=== PATIENT | male | born 1940 | race Caucasian/White ===

== ENCOUNTER → 2023-01-11 | Outpatient (REF) | payer MEDICARE, OTHER, SELFPAY ==
[2023-01-11 08:56] LABS: Hematocrit 38.8 % (40-54); Hemoglobin 12.6 g/dL (13.0-16.5); Mean Corp Hgb Conc 32.5 g/dL (32-36); Mean Corpuscular Hgb 32.4 pg (27.0-32.0); Mean Corpuscular Volume 99.7 fL (80-94); Mean Platelet Vol. 9.8 fl (6.2-12.0); Platelet Count 170 K/mm3 (150-450); RBC Distribution Width CV 12.5 % (11.6-14.6); RBC Distribution Width SD 45.7 fl (35.1-43.9); Red Blood Count 3.89 M/mm3 (4.6-6.2); White Blood Count 7.5 K/mm3 (4.4-11.0)
[2023-01-11 09:18] LABS: AST(SGOT) 26 U/L (15-37); Alanine Aminotransfer ALT/SGPT 25 U/L (16-61); Albumin, Serum 2.9 g/dL (3.2-5.0); Alkaline Phosphatase 94 U/L (45-117); Anion Gap 5 (5-15); BUN 18 mg/dL (7-18); BUN/Creat Ratio 17.6 RATIO (10-20); Calcium,Total 8.7 mg/dL (8.5-10.1); Chloride 108 mmol/L (98-107); Creatinine, Serum 1.02 mg/dL (0.70-1.30); EST Glomerular Filtration Rate 74 mL/min (>60); Est Glom Filt Rate - Afr Amer 90 mL/min (>60); Globulin 2.9 g/dL (2.2-4.2); Glucose 95 mg/dL (74-106); Potassium 3.8 mmol/L (3.5-5.1); Protein, Total 5.8 g/dL (6.4-8.2); Sodium Level 142 mmol/L (136-145)
== END ==
LOC: OLS.ACH 05:00
PROVIDERS: Visit Provider Internal Medicine
DX: N18.31 Chronic kidney disease, stage 3a (principal)
CPT/HCPCS: 36415; 80053; 85027

== ENCOUNTER → 2023-02-18 | Outpatient (REF) | payer MEDICARE, OTHER, SELFPAY ==
[2023-02-18 09:36] LABS: Hematocrit 42.3 % (40-54); Hemoglobin 13.5 g/dL (13.0-16.5); Mean Corp Hgb Conc 31.9 g/dL (32-36); Mean Corpuscular Hgb 32.1 pg (27.0-32.0); Mean Corpuscular Volume 100.5 fL (80-94); Platelet Count 203 K/mm3 (150-450); RBC Distribution Width CV 12.3 % (11.6-14.6); RBC Distribution Width SD 46.1 fl (35.1-43.9); Red Blood Count 4.21 M/mm3 (4.6-6.2); White Blood Count 8.1 K/mm3 (4.4-11.0)
[2023-02-18 09:41] LABS: Anion Gap 2 (5-15); BUN 25 mg/dL (7-18); BUN/Creat Ratio 22.5 RATIO (10-20); Calcium,Total 8.7 mg/dL (8.5-10.1); Chloride 111 mmol/L (98-107); Creatinine, Serum 1.11 mg/dL (0.70-1.30); EST Glomerular Filtration Rate 67 mL/min (>60); Est Glom Filt Rate - Afr Amer 81 mL/min (>60); Glucose 86 mg/dL (74-106); Potassium 4.5 mmol/L (3.5-5.1); Sodium Level 143 mmol/L (136-145)
== END ==
LOC: OLS.ACH 05:00
PROVIDERS: Visit Provider Internal Medicine
DX: N18.31 Chronic kidney disease, stage 3a (principal)
CPT/HCPCS: 36415; 80048; 85027

== ENCOUNTER → 2023-02-19 | Outpatient (REF) | payer MEDICARE, OTHER, SELFPAY ==
[2023-02-19 08:38] LABS: Mucous, Urine 0 SEEN /hpf (<or=2+); Red Blood Cells-Urine 0 SEEN /hpf (0-5)
[2023-02-19 08:49] LABS: Color, Urine Yellow (Yellow); Glucose, Dipstick Normal (Normal); Ketone-Dipstick 5 mg/dl (Negative); Leukocyte Esterase-Dipstick 500 /ul (Negative); Nitrite-Dipstick Negative (Negative); Occult Blood-Urine Negative /ul (Negative); Protein-Dipstick 15 mg/dl (Negative); Urine Bilirubin Dipstick Negative (Negative); Urine Clarity Sl. Cloudy (Clear); Urine Urobilinogen 1 mg/dl (Normal)
[2023-02-19 09:07] LABS: Bacteria 1+ /hpf (None Seen); Squamous Epithelial Cells - UA 0-5 SEEN /hpf (0-5); White Blood Cells 25-50 SEEN /hpf (0-5)
== END ==
LOC: OLS.ACH 01:00
PROVIDERS: Visit Provider Internal Medicine
DX: N18.31 Chronic kidney disease, stage 3a (principal); Z79.899 Other long term (current) drug therapy
CPT/HCPCS: 81001

== ENCOUNTER → 2023-02-24 | Outpatient (REF) | payer MEDICARE, SELFPAY ==
[2023-02-24 08:35] LABS: Bacteria 0 SEEN /hpf (None Seen); Mucous, Urine 0 SEEN /hpf (<or=2+); Red Blood Cells-Urine 0 SEEN /hpf (0-5); Squamous Epithelial Cells - UA 0 SEEN /hpf (0-5); White Blood Cells 0 SEEN /hpf (0-5)
[2023-02-24 09:06] LABS: Color, Urine Yellow (Yellow); Glucose, Dipstick Normal (Normal); Ketone-Dipstick Negative (Negative); Leukocyte Esterase-Dipstick Negative /ul (Negative); Nitrite-Dipstick Negative (Negative); Occult Blood-Urine Negative /ul (Negative); Protein-Dipstick Negative (Negative); Urine Bilirubin Dipstick Negative (Negative); Urine Clarity Sl. Cloudy (Clear); Urine Urobilinogen 1 mg/dl (Normal)
== END ==
LOC: OLS.ACH 05:00
PROVIDERS: Visit Provider Internal Medicine
DX: R41.82 Altered mental status, unspecified (principal)
CPT/HCPCS: 81001; 87086

== ENCOUNTER → 2023-06-16 | Outpatient (CLI) | payer MEDICARE, OTHER, SELFPAY ==
--- OUTSIDE RECORDS SUMMARY | 2023-06-16 12:53 | XMS RPT_ITS | CCD ---
Author Name Unknown Address [address] [place] [address] Organization [facility] Care Team Providers Care Spray Machine Loader Name Role Phone Blanco, Chenguttai Jayaram Unavailable Unav ailable Blanco, Chenguttai Jayaram Unavailable Unav ailable Blanco, Chenguttai Jayaram Unavailable Unav ailable Blanco, Chenguttai Jayaram Unavailable Unav ailable Blanco, Chenguttai Jayaram Unavailable Unav ailable Blanco, Chenguttai Jayaram Unavailable Unav ailable Blanco, Chenguttai Jayaram Unavailable Unav ailable Razmjouei, Karim Unavailable Unavailable KELTY, OTIS DORIAN Unavailable Unavailable Blanco, Chenguttai Jayaram Unavailable Unav ailable Anoop, Sajid Unavailable Unavailable Blanco, Chenguttai Jayaram Unavailable Unav ailable ANDRYC, SAMREEN A Unavailable Unavailable Blanco, Chenguttai Jayaram Unavailable Unav ailable Blanco, Chenguttai Jayaram Unavailable Unav ailable Blanco, Chenguttai Jayaram Unavailable Unav ailable Blanco, Chenguttai J Unavailable UnavailJose Galeana Unavailable Unavailable Cathy Cid Unavailable Unavailable Cathy Cid Unavailable UnavailZaynab Bergman Unavailable Unavailable Blanco, Chenguttai J Unavailable UnavailCathy Bains Unavailable Unavailable [id number], Chenguttai J Unavailable Unavailable Cathy Cid Unavailable [phone] Unavailable Unavailable Unavailable Primary Care Provider Unavailabl e PROVIDER, UNKNOWN Referring Unavailable No, PCP Primary Care Unavailable Adusumilli, Leo Attending Unavailable Mesko, Dr. Zaynab Campos Attending Unava ilable Mesko, Dr. Zaynab Campos Referring Unava ilable Van Nostran, Dr. Cathy Carter Primary Care U navailable Van Nostran, Dr. Cathy Carter Attending U navailable Van Nostran, Dr. Cathy Carter Referring U navailable Van Nostran, Dr. Cathy Carter Primary Care U navailable Mesko, Dr. Zaynab Campos Referring Unava ilable Van Nostran, Dr. Cathy Carter Primary Care U navailable Mesko, Dr. Zaynab Campos Attending Unava ilable Van Nostran, Dr. Cathy Carter Attending U navailable Van Nostran, Dr. Cathy Carter Primary Care U navailable Van Nostran, Dr. Cathy Carter Referring U navailable Mesko, Dr. Zaynab Campos Attending Unava ilable Mesko, Dr. Zaynab Campos Referring Unava ilable Van Nostran, Dr. Cathy Carter Primary Care U navailable Mesko, Dr. Zaynab Campos Referring Unava ilable Mesko, Dr. Zaynab Campos Attending Unava ilable Van Nostran, Dr. Cathy Carter Primary Care U navailable Mesko, Dr. Zaynab Campos Referring Unava ilable Mesko, Dr. Zaynab Campos Attending Unava ilable Van Nostran, Dr. Cathy Carter Primary Care U navailable Van Nostran, Dr. Cathy Carter Primary Care U navailable Van Nostran, Dr. Cathy Carter Referring U navailable Charlie Clancy Attending Unavailable Van Nostran, Dr. Cathy Carter Primary Care U navailable Van Nostran, Dr. Cathy Carter Referring U navailable Van Nostran, Dr. Cathy Carter Attending U navailable Van Nostran, Dr. Cathy Carter Primary Care U navailable Van Nostran, Dr. Cathy Carter Referring U navailable Van Nostran, Dr. Cathy Carter Attending U navailable Van Nostran, Dr. Cathy Carter Primary Care U navailable Hoynes, Dr. Dylan Cowan Referring Unavaila ble Hoynes, Dr. Dylan Cowan Attending Unavaila ble Van Nosanabella, Dr. Cathy Carter Primary Care [facility] Van Nostran, Dr. Cathy Carter Referring U [facility] JewelCharlie power Attending Unavailable Van Nostran, Dr. Cathy Carter Primary Care U [facility] Van Nostran, Dr. Cathy Carter Referring U [facility] JewelCharlie power Attending Unavailable Van Jaylen, Dr. Cathy Carter Referring [facility] hospital[facility] Attending Unavailable Van Jaylen, [facility]athy [facility], Dr. Cathy Carter Primary Care [facility] Charlie Clancy Attending Unavailable Van Jaylen, Dr. Cathy Carter [facility]erring [facility]ostran, Dr. Cathy Carter [facility], Dr. Dylan Cowan Referring Unavaila ble Dentonynes, Dr. Dylan Cowan Attending Unavaila ble Rei York, Dr. Cathy Carter Attending U [facility] Rei York, Dr. Cathy Carter Primary Care U [facility] Rei York, Dr. Cathy Carter Referring U [facility] Rei York, Dr. Cathy Carter Primary Care U [facility] Rei York, Dr. Cathy Carter Referring [facility] Van Jaylen, Dr. Cathy Carter Attending U [facility] Rei York, Dr. Cathy Carter Primary Care U [facility] Rei York, Dr. Cathy Carter Referring U [facility] Rei York, Dr. Cathy Carter Attending U [facility] Cathy Cid DO Primary Care Provider Cathy Cid DO Unavailable CATHY CID Primary Care CATHY Matthews Primary Care UnavailCATHY Bains Attending CATHY Matthews Primary Care Unavailrekha valencia Medications Current Medications Medication Drug Class(es) Dates Sig (Normalized) Sig (Original) allopurinol 100 mg oral tablet (20 sources) Xanthine Oxidase Inhibitor Start: 12-13-2014 allopurinol (Zyloprim) 100 mg tablet cholecalciferol 0.05 mg oral tablet (20 sources) Vitamin D cholecalciferol (Vitamin D-3) 50 MCG (1999) tablet Vitamin D3 50 MCG (1999) Oral Tablet Refills: 0 Active 0 Active Completed/Discontinued Medications Medication Drug Class(es) Dates Sig (Normalized) Sig (Original) [id number] 200 actuat albuterol 0.09 mg/actuat metered dose inhaler (20 sources) beta2-Adrenergic Agonist Start: 12-02-2020 take 1-2 puff(s) by mouth every four hours Albuterol Sulfate HFA 108 (90 Base) MCG/ACT Inhalation Aerosol Solution inhale 1-2 puffs by mouth every 4 hours if needed Quantity: 1 Refills: 3 Ordered: 15-Apr-2022 Cathy Cid DO Start : 02-Dec-2020 Active Problems Active Problems Problem Classification Problem Date Documented Date Episodic/Chronic Anxiety disorders (20 sources) Anxiety; Translations: [Mixed anxiety and depressive disorder] Onset: 10-13-2022 10-14-2022 Chronic Anxiety disorders (10 sources) Indifference; Translations: [Demoralization and apathy] Onset: 10-14-2022 10-14-2022 Episodic Chronic kidney disease (20 sources) Chronic kidney disease, unspecified; Translations: [Chronic kidney disease stage 3] Onset: 10-13-2022 10-14-2022 Chronic Chronic kidney disease (12 sources) Chronic kidney disease; Translations: [Chronic renal insufficiency] Onset: 11-27-2017 Chronic obstructive pulmonary disease and bronchiectasis (20 sources) Chronic obstructive pulmonary disease, unspecified; Translations: [Chronic obstructive lung disease] Onset: 01-02-2018 10-14-2022 Chronic Conduction disorders (20 sources) Right bundle branch block AND left anterior fascicular block; Translations: [Right bundle branch block and left anterior fascicular block] Onset: 10-13-2022 10-13-2022 Chronic Congestive heart failure; nonhypertensive (20 sources) Heart failure with normal ejection fraction; Translations: [Heart failure, unspecified] Onset: 10-13-2022 10-13-2022 Chronic Coronary atherosclerosis and other heart disease (20 sources) Coronary arteriosclerosis; Translations: [Coronary atherosclerosis of unspecified type of vessel, [place] or graft] Onset: 09-08-2022 10-14-2022 Chronic Past or Other Problems Problem Classification Problem Date Documented Date Episodic/Chronic External cause codes: Fall (17 sources) Fall; Translations: [Fall] Mood disorders (3 sources) Major depressive disorder, single episode, unspecified; Translations: [Mood disorders] Onset: 01-02-2018 10-14-2022 Osteoarthritis (16 sources) Osteoarthritis of right hip joint; Translations: [Osteoarthritis of right hip] Other aftercare (1 source) 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; Translations: [senior care (current) use of anticoagulants] Onset: 12-17-2017 Episodic Other connective tissue disease (5 sources) H/O: arthritis; Translations: [History of acute gouty arthritis] Episodic Other connective tissue disease (20 sources) H/O: gout; Translations: [Personal history of arthritis] Resolved: 05-26-2019 Episodic Other nervous system disorders (1 source) Other abnormalities of gait and mobility; Translations: [Other abnormalities of gait and mobility] Onset: 08-28-2021 Episodic Other nervous system disorders (1 source) Unsteadiness on feet; Translations: [Unsteadiness on feet] Onset: 08-28-2021 Episodic Other non-traumatic joint disorders (3 sources) Pain in right shoulder; Translations: [Pain in right shoulder] Onset: 10-14-2021 Episodic Other non-traumatic joint disorders (1 source) Pain in left shoulder; Translations: [Pain in left shoulder] Onset: 10-14-2021 Episodic Other nutritional; endocrine; and metabolic disorders (20 sources) History of nutritional deficiency; Translations: [Personal history of nutritional deficiency] Resolved: 12-02-2020 Episodic Results Test Name Value Interpretation Reference Range Facil ity Vital Signs Date Time Vital Sign Value Performing Clinician Facility 12-09-2022 13:00-0400 Body mass index (BMI) [Ratio] 20.94 kg/m2 Cathy Cid DO Work Phone: [facility] 12-09-2022 13:00-0400 Body temperature 97.5 [degF] Cathy Cid DO Work Phone: [facility] 12-09-2022 13:00-0400 Body weight 64.32 kg Cathy Cid DO Work Phone: [facility] 12-09-2022 13:00-0400 Diastolic blood pressure 76 mm[Hg] Cathy Vallestran DO Work Phone: [facility] 12-09-2022 13:00-0400 Heart rate 70 /min Cathy Vallestran DO Work Phone: [facility] 12-09-2022 13:00-0400 Respiratory rate 12 /min Cathy Vallestran DO Work Phone: [facility] 12-09-2022 13:00-0400 SaO2% (BldA) [Mass fraction] 95 % Cathy Vallestran DO Work Phone: [facility] 12-09-2022 13:00-0400 Systolic blood pressure 118 mm[Hg] Cathy Vallestran DO Work Phone: [facility] 10-14-2022 13:48-0400 Body mass index (BMI) [Ratio] 21.01 kg/m2 Cathy Cid DO Work Phone: [facility] 10-14-2022 13:48-0400 Body temperature 99 [degF] Cathy Cid DO Work Phone: [facility] 10-14-2022 13:48-0400 Body weight 64.55 kg Cathy Cid DO Work Phone: [facility] 10-14-2022 13:48-0400 Diastolic blood pressure 55 mm[Hg] Ctahy Cid DO Work Phone: [facility] 10-14-2022 13:48-0400 Heart rate 80 /min Cathy Vallesanabella DO Work Phone: [facility] 10-14-2022 13:48-0400 Respiratory rate 14 /min Cathyivan Vallestran DO Work Phone: [facility] 10-14-2022 13:48-0400 SaO2% (BldA) [Mass fraction] 92 % Cathy Van Nostran DO Work Phone: [facility] 10-14-2022 13:48-0400 Systolic blood pressure 93 mm[Hg] Cathy Van Nostran DO Work Phone: [facility] 04-15-2022 10:25-0500 Body mass index (BMI) [Ratio] 22.31 kg/m2 Cathy Valencia Van Nostran Work Phone: [facility] Work Phone: 04-15-2022 10:25-0500 Body surface area Derived from formula 1.83 m2 Cathy Valencia Van Nostran Work Phone: [facility] Work Phone: 04-15-2022 10:25-0500 Body temperature 97.2 [degF] Cathy Valencia Van Nostran Work Phone: [facility] Work Phone: 04-15-2022 10:25-0500 Body weight 68.52 kg Cathy Valencia Van Nostran Work Phone: [facility] Work Phone: 04-15-2022 10:25-0500 Diastolic blood pressure 67 mm[Hg] Cathy Valencia Van Nostran Work Phone: [facility] Work Phone: 04-15-2022 10:25-0500 Heart rate 80 /min Cathy Valencia Van Nostran Work Phone: [facility] Work Phone: 04-15-2022 10:25-0500 Respiratory rate 14 /min Cathy Valnecia Van Nostran Work Phone: [facility] Work Phone: 04-15-2022 10:25-0500 SaO2% (BldA) [Mass fraction] 93 % Cathy Valencia Van Nostran Work Phone: [facility] Work Phone: 04-15-2022 10:25-0500 Systolic blood pressure 106 mm[Hg] Cathy Vallesanabella Work Phone: [facility] Work Phone: 04-15-2022 10:25-0500 17 1 Cathy Minaya Nostran Work Phone: [facility] Work Phone: Encounters Encounter Date Encounter Type Care Provider Facility Start: 12-09-2022 End: 12-09-2022 Office outpatient visit 25 minutes Cathy Valencia Rei York DO Work Phone: [facility] Procedures Date Procedure Procedure Detail Performing Clinician Start: 10-15-2022 Basic metabolic 1999 panel - Serum or Plasma CATHY CID Start: 10-14-2022 CBC panel - Blood by Automated count CATHY CID Start: 10-14-2022 Comprehensive metabo lic 1999 panel - Serum or Plasma CATHY CID Start: 10-14-2022 TSH WITH REFLEX TO F REE T4 IF ABNORMAL CATHY CID Start: 02-02-2022 Radex humerus minimu m 2 views Leo Keyes MD Work Phone: Start: 02-02-2022 Ct cervical spine w/ o contrast material Leo Keyes MD Work Phone: Start: 02-02-2022 Ct head/brain w/o co ntrast material Leo Keyes MD Work Phone: Start: 02-02-2022 Ct pelvis w/o contra st material Leo Keyes MD Work Phone: Start: 01-12-2022 Medicare Annual Well ness Visit Start: 09-11-2021 Follow-up visit Start: 07-03-2021 Lipid 1996 panel - S rose or Plasma Cathy Rei York DO Work Phone: Start: 11-28-2019 Basic metabolic 1998 panel - Serum or Plasma Jonna Simeon Start: 11-28-2019 CBC W Auto Different ial panel - Blood [facility] Start: 11-28-2019 Lipid panel [facility] Start: 09-09-2018 Basic metabolic 1998 panel - Serum or Plasma [facility] Start: 09-09-2018 CBC W Auto Different ial panel - Blood [facility] Start: 09-09-2018 TSH WITH REFLEX TO F REE T4 IF ABNORMAL [facility] Start: 01-02-2018 Iv infusion hydratio n each additional hour [facility] Start: 01-02-2018 Iv infusion hydratio n initial 31 min[facility] Start: 11-28-2017 Iv infusion hydratio n initial 31 min-1 hour [facility] Hernia repair [facility] History of Back Surgery [facility] History of Total Gastrectomy [facility] History of Transuret hral Resection Of Prostate (TURP) [facility] Plan of Treatment Date Care Activity Detail Author Start: 07-03-2026 Lipid panel Lipid Panel [facility] Start: 10-03-2025 DTaP/Tdap/Td Vaccines (2 - Td or Tdap) DTaP/Tdap/Td Vaccines (2 - Td or Tdap) [facility] Start: 10-16-2023 Creatinine measurement Creatinine Level [facility] Start: 10-16-2023 Potassium measurement Potassium Level [facility] Start: 04-16-2023 Medicare Annual Wellness Visit Medicare Annual Wellness Visit (AWV) [facility] Start: 04-15-2023 End: 04-15-2023 Patient encounter procedure 04/15/2023 2:30 PM EST Office Visit [facility] [address] [place] [id number] Cathy Cid DO [address] [facility] [place] [address] [facility] Start: 01-01-2023 Influenza vaccination Influenza Vaccine (#1) [facility] Start: 12-09-2022 End: 12-09-2022 Patient encounter procedure 12/09/2022 1:00 PM EDT Office Visit [facility] [address] [place] [address] Cathy Cid DO [address] [facility] [place] [address] [facility] Start: 10-14-2022 FUV, Provider: Cathy Cid, Status: Pen, Time: 1:30 PM FUV, Provider: Cathy Cid, Status: Pen, Time: 1:30 PM [facility] Work Phone: Start: 10-14-2022 End: 10-15-2023 CBC panel - Blood by Automated count CBC Lab Routine Depression with anxiety Unexplained weight loss Fatigue, unspecified type Apathy Irritability Expected: 10/14/2022 (Approximate), Expires: 10/15/2023 [facility] Service Area Work Phone: Immunizations Immunization Date Immunization Notes Care Provider Fa cility 04-15-2022 Prevnar 20 0.5 ML Intramuscular Suspension Prefilled Syringe; Translations: [Prevnar 20 0.5 ML Intramuscular Suspension Prefilled Syringe] Cathy Cid Work Phone: [facility] Work Phone: Payers Date Payer Category Payer Unknown [id number] 2008 Unknown 2008 Unknown [id number] Medicare [id number] 2001 Medicare [id number] 2001 Medicare 1936 Unknown [id number] 2.16. 840.1.975335.3.579.2. 1936 Unknown [id number] 2.16. 840.1.190632.3.579.2.356 1936 Unknown [id number] 2.16. 840.1.751999.3.579.2.356 1936 Unknown [id number] 2. 840.1.151184.3.579.2.356 1936 Unknown [id number] 2. 840.1.281031.3.579.2. 1936 Unknown [id number] 2. 840.1.232173.3.579.2. 1936 Unknown [id number] 2. 840.1.873181.3.579.2. 1936 Unknown [id number] 2. 840.1.670173.3.579.2. 1936 Unknown [id number] 2.0.1.508412.3.579.2.668 1936 Unknown [id number] 2.0.1.020184.3.579.2. 1936 Unknown [id number] 2.0.1.944090.3.579.2. 1936 Unknown [id number] 2.0.1.165438.3.579.2. 1936 Unknown [id number] .0.1.620284.3.579.2. 1936 Unknown [id number] 2. 840.1.821263.3.579.2. 1936 Unknown [id number] . 840.1.746998.3.579.2. 1936 Unknown [id number] . 840.1.366639.3.579.2. 1936 Unknown [id number] 2. 840.1.990956.3.579.2. 1936 Unknown [id number] 2. 840.1.184255.3.579.2. 1936 Unknown [id number] 2. 840.1.344875.3.579.2.356 1936 Unknown [id number] 2.16. 840.1.388137.3.579.2.356 1936 Unknown [id number] 2.16. 840.1.971292.3.579.2.356 1936 Unknown [id number] 2.16. 840.1.116534.3.579.2.356 1936 Unknown [id number] 2.16. 840.1.631992.3.579.2.356 1936 Unknown [id number] 2.16. 840.1.549414.3.579.2.356 1936 Unknown [id number] 2.16. 840.1.446856.3.579.2.356 1936 Unknown [id number] 2.16. 840.1.538101.3.579.2.356 1936 Unknown [id number] 2.16. 840.1.303281.3.579.2.356 1936 Unknown [id number] 2.16. 840.1.158862.3.579.2.356 1936 Unknown [id number] 2.16.84 0.1.285325.3.579.2.1245 1936 Unknown [id number] 2.16.84 0.1.831730.3.579.2.1245 1936 Unknown [id number] 2.16.84 0.1.547044.3.579.2.1244 Social History Date Type Detail Facility Start: 10-14-2022 Never a smoker Never a smoker [facility] Work Phone: Start: 02-02-2022 End: 10-14-2022 Tobacco smoking status NHIS Never smoked tobacco [facility] Work Phone: Start: 02-02-2022 End: 10-14-2022 Tobacco use and exposure Smokeless tobacco non-user [facility] Work Phone: Start: 02-02-2022 Alcohol intake Lifetime non-d riky (finding) [facility] Work Phone: Start: 11-27-1938 Sex Assigned At Not on file [facility] Work Phone: Start: 01-23-2022 End: 12-09-2022 Exposure to SARS-CoV-2 (event) Not sure [facility] Work Phone: History of tobacco use Passive smoker [facility] Work Phone: Start: 10-14-2022 End: 12-09-2022 Alcohol intake Ex-drinker (finding) [facility] Work Phone: Start: 10-14-2022 [facility] Work Phone: NEGATED: Highlighted row - Never smoker [facility] Work Phone: NEGATED: Highlighted rowStart: NINF History of tobacco use Passive smoker [facility] Work Phone: Functional Status Date Assessment Result Facility 03-19-2021 PHQ-9 Adult Depressi on Score PHQ-9 Adult Depression Score 4 [facility] Work Phone: Mental Status Date Assessment Result Facility NEGATED: Highlighted row Cognitive function [Interpretation] Cognitive status health issues are not documented Disease [facility] Work Phone: Clinical Notes 12-02-2020 to 12-09-2022 Assessment & Plan Note - Chica Early - 12/09/2022 1:47 PM EDTAssessment & Plan Note - Chica Early - 12/09/2022 1:47 PM Hugo Cid DO - 12/09/2022 1:00 PM EDTAttachments Note Date & Type Note Facility 12-09-2022 Evaluation + Plan note Associated Problem(s): Depression with anxiety There is report of improvement in mood and engagement per since changing to the Zoloft. Continue Zoloft 50 mg daily. [facility] Work Phone: 12-09-2022 Miscellaneous Notes Associated Problem(s): Depression with anxiety There is report of improvement in mood and engagement per since changing to the Zoloft. Continue Zoloft 50 mg daily. Associated Problem(s): Carotid artery stenosis Continue Plavix Associated Problem(s): CAD (coronary artery disease) Stable, continue Rosuvastatin 10 mg & Plavix anticoagulation. Associated Problem(s): Hx of blood clots Currently on Plavix, has taken Eliquis in the past. Hx of DVT (x3) Hx of GI bleed/ulcer that required surgical intervention per over 40 years ago. R/B discussion held regarding Plavix vs Xarelto/Eliquis, elects to continue with Plavix given complicated history, fall risk. documented in this encounter [facility] Work Phone: 12-09-2022 Evaluation + Plan note Associated Problem(s): Carotid artery stenosis Continue Plavix [facility] Work Phone: 12-09-2022 Evaluation + Plan note Associated Problem(s): CAD (coronary artery disease) Stable, continue Rosuvastatin 10 mg & Plavix anticoagulation. [facility] Work Phone: 12-09-2022 Evaluation + Plan note Associated Problem(s): Hx of blood clots Currently on Plavix, has taken Eliquis in the past. Hx of DVT (x3) Hx of GI bleed/ulcer that required surgical intervention per over 40 years ago. R/B discussion held regarding Plavix vs Xarelto/Eliquis, elects to continue with Plavix given complicated history, fall risk. [facility] Work Phone: 12-09-2022 History of Present illness Narrative Subjective Patient ID: Javier Lanza is a 84 y.o. male who presents for Weight Check (Pt presents for follow up weight check). HPI Patient presents today for 6-8 week follow-up for recheck mood and weight + review labs. 10/14/2022 LABS: CBC normal CMP glucose 32, creatinine 1.39, GFR 49 TSH normal Repeat BMP done on 10/15/2022 showed glucose 113 Weight remains stable at visit today within 1 lb of last visit in October 2022. Appetite remains stable per patient. CHRONIC CONDITIONS: -DEMENTIA Taking Memantine 10 mg BID. -MOOD Patient has been on Celexa for over 4 years now, some concerns for irritability, apathy. does feel trial with alternative would be reasonable. Will taper the Celexa and once discontinue will do trial with Zoloft Patient decrease to 1/2 dose Celexa for 1 week (20 mg daily), then stop altogether. The day following the last dose of Celexa patient to start Zoloft 25 mg daily. After 1 week on the Zoloft 25 mg daily, if tolerating well to increase to 50 mg daily. Will reassess patient in 6-8 weeks. Today reports that his mood seems to be improved overall. He is not as irritable, more engaged. Read for about 1 hour everyday. -COPD Feels there is some excessive mucus production with out cough. Patient/ to do trial with split dosing PPI as 10 mg in AM and 10 mg in PM. -CKD Remains at baseline, monitoring routinely. -WEIGHT LOSS Down ~ 25 lbs in last 1.5 years. Basic blood work ordered today. Patient/ do not wish to have extensive work-up, felt to be due in part to aging/comorbidities/change in dietary habits. Advised can add on Ensure or something similar. Hx of carotid artery disease and clots x 3, requesting refill of Plavix. Reports DVT x 3 2014 RLE after surgery Reports 2 other episodes of clots. Hx of bleeding ulcer in remote past, at least 40 years ago. Reports he had gastric surgery at that time. Review of Systems All other systems reviewed and are negative. Objective BP 118/76 (BP Location: Right arm, Patient Position: Sitting, BP Cuff Size: Small adult) Pulse 70 Temp 36.4 C (97.5 F) (Temporal) Resp 12 Wt 64.3 kg (141 lb 12.8 oz) SpO2 95% BMI 20.94 kg/m Physical Exam Vitals and nursing note reviewed. Constitutional: General: He is not in acute distress. Appearance: Normal appearance. He is not toxic-appearing. Comments: Spontaneous conversation, though minimal, much improved from previous visits HENT: Head: Normocephalic and atraumatic. Neck: Thyroid: No thyromegaly. Cardiovascular: Rate and Rhythm: Normal rate and regular rhythm. Heart sounds: No murmur heard. No friction rub. No gallop. Pulmonary: Effort: Pulmonary effort is normal. Breath sounds: Normal breath sounds. No wheezing, rhonchi or rales. Lymphadenopathy: Cervical: No cervical adenopathy. Neurological: General: No focal deficit present. Mental Status: He is alert. Psychiatric: Mood and Affect: Mood normal. Behavior: Behavior normal. Assessment/Plan Problem List Items Addressed This Visit CAD (coronary artery disease) Stable, continue Rosuvastatin 10 mg & Plavix anticoagulation. Relevant Medications clopidogrel (Plavix) 75 mg tablet Carotid artery stenosis Continue Plavix Relevant Medications clopidogrel (Plavix) 75 mg tablet Depression with anxiety - Primary There is report of improvement in mood and engagement per since changing to the Zoloft. Continue Zoloft 50 mg daily. Relevant Medications sertraline (Zoloft) 50 mg tablet Hx of blood clots Currently on Plavix, has taken Eliquis in the past. Hx of DVT (x3) Hx of GI bleed/ulcer that required surgical intervention per over 40 years ago. R/B discussion held regarding Plavix vs Xarelto/Eliquis, elects to continue with Plavix given complicated history, fall risk. Relevant Medications clopidogrel (Plavix) 75 mg tablet Follow-up as previously scheduled for routine care. Call for sooner follow-up if needed. Scribe Attestation By signing my name below, I, Chica Early, Jhonny attest that this documentation has been prepared under the direction and in the presence of Cathy Cid DO. documented in this encounter [facility] Work Phone: 12-09-2022 Instructions Chica Early - 12/09/2022 1:00 PM EDT Continue Plavix Continue Sertraline 50 mg daily. Continue with Ensure Follow-up as scheduled for routine care. documented in this encounter [facility] Work Phone: 10-14-2022 Evaluation + Plan note Associated Problem(s): CKD (chronic kidney disease) stage 3, GFR 30-59 ml/min (CMS/HCC) Prior labs at baseline for patient. Will continue to monitor on regular basis. Revisited good BP control, avoiding NSAIDs, and adequate hydration as measures to further protect kidneys. [facility] Work Phone: 10-14-2022 Miscellaneous Notes Associated Problem(s): CKD (chronic kidney disease) stage 3, GFR 30-59 ml/min (CMS/HCC) Prior labs at baseline for patient. Will continue to monitor on regular basis. Revisited good BP control, avoiding NSAIDs, and adequate hydration as measures to further protect kidneys. Associated Problem(s): Dementia (CMS/HCC) Continue Memantine 10 mg BID. See mood recommesndationation Associated Problem(s): COPD (chronic obstructive pulmonary disease) (CMS/HCC) Feels there is some excessive mucus production with out cough. Patient/ to do trial with split dosing PPI as 10 mg in AM and 10 mg in PM. Associated Problem(s): Depression with anxiety Patient has been on Celexa for over 4 years now, some concerns for irritability, apathy. does feel trial with alternative would be reasonable. Will taper the Celexa and once discontinue will do trial with Zoloft Patient decrease to 1/2 dose Celexa for 1 week (20 mg daily), then stop altogether. The day following the last dose of Celexa patient to start Zoloft 25 mg daily. After 1 week on the Zoloft 25 mg daily, if tolerating well to increase to 50 mg daily. Will reassess patient in 6-8 weeks. Associated Problem(s): Body mass index (BMI) of 21.0 to 21.9 in adult Down ~ 25 lbs in last 1.5 years. Basic blood work ordered today. Patient/ do not wish to have extensive work-up, felt to be due in part to aging/comorbidities/change in dietary habits. Advised can add on Ensure or something similar. Associated Problem(s): Insomnia Taking Trazodone 50 mg (1/2 tablet) at bedtime. documented in this encounter [facility] Work Phone: 10-14-2022 Evaluation + Plan note Associated Problem(s): Dementia (CMS/HCC) Continue Memantine 10 mg BID. See mood recommesndationation [facility] Work Phone: 10-14-2022 Evaluation + Plan note Associated Problem(s): COPD (chronic obstructive pulmonary disease) ([facility]) Feels there is some excessive mucus production with out cough. Patient/ to do trial with split dosing PPI as 10 mg in AM and 10 mg in PM. [facility] Work Phone: 10-14-2022 Evaluation + Plan note Associated Problem(s): Depression with anxiety Patient has been on Celexa for over 4 years now, some concerns for irritability, apathy. does feel trial with alternative would be reasonable. Will taper the Celexa and once discontinue will do trial with Zoloft Patient decrease to 1/2 dose Celexa for 1 week (20 mg daily), then stop altogether. The day following the last dose of Celexa patient to start Zoloft 25 mg daily. After 1 week on the Zoloft 25 mg daily, if tolerating well to increase to 50 mg daily. Will reassess patient in 6-8 weeks. [facility] Work Phone: 10-14-2022 Evaluation + Plan note Associated Problem(s): Body mass index (BMI) of 21.0 to 21.9 in adult Down ~ 25 lbs in last 1.5 years. Basic blood work ordered today. Patient/ do not wish to have extensive work-up, felt to be due in part to aging/comorbidities/change in dietary habits. Advised can add on Ensure or something similar. [facility] Work Phone: 10-14-2022 Evaluation + Plan note Associated Problem(s): Insomnia Taking Trazodone 50 mg (1/2 tablet) at bedtime. [facility] Work Phone: 10-14-2022 History of Present illness Narrative Subjective Patient ID: Javier Lanza is a 83 y.o. male who presents for Follow-up, Hypertension, Hyperlipidemia, Coronary Artery Disease, Chronic Kidney Disease, Hyperglycemia, Gait Problem, and Excessive Mucus. HPI Reports excessive mucus production, feels to be worse in the AM Does not feel is coughing much. Started PPI, does not feel there is much change in this. states she can hear patient's stomach gurgling at table. Patient denies any dysphagia, abdominal pain, diarrhea, vomiting, or constipation. notes patient has lost weight, feels some what deliberate as he is snacking more than eating meals. Feels he has lost some muscle mass. He has had some falls. CHRONIC CONDITIONS: -Gait, patient referred to PT for balance in 07/2021, he completed 6 sessions and was then discharged. -Mood, taking Celexa 40 mg daily. Patient reports mood is not bad, notes he does get irritable at times and some apathy. Does not enjoy the things he usually does. Does not partake in conversations, cannot hear well but does not want to wear hearing aids. Sleep is good, no trouble falling asleep. Reports has been on the Celexa for more than 4 years, saw psych in past. -Insomnia, taking Trazodone 50 mg (1/2 tablet) at bedtime. -Dementia, on Memantine 10 mg BID. MOCA 2019 was stable. -COPD, never a smoker but did have industrial exposure. He was previously on Symbicort daily in distant past, declined this at 03/2021 Now using albuterol as needed. -HTN, taking Metoprolol 25 mg 1/2 tablet daily. -Hyperglycemia, barely in pre-diabetic range, lifestyle managed. 07/2021 glucose 117 12/2020 Hgb A1c 5.8; prior A1c was 5.6 in 01/2018 -CKD, baseline GFR 56-60 07/2021 GFR 49 + creatinine 1.40, down from prior and down from baseline. 12/2020 GFR 59 + creatinine 1.18, at baseline. -CAD/HLD currently on Rosuvastatin 10 mg & Plavix anticoagulation. Has seen cardiology (Dr. Obrien) in the past. 07/2021 lipid panel favorable with TC/HDL ratio 3.2, stable from prior ratio 3.2 in 12/2020 No CACS, however, there were coronary artery calcifications on 07/2007 CT chest. Review of Systems All other systems reviewed and are negative. Objective BP 93/55 (BP Location: Right arm, Patient Position: Sitting, BP Cuff Size: Adult) Pulse 80 Temp 37.2 C (99 F) Resp 14 Wt 64.5 kg (142 lb 4.8 oz) SpO2 92% BMI 21.01 kg/m Physical Exam Vitals and nursing note reviewed. Constitutional: General: He is not in acute distress. Appearance: Normal appearance. He is not toxic-appearing. HENT: Head: Normocephalic and atraumatic. Eyes: Extraocular Movements: Extraocular movements intact. Pupils: Pupils are equal, round, and reactive to light. Neck: Thyroid: No thyromegaly. Vascular: No hepatojugular reflux or JVD. Cardiovascular: Rate and Rhythm: Normal rate and regular rhythm. Heart sounds: No murmur heard. No friction rub. No gallop. Pulmonary: Effort: Pulmonary effort is normal. Breath sounds: Normal breath sounds. No wheezing, rhonchi or rales. Abdominal: General: Bowel sounds are normal. There is no distension. Palpations: Abdomen is soft. There is no mass. Tenderness: There is no abdominal tenderness. There is no guarding. Musculoskeletal: General: Normal range of motion. Right lower leg: No edema. Left lower leg: No edema. Lymphadenopathy: Cervical: No cervical adenopathy. Skin: General: Skin is warm and dry. Neurological: General: No focal deficit present. Mental Status: He is alert and oriented to person, place, and time. Gait: Gait normal. Psychiatric: Mood and Affect: Mood normal. Behavior: Behavior normal. Assessment/Plan Problem List Items Addressed This Visit Nervous Dementia (CMS/HCC) Continue Memantine 10 mg BID. See mood recommesndationation Respiratory COPD (chronic obstructive pulmonary disease) ([facility]) Feels there is some excessive mucus production with out cough. Patient/ to do trial with split dosing PPI as 10 mg in AM and 10 mg in PM. Genitourinary CKD (chronic kidney disease) stage 3, GFR 30-59 ml/min ([facility]) Prior labs at baseline for patient. Will continue to monitor on regular basis. Revisited good BP control, avoiding NSAIDs, and adequate hydration as measures to further protect kidneys. Other Depression with anxiety - Primary Patient has been on Celexa for over 4 years now, some concerns for irritability, apathy. does feel trial with alternative would be reasonable. Will taper the Celexa and once discontinue will do trial with Zoloft Patient decrease to 1/2 dose Celexa for 1 week (20 mg daily), then stop altogether. The day following the last dose of Celexa patient to start Zoloft 25 mg daily. After 1 week on the Zoloft 25 mg daily, if tolerating well to increase to 50 mg daily. Will reassess patient in 6-8 weeks. Relevant Medications sertraline (Zoloft) 50 mg tablet Other Relevant Orders CBC Comprehensive Metabolic Panel TSH with reflex to Free T4 if abnormal Body mass index (BMI) of 21.0 to 21.9 in adult Down ~ 25 lbs in last 1.5 years. Basic blood work ordered today. Patient/ do not wish to have extensive work-up, felt to be due in part to aging/comorbidities/change in dietary habits. Advised can add on Ensure or something similar. Other Visit Diagnoses Unexplained weight loss Relevant Orders CBC Comprehensive Metabolic Panel TSH with reflex to Free T4 if abnormal Fatigue, unspecified type Relevant Orders CBC Comprehensive Metabolic Panel TSH with reflex to Free T4 if abnormal Apathy Relevant Orders CBC Comprehensive Metabolic Panel TSH with reflex to Free T4 if abnormal Irritability Relevant Orders CBC Comprehensive Metabolic Panel TSH with reflex to Free T4 if abnormal Follow-up in 6-8 weeks for recheck mood and weight + review labs. Labs to be done prior. Call for sooner follow-up if needed. Scribe Attestation By signing my name below, IChica Scribe attest that this documentation has been prepared under the direction and in the presence of Cathy Cid DO. documented in this encounter [facility] Work Phone: 10-14-2022 Instructions Chica Early - 10/14/2022 1:30 PM EDT MOOD Will taper the Celexa and once discontinue will do trial with Zoloft Patient decrease to 1/2 dose Celexa for 1 week (20 mg daily), then stop altogether. The day following the last dose of Celexa patient to start Zoloft 25 mg daily. After 1 week on the Zoloft 25 mg daily, if tolerating well to increase to 50 mg daily. Will reassess patient in 6-8 weeks. documented in this encounter [facility] Work Phone: 02-02-2022 Hospital Discharge instructions Leo Keyes MD - 02/02/2022 9:07 PM EDT Rest and ice shoulder; may have some nausea and headache over next 3 days The following attachments cannot be sent through Care Everywhere.Head Injury: Closed: General Info (Bar[place])Shoulder Sprain (Barbadian)documented in this encounter [facility] Work Phone: 11-27-2021 Note Discharge Summary PHYSICAL THERAPY Referral/Discharge Information: Date of Discharge: 11/27/21 Date of Last Visit: 10/14/21 Date of Evaluation: 09/18/21 Number of Attended Visits: 6 Referred by: Dr. Cathy Cid Referred for: (B) shoulder pain Reason for Discharge: Failed to schedule and/or to keep follow-up appointment(s). Signatures Electronically signed by : Nisha Nunn PT; Nov 27 2021 4:00PM EST (Author) [employer] 08-28-2021 Note Therapy Diagnosis Assessed Balance problems (781.99) (R26.89) Generalized weakness (780.79) (R53.1) Unsteadiness on feet (781.2) (R26.81) Plan Goals: Goals set and discussed today. By discharge JAVIER LANZA will achieve the following goals: Activity Limitation: ABC 75% or greater, goal discontinued Balance: Patient will demo 60 seconds of tandem stance (B) on uneven surface for improved safety and stability with all functional mobility in home and in community., goal discontinued Gait/Locomotion: Pt will demo improved gait mechanics with even step length, stance time, proper heel strike and push off, and min-no evidence of instability or antalgic gait for return to PLOF., goal discontinued Participation Restrictions: Patient will be able to ambulate about grocery store in community confidently, safely, Renae, without fear of falling, and without need for greater than 15 min rest break post., goal discontinued Strength: Pt will demo improved MMT by >/= 1 point on 0-5 point scale in BLE for improved strength and stability, and improved ease with transfers, lifting/carrying, and proper mechanics with ADL?s AND IADL?s., goal discontinued Transfers: Patient will be able to complete sit <> stand transfer independently, safely, and without compensation to demo improved safety with functional mobility in home and community., goal discontinued Frequency and duration: No further visits planned. Potential to achieve rehab goals is fair: Discharge patient: Progress plateaued. Discharge Plan Related to Patient's Continuing Care: home program. Assessment Patient has not made any objective or subjective improvements in condition seeking care for this episode of care. He continues to demo strength, proprioception, and mobility deficits; however, demos a plateau in progress and has reached max benefit from skilled care at this time. Patient demos ability to complete HEP independently and safely. Encouraged patient to complete HEP as directed for overall health and wellness. Adult Risk Screening Initial Fall Risk Screening: JAVIER has not fallen in the last 6 months. His fall did not result in injury. JAVIER does not have a fear of falling. He does not need assistance with sitting, standing or walking. Does not need assistance walking in his home. He does not need assistance in an unfamiliar setting. The patient is not using an assistive device. Please identify location of pain: (L) shoulder. Domestic Violence Screen: Does not feel threatened or abused physically, emotionally or sexually. Do you feel UNSAFE? The patient feels safe in the home. Depression/Suicide Screening: During the past 2 weeks, the patient has not felt down, depressed or hopeless. During the past 2 weeks, the patient has not felt little interest or pleasure in doing things. Insurance Insurance reviewed Visit number: 8 Medicare Certification Period: Beginnin2021 Endin2021 Subjective Patient reports:. Patient reports pain is present in (L) shoulder this date but denies pain elsewhere. States he hasn't noticed a change in balance and strength since starting PT. States he does not feel limited from doing any activities at home or during daily life. Precautions: Fall Risk: moderate PMhx: failed back surgery 15 years ago, hx of blood clots, THR 20 years ago, HTN, and OA. Objective Ortho Strength Hip: (Luna: P! Denotes Pain with Movement) Extension: 3+/5 on right and 4-/5 on left. Flexion: 4/5 on right and 5/5 on left. Abduction: 3+/5 on right and 3+/5 on left. Adduction: 4/5 on right and 4+/5 on left. Knee: (Luna: P! Denotes Pain with Movement) Knee extension was 5/5 on right, 5/5 on left. Knee flexion was 4-/5 on right, 5/5 on left. Balance and Coordination Static Standing Balance: normal stance: 6* seconds with eyes closed, narrow base of support: 15* seconds with eyes open, right modified tandem stance: 30* seconds with eyes open, left modified tandem stance: 30* seconds with eyes open, foam normal stance: 30* seconds with eyes open and foam NBOS: 20* seconds with eyes open . Mod Tandem = step forward and hold, wide stance * signifies increased sway, hip and ankle strategies noted. Outcome Measures 5 Times Sit to Stand score: u.a to complete [place] Balance Scale score: 32/56 medium Treatment Time in clinic started at 1251 pm Time in clinic ended at 0132 pm Total time in clinic is 41 minutes. Total timed code time is 41 minutes. Therapeutic exercise (19702): timed minutes 41, units 3 . Reassessment of OBJ measures. [facility] completed, provided, and reviewed Patient Education. Provided today: a personalized home program (Scanned), education Education Provided: plan of care, anatomy, fall risk, posture, physiology, home exercise program, body mechanics, home safety and DC plan, assessment of progress. Information communicated to patient. Response to education: verbalized understandi (more content not included)... [employer] 05-24-2021 History of Present illness Narrative 82-year-old male presents to the urgent care with chief complaint of left shoulder pain. Patient is accompanied by his . Endorses a history significant for dementia, high blood pressure, chronic kidney disease, COPD and coronary artery disease. He states that when he was getting out of bed this morning he felt and heard a snapping sensation of his left shoulder and has since been having a lot of pain when he tries to move his arm. He also endorses significant decrease in range of motion of the left shoulder and needed his 's assistance getting dressed this morning. He took Tylenol this morning for the discomfort. He denies falling or direct trauma to the shoulder. Denies fever, chills, swelling, bruising, erythema, warmth, open wounds, numbness, tingling, chest pain, trouble breathing, headache or dizziness. Injury or surgeries to the left shoulder. He denies having any pain in his elbow, forearm, wrist or hand. [facility] Work Phone: 12-02-2020 History of Present illness Narrative MWV LAST COMPLETED 12/02/2020Health maintenance:TDAP-- 10/2015COVID-- completed 07/2020 + booster 03/2021Influenza-- Due Fall hingrix-- completedPneumonia series-- PPSV 2004; no record of PCVCscope(45-75)-- N/A - graduatedLast DEXA-- 04/2016 normalPSA-- N/A - graduatedAAA Screen(65-79)-- 03/2017 normalAnxiety/Depression-- HQ-2: 0GAD-7: 2Hepatitis C Screen-- none foundLast HbA1c-- 5.8 in ipid Panel-- ratio: 3.2 in cardiac score-- none found (coronary artery calcifications on 07/2007 CT chest)Patient presents today for recheck SOB, gait, hyperglycemia, HTN, HLD/CAD, CKD + lab review. Pat ient states they have no issues or complaints today.Received flu shot todayPatient answered all questions prior to immunization1: Have you ever had Guillain-Greenway syndrome? (a viral illness resulting in neurological symptoms, including paralysis) (Yes/No): NO2: Have you received a shingles(Zoster), MMR, chickenpox (varicella), or any other live vaccines in the past 4 weeks? (Yes/No): NO3. Have you ever had an anaphylactic reaction to prior flu vaccines? (Yes/No): NOPatient was provided a copy of the current Influenza Vaccine Information Sheet Seen 12/2020, endorsed some SOB on exertion but no associated chest pain; resolves with short rest (5 minutes).12/2020 stress test normal.01/2021 CARDIO EVAL: CAD, continue statins continue low-dose beta-blockers. I have encouraged him to either take the Plavix or the aspirin but not both. He has been on Plavix for a long time. Is not clear to me why. We will continue that. Given the normal dobutamine stress echo I do not believe the cardiac catheterization is indicated. SOB, there is multiple potential etiologies. He does have a low-grade dementia. Clearly cardiac issues must be excluded and have been. This may be related to COPD. I encouraged him to use the inhalers that were given to them. Hypertension well-controlled. Hyperlipidemia followed by his PCP. Mild bilateral carotid artery stenosis. Continue statins continue blood pressure control and antiplatelet therapy. At this point from a cardiac standpoint I do not suggest changing any of his medications other than eliminating the baby aspirin.History of COPD, refilled rescue inhaler at 12/2020 OVPatient does report cough with some frequency, reports that it happens at times at night, and sometimes during the day. Patient denies wheezing or tightness in chest, but reports when patient exerts himself strenuously outdoors, particularly in the cold, he does come in wheezing and coughing.Patient does have a diagnosis of COPD. Upon reviewing old charts, it was determined he was previously on Symbicort daily with albuterol as needed.This was again offered to patient, and patient declined a daily inhaler. We will start with a chest x-ray in light of patient's recent cough. No medications were found to be a potential culprit patient is not on an LISSET inhibitor, for example.Hx of HFpEF, CAD/HLD currently on Rosuvastatin 10 mg & Plavix anticoagulation.12/2020 lipid panel favorable with TC/HDL ratio 3.2 (on statin)05/2020 lipid panel elevated with ratio 6.2 (not on statin at time of this labs, previously well-controlled on statin)NO CACS, however, there were coronary artery calcifications on 07/2007 CT chest.on statins.History of HFpEF (01/2017 ECHO) with Estimated LVEF 65 %. Mild LVH. Mild tricuspid regurgitation. Abnormal LV relaxation.Gait/imbalance issues with fall risk, on anticoagulation. Referral to physical therapy placed 12/2020; to start this after cardiology evaluation (Ruth)He is presently taking Celexa 40 mg daily for moodPresently taking Trazodone 50 mg (1/2 tablet) at bedtime for insomnia.Dementia on Memantine 10 mg BID. MOCA 2018 was stable.Hyperglycemia, barely in pre-diabetic range, lifestyle managed.12/2020 Hgb A1c 5.8; prior A1c was 5.6 in 01/2018CKD 12/2020 GFR 59 & creatinine 1.18, at baseline and up from prior.05/2020 GFR 51 & creatinine 1.33.Hypertension, taking Metoprolol 25 mg 1/2 tablet daily. [facility] Work Phone: documented in this encounter [facility] Work Phone: Evaluation note* Diagnosis Depression with anxiety- Primary Dysthymic disorder Body mass index (BMI) of 21.0 to 21.9 in adult Unexplained weight loss Loss of weight Fatigue, unspecified type Apathy Demoralization and apathy Irritability Chronic obstructive pulmonary disease, unspecified COPD type (CMS/HCC) Dementia, unspecified dementia severity, unspecified dementia type, unspecified whether behavioral, psychotic, or mood disturbance or anxiety (CMS/[facility]) Stage 3a chronic kidney disease documented in this encounter [facility] Work Phone: Evaluation note* Diagnosis Depression with anxiety- Primary Dysthymic disorder Coronary artery disease due to lipid rich plaque Stenosis of carotid artery, unspecified laterality Hx of blood clots documented in this encounter [facility] Work Phone: History of Present illness Narrative* The patient is being seen for the subsequent annual wellness visit. * Past Medical, Surgical and Family History: reviewed and updated in chart. * Medications and Supplements: Medications and supplements, including calcium and vitamins reviewed and updated in chart. * No, the patient is not using opioids. * Patient Self Assessment of Health Status: good. * Tobacco use: Non-User * Alcohol use: Non-User * Illicit drug use: Non-User * Current diet: well balanced diet, does consume adequate fluids and does consume caffeine. * Exercise Frequency: regularly. * Depression/Suicide Screening: . * During the past 2 weeks, the patient has not felt down, depressed or hopeless. * During the past 2 weeks, the patient has not felt little interest or pleasure in doing things. * Hearing Impairment: Patient has significant hearing impairment. * Cognitive Impairment: No cognitive impairment observed. * Bathing: performs independently. * Dressing: performs independently. * Walking: needs assistance. * Managing Finances: performs independently. * Shopping: performs independently. * Managing Medications: performs independently. * Housework / Basic Home Maintenance: needs assistance. * Falls Risk Screening:. JAVIER has not fallen in the last 6 months. * Home safety risk factors: none. * Health maintenance: * TDAP-- 10/2015 * Influenza-- Due Fall 2020 * Shingrix-- completed per patient (Zoster in the past) * Pneumonia series-- PPSV 2004; no record of PCV * Cscope(45-75)-- N/A - graduated * Last DEXA-- 04/2016 normal * AAA Screen(65-79)-- 03/2017 normal * PSA-- N/A - graduated * Anxiety/Depression-- 11/2019 * PHQ-9: 3 * JULIET-7: 0 * Hepatitis C Screen-- none found * Last HbA1c-- 5.6 on 01/2018 * Lipid Panel-- ratio: 6.2 in 05/2020 * CT cardiac Score-- none found (coronary artery calcifications on 07/2007 CT chest) * *Due for: HEP C SCREEN, A1c, lipid panel * Patient presents today for health management of mood, insomnia, memory, hyperglycemia, HTN, HLD/CAD, CKD, COPD + MWV. * Patient presents with no additional complaints today. * Sees podiatry for foot care, last saw about 2-3 weeks ago and goes every 9 weeks. * Patient on Memantine 10 mg BID for dementia. MOCA 2018 was stable. 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 Still driving, however, is always with him when he does for directions. No tickets, accidents, or traffic violations. * Takes Celexa 40 mg daily for mood. Also takes Trazodone 50 mg (1/2 tablet) at bedtime for insomnia. * PHQ-9 is 2 today, this was 3 at last visit 11/2019 * JULIET-7 is 0 today, this was 0 at last visit 11/2019 * Hx of COPD, last PFTs in system from 01/2018. * States he does have some SOB with exertion, causes him to sit down to catch his breath. Denies any chest pain or pressure. notes he has inhaler but does not use it. * History of hyperglycemia, fasting glucose 118 on BMP. A1c was 5.6 in 01/2018. Eats multiple buckeyes daily per . * History of CKD, GFR 51 and creatinine 1.33 in 05/2020 which is patient's baseline. * Presently taking Metoprolol 25 mg 1/2 tablet daily for blood pressure. Patient denies chest pain, palpitations, lower extremity edema, headache, or dizziness. Medications are being taken and tolerated well. No side effects are reported. Patient is taking blood pressure outside of office and reportsgood control. * HLD + CAD, presently back on Rosuvastatin 10 mg daily. Off statin at time of last lipid panel as this was not refilled in 2019. Medications are being taken as directed and tolerated well. Patient denies any facial droop, sudden vision loss, weakness or numbness on one side of body. Patient denies chest pain, palpitations, or symptoms of claudication. * IO lipid panel today shows * 05/2020 lipid panel elevated with ratio 6.2 * NO CT cardiac score, however, there were coronary artery calcifications on 07/2007 CT chest. * Additionally, patient with history of HFpEF * 01/2017 ECHO: Estimated LVEF 65 %. Mild LVH. Mild tricuspid regurgitation. Abnormal LV relaxation. * Also on On Plavix anticoagulation for CAD. 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 Last saw cardiology, Dr. Mitchell, 03/22/2019. He had Carotid US done 04/17/2019 which showed findings consistent with less than 50% stenosis of the right + left proximal ICA. Right + left external carotid artery appears patent with no evidence of stenosis. The right + left vertebral artery is patent with antegrade flow. No evidence of hemodynamically significant stenosis in the right or left subclavian. Was due to follow-up in 1year, but Dr. Mitchell no longer works there. * No falls in the last 6 months. Does have loose knee cap, ambulates with cane. * Patient is 82 years old and has graduated from all routine cancer and prostate cancer screenings. [facility] Work Phone: History of Present illness Narrative* The patient is being seen for the subsequent annual wellness visit. * Past Medical, Surgical and Family History: reviewed and updated in chart. * Medications and Supplements: Medications and supplements, including calcium and vitamins reviewed and updated in chart. * No, the patient is not using opioids. * Patient Self Assessment of Health Status: good. * Tobacco use: Non-User * Alcohol use: Non-User * Illicit drug use: Non-User * Current diet: well balanced diet, does consume adequate fluids and does consume caffeine. * Exercise Frequency: regularly. * Depression/Suicide Screening: . * During the past 2 weeks, the patient has not felt down, depressed or hopeless. * During the past 2 weeks, the patient has not felt little interest or pleasure in doing things. * Hearing Impairment: Patient has significant hearing impairment. * Cognitive Impairment: No cognitive impairment observed. * Bathing: performs independently. * Dressing: performs independently. * Walking: needs assistance. * Managing Finances: performs independently. * Shopping: performs independently. * Managing Medications: performs independently. * Housework / Basic Home Maintenance: needs assistance. * Falls Risk Screening:. JAVIER has not fallen in the last 6 months. * Home safety risk factors: none. * Health maintenance: * TDAP-- 10/2015 * Influenza-- Due Fall 2020 * Shingrix-- completed per patient (Zoster in the past) * Pneumonia series-- PPSV 2004; no record of PCV * Cscope(45-75)-- N/A - graduated * Last DEXA-- 04/2016 normal * AAA Screen(65-79)-- 03/2017 normal * PSA-- N/A - graduated * Anxiety/Depression-- 11/2019 * PHQ-9: 3 * JULIET-7: 0 * Hepatitis C Screen-- none found * Last HbA1c-- 5.6 on 01/2018 * Lipid Panel-- ratio: 6.2 in 05/2020 * CT cardiac Score-- none found (coronary artery calcifications on 07/2007 CT chest) * *Due for: HEP C SCREEN, A1c, lipid panel * Patient presents today for health management of mood, insomnia, memory, hyperglycemia, HTN, HLD/CAD, CKD, COPD + MWV. * Patient presents with no additional complaints today. * Sees podiatry for foot care, last saw about 2-3 weeks ago and goes every 9 weeks. * Patient on Memantine 10 mg BID for dementia. MOCA 2019 was stable. 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 Still driving, however, is always with him when he does for directions. No tickets, accidents, or traffic violations. * Takes Celexa 40 mg daily for mood. Also takes Trazodone 50 mg (1/2 tablet) at bedtime for insomnia. * PHQ-9 is 2 today, this was 3 at last visit 11/2019 * JULIET-7 is 0 today, this was 0 at last visit 11/2019 * Hx of COPD, last PFTs in system from 01/2018. * States he does have some SOB with exertion, causes him to sit down to catch his breath. Denies any chest pain or pressure. notes he has inhaler but does not use it. * History of hyperglycemia, fasting glucose 118 on BMP. A1c was 5.6 in 01/2018. Eats multiple buckeyes daily per . * History of CKD, GFR 51 and creatinine 1.33 in 05/2020 which is patient's baseline. * Presently taking Metoprolol 25 mg 1/2 tablet daily for blood pressure. Patient denies chest pain, palpitations, lower extremity edema, headache, or dizziness. Medications are being taken and tolerated well. No side effects are reported. Patient is taking blood pressure outside of office and reportsgood control. * HLD + CAD, presently back on Rosuvastatin 10 mg daily. Off statin at time of last lipid panel as this was not refilled in 2019. Medications are being taken as directed and tolerated well. Patient denies any facial droop, sudden vision loss, weakness or numbness on one side of body. Patient denies chest pain, palpitations, or symptoms of claudication. * IO lipid panel today shows * 05/2020 lipid panel elevated with ratio 6.2 * NO CT cardiac score, however, there were coronary artery calcifications on 07/2007 CT chest. * Additionally, patient with history of HFpEF * 01/2017 ECHO: Estimated LVEF 65 %. Mild LVH. Mild tricuspid regurgitation. Abnormal LV relaxation. * Also on On Plavix anticoagulation for CAD. 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 Last saw cardiology, Dr. Mitchell, 03/22/2019. He had Carotid US done 04/17/2019 which showed findings consistent with less than 50% stenosis of the right + left proximal ICA. Right + left external carotid artery appears patent with no evidence of stenosis. The right + left vertebral artery is patent with antegrade flow. No evidence of hemodynamically significant stenosis in the right or left subclavian. Was due to follow-up in 1year, but Dr. Mitchell no longer works there. * No falls in the last 6 months. Does have loose knee cap, ambulates with cane. * Patient is 82 years old and has graduated from all routine cancer and prostate cancer screenings. [facility] Work Phone: History of Present illness Narrative* The patient is being seen for the subsequent annual wellness visit. * Past Medical, Surgical and Family History: reviewed and updated in chart. * Medications and Supplements: Medications and supplements, including calcium and vitamins reviewed and updated in chart. * No, the patient is not using opioids. * Patient Self Assessment of Health Status: good. * Tobacco use: Non-User * Alcohol use: Non-User * Illicit drug use: Non-User * Current diet: well balanced diet, does consume adequate fluids and does consume caffeine. * Exercise Frequency: regularly. * Depression/Suicide Screening: . * During the past 2 weeks, the patient has not felt down, depressed or hopeless. * During the past 2 weeks, the patient has not felt little interest or pleasure in doing things. * Hearing Impairment: Patient has significant hearing impairment. * Cognitive Impairment: No cognitive impairment observed. * Bathing: performs independently. * Dressing: performs independently. * Walking: needs assistance. * Managing Finances: performs independently. * Shopping: performs independently. * Managing Medications: performs independently. * Housework / Basic Home Maintenance: needs assistance. * Falls Risk Screening:. JAVIER has not fallen in the last 6 months. * Home safety risk factors: none. * Health maintenance: * TDAP-- 10/2015 * Influenza-- Due Fall 2020 * Shingrix-- completed per patient (Zoster in the past) * Pneumonia series-- PPSV 2004; no record of PCV * Cscope(45-75)-- N/A - graduated * Last DEXA-- 04/2016 normal * AAA Screen(65-79)-- 03/2017 normal * PSA-- N/A - graduated * Anxiety/Depression-- 11/2019 * PHQ-9: 3 * JULIET-7: 0 * Hepatitis C Screen-- none found * Last HbA1c-- 5.6 on 01/2018 * Lipid Panel-- ratio: 6.2 in 05/2020 * CT cardiac Score-- none found (coronary artery calcifications on 07/2007 CT chest) * *Due for: HEP C SCREEN, A1c, lipid panel * Patient presents today for health management of mood, insomnia, memory, hyperglycemia, HTN, HLD/CAD, CKD, COPD + MWV. * Patient presents with no additional complaints today. * Sees podiatry for foot care, last saw about 2-3 weeks ago and goes every 9 weeks. * Patient on Memantine 10 mg BID for dementia. MOCA 2019 was stable. 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 Still driving, however, is always with him when he does for directions. No tickets, accidents, or traffic violations. * Takes Celexa 40 mg daily for mood. Also takes Trazodone 50 mg (1/2 tablet) at bedtime for insomnia. * PHQ-9 is 2 today, this was 3 at last visit 11/2019 * JULIET-7 is 0 today, this was 0 at last visit 11/2019 * Hx of COPD, last PFTs in system from 01/2018. * States he does have some SOB with exertion, causes him to sit down to catch his breath. Denies any chest pain or pressure. notes he has inhaler but does not use it. * History of hyperglycemia, fasting glucose 118 on BMP. A1c was 5.6 in 01/2018. Eats multiple buckeyes daily per . * History of CKD, GFR 51 and creatinine 1.33 in 05/2020 which is patient's baseline. * Presently taking Metoprolol 25 mg 1/2 tablet daily for blood pressure. Patient denies chest pain, palpitations, lower extremity edema, headache, or dizziness. Medications are being taken and tolerated well. No side effects are reported. Patient is taking blood pressure outside of office and reportsgood control. * HLD + CAD, presently back on Rosuvastatin 10 mg daily. Off statin at time of last lipid panel as this was not refilled in 2019. Medications are being taken as directed and tolerated well. Patient denies any facial droop, sudden vision loss, weakness or numbness on one side of body. Patient denies chest pain, palpitations, or symptoms of claudication. * IO lipid panel today shows * 05/2020 lipid panel elevated with ratio 6.2 * NO CT cardiac score, however, there were coronary artery calcifications on 07/2007 CT chest. * Additionally, patient with history of HFpEF * 01/2017 ECHO: Estimated LVEF 65 %. Mild LVH. Mild tricuspid regurgitation. Abnormal LV relaxation. * Also on On Plavix anticoagulation for CAD. 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 Last saw cardiology, Dr. Mitchell, 03/22/2019. He had Carotid US done 04/17/2019 which showed findings consistent with less than 50% stenosis of the right + left proximal ICA. Right + left external carotid artery appears patent with no evidence of stenosis. The right + left vertebral artery is patent with antegrade flow. No evidence of hemodynamically significant stenosis in the right or left subclavian. Was due to follow-up in 1year, but Dr. Mitchell no longer works there. * No falls in the last 6 months. Does have loose knee cap, ambulates with cane. * Patient is 82 years old and has graduated from all routine cancer and prostate cancer screenings. [facility] Work Phone: History of Present illness NarrativeI am seeing Javier in follow-up. He has been followed in the past with Dr. Silveira. Javier's 82. He has a history of mild nonobstructive coronary disease based upon a cardiac catheterization in 2010. He has had a history of HFrEF. He also has COPD. Evidently he has been coming more short of breath. He was sent for a dobutamine stress echo at [facility]. This was normal. He has no symptoms of chest pain or pressure no lower extremity edema no orthopnea no palpitations. Because of the shortness of breath he was sent for further evaluation. He has had PFTs indicating he does have COPD. He was given inhalers but he has not used them at this point.[id number] [place] Work Phone: History of Present illness Narrative* The patient is being seen for the subsequent annual wellness visit. * Past Medical, Surgical and Family History: reviewed and updated in chart. * Medications and Supplements: Medications and supplements, including calcium and vitamins reviewed and updated in chart. * No, the patient is not using opioids. * Patient Self Assessment of Health Status: good. * Tobacco use: Non-User * Alcohol use: Non-User * Illicit drug use: Non-User * Current diet: well balanced diet, does consume adequate fluids and does consume caffeine. * Exercise Frequency: regularly. * Depression/Suicide Screening: . * During the past 2 weeks, the patient has not felt down, depressed or hopeless. * During the past 2 weeks, the patient has not felt little interest or pleasure in doing things. * Hearing Impairment: Patient has significant hearing impairment. * Cognitive Impairment: No cognitive impairment observed. * Bathing: performs independently. * Dressing: performs independently. * Walking: needs assistance. * Managing Finances: performs independently. * Shopping: performs independently. * Managing Medications: performs independently. * Housework / Basic Home Maintenance: needs assistance. * Falls Risk Screening:. JAVIER has not fallen in the last 6 months. * Home safety risk factors: none. * Health maintenance: * TDAP-- 10/2015 * Influenza-- Due Fall 2020 * Shingrix-- completed per patient (Zoster in the past) * Pneumonia series-- PPSV 2004; no record of PCV * Cscope(45-75)-- N/A - graduated * Last DEXA-- 04/2016 normal * AAA Screen(65-79)-- 03/2017 normal * PSA-- N/A - graduated * Anxiety/Depression-- 11/2019 * PHQ-9: 3 * JULIET-7: 0 * Hepatitis C Screen-- none found * Last HbA1c-- 5.6 on 01/2018 * Lipid Panel-- ratio: 6.2 in 05/2020 * CT cardiac Score-- none found (coronary artery calcifications on 07/2007 CT chest) * *Due for: HEP C SCREEN, A1c, lipid panel * Patient presents today for health management of mood, insomnia, memory, hyperglycemia, HTN, HLD/CAD, CKD, COPD + MWV. * Patient presents with no additional complaints today. * Sees podiatry for foot care, last saw about 2-3 weeks ago and goes every 9 weeks. * Patient on Memantine 10 mg BID for dementia. MOCA 2018 was stable. 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 Still driving, however, is always with him when he does for directions. No tickets, accidents, or traffic violations. * Takes Celexa 40 mg daily for mood. Also takes Trazodone 50 mg (1/2 tablet) at bedtime for insomnia. * PHQ-9 is 2 today, this was 3 at last visit 11/2019 * JULIET-7 is 0 today, this was 0 at last visit 11/2019 * Hx of COPD, last PFTs in system from 01/2018. * States he does have some SOB with exertion, causes him to sit down to catch his breath. Denies any chest pain or pressure. notes he has inhaler but does not use it. * History of hyperglycemia, fasting glucose 118 on . A1c was 5.6 in 01/2018. Eats multiple buckeyes daily per . * History of CKD, GFR 51 and creatinine 1.33 in 05/2020 which is patient's baseline. * Presently taking Metoprolol 25 mg 1/2 tablet daily for blood pressure. Patient denies chest pain, palpitations, lower extremity edema, headache, or dizziness. Medications are being taken and tolerated well. No side effects are reported. Patient is taking blood pressure outside of office and reportsgood control. * HLD + CAD, presently back on Rosuvastatin 10 mg daily. Off statin at time of last lipid panel as this was not refilled in 2019. Medications are being taken as directed and tolerated well. Patient denies any facial droop, sudden vision loss, weakness or numbness on one side of body. Patient denies chest pain, palpitations, or symptoms of claudication. * IO lipid panel today shows * 05/2020 lipid panel elevated with ratio 6.2 * NO CT cardiac score, however, there were coronary artery calcifications on 07/2007 CT chest. * Additionally, patient with history of HFpEF * 01/2017 ECHO: Estimated LVEF 65 %. Mild LVH. Mild tricuspid regurgitation. Abnormal LV relaxation. * Also on On Plavix anticoagulation for CAD. 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 Last saw cardiology, Dr. Mitchell, 03/22/2019. He had Carotid US done 04/17/2019 which showed findings consistent with less than 50% stenosis of the right + left proximal ICA. Right + left external carotid artery appears patent with no evidence of stenosis. The right + left vertebral artery is patent with antegrade flow. No evidence of hemodynamically significant stenosis in the right or left subclavian. Was due to follow-up in 1year, but Dr. Mitchell no longer works there. * No falls in the last 6 months. Does have loose knee cap, ambulates with cane. * Patient is 82 years old and has graduated from all routine cancer and prostate cancer screenings. [facility] Work Phone: History of Present illness Narrative* 1. HTN * The patient presents for follow up of hypertension. * Patient denies symptoms including headaches, dizziness, vision changes, syncope, chest pain, palpitations, dyspnea, and edema. * Medications are being taken as directed and tolerated well without side effects: Metoprolol * Blood pressure is monitored outside the office and is at goal. BP at home runs 118/70s * The patient reports adherence to a low salt diet but not exercising * Last labs were 12/2020 * He is not followed by Cardiology at this time (used to follow with vascular for carotids), still takes Plavix (+h/o DVT) * He reports he hydrates well with water, but states he needs to drink more (2-3 cups per day) * +h/o GIB * 2. 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 CAD/HLD * Taking Rosuvastatin, Clopidogrel * 4. Dementia * Taking Memantine, takes Trazodone at night time for insomnia (takes this every night, 1/2 tablet) * *Depression-> taking Citalopram * Answers questions appropriately * Still driving * Reports he is stable, denies SI * Son Thanh lives nearby, sees patient 1-2x/week [facility] Work Phone: History of Present illness Narrative* 1. HTN * The patient presents for follow up of hypertension. * Patient denies symptoms including headaches, dizziness, vision changes, syncope, chest pain, palpitations, dyspnea, and edema. * Medications are being taken as directed and tolerated well without side effects: Metoprolol * Blood pressure is monitored outside the office and is at goal. BP at home runs 118/70s * The patient reports adherence to a low salt diet but not exercising * Last labs were 12/2020 * He is not followed by Cardiology at this time (used to follow with vascular for carotids), still takes Plavix (+h/o DVT) * He reports he hydrates well with water, but states he needs to drink more (2-3 cups per day) * +h/o GIB * 2. 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 CAD/HLD * Taking Rosuvastatin, Clopidogrel * 4. Dementia * Taking Memantine, takes Trazodone at night time for insomnia (takes this every night, 1/2 tablet) * *Depression-> taking Citalopram * Answers questions appropriately * Still driving * Reports he is stable, denies SI * Son Thanh lives nearby, sees patient 1-2x/week [facility] Work Phone: History of Present illness Narrative* The patient is being seen for the subsequent annual wellness visit. * Past Medical, Surgical and Family History: reviewed and updated in chart. * Medications and Supplements: Medications and supplements, including calcium and vitamins reviewed and updated in chart. * No, the patient is not using opioids. * Patient Self Assessment of Health Status: good. * Tobacco use: Non-User * Alcohol use: Non-User * Illicit drug use: Non-User * Current diet: well balanced diet, does consume adequate fluids and does consume caffeine. * Exercise Frequency: regularly. * Depression/Suicide Screening: . * During the past 2 weeks, the patient has not felt down, depressed or hopeless. * During the past 2 weeks, the patient has not felt little interest or pleasure in doing things. * Hearing Impairment: Patient has significant hearing impairment. * Cognitive Impairment: No cognitive impairment observed. * Bathing: performs independently. * Dressing: performs independently. * Walking: needs assistance. * Managing Finances: performs independently. * Shopping: performs independently. * Managing Medications: performs independently. * Housework / Basic Home Maintenance: needs assistance. * Falls Risk Screening:. JAVIER has not fallen in the last 6 months. * Home safety risk factors: none. * Health maintenance: * TDAP-- 10/2015 * Influenza-- Due Fall 2020 * Shingrix-- completed per patient (Zoster in the past) * Pneumonia series-- PPSV 2004; no record of PCV * Cscope(45-75)-- N/A - graduated * Last DEXA-- 04/2016 normal * AAA Screen(65-79)-- 03/2017 normal * PSA-- N/A - graduated * Anxiety/Depression-- 11/2019 * PHQ-9: 3 * JULIET-7: 0 * Hepatitis C Screen-- none found * Last HbA1c-- 5.6 on 01/2018 * Lipid Panel-- ratio: 6.2 in 05/2020 * CT cardiac Score-- none found (coronary artery calcifications on 07/2007 CT chest) * *Due for: HEP C SCREEN, A1c, lipid panel * Patient presents today for health management of mood, insomnia, memory, hyperglycemia, HTN, HLD/CAD, CKD, COPD + MWV. * Patient presents with no additional complaints today. * Sees podiatry for foot care, last saw about 2-3 weeks ago and goes every 9 weeks. * Patient on Memantine 10 mg BID for dementia. MOCA 2019 was stable. 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 Still driving, however, is always with him when he does for directions. No tickets, accidents, or traffic violations. * Takes Celexa 40 mg daily for mood. Also takes Trazodone 50 mg (1/2 tablet) at bedtime for insomnia. * PHQ-9 is 2 today, this was 3 at last visit 11/2019 * JULIET-7 is 0 today, this was 0 at last visit 11/2019 * Hx of COPD, last PFTs in system from 01/2018. * States he does have some SOB with exertion, causes him to sit down to catch his breath. Denies any chest pain or pressure. notes he has inhaler but does not use it. * History of hyperglycemia, fasting glucose 118 on . A1c was 5.6 in 01/2018. Eats multiple buckeyes daily per . * History of CKD, GFR 51 and creatinine 1.33 in 05/2020 which is patient's baseline. * Presently taking Metoprolol 25 mg 1/2 tablet daily for blood pressure. Patient denies chest pain, palpitations, lower extremity edema, headache, or dizziness. Medications are being taken and tolerated well. No side effects are reported. Patient is taking blood pressure outside of office and reportsgood control. * HLD + CAD, presently back on Rosuvastatin 10 mg daily. Off statin at time of last lipid panel as this was not refilled in 2019. Medications are being taken as directed and tolerated well. Patient denies any facial droop, sudden vision loss, weakness or numbness on one side of body. Patient denies chest pain, palpitations, or symptoms of claudication. * IO lipid panel today shows * 05/2020 lipid panel elevated with ratio 6.2 * NO CT cardiac score, however, there were coronary artery calcifications on 07/2007 CT chest. * Additionally, patient with history of HFpEF * 01/2017 ECHO: Estimated LVEF 65 %. Mild LVH. Mild tricuspid regurgitation. Abnormal LV relaxation. * Also on On Plavix anticoagulation for CAD. 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 Last saw cardiology, Dr. Mitchell, 03/22/2019. He had Carotid US done 04/17/2019 which showed findings consistent with less than 50% stenosis of the right + left proximal ICA. Right + left external carotid artery appears patent with no evidence of stenosis. The right + left vertebral artery is patent with antegrade flow. No evidence of hemodynamically significant stenosis in the right or left subclavian. Was due to follow-up in 1year, but Dr. Mitchell no longer works there. * No falls in the last 6 months. Does have loose knee cap, ambulates with cane. * Patient is 82 years old and has graduated from all routine cancer and prostate cancer screenings. [facility] Work Phone: History of Present illness Narrative* Patient presents to PT this date with S&S consistent with unsteadiness on feet and balance deficits. He demos loss of ROM, strength, flexibility, jt mobility, impaired body mechanics, and postural control contributing to ongoing pain and difficulty with sitting, standing, walking, curb and stair negotiation, and transfers from chair, bed, and car. He will benefit from skilled PT intervention to address deficits and limitations listed above in order to return patient to [facility] without restriction. * Clinical Presentation: Stable and/or uncomplicated characteristics. * Level of Complexity: low * Problem List: activity limitations, ADLs/IADLs/self care skills, aerobic capacity/endurance, balance, decreased functional level, decreased knowledge of HEP, fall risk, gait/locomotion, motor function/control/tone, participation restrictions, sensory and strength. [facility] [place] Work Phone: History of Present illness NarrativePatient tolerates today session without pain but with mild fatigue. Patient challenged with interventions but demos ability to complete with no more than SBA needed with intermittent CGA for safety. Patient with ongoing strength and proprioceptive deficits. [facility] [place] Work Phone: History of Present illness NarrativePatient tolerates session well. Requires CGA to Gadiel this date for safety. Lacks safety with functional mobility d/t balance and strength deficits which place him at increased risk for falls. Requires mod verbal cueing throughout for proper form and execution. Educated patient again on controlled decent and ensuring seat is behind him before sitting. [facility] [address] [place] Work Phone: History of Present illness NarrativePatient requires frequent verbal and tactile cueing throughout session for form, execution, and safety. Patient challenged with interventions d/t mobility, strength, and proprioception deficits contributing to ongoing safety concerns with functional mobility. [facility] [address] [place] Work Phone: History of Present illness Narrative* Patient identified by name and * Patient demo's unsteadiness on feet when challenged with change of proprioception this date. Patient requiring max verbal cues for straight posture during standing strengthening exercises with min carry over. Patient quick to fatigue during session. [facility] [address] [place] Work Phone: History of Present illness NarrativePatient has not made any objective or subjective improvements in condition seeking care for this episode of care. He continues to demo strength, proprioception, and mobility deficits; however, demos a plateau in progress and has reached max benefit from skilled care at this time. Patient demos ability to complete HEP independently and safely. Encouraged patient to complete HEP as directed for overall health and wellness. [facility] Work Phone: History of Present illness Narrative* Patient presents to PT this date with S&S consistent with mechanical (L) shoulder pain and stiffness. He demos loss of ROM, strength, flexibility, jt mobility, impaired body mechanics, and postural control contributing to ongoing pain and difficulty with lifting, carrying, pushing, pulling, reaching, driving, dressing, and sleeping impacting their ability to complete ADLs, HHCs, and self-caretasks at prior level. Skilled PT intervention required to address deficits and limitations listed above to return patient to [facility] without restriction. * Clinical Presentation: Stable and/or uncomplicated characteristics. * Level of Complexity: low * Problem List: activity limitations, ADLs/IADLs/self care skills, decreased functional level, decreased knowledge of HEP, fall risk, pain, participation restrictions, posture, range of motion/joint mobility and strength. [facility] Work Phone: History of Present illness Narrative* Patient identified by name and * Patient demo's weakness in L shoulder demo'g difficulty with AAROM and PROM. Patient demo's difficulty with standing AAROM exercises with increased symptoms being unable to complete reps. Patient demo's weakness in L GH ER with resisted exercises. [facility] Work Phone: History of Present illness NarrativePatient demos severe weakness throughout (B) shoulders; as well as, limited jt and soft tissue mobility effecting his mobility. Patient tolerates session well but is challenged d/t weakness and stiffness. Appropriately challenged this date to address deficits. [facility] Work Phone: History of Present illness Narrative* Patient presents this date with a ecchymosis extending throughout (L) upper arm anterior, lateral, and posteriorly from lateral aspect of (L) shoulder down to (L) elbow. Patient denies fall, hitting arm on something, pain with palpation, or change in (L) shoulder pain but cannot recall when bruising began. Patient reports that he is on blood thinning medication. * Progressed interventions this date to address significant strength deficits throughout (L) shouldergirdle > (R). Demos improving ROM with AAROM but severe strength deficits significantly limitingAROM. Additionally, patient demos safety concerns with sit <> stand transfers d/t uncontrolled and premature descent from standing position despite verbal cueing, assistance, and close/direct supervision provided. [facility] [place] Work Phone: History of Present illness NarrativePatient with no c/o increased pain throughout progressions this session. Continues to demo more active assisted motion than solely active d/t significant weakness of (L) shoulder. Patient lacks the strength to be able to lift (L) arm independently continuing to impact his day to day activity. [facility] [place] Work Phone: History of Present illness Narrative* Patient identified by name and * Patient tolerates treatment with moderate difficulty. Patient demo's increased weakness in L shoulder this date with ER and AAROM flexion. Verbal cues needed for proper form with seated AAROM and to not compensate with trunk with min carryover. Patient demo's restriction in L GH capsule this date with flexion and ER. Patient with increased fatigue at end of session. [facility] [place] Work Phone: History of Present illness Narrative* JAVIER is here with his for Hospital FUV-Posterior head injury and right shoulder injury from fall on concrete (garage floor). Pt reports that pt has fallen multiple time recently; once approx 1.5 weeks prior to fall hospitalization, and once the day after fall hospitalization. * [email or web address], Medicare Advanced Planning [facility] Work Phone: History of Present illness Narrative* JAVIER is here with his for Hospital FUV-Posterior head injury and right shoulder injury from fall on concrete (garage floor). Pt reports that pt has fallen multiple time recently; once approx 1.5 weeks prior to fall hospitalization, and once the day after fall hospitalization. * Gaps- Flu, Medicare Advanced Planning * The patient was at his home when he fell in his garage. He was taken to the emergency department. At that time a CT scan was completed and it showed a small aneurysm. The patient and are worriedthat this aneurysm could be something to be further evaluated * Otherwise he has a slight soreness to the shoulder and hip. * I reviewed all results from the emergency room visit -[facility] Work Phone: History of Present illness Narrative* The patient is being seen for the subsequent annual wellness visit. * Past Medical, Surgical and Family History: reviewed and updated in chart. * Medications and Supplements: Review of all medications by a prescribing practitioner or clinical pharmacist (such as prescriptions, OTCs, herbal therapies and supplements) documented in the medical record. * No, the patient is not using opioids. * Patient Self Assessment of Health Status: good. * Tobacco use: Non-User * Alcohol use: Non-User * Illicit drug use: Non-User * Current diet: well balanced diet, does consume adequate fluids and does consume caffeine. * Exercise Frequency: the patient does not exercise. * Depression/Suicide Screening: . * During the past 2 weeks, the patient has not felt down, depressed or hopeless. * During the past 2 weeks, the patient has not felt little interest or pleasure in doing things. * Hearing Impairment: Patient has significant hearing impairment, bilaterally. * Cognitive Impairment: Cognitive impairment was observed. * known demenia, on namenda. * Bathing: performs independently. * Dressing: performs independently. * Walking: performs independently. * Managing Finances: performs independently. * Shopping: performs independently. * Managing Medications: performs independently. * Housework / Basic Home Maintenance: performs independently. * Falls Risk Screening:. JAVIER has fallen in the last 6 months. His fall resulted in the followinginjury: hit head. * Home safety risk factors: none. * Advance directives:. Advanced Care Planning discussed and documented advance care plan or surrogatedecision maker documented in the medical record. Patient has living will. Patient has healthcare POA. * Patient's End of Life Decisions: End of life decisions were reviewed with the patient. I agree to follow the patient's decisions. * Additional Information: full code, has in writing. * Health maintenance: * TDAP-- 10/2015 * COVID-- 08/2021 * Influenza-- due fall 2021 * Shingrix-- completed * Pneumonia series-- PPSV 2004; no record of PCV * Last DEXA-- 04/2016 normal * Cscope(45-75)-- N/A - graduated * PSA-- N/A - graduated * AAA Screen(65-79)-- 03/2017 normal * Anxiety/Depression-- 03/2021 * PHQ-2: 4 * JULIET-7: N/A * Hepatitis C Screen-- none found * Last HbA1c-- 5.8 in 12/2020 * Lipid Panel-- ratio: 3.2 in 07/2021 (TRIG 243) * CT cardiac score-- none found (coronary artery calcifications on 07/2007 CT chest) * ECHO-- 01/2017 (LVEF 65 %. Mild LVH. Mild TR. Abnormal LV relaxation.) * *Due for: FLU, PREVNAR-20?, LABS, A1c (only prediabetic, can do with labs, IO not necessary) * Patient presents today for recheck gait, hyperglycemia, HTN, HLD/CAD, CKD + MWV * Patient would like to receive their wellness visit today. Patient was made aware of and signed acknowledging that if they and the provider decide to discuss medical problems today, instead of returning for a separate visit, that is not part of the wellness visit. Also made aware that in the event that discussion beyond the wellness visit components does occur, an office visit charge will be billed and they will be responsible for any copays and deductibles that apply under their insurance plan. * Refills sent * SCALES given * concerns:fell in Oct had CAT scan showed aneurysm but MRI showed none * * CHRONIC CONDITIONS: * -Gait, patient referred to PT for balance in 07/2021, he completed 6 sessions and was then discharge. * Per 10/2021 PT EVAL: * Patient tolerates treatment with moderate difficulty. Patient demo's increased weakness in L shoulder this date with ER and AAROM flexion. Verbal cues needed for proper form with seated AAROM and to not compensate with trunk with min carryover. Patient demo's restriction in L GH capsule this date with flexion and ER. Patient with increased fatigue at end of session. * -Mood, taking Celexa 40 mg daily. * -Insomnia, taking Trazodone 50 mg (1/2 tablet) at bedtime. * -Dementia, on Memantine 10 mg BID. * MOCA 2019 was stable. * -COPD, never a smoker but did have industrial exposure. * He was previously on Symbicort daily in distant past, declined this at 03/2021 * Now using albuterol as needed. * -HTN, taking Metoprolol 25 mg 1/2 tablet daily. * -Hyperglycemia, barely in pre-diabetic range, lifestyle managed. * 12/2020 Hgb A1c 5.8; prior A1c was 5.6 in 01/2018 * -CKD, baseline GFR 56-60 * 07/2021 GFR 49 + creatinine 1.40, down from prior and down from baseline. * 12/2020 GFR 59 + creatinine 1.18, at baseline. * -CAD/HLD currently on Rosuvastatin 10 mg & Plavix anticoagulation. * Has seen cardiology (Dr. Obrien) in the past. * 07/2021 lipid panel favorable with TC/HDL ratio 3.2, stable from prior ratio 3.2 in 12/2020 * No CACS, however, there were coronary artery calcifications on 07/2007 CT chest. [facility] Work Phone: History of Present illness Narrative* The patient is being seen for the subsequent annual wellness visit. * Past Medical, Surgical and Family History: reviewed and updated in chart. * Medications and Supplements: Review of all medications by a prescribing practitioner or clinical pharmacist (such as prescriptions, OTCs, herbal therapies and supplements) documented in the medical record. * No, the patient is not using opioids. * Patient Self Assessment of Health Status: good. * Tobacco use: Non-User * Alcohol use: Non-User * Illicit drug use: Non-User * Current diet: well balanced diet, does consume adequate fluids and does consume caffeine. * Exercise Frequency: the patient does not exercise. * Depression/Suicide Screening: . * During the past 2 weeks, the patient has not felt down, depressed or hopeless. * During the past 2 weeks, the patient has not felt little interest or pleasure in doing things. * Hearing Impairment: Patient has significant hearing impairment, bilaterally. * Cognitive Impairment: Cognitive impairment was observed. * known demenia, on namenda. * Bathing: performs independently. * Dressing: performs independently. * Walking: performs independently. * Managing Finances: performs independently. * Shopping: performs independently. * Managing Medications: performs independently. * Housework / Basic Home Maintenance: performs independently. * Falls Risk Screening:. JAVIER has fallen in the last 6 months. His fall resulted in the followinginjury: hit head. * Home safety risk factors: none. * Advance directives:. Advanced Care Planning discussed and documented advance care plan or surrogatedecision maker documented in the medical record. Patient has living will. Patient has healthcare POA. * Patient's End of Life Decisions: End of life decisions were reviewed with the patient. I agree to follow the patient's decisions. * Additional Information: full code, has in writing. * Health maintenance: * TDAP-- 10/2015 * COVID-- 08/2021 * Influenza-- due fall 2021 * Shingrix-- completed * Pneumonia series-- PPSV 2004; no record of PCV * Last DEXA-- 04/2016 normal * Cscope(45-75)-- N/A - graduated * PSA-- N/A - graduated * AAA Screen(65-79)-- 03/2017 normal * Anxiety/Depression-- 03/2021 * PHQ-2: 4 * JULIET-7: N/A * Hepatitis C Screen-- none found * Last HbA1c-- 5.8 in 12/2020 * Lipid Panel-- ratio: 3.2 in 07/2021 (TRIG 243) * CT cardiac score-- none found (coronary artery calcifications on 07/2007 CT chest) * ECHO-- 01/2017 (LVEF 65 %. Mild LVH. Mild TR. Abnormal LV relaxation.) * *Due for: FLU, PREVNAR-20?, LABS, A1c (only prediabetic, can do with labs, IO not necessary) * Patient presents today for recheck gait, hyperglycemia, HTN, HLD/CAD, CKD + MWV * Patient would like to receive their wellness visit today. Patient was made aware of and signed acknowledging that if they and the provider decide to discuss medical problems today, instead of returning for a separate visit, that is not part of the wellness visit. Also made aware that in the event that discussion beyond the wellness visit components does occur, an office visit charge will be billed and they will be responsible for any copays and deductibles that apply under their insurance plan. * Refills sent * SCALES given * concerns:fell in Jan had CAT scan showed aneurysm but MRI showed none * * CHRONIC CONDITIONS: * -Gait, patient referred to PT for balance in 07/2021, he completed 6 sessions and was then discharge. * Per 10/2021 PT EVAL: * Patient tolerates treatment with moderate difficulty. Patient demo's increased weakness in L shoulder this date with ER and AAROM flexion. Verbal cues needed for proper form with seated AAROM and to not compensate with trunk with min carryover. Patient demo's restriction in L GH capsule this date with flexion and ER. Patient with increased fatigue at end of session. * -Mood, taking Celexa 40 mg daily. * -Insomnia, taking Trazodone 50 mg (1/2 tablet) at bedtime. * -Dementia, on Memantine 10 mg BID. * MOCA 2018 was stable. * -COPD, never a smoker but did have industrial exposure. * He was previously on Symbicort daily in distant past, declined this at 03/2021 * Now using albuterol as needed. * -HTN, taking Metoprolol 25 mg 1/2 tablet daily. * -Hyperglycemia, barely in pre-diabetic range, lifestyle managed. * 12/2020 Hgb A1c 5.8; prior A1c was 5.6 in 01/2018 * -CKD, baseline GFR 56-60 * 07/2021 GFR 49 + creatinine 1.40, down from prior and down from baseline. * 12/2020 GFR 59 + creatinine 1.18, at baseline. * -CAD/HLD currently on Rosuvastatin 10 mg & Plavix anticoagulation. * Has seen cardiology (Dr. Obrien) in the past. * 07/2021 lipid panel favorable with TC/HDL ratio 3.2, stable from prior ratio 3.2 in 12/2020 * No CACS, however, there were coronary artery calcifications on 07/2007 CT chest. [facility] Work Phone: Reason for visit NarrativeInitial Evaluation . Balance problems. [facility] Work Phone: Reason for visit Narrative* Initial Evaluation . (L) shoulder pain. * Referred by: Dr. Cathy Cid [facility] Work Phone: Summary Purpose Family History natural son Name Dates Details Family history of cardiac di sorder(V17.49, Z82.49) Status:Active Mother Name Dates Details Family history of obesity(V1 8.19, Z83.49) Status:Active Family history of coronary a rtery disease(V17.3, Z82.49) Status:Active Family history of diabetes m ellitus(V18.0, Z83.3) Status:Active Father Name Dates Details Family history of coronary a rtery disease(V17.3, Z82.49) Status:Active Sister Name Dates Details Family history of cardiac di sorder(V17.49, Z82.49) Status:Active Family history of hypertensi on(V17.49, Z82.49) Status:Active Family history of hyperchole sterolemia(V18.19, Z83.42) Status:Active Family history of arthritis( V17.7, Z82.61) Status:Active Family history of stroke(V17 .1, Z82.3) Status:Active Brother Name Dates Details Family history of cardiac di sorder(V17.49, Z82.49) Status:Active natural son Name Dates Details Family history of cardiac di sorder(V17.49, Z82.49) Status:Active Mother Name Dates Details Family history of obesity(V1 8.19, Z83.49) Status:Active Family history of coronary a rtery disease(V17.3, Z82.49) Status:Active Family history of diabetes m ellitus(V18.0, Z83.3) Status:Active Father Name Dates Details Family history of coronary a rtery disease(V17.3, Z82.49) Status:Active Sister Name Dates Details Family history of cardiac di sorder(V17.49, Z82.49) Status:Active Family history of hypertensi on(V17.49, Z82.49) Status:Active Family history of hyperchole sterolemia(V18.19, Z83.42) Status:Active Family history of arthritis( V17.7, Z82.61) Status:Active Family history of stroke(V17 .1, Z82.3) Status:Active Brother Name Dates Details Family history of cardiac di sorder(V17.49, Z82.49) Status:Active natural son Name Dates Details Family history of cardiac di sorder(V17.49, Z82.49) Status:Active Mother Name Dates Details Family history of obesity(V1 8.19, Z83.49) Status:Active Family history of coronary a rtery disease(V17.3, Z82.49) Status:Active Family history of diabetes m ellitus(V18.0, Z83.3) Status:Active Father Name Dates Details Family history of coronary a rtery disease(V17.3, Z82.49) Status:Active Sister Name Dates Details Family history of cardiac di sorder(V17.49, Z82.49) Status:Active Family history of hypertensi on(V17.49, Z82.49) Status:Active Family history of hyperchole sterolemia(V18.19, Z83.42) Status:Active Family history of arthritis( V17.7, Z82.61) Status:Active Family history of stroke(V17 .1, Z82.3) Status:Active Brother Name Dates Details Family history of cardiac di sorder(V17.49, Z82.49) Status:Active natural son Name Dates Details Family history of cardiac di sorder(V17.49, Z82.49) Status:Active Mother Name Dates Details Family history of coronary a rtery disease(V17.3, Z82.49) Status:Active Family history of obesity(V1 8.19, Z83.49) Status:Active Family history of diabetes m ellitus(V18.0, Z83.3) Status:Active Father Name Dates Details Family history of coronary a rtery disease(V17.3, Z82.49) Status:Active Sister Name Dates Details Family history of cardiac di sorder(V17.49, Z82.49) Status:Active Family history of hypertensi on(V17.49, Z82.49) Status:Active Family history of hyperchole sterolemia(V18.19, Z83.42) Status:Active Family history of arthritis( V17.7, Z82.61) Status:Active Family history of stroke(V17 .1, Z82.3) Status:Active Brother Name Dates Details Family history of cardiac di sorder(V17.49, Z82.49) Status:Active natural son Name Dates Details Family history of cardiac di sorder(V17.49, Z82.49) Status:Active Mother Name Dates Details Family history of obesity(V1 8.19, Z83.49) Status:Active Family history of coronary a rtery disease(V17.3, Z82.49) Status:Active Family history of diabetes m ellitus(V18.0, Z83.3) Status:Active Father Name Dates Details Family history of coronary a rtery disease(V17.3, Z82.49) Status:Active Sister Name Dates Details Family history of cardiac di sorder(V17.49, Z82.49) Status:Active Family history of hypertensi on(V17.49, Z82.49) Status:Active Family history of hyperchole sterolemia(V18.19, Z83.42) Status:Active Family history of arthritis( V17.7, Z82.61) Status:Active Family history of stroke(V17 .1, Z82.3) Status:Active Brother Name Dates Details Family history of cardiac di sorder(V17.49, Z82.49) Status:Active natural son Name Dates Details Family history of cardiac di sorder(V17.49, Z82.49) Status:Active Mother Name Dates Details Family history of obesity(V1 8.19, Z83.49) Status:Active Family history of coronary a rtery disease(V17.3, Z82.49) Status:Active Family history of diabetes m ellitus(V18.0, Z83.3) Status:Active Father Name Dates Details Family history of coronary a rtery disease(V17.3, Z82.49) Status:Active Sister Name Dates Details Family history of cardiac di sorder(V17.49, Z82.49) Status:Active Family history of hypertensi on(V17.49, Z82.49) Status:Active Family history of hyperchole sterolemia(V18.19, Z83.42) Status:Active Family history of arthritis( V17.7, Z82.61) Status:Active Family history of stroke(V17 .1, Z82.3) Status:Active Brother Name Dates Details Family history of cardiac di sorder(V17.49, Z82.49) Status:Active natural son Name Dates Details Family history of cardiac di sorder(V17.49, Z82.49) Status:Active Mother Name Dates Details Family history of obesity(V1 8.19, Z83.49) Status:Active Family history of coronary a rtery disease(V17.3, Z82.49) Status:Active Family history of diabetes m ellitus(V18.0, Z83.3) Status:Active Father Name Dates Details Family history of coronary a rtery disease(V17.3, Z82.49) Status:Active Sister Name Dates Details Family history of cardiac di sorder(V17.49, Z82.49) Status:Active Family history of hypertensi on(V17.49, Z82.49) Status:Active Family history of hyperchole sterolemia(V18.19, Z83.42) Status:Active Family history of arthritis( V17.7, Z82.61) Status:Active Family history of stroke(V17 .1, Z82.3) Status:Active Brother Name Dates Details Family history of cardiac di sorder(V17.49, Z82.49) Status:Active natural son Name Dates Details Family history of cardiac di sorder(V17.49, Z82.49) Status:Active Mother Name Dates Details Family history of obesity(V1 8.19, Z83.49) Status:Active Family history of coronary a rtery disease(V17.3, Z82.49) Status:Active Family history of diabetes m ellitus(V18.0, Z83.3) Status:Active Father Name Dates Details Family history of coronary a rtery disease(V17.3, Z82.49) Status:Active Sister Name Dates Details Family history of cardiac di sorder(V17.49, Z82.49) Status:Active Family history of hypertensi on(V17.49, Z82.49) Status:Active Family history of hyperchole sterolemia(V18.19, Z83.42) Status:Active Family history of arthritis( V17.7, Z82.61) Status:Active Family history of stroke(V17 .1, Z82.3) Status:Active Brother Name Dates Details Family history of cardiac di sorder(V17.49, Z82.49) Status:Active natural son Name Dates Details Family history of cardiac di sorder(V17.49, Z82.49) Status:Active Mother Name Dates Details Family history of obesity(V1 8.19, Z83.49) Status:Active Family history of coronary a rtery disease(V17.3, Z82.49) Status:Active Family history of diabetes m ellitus(V18.0, Z83.3) Status:Active Father Name Dates Details Family history of coronary a rtery disease(V17.3, Z82.49) Status:Active Sister Name Dates Details Family history of cardiac di sorder(V17.49, Z82.49) Status:Active Family history of hypertensi on(V17.49, Z82.49) Status:Active Family history of hyperchole sterolemia(V18.19, Z83.42) Status:Active Family history of arthritis( V17.7, Z82.61) Status:Active Family history of stroke(V17 .1, Z82.3) Status:Active Brother Name Dates Details Family history of cardiac di sorder(V17.49, Z82.49) Status:Active natural son Name Dates Details Family history of cardiac di sorder(V17.49, Z82.49) Status:Active Mother Name Dates Details Family history of obesity(V1 8.19, Z83.49) Status:Active Family history of coronary a rtery disease(V17.3, Z82.49) Status:Active Family history of diabetes m ellitus(V18.0, Z83.3) Status:Active Father Name Dates Details Family history of coronary a rtery disease(V17.3, Z82.49) Status:Active Sister Name Dates Details Family history of cardiac di sorder(V17.49, Z82.49) Status:Active Family history of hypertensi on(V17.49, Z82.49) Status:Active Family history of hyperchole sterolemia(V18.19, Z83.42) Status:Active Family history of arthritis( V17.7, Z82.61) Status:Active Family history of stroke(V17 .1, Z82.3) Status:Active Brother Name Dates Details Family history of cardiac di sorder(V17.49, Z82.49) Status:Active natural son Name Dates Details Family history of cardiac di sorder(V17.49, Z82.49) Status:Active Mother Name Dates Details Family history of obesity(V1 8.19, Z83.49) Status:Active Family history of coronary a rtery disease(V17.3, Z82.49) Status:Active Family history of diabetes m ellitus(V18.0, Z83.3) Status:Active Father Name Dates Details Family history of coronary a rtery disease(V17.3, Z82.49) Status:Active Sister Name Dates Details Family history of cardiac di sorder(V17.49, Z82.49) Status:Active Family history of hypertensi on(V17.49, Z82.49) Status:Active Family history of hyperchole sterolemia(V18.19, Z83.42) Status:Active Family history of arthritis( V17.7, Z82.61) Status:Active Family history of stroke(V17 .1, Z82.3) Status:Active Brother Name Dates Details Family history of cardiac di sorder(V17.49, Z82.49) Status:Active natural son Name Dates Details Family history of cardiac di sorder(V17.49, Z82.49) Status:Active Mother Name Dates Details Family history of coronary a rtery disease(V17.3, Z82.49) Status:Active Family history of obesity(V1 8.19, Z83.49) Status:Active Family history of diabetes m ellitus(V18.0, Z83.3) Status:Active Father Name Dates Details Family history of coronary a rtery disease(V17.3, Z82.49) Status:Active Sister Name Dates Details Family history of cardiac di sorder(V17.49, Z82.49) Status:Active Family history of hypertensi on(V17.49, Z82.49) Status:Active Family history of hyperchole sterolemia(V18.19, Z83.42) Status:Active Family history of arthritis( V17.7, Z82.61) Status:Active Family history of stroke(V17 .1, Z82.3) Status:Active Brother Name Dates Details Family history of cardiac di sorder(V17.49, Z82.49) Status:Active natural son Name Dates Details Family history of cardiac di sorder(V17.49, Z82.49) Status:Active Mother Name Dates Details Family history of obesity(V1 8.19, Z83.49) Status:Active Family history of coronary a rtery disease(V17.3, Z82.49) Status:Active Family history of diabetes m ellitus(V18.0, Z83.3) Status:Active Father Name Dates Details Family history of coronary a rtery disease(V17.3, Z82.49) Status:Active Sister Name Dates Details Family history of cardiac di sorder(V17.49, Z82.49) Status:Active Family history of hypertensi on(V17.49, Z82.49) Status:Active Family history of hyperchole sterolemia(V18.19, Z83.42) Status:Active Family history of arthritis( V17.7, Z82.61) Status:Active Family history of stroke(V17 .1, Z82.3) Status:Active Brother Name Dates Details Family history of cardiac di sorder(V17.49, Z82.49) Status:Active natural son Name Dates Details Family history of cardiac di sorder(V17.49, Z82.49) Status:Active Mother Name Dates Details Family history of coronary a rtery disease(V17.3, Z82.49) Status:Active Family history of obesity(V1 8.19, Z83.49) Status:Active Family history of diabetes m ellitus(V18.0, Z83.3) Status:Active Father Name Dates Details Family history of coronary a rtery disease(V17.3, Z82.49) Status:Active Sister Name Dates Details Family history of cardiac di sorder(V17.49, Z82.49) Status:Active Family history of hypertensi on(V17.49, Z82.49) Status:Active Family history of hyperchole sterolemia(V18.19, Z83.42) Status:Active Family history of arthritis( V17.7, Z82.61) Status:Active Family history of stroke(V17 .1, Z82.3) Status:Active Brother Name Dates Details Family history of cardiac di sorder(V17.49, Z82.49) Status:Active natural son Name Dates Details Family history of cardiac di sorder(V17.49, Z82.49) Status:Active Mother Name Dates Details Family history of obesity(V1 8.19, Z83.49) Status:Active Family history of coronary a rtery disease(V17.3, Z82.49) Status:Active Family history of diabetes m ellitus(V18.0, Z83.3) Status:Active Father Name Dates Details Family history of coronary a rtery disease(V17.3, Z82.49) Status:Active Sister Name Dates Details Family history of cardiac di sorder(V17.49, Z82.49) Status:Active Family history of hypertensi on(V17.49, Z82.49) Status:Active Family history of hyperchole sterolemia(V18.19, Z83.42) Status:Active Family history of arthritis( V17.7, Z82.61) Status:Active Family history of stroke(V17 .1, Z82.3) Status:Active Brother Name Dates Details Family history of cardiac di sorder(V17.49, Z82.49) Status:Active natural son Name Dates Details Family history of cardiac di sorder(V17.49, Z82.49) Status:Active Mother Name Dates Details Family history of obesity(V1 8.19, Z83.49) Status:Active Family history of coronary a rtery disease(V17.3, Z82.49) Status:Active Family history of diabetes m ellitus(V18.0, Z83.3) Status:Active Father Name Dates Details Family history of coronary a rtery disease(V17.3, Z82.49) Status:Active Sister Name Dates Details Family history of cardiac di sorder(V17.49, Z82.49) Status:Active Family history of hypertensi on(V17.49, Z82.49) Status:Active Family history of hyperchole sterolemia(V18.19, Z83.42) Status:Active Family history of arthritis( V17.7, Z82.61) Status:Active Family history of stroke(V17 .1, Z82.3) Status:Active Brother Name Dates Details Family history of cardiac di sorder(V17.49, Z82.49) Status:Active natural son Name Dates Details Family history of cardiac di sorder(V17.49, Z82.49) Status:Active Mother Name Dates Details Family history of obesity(V1 8.19, Z83.49) Status:Active Family history of coronary a rtery disease(V17.3, Z82.49) Status:Active Family history of diabetes m ellitus(V18.0, Z83.3) Status:Active Father Name Dates Details Family history of coronary a rtery disease(V17.3, Z82.49) Status:Active Sister Name Dates Details Family history of cardiac di sorder(V17.49, Z82.49) Status:Active Family history of hypertensi on(V17.49, Z82.49) Status:Active Family history of hyperchole sterolemia(V18.19, Z83.42) Status:Active Family history of arthritis( V17.7, Z82.61) Status:Active Family history of stroke(V17 .1, Z82.3) Status:Active Brother Name Dates Details Family history of cardiac di sorder(V17.49, Z82.49) Status:Active Unknown Family Member Name Dates Details Family history of obesity: M other(V18.19, Z83.49) Status:Active Family history of coronary a rtery disease: Mother, Father(V17.3, Z82.49) Status:Active Family history of diabetes m ellitus: Mother(V18.0, Z83.3) Status:Active Family history of cardiac di sorder: Son, Brother, Sister(V17.49, Z82.49) Status:Active Family history of hypertensi on: Sister(V17.49, Z82.49) Status:Active Family history of hyperchole sterolemia: Sister(V18.19, Z83.42) Status:Active Family history of arthritis: Sister(V17.7, Z82.61) Status:Active Family history of stroke: Si ster(V17.1, Z82.3) Status:Active Unknown Family Member Name Dates Details Family history of obesity: M other(V18.19, Z83.49) Status:Active Family history of coronary a rtery disease: Mother, Father(V17.3, Z82.49) Status:Active Family history of diabetes m ellitus: Mother(V18.0, Z83.3) Status:Active Family history of cardiac di sorder: Son, Brother, Sister(V17.49, Z82.49) Status:Active Family history of hypertensi on: Sister(V17.49, Z82.49) Status:Active Family history of hyperchole sterolemia: Sister(V18.19, Z83.42) Status:Active Family history of arthritis: Sister(V17.7, Z82.61) Status:Active Family history of stroke: Si ster(V17.1, Z82.3) Status:Active Unknown Family Member Name Dates Details Family history of obesity: M other(V18.19, Z83.49) Status:Active Family history of coronary a rtery disease: Mother, Father(V17.3, Z82.49) Status:Active Family history of diabetes m ellitus: Mother(V18.0, Z83.3) Status:Active Family history of cardiac di sorder: Son, Brother, Sister(V17.49, Z82.49) Status:Active Family history of hypertensi on: Sister(V17.49, Z82.49) Status:Active Family history of hyperchole sterolemia: Sister(V18.19, Z83.42) Status:Active Family history of arthritis: Sister(V17.7, Z82.61) Status:Active Family history of stroke: Si ster(V17.1, Z82.3) Status:Active Unknown Family Member Name Dates Details Family history of obesity: M other(V18.19, Z83.49) Status:Active Family history of coronary a rtery disease: Mother, Father(V17.3, Z82.49) Status:Active Family history of diabetes m ellitus: Mother(V18.0, Z83.3) Status:Active Family history of cardiac di sorder: Son, Brother, Sister(V17.49, Z82.49) Status:Active Family history of hypertensi on: Sister(V17.49, Z82.49) Status:Active Family history of hyperchole sterolemia: Sister(V18.19, Z83.42) Status:Active Family history of arthritis: Sister(V17.7, Z82.61) Status:Active Family history of stroke: Si ster(V17.1, Z82.3) Status:Active Unknown Family Member Name Dates Details Family history of obesity: M other(V18.19, Z83.49) Status:Active Family history of coronary a rtery disease: Mother, Father(V17.3, Z82.49) Status:Active Family history of diabetes m ellitus: Mother(V18.0, Z83.3) Status:Active Family history of cardiac di sorder: Son, Brother, Sister(V17.49, Z82.49) Status:Active Family history of hypertensi on: Sister(V17.49, Z82.49) Status:Active Family history of hyperchole sterolemia: Sister(V18.19, Z83.42) Status:Active Family history of arthritis: Sister(V17.7, Z82.61) Status:Active Family history of stroke: Si ster(V17.1, Z82.3) Status:Active Unknown Family Member Name Dates Details Family history of obesity: M other(V18.19, Z83.49) Status:Active Family history of coronary a rtery disease: Mother, Father(V17.3, Z82.49) Status:Active Family history of diabetes m ellitus: Mother(V18.0, Z83.3) Status:Active Family history of cardiac di sorder: Son, Brother, Sister(V17.49, Z82.49) Status:Active Family history of hypertensi on: Sister(V17.49, Z82.49) Status:Active Family history of hyperchole sterolemia: Sister(V18.19, Z83.42) Status:Active Family history of arthritis: Sister(V17.7, Z82.61) Status:Active Family history of stroke: Si ster(V17.1, Z82.3) Status:Active Unknown Family Member Name Dates Details Family history of stroke: Si ster(V17.1, Z82.3) Status:Active Family history of arthritis: Sister(V17.7, Z82.61) Status:Active Family history of hyperchole sterolemia: Sister(V18.19, Z83.42) Status:Active Family history of hypertensi on: Sister(V17.49, Z82.49) Status:Active Family history of cardiac di sorder: Son, Brother, Sister(V17.49, Z82.49) Status:Active Family history of diabetes m ellitus: Mother(V18.0, Z83.3) Status:Active Family history of coronary a rtery disease: Mother, Father(V17.3, Z82.49) Status:Active Family history of obesity: M other(V18.19, Z83.49) Status:Active Unknown Family Member Name Dates Details Family history of obesity: M other(V18.19, Z83.49) Status:Active Family history of coronary a rtery disease: Mother, Father(V17.3, Z82.49) Status:Active Family history of diabetes m ellitus: Mother(V18.0, Z83.3) Status:Active Family history of cardiac di sorder: Son, Brother, Sister(V17.49, Z82.49) Status:Active Family history of hypertensi on: Sister(V17.49, Z82.49) Status:Active Family history of hyperchole sterolemia: Sister(V18.19, Z83.42) Status:Active Family history of arthritis: Sister(V17.7, Z82.61) Status:Active Family history of stroke: Si ster(V17.1, Z82.3) Status:Active Unknown Family Member Name Dates Details Family history of obesity: M other(V18.19, Z83.49) Status:Active Family history of coronary a rtery disease: Mother, Father(V17.3, Z82.49) Status:Active Family history of diabetes m ellitus: Mother(V18.0, Z83.3) Status:Active Family history of cardiac di sorder: Son, Brother, Sister(V17.49, Z82.49) Status:Active Family history of hypertensi on: Sister(V17.49, Z82.49) Status:Active Family history of hyperchole sterolemia: Sister(V18.19, Z83.42) Status:Active Family history of arthritis: Sister(V17.7, Z82.61) Status:Active Family history of stroke: Si ster(V17.1, Z82.3) Status:Active Unknown Family Member Name Dates Details Family history of obesity: M other(V18.19, Z83.49) Status:Active Family history of coronary a rtery disease: Mother, Father(V17.3, Z82.49) Status:Active Family history of diabetes m ellitus: Mother(V18.0, Z83.3) Status:Active Family history of cardiac di sorder: Son, Brother, Sister(V17.49, Z82.49) Status:Active Family history of hypertensi on: Sister(V17.49, Z82.49) Status:Active Family history of hyperchole sterolemia: Sister(V18.19, Z83.42) Status:Active Family history of arthritis: Sister(V17.7, Z82.61) Status:Active Family history of stroke: Si ster(V17.1, Z82.3) Status:Active Unknown Family Member Name Dates Details Family history of obesity: M other(V18.19, Z83.49) Status:Active Family history of coronary a rtery disease: Mother, Father(V17.3, Z82.49) Status:Active Family history of diabetes m ellitus: Mother(V18.0, Z83.3) Status:Active Family history of cardiac di sorder: Son, Brother, Sister(V17.49, Z82.49) Status:Active Family history of hypertensi on: Sister(V17.49, Z82.49) Status:Active Family history of hyperchole sterolemia: Sister(V18.19, Z83.42) Status:Active Family history of arthritis: Sister(V17.7, Z82.61) Status:Active Family history of stroke: Si ster(V17.1, Z82.3) Status:Active Unknown Family Member Name Dates Details Family history of obesity: M other(V18.19, Z83.49) Status:Active Family history of coronary a rtery disease: Mother, Father(V17.3, Z82.49) Status:Active Family history of diabetes m ellitus: Mother(V18.0, Z83.3) Status:Active Family history of cardiac di sorder: Son, Brother, Sister(V17.49, Z82.49) Status:Active Family history of hypertensi on: Sister(V17.49, Z82.49) Status:Active Family history of hyperchole sterolemia: Sister(V18.19, Z83.42) Status:Active Family history of arthritis: Sister(V17.7, Z82.61) Status:Active Family history of stroke: Si ster(V17.1, Z82.3) Status:Active Unknown Family Member Name Dates Details Family history of obesity: M other(V18.19, Z83.49) Status:Active Family history of coronary a rtery disease: Mother, Father(V17.3, Z82.49) Status:Active Family history of diabetes m ellitus: Mother(V18.0, Z83.3) Status:Active Family history of cardiac di sorder: Son, Brother, Sister(V17.49, Z82.49) Status:Active Family history of hypertensi on: Sister(V17.49, Z82.49) Status:Active Family history of hyperchole sterolemia: Sister(V18.19, Z83.42) Status:Active Family history of arthritis: Sister(V17.7, Z82.61) Status:Active Family history of stroke: Si ster(V17.1, Z82.3) Status:Active Unknown Family Member Name Dates Details Family history of obesity: M other(V18.19, Z83.49) Status:Active Family history of coronary a rtery disease: Mother, Father(V17.3, Z82.49) Status:Active Family history of diabetes m ellitus: Mother(V18.0, Z83.3) Status:Active Family history of cardiac di sorder: Son, Brother, Sister(V17.49, Z82.49) Status:Active Family history of hypertensi on: Sister(V17.49, Z82.49) Status:Active Family history of hyperchole sterolemia: Sister(V18.19, Z83.42) Status:Active Family history of arthritis: Sister(V17.7, Z82.61) Status:Active Family history of stroke: Si ster(V17.1, Z82.3) Status:Active Unknown Family Member Name Dates Details Family history of obesity: M other(V18.19, Z83.49) Status:Active Family history of coronary a rtery disease: Mother, Father(V17.3, Z82.49) Status:Active Family history of diabetes m ellitus: Mother(V18.0, Z83.3) Status:Active Family history of cardiac di sorder: Son, Brother, Sister(V17.49, Z82.49) Status:Active Family history of hypertensi on: Sister(V17.49, Z82.49) Status:Active Family history of hyperchole sterolemia: Sister(V18.19, Z83.42) Status:Active Family history of arthritis: Sister(V17.7, Z82.61) Status:Active Family history of stroke: Si ster(V17.1, Z82.3) Status:Active Unknown Family Member Name Dates Details Family history of obesity: M other(V18.19, Z83.49) Status:Active Family history of coronary a rtery disease: Mother, Father(V17.3, Z82.49) Status:Active Family history of diabetes m ellitus: Mother(V18.0, Z83.3) Status:Active Family history of cardiac di sorder: Son, Brother, Sister(V17.49, Z82.49) Status:Active Family history of hypertensi on: Sister(V17.49, Z82.49) Status:Active Family history of hyperchole sterolemia: Sister(V18.19, Z83.42) Status:Active Family history of arthritis: Sister(V17.7, Z82.61) Status:Active Family history of stroke: Si ster(V17.1, Z82.3) Status:Active Unknown Family Member Name Dates Details Family history of obesity: M other(V18.19, Z83.49) Status:Active Family history of coronary a rtery disease: Mother, Father(V17.3, Z82.49) Status:Active Family history of diabetes m ellitus: Mother(V18.0, Z83.3) Status:Active Family history of cardiac di sorder: Son, Brother, Sister(V17.49, Z82.49) Status:Active Family history of hypertensi on: Sister(V17.49, Z82.49) Status:Active Family history of hyperchole sterolemia: Sister(V18.19, Z83.42) Status:Active Family history of arthritis: Sister(V17.7, Z82.61) Status:Active Family history of stroke: Si ster(V17.1, Z82.3) Status:Active Unknown Family Member Name Dates Details Family history of obesity: M other(V18.19, Z83.49) Status:Active Family history of coronary a rtery disease: Mother, Father(V17.3, Z82.49) Status:Active Family history of diabetes m ellitus: Mother(V18.0, Z83.3) Status:Active Family history of cardiac di sorder: Son, Brother, Sister(V17.49, Z82.49) Status:Active Family history of hypertensi on: Sister(V17.49, Z82.49) Status:Active Family history of hyperchole sterolemia: Sister(V18.19, Z83.42) Status:Active Family history of arthritis: Sister(V17.7, Z82.61) Status:Active Family history of stroke: Si ster(V17.1, Z82.3) Status:Active Unknown Family Member Name Dates Details Family history of obesity: M other(V18.19, Z83.49) Status:Active Family history of coronary a rtery disease: Mother, Father(V17.3, Z82.49) Status:Active Family history of diabetes m ellitus: Mother(V18.0, Z83.3) Status:Active Family history of cardiac di sorder: Son, Brother, Sister(V17.49, Z82.49) Status:Active Family history of hypertensi on: Sister(V17.49, Z82.49) Status:Active Family history of hyperchole sterolemia: Sister(V18.19, Z83.42) Status:Active Family history of arthritis: Sister(V17.7, Z82.61) Status:Active Family history of stroke: Si ster(V17.1, Z82.3) Status:Active Unknown Family Member Name Dates Details Family history of obesity: M other(V18.19, Z83.49) Status:Active Family history of coronary a rtery disease: Mother, Father(V17.3, Z82.49) Status:Active Family history of diabetes m ellitus: Mother(V18.0, Z83.3) Status:Active Family history of cardiac di sorder: Son, Brother, Sister(V17.49, Z82.49) Status:Active Family history of hypertensi on: Sister(V17.49, Z82.49) Status:Active Family history of hyperchole sterolemia: Sister(V18.19, Z83.42) Status:Active Family history of arthritis: Sister(V17.7, Z82.61) Status:Active Family history of stroke: Si ster(V17.1, Z82.3) Status:Active Unknown Family Member Name Dates Details Family history of obesity: M other(V18.19, Z83.49) Status:Active Family history of coronary a rtery disease: Mother, Father(V17.3, Z82.49) Status:Active Family history of diabetes m ellitus: Mother(V18.0, Z83.3) Status:Active Family history of cardiac di sorder: Son, Brother, Sister(V17.49, Z82.49) Status:Active Family history of hypertensi on: Sister(V17.49, Z82.49) Status:Active Family history of hyperchole sterolemia: Sister(V18.19, Z83.42) Status:Active Family history of arthritis: Sister(V17.7, Z82.61) Status:Active Family history of stroke: Si ster(V17.1, Z82.3) Status:Active Unknown Family Member Name Dates Details Family history of stroke: Si ster(V17.1, Z82.3) Status:Active Family history of arthritis: Sister(V17.7, Z82.61) Status:Active Family history of hyperchole sterolemia: Sister(V18.19, Z83.42) Status:Active Family history of hypertensi on: Sister(V17.49, Z82.49) Status:Active Family history of cardiac di sorder: Son, Brother, Sister(V17.49, Z82.49) Status:Active Family history of diabetes m ellitus: Mother(V18.0, Z83.3) Status:Active Family history of coronary a rtery disease: Mother, Father(V17.3, Z82.49) Status:Active Family history of obesity: M other(V18.19, Z83.49) Status:Active Unknown Family Member Name Dates Details Family history of obesity: M other(V18.19, Z83.49) Status:Active Family history of coronary a rtery disease: Mother, Father(V17.3, Z82.49) Status:Active Family history of diabetes m ellitus: Mother(V18.0, Z83.3) Status:Active Family history of cardiac di sorder: Son, Brother, Sister(V17.49, Z82.49) Status:Active Family history of hypertensi on: Sister(V17.49, Z82.49) Status:Active Family history of hyperchole sterolemia: Sister(V18.19, Z83.42) Status:Active Family history of arthritis: Sister(V17.7, Z82.61) Status:Active Family history of stroke: Si ster(V17.1, Z82.3) Status:Active Unknown Family Member Name Dates Details Family history of obesity: M other(V18.19, Z83.49) Status:Active Family history of coronary a rtery disease: Mother, Father(V17.3, Z82.49) Status:Active Family history of diabetes m ellitus: Mother(V18.0, Z83.3) Status:Active Family history of cardiac di sorder: Son, Brother, Sister(V17.49, Z82.49) Status:Active Family history of hypertensi on: Sister(V17.49, Z82.49) Status:Active Family history of hyperchole sterolemia: Sister(V18.19, Z83.42) Status:Active Family history of arthritis: Sister(V17.7, Z82.61) Status:Active Family history of stroke: Si ster(V17.1, Z82.3) Status:Active Unknown Family Member Name Dates Details Family history of obesity: M other(V18.19, Z83.49) Status:Active Family history of coronary a rtery disease: Mother, Father(V17.3, Z82.49) Status:Active Family history of diabetes m ellitus: Mother(V18.0, Z83.3) Status:Active Family history of cardiac di sorder: Son, Brother, Sister(V17.49, Z82.49) Status:Active Family history of hypertensi on: Sister(V17.49, Z82.49) Status:Active Family history of hyperchole sterolemia: Sister(V18.19, Z83.42) Status:Active Family history of arthritis: Sister(V17.7, Z82.61) Status:Active Family history of stroke: Si ster(V17.1, Z82.3) Status:Active Unknown Family Member Name Dates Details Family history of obesity: M other(V18.19, Z83.49) Status:Active Family history of coronary a rtery disease: Mother, Father(V17.3, Z82.49) Status:Active Family history of diabetes m ellitus: Mother(V18.0, Z83.3) Status:Active Family history of cardiac di sorder: Son, Brother, Sister(V17.49, Z82.49) Status:Active Family history of hypertensi on: Sister(V17.49, Z82.49) Status:Active Family history of hyperchole sterolemia: Sister(V18.19, Z83.42) Status:Active Family history of arthritis: Sister(V17.7, Z82.61) Status:Active Family history of stroke: Si ster(V17.1, Z82.3) Status:Active Unknown Family Member Name Dates Details Family history of obesity: M other(V18.19, Z83.49) Status:Active Family history of coronary a rtery disease: Mother, Father(V17.3, Z82.49) Status:Active Family history of diabetes m ellitus: Mother(V18.0, Z83.3) Status:Active Family history of cardiac di sorder: Son, Brother, Sister(V17.49, Z82.49) Status:Active Family history of hypertensi on: Sister(V17.49, Z82.49) Status:Active Family history of hyperchole sterolemia: Sister(V18.19, Z83.42) Status:Active Family history of arthritis: Sister(V17.7, Z82.61) Status:Active Family history of stroke: Si ster(V17.1, Z82.3) Status:Active Unknown Family Member Name Dates Details Family history of coronary a rtery disease: Mother, Father(V17.3, Z82.49) Status:Active Family history of cardiac di sorder: Son, Brother, Sister(V17.49, Z82.49) Status:Active Family history of obesity: M other(V18.19, Z83.49) Status:Active Family history of diabetes m ellitus: Mother(V18.0, Z83.3) Status:Active Family history of hypertensi on: Sister(V17.49, Z82.49) Status:Active Family history of hyperchole sterolemia: Sister(V18.19, Z83.42) Status:Active Family history of arthritis: Sister(V17.7, Z82.61) Status:Active Family history of stroke: Si ster(V17.1, Z82.3) Status:Active Unknown Family Member Name Dates Details Family history of coronary a rtery disease: Mother, Father(V17.3, Z82.49) Status:Active Family history of cardiac di sorder: Son, Brother, Sister(V17.49, Z82.49) Status:Active Family history of obesity: M other(V18.19, Z83.49) Status:Active Family history of diabetes m ellitus: Mother(V18.0, Z83.3) Status:Active Family history of hypertensi on: Sister(V17.49, Z82.49) Status:Active Family history of hyperchole sterolemia: Sister(V18.19, Z83.42) Status:Active Family history of arthritis: Sister(V17.7, Z82.61) Status:Active Family history of stroke: Si ster(V17.1, Z82.3) Status:Active Unknown Family Member Name Dates Details Family history of obesity: M other(V18.19, Z83.49) Status:Active Family history of coronary a rtery disease: Mother, Father(V17.3, Z82.49) Status:Active Family history of diabetes m ellitus: Mother(V18.0, Z83.3) Status:Active Family history of cardiac di sorder: Son, Brother, Sister(V17.49, Z82.49) Status:Active Family history of hypertensi on: Sister(V17.49, Z82.49) Status:Active Family history of hyperchole sterolemia: Sister(V18.19, Z83.42) Status:Active Family history of arthritis: Sister(V17.7, Z82.61) Status:Active Family history of stroke: Si ster(V17.1, Z82.3) Status:Active Unknown Family Member Name Dates Details Family history of obesity: M other(V18.19, Z83.49) Status:Active Family history of coronary a rtery disease: Mother, Father(V17.3, Z82.49) Status:Active Family history of diabetes m ellitus: Mother(V18.0, Z83.3) Status:Active Family history of cardiac di sorder: Son, Brother, Sister(V17.49, Z82.49) Status:Active Family history of hypertensi on: Sister(V17.49, Z82.49) Status:Active Family history of hyperchole sterolemia: Sister(V18.19, Z83.42) Status:Active Family history of arthritis: Sister(V17.7, Z82.61) Status:Active Family history of stroke: Si ster(V17.1, Z82.3) Status:Active Unknown Family Member Name Dates Details Family history of obesity: M other(V18.19, Z83.49) Status:Active Family history of coronary a rtery disease: Mother, Father(V17.3, Z82.49) Status:Active Family history of diabetes m ellitus: Mother(V18.0, Z83.3) Status:Active Family history of cardiac di sorder: Son, Brother, Sister(V17.49, Z82.49) Status:Active Family history of hypertensi on: Sister(V17.49, Z82.49) Status:Active Family history of hyperchole sterolemia: Sister(V18.19, Z83.42) Status:Active Family history of arthritis: Sister(V17.7, Z82.61) Status:Active Family history of stroke: Si ster(V17.1, Z82.3) Status:Active Unknown Family Member Name Dates Details Family history of obesity: M other(V18.19, Z83.49) Status:Active Family history of coronary a rtery disease: Mother, Father(V17.3, Z82.49) Status:Active Family history of diabetes m ellitus: Mother(V18.0, Z83.3) Status:Active Family history of cardiac di sorder: Son, Brother, Sister(V17.49, Z82.49) Status:Active Family history of hypertensi on: Sister(V17.49, Z82.49) Status:Active Family history of hyperchole sterolemia: Sister(V18.19, Z83.42) Status:Active Family history of arthritis: Sister(V17.7, Z82.61) Status:Active Family history of stroke: Si ster(V17.1, Z82.3) Status:Active Unknown Family Member Name Dates Details Family history of obesity: M other(V18.19, Z83.49) Status:Active Family history of coronary a rtery disease: Mother, Father(V17.3, Z82.49) Status:Active Family history of diabetes m ellitus: Mother(V18.0, Z83.3) Status:Active Family history of cardiac di sorder: Son, Brother, Sister(V17.49, Z82.49) Status:Active Family history of hypertensi on: Sister(V17.49, Z82.49) Status:Active Family history of hyperchole sterolemia: Sister(V18.19, Z83.42) Status:Active Family history of arthritis: Sister(V17.7, Z82.61) Status:Active Family history of stroke: Si ster(V17.1, Z82.3) Status:Active Unknown Family Member Name Dates Details Family history of obesity: M other(V18.19, Z83.49) Status:Active Family history of coronary a rtery disease: Mother, Father(V17.3, Z82.49) Status:Active Family history of diabetes m ellitus: Mother(V18.0, Z83.3) Status:Active Family history of cardiac di sorder: Son, Brother, Sister(V17.49, Z82.49) Status:Active Family history of hypertensi on: Sister(V17.49, Z82.49) Status:Active Family history of hyperchole sterolemia: Sister(V18.19, Z83.42) Status:Active Family history of arthritis: Sister(V17.7, Z82.61) Status:Active Family history of stroke: Si ster(V17.1, Z82.3) Status:Active Unknown Family Member Name Dates Details Family history of obesity: M other(V18.19, Z83.49) Status:Active Family history of coronary a rtery disease: Mother, Father(V17.3, Z82.49) Status:Active Family history of diabetes m ellitus: Mother(V18.0, Z83.3) Status:Active Family history of cardiac di sorder: Son, Brother, Sister(V17.49, Z82.49) Status:Active Family history of hypertensi on: Sister(V17.49, Z82.49) Status:Active Family history of hyperchole sterolemia: Sister(V18.19, Z83.42) Status:Active Family history of arthritis: Sister(V17.7, Z82.61) Status:Active Family history of stroke: Si ster(V17.1, Z82.3) Status:Active Unknown Family Member Name Dates Details Family history of obesity: M other(V18.19, Z83.49) Status:Active Family history of coronary a rtery disease: Mother, Father(V17.3, Z82.49) Status:Active Family history of diabetes m ellitus: Mother(V18.0, Z83.3) Status:Active Family history of cardiac di sorder: Son, Brother, Sister(V17.49, Z82.49) Status:Active Family history of hypertensi on: Sister(V17.49, Z82.49) Status:Active Family history of hyperchole sterolemia: Sister(V18.19, Z83.42) Status:Active Family history of arthritis: Sister(V17.7, Z82.61) Status:Active Family history of stroke: Si ster(V17.1, Z82.3) Status:Active Unknown Family Member Name Dates Details Family history of obesity: M other(V18.19, Z83.49) Status:Active Family history of coronary a rtery disease: Mother, Father(V17.3, Z82.49) Status:Active Family history of diabetes m ellitus: Mother(V18.0, Z83.3) Status:Active Family history of cardiac di sorder: Son, Brother, Sister(V17.49, Z82.49) Status:Active Family history of hypertensi on: Sister(V17.49, Z82.49) Status:Active Family history of hyperchole sterolemia: Sister(V18.19, Z83.42) Status:Active Family history of arthritis: Sister(V17.7, Z82.61) Status:Active Family history of stroke: Si ster(V17.1, Z82.3) Status:Active Unknown Family Member Name Dates Details Family history of coronary a rtery disease: Mother, Father(V17.3, Z82.49) Status:Active Family history of cardiac di sorder: Son, Brother, Sister(V17.49, Z82.49) Status:Active Family history of obesity: M other(V18.19, Z83.49) Status:Active Family history of diabetes m ellitus: Mother(V18.0, Z83.3) Status:Active Family history of hypertensi on: Sister(V17.49, Z82.49) Status:Active Family history of hyperchole sterolemia: Sister(V18.19, Z83.42) Status:Active Family history of arthritis: Sister(V17.7, Z82.61) Status:Active Family history of stroke: Si ster(V17.1, Z82.3) Status:Active Unknown Family Member Name Dates Details Family history of obesity: M other(V18.19, Z83.49) Status:Active Family history of coronary a rtery disease: Mother, Father(V17.3, Z82.49) Status:Active Family history of diabetes m ellitus: Mother(V18.0, Z83.3) Status:Active Family history of cardiac di sorder: Son, Brother, Sister(V17.49, Z82.49) Status:Active Family history of hypertensi on: Sister(V17.49, Z82.49) Status:Active Family history of hyperchole sterolemia: Sister(V18.19, Z83.42) Status:Active Family history of arthritis: Sister(V17.7, Z82.61) Status:Active Family history of stroke: Si ster(V17.1, Z82.3) Status:Active Unknown Family Member Name Dates Details Family history of obesity: M other(V18.19, Z83.49) Status:Active Family history of coronary a rtery disease: Mother, Father(V17.3, Z82.49) Status:Active Family history of diabetes m ellitus: Mother(V18.0, Z83.3) Status:Active Family history of cardiac di sorder: Son, Brother, Sister(V17.49, Z82.49) Status:Active Family history of hypertensi on: Sister(V17.49, Z82.49) Status:Active Family history of hyperchole sterolemia: Sister(V18.19, Z83.42) Status:Active Family history of arthritis: Sister(V17.7, Z82.61) Status:Active Family history of stroke: Si ster(V17.1, Z82.3) Status:Active Unknown Family Member Name Dates Details Family history of obesity: M other(V18.19, Z83.49) Status:Active Family history of coronary a rtery disease: Mother, Father(V17.3, Z82.49) Status:Active Family history of diabetes m ellitus: Mother(V18.0, Z83.3) Status:Active Family history of cardiac di sorder: Son, Brother, Sister(V17.49, Z82.49) Status:Active Family history of hypertensi on: Sister(V17.49, Z82.49) Status:Active Family history of hyperchole sterolemia: Sister(V18.19, Z83.42) Status:Active Family history of arthritis: Sister(V17.7, Z82.61) Status:Active Family history of stroke: Si ster(V17.1, Z82.3) Status:Active Unknown Family Member Name Dates Details Family history of obesity: M other(V18.19, Z83.49) Status:Active Family history of coronary a rtery disease: Mother, Father(V17.3, Z82.49) Status:Active Family history of diabetes m ellitus: Mother(V18.0, Z83.3) Status:Active Family history of cardiac di sorder: Son, Brother, Sister(V17.49, Z82.49) Status:Active Family history of hypertensi on: Sister(V17.49, Z82.49) Status:Active Family history of hyperchole sterolemia: Sister(V18.19, Z83.42) Status:Active Family history of arthritis: Sister(V17.7, Z82.61) Status:Active Family history of stroke: Si ster(V17.1, Z82.3) Status:Active Unknown Family Member Name Dates Details Family history of obesity: M other(V18.19, Z83.49) Status:Active Family history of coronary a rtery disease: Mother, Father(V17.3, Z82.49) Status:Active Family history of diabetes m ellitus: Mother(V18.0, Z83.3) Status:Active Family history of cardiac di sorder: Son, Brother, Sister(V17.49, Z82.49) Status:Active Family history of hypertensi on: Sister(V17.49, Z82.49) Status:Active Family history of hyperchole sterolemia: Sister(V18.19, Z83.42) Status:Active Family history of arthritis: Sister(V17.7, Z82.61) Status:Active Family history of stroke: Si ster(V17.1, Z82.3) Status:Active Advance Directives Documents on File Type Date Recorded 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 Bobo Luis? PrimaryJonna Simeon Note Recipients: Jonna Simeon MD - [id number] [Preferred]Bobo Childers MD Discharge: Summary:Admission Date: .26-Nov-2017 12:26:00Discharge Date: [id number] Physician at Discharge: Nay Childersdmission Reason: Confusion/Disorientation(1)Final Discharge Diagnoses: Confusion/DisorientationProcedures: .Condition at Discharge: SatisfactoryDisposition at Discharge: .HomeVital Signs: T [id number]%Date/Time11/27 15: 15: 15: 16: 15:53Range(37C - 37C ) (78 - 78 ) (17 - 17 ) (91 - 98 )/ (54 - 55 ) (96% - 96%)Highest temp of 37 C was recorded at 11/27 15:53Physical Exam:Constitutional: Well developed, awake/alert/oriented x3, no distress, alert andcooperativeEyes: PERRL, EOMI, clear scleraENMT: mucous membranes moist, no apparent injury, no lesions seenHead/Neck: Neck supple, no apparent injury, (more content not included)... Chief Complaint f/u mood, memory, hyperglycemia, HTN, HLD/CAD, CKD, COPD + MWV.f/u mood, memory, hyperglycemia, HTN, HLD/CAD, CKD, COPD + MWV.f/u mood, memory, hyperglycemia, HTN, HLD/CAD, CKD, COPD + MWV.f/u mood, memory, hyperglycemia, HTN, HLD/CAD, CKD, COPD + MWV.f/u mood, memory, hyperglycemia, HTN, HLD/CAD, CKD, COPD + MWV. JAVIER LANZA is here for a follow-up for SOB, gait, hyperglycemia, HTN, HLD/CAD, CKD + lab review.6 mo6 mof/u mood, memory, hyperglycemia, HTN, HLD/CAD, CKD, COPD + [facility], hyperglycemia, HTN, HLD/CAD, CKD + MWVf/u gait, hyperglycemia, HTN, HLD/CAD, CKD + MWV Additional Source Comments (unrecognized sect ion and content) No Status Records FoundNo Status Records FoundNo Status Records FoundNo Status Records FoundNo Status Records FoundNo Status Records Found INFORMATION SOURCE (unrecogn ized section and content) DATE CREATED AUTHOR AUTHOR'S ORGANIZ ATION 02/09/2022 [employer] DATE CREATED AUTHOR AUTHOR'S ORGANIZ ATION 04/22/2022 [employer] DATE CREATED AUTHOR AUTHOR'S ORGANIZ ATION 08/05/2022 [facility] DATE CREATED AUTHOR AUTHOR'S ORGANIZ ATION 10/19/2022 [facility] DATE CREATED AUTHOR AUTHOR'S ORGANIZ ATION 11/06/2022 [facility] Reason for Visit (unrecogniz ed section and content) Reason Comments Follow-up Hypertension Hyperlipidemia Coronary Artery Disease Chronic Kidney Disease Hyperglycemia Gait Problem Excessive Mucus Reason Comments Weight Check Pt presents for foll ow up weight check Care Teams (unrecognized sec tion and content) 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 This clinical summary was aggregated from multiple sources. Caution should be exercised in using it in the provision of clinical care. This summary normalizes information from multiple sources, and as a consequence, information in this document may materially change the coding, format and clinical context of patient data. In addition, data may be omitted in some cases. CLINICAL DECISIONS SHOULD BE BASED ON THE PRIMARY CLINICAL RECORDS. [facility]. provides no warranty or guarantee of the accuracy or completeness of information in this document.
--- NOTE | 2023-06-16 14:48 | ST.MBS ---
Modified Barium Swallow Patient Information Study Date: 06/16/23 Study Time: 13:00 Direct Billable Minutes: 120 Total Minutes procedure & reportin Diagnosis: Oropharyngeal dysphagia R13.12, Unspecified dementia F09.93 Referring Physician: Rudy Lewis Sr. Reason for Referral: Objectively assess swallow function, assess risk for aspiration, and determine recommendations for least restrictive diet textures and compensatory strategies to improve safety of swallow. Medical History: PMH: Dementia, Debility, Oropharyngeal Dysphagia, Depression, Atherosclerotic Heart Disease, COPD, CKD (SEE hard chart for full PMH). Per treating HOSPITALITY RECRUITER at the patient?s SN[facility], he has coughing spells when consuming foods and drinks. He is on a modified diet (mechanical soft diet textures / thin liquids) and he does follow through with strategies well; however, he continues to have these coughing episodes at random. The patient appeared to be a poor historian and did not provide much information regarding his swallowing difficulty. Current Diet Ordered: Mechanical soft textures / Thin liquids Mental Status: Impaired (hx of dementia; however, able to follow commands to complete the assessment) Respiratory Status: Oxygenating on Room Air Penetration-Aspiration Scale Penetration-Aspiration Scale: OBJECTIVE ASSESSMENT OF SWALLOW FUNCTION (QUANTITATIVE ? PER TRIAL): PENETRATION / ASPIRATION SCALE (TUCKER): 1 = does not enter airway 2 = enters airway/above vocal folds/ejected 3 = enters airway/above vocal folds/not ejected 4 = enters airway/contacts vocal folds/ejected 5 = enters airway/contacts vocal folds/not ejected 6 = enters airway/below vocal folds/ejected 7 = enters airway/below vocal folds/not ejected despite effort 8 = enters airway/below vocal folds/no effort VIDEOFLOROSCOPIC SCALE SCORE (TUCKER): Grade I = aspiration of material that has penetrated into the laryngeal vestibule, intact cough reflex Grade II = aspiration < 10 % of the bolus, intact cough reflex Grade III = aspiration of < 10 % of the bolus, reduced cough reflex or aspiration of > 10 % of the bolus, intact cough reflex Grade IV = aspiration of > 10 % of the bolus, reduced cough reflex Penetration-Aspiration Scale Score Thin Liquid via teaspoon: Result: 1= does not enter airway Thin Liquid via teaspoon Trial 2: Result: 1= does not enter airway Thin Liquid via small single sip: cup: Result: 1= does not enter airway Thin Liquid via small single sip: cup Trial 2: Result: 2= enter airway/above vocal folds/ejected Thin Liquid via sequential sips: cup: Result: 2= enter airway/above vocal folds/ejected Comment: Esophageal screen - Small, pouch-like collection of barium below CP bar at the level of C-6 suspicious of Zenker?s diverticulum (SEE Impressions for further information); otherwise, no additional esophageal retention observed during the screen. [place] Thick Liquid via large single sip: cup: Result: 1= does not enter airway Pudding via teaspoon: Result: 1= does not enter airway Comment: Esophageal screen - Small, pouch-like collection of barium below CP bar at the level of C-6 suspicious of Zenker?s diverticulum (SEE Impressions for further information); otherwise, no additional esophageal retention observed during the screen. 1/2 Cookie: Result: 1= does not enter airway Comment: Esophageal screen - Small, pouch-like collection of barium below CP bar at the level of C-6 suspicious of Zenker?s diverticulum (SEE Impressions for further information); otherwise, no additional esophageal retention observed during the screen. Thin Liquid via sequential sips:straw: Result: 2= enter airway/above vocal folds/ejected Oral Phase Labial Seal: No Labial Escape Tongue Control During Bolus Hold: Posterior escape of greater than half of bolus Bolus Preparation/Mastication: Slow prolonged chewing/mashing with complete recollection Bolus Transport/Lingual Motion: Delayed initiation of tongue motion Oral Residue: Residue collection on oral structures Pharyngeal Phase Initiation of Pharyngeal Swallow: Bolus head in pyriforms Soft Palate Elevation: No bolus between soft palate and pharyngeal wall Laryngeal Elevation: Partial superior movement thyroid cart/partial apprx aryt-epig petiole Anterior Hyoid Excursion: Partial anterior movement Epiglottic Movement: Complete inversion Laryngeal Vestibule Closure at Height of Swallow: Incomplete; narrow column of air/contrast in laryngeal vestibule (trace laryngeal penetration with full ejection during the swallow) Pharyngeal Stripping Wave: Present - diminished Pharyngoesophageal Segment Opening: Parital distension and partial duration; parital obstruction of flow Tongue Base Retraction: Narrow column of contrast between tongue base & post. pharyngeal wall Pharyngeal Residue: Collection of residue within or on pharyngeal structures Esophageal Phase Esophageal Clearance: Esophageal retention Diagnosis/Impression Diagnosis: Mild oropharyngeal phase dysphagia R13.12 Impression: The oral phase is primarily marked by... -Decreased bolus control with <1/2 of the bolus spilling posteriorly to the pyriforms prior to swallow onset observed with some thin liquid trials. -Delayed tongue motion for A-P transport. -Prolonged, but adequate mastication of cookie trial. The pharyngeal phase is primarily marked by... -Decreased anterior hyoid excursion; however, complete laryngeal elevation. Trace laryngeal penetration of thin liquids with full ejection during the swallow. No aspiration observed. -Mildly decreased tongue base retraction, mildly decreased UES opening/duration, and mildly decreased pharyngeal stripping wave with resulting mild pharyngeal residues after the swallow. He would often complete a double swallow independently to clear mild residues to trace. Liquid wash was most effective in clearing cookie residues. The esophageal phase is primarily marked by... -Small, pouch-like collection of barium below CP bar at the level of C-6 suspicious of Zenker?s diverticulum. The collection of barium in the upper esophagus appeared to be small and resulted in no retrograde flow through the UES to the pharynx; however, if concern for continued difficulty with swallowing despite good follow through of recommended strategies, please consider work-up with ENT. Image of collection of barium in the upper esophagus attached below. Recommendations Diet: Mechanical Soft Textures and Thin Liquids Compensatory Strategies: Small Bites, Small Sips, Slow Rate, Multiple Swallows, Alternate bites/solids and sips/liquids, Sitting upright and Remain sitting upright for 30 minutes after PO intake Supervision: 1:1 Close Supervision Recommend Repeat Modified Barium Swallow: TBD Need for Skilled Speech Therapy Services: Yes Comment: -Train the patient in use of strategies to decrease risk for aspiration. -Ongoing assessment of diet tolerance of recommended textures. Consider trials of regular textures with HOSPITALITY RECRUITER to consider diet advancement. -Train the patient in oropharyngeal exercise program (lingual resistance, Mick, CTAR, Naomy). Education Completed: 1. Described result of evaluation. and 7. Pt requires further education on strategies & risks. Status Active ST Patient: Active Contact Information [facility] Speech Therapy:: Gracie Fragoso M.A. [facility]-HOSPITAL[facility] RECRUITER? Speech-Language Pathologist?? [facility] [address]?? [place] [address]?? [email or web address]?? [phone]??
== END | disposition home or self-care (01) ==
PROVIDERS: PCP Internal Medicine; Referring Provider Internal Medicine; Visit Provider Internal Medicine
DX: R13.10 Dysphagia, unspecified (principal)
CPT/HCPCS: 74230; 92611

== ENCOUNTER → 2023-07-27 | Outpatient (REF) | payer MEDICARE, OTHER, MEDICAID, SELFPAY ==
[2023-07-27 09:32] LABS: Absolute Lymphocyte Count 1.43 X10^3/uL (0.83-4.51); Absolute Neutrophil Count 6.1 X10^3/uL (2.0-7.7); Basophil# 0.05 X10^3/uL; Basophil% 0.6 % (0-1); Eosinophil# 0.23 X10^3/uL; Eosinophils% 2.6 % (0-5); Hematocrit 43.6 % (40-54); Hemoglobin 13.7 g/dL (13.0-16.5); Lymphocyte # 1.43 X10^3/ul (0.83-4.51); Lymphocyte % 16.3 % (19-41); Mean Corp Hgb Conc 31.4 g/dL (32-36); Mean Corpuscular Hgb 29.5 pg (27.0-32.0); Mean Corpuscular Volume 93.8 fL (80-94); Mean Platelet Vol. 10.3 fl (6.2-12.0); Monocyte# 0.92 X10^3/uL; Monocyte% 10.5 % (0-10); NRBC Flagged by Analyzer 0 % (0-5); Neutrophil # 6.07 X10^3/uL (2.7-7.7); Neutrophil % 69.4 % (47-70); Platelet Count 193 K/mm3 (150-450); RBC Distribution Width CV 14.5 % (11.6-14.6); RBC Distribution Width SD 50.3 fl (35.1-43.9); Red Blood Count 4.65 M/mm3 (4.6-6.2); White Blood Count 8.8 K/mm3 (4.4-11.0)
[2023-07-27 09:52] LABS: ALB/GLOB Ratio 1.1 RATIO (0.9-2.4); AST(SGOT) 25 U/L (15-37); Alanine Aminotransfer ALT/SGPT 20 U/L (16-61); Alkaline Phosphatase 144 U/L (45-117); Anion Gap 5 (5-15); BUN 23 mg/dL (7-18); BUN/Creat Ratio 19.2 RATIO (10-20); Calcium,Total 9.2 mg/dL (8.5-10.1); Chloride 108 mmol/L (98-107); EST Glomerular Filtration Rate 61 mL/min (>60); Est Glom Filt Rate - Afr Amer 74 mL/min (>60); Globulin 2.8 g/dL (2.2-4.2); Glucose 89 mg/dL (74-106); Potassium 4.7 mmol/L (3.5-5.1); Protein, Total 5.8 g/dL (6.4-8.2); Sodium Level 141 mmol/L (136-145)
== END ==
LOC: OLS.ACH 05:00
PROVIDERS: PCP Internal Medicine; Visit Provider Internal Medicine
DX: N18.31 Chronic kidney disease, stage 3a (principal)
CPT/HCPCS: 36415; 80053; 85025

== ENCOUNTER → 2024-09-12 | Outpatient (REF) | payer MEDICARE, OTHER, SELFPAY ==
[2024-09-12 10:02] LABS: Absolute Lymphocyte Count 1.71 X10^3/uL (0.83-4.51); Absolute Neutrophil Count 3.7 X10^3/uL (2.0-7.7); Basophil# 0.06 X10^3/uL; Basophil% 0.9 % (0-1); Eosinophil# 0.26 X10^3/uL; Hematocrit 41.3 % (40-54); Hemoglobin 13.4 g/dL (13.0-16.5); Lymphocyte # 1.71 X10^3/ul (0.83-4.51); Lymphocyte % 26.3 % (19-41); Mean Corp Hgb Conc 32.4 g/dL (32-36); Mean Corpuscular Volume 95.6 fL (80-94); Mean Platelet Vol. 10.1 fl (6.2-12.0); Monocyte# 0.73 X10^3/uL; Monocyte% 11.2 % (0-10); NRBC Flagged by Analyzer 0 % (0-5); Neutrophil # 3.72 X10^3/uL (2.7-7.7); Neutrophil % 57.1 % (47-70); Platelet Count 163 K/mm3 (150-450); RBC Distribution Width CV 13.1 % (11.6-14.6); RBC Distribution Width SD 46.9 fl (35.1-43.9); Red Blood Count 4.32 M/mm3 (4.6-6.2); White Blood Count 6.5 K/mm3 (4.4-11.0)
[2024-09-12 10:38] LABS: ALB/GLOB Ratio 1.8 RATIO (0.9-2.4); AST(SGOT) 30 U/L (<=37); Alanine Aminotransfer ALT/SGPT 11 U/L (<=46); Albumin, Serum 3.5 g/dL (3.4-4.8); Alkaline Phosphatase 117 U/L (40-129); Anion Gap 8 (5-15); BUN 17 mg/dL (4-19); BUN/Creat Ratio 16.2 RATIO (10-20); Calcium,Total 8.9 mg/dL (7.6-11.0); Carbon Dioxide 25.5 mmol/L (21.0-32.0); Chloride 107 mmol/L (98-108); Creatinine, Serum 1.06 mg/dL (0.70-1.20); EST Glomerular Filtration Rate 68 (>60); Globulin 1.9 g/dL (2.2-4.2); Glucose 79 mg/dL (70-99); Potassium 4.4 mmol/L (3.3-5.1); Protein, Total 5.4 g/dL (5.9-8.4); Sodium Level 141 mmol/L (133-145); Total Bilirubin 0.57 mg/dL (0.00-1.30)
== END ==
LOC: OLS.ACH 05:00
PROVIDERS: PCP Internal Medicine; Visit Provider Internal Medicine
DX: Z00.00 Encounter for general adult medical examination without abnormal findings (principal); Z79.899 Other long term (current) drug therapy
CPT/HCPCS: 36415; 80053; 85025

== ENCOUNTER → 2024-12-26 05:00 | Outpatient (REF) | payer MEDICARE, OTHER, SELFPAY ==
[2024-12-26 08:31] LABS: Cholesterol 135 mg/dL (<=200); Low Density Lipoprotein Calc. 59 mg/dL; Triglycerides 73 mg/dL; Very Low Density Lipoprotein 15 mg/dL (5-40); cholesterol:hdl ratio screen 2.21
== END ==
LOC: OLS.ACH 05:00
PROVIDERS: PCP Internal Medicine; Visit Provider Internal Medicine
DX: I25.83 Coronary atherosclerosis due to lipid rich plaque (principal); E78.5 Hyperlipidemia, unspecified
CPT/HCPCS: 36415; 80061

== ENCOUNTER → 2025-03-23 | Outpatient (REF) | payer MEDICARE, OTHER, SELFPAY ==
--- OUTSIDE RECORDS SUMMARY | 2025-03-23 04:34 | XMS RPT_ITS | CCD ---
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 (20 sources) Abnormal results of kidney function studies; Translations: [Abnormal finding of blood chemistry, unspecified] Episodic Other skin disorders (18 sources) Eruption; Translations: [Rash and other nonspecific skin eruption] Episodic Other upper respiratory disease (16 sources) Allergic rhinitis; Translations: [Allergic rhinitis] Chronic Other upper respiratory disease (9 sources) Bleeding from nose; Translations: [Epistaxis] Episodic Phlebitis; thrombophlebitis and thromboembolism (20 sources) Acute embolism and thrombosis of unspecified deep veins of right lower extremity; Translations: [Personal history of other venous thrombosis and embolism] Onset: 8 Resolved: 0 10-13-2022 Episodic Comment on above: 2015 R LE; Residual codes; unclassified (18 sources) Altered mental status; Translations: [Altered mental status] Episodic Residual codes; unclassified (18 sources) Memory impairment; Translations: [Memory loss] Episodic Residual codes; unclassified (16 sources) Chronic back pain ; Translations: [Chronic back pain] Episodic Residual codes; unclassified (20 sources) Insomnia; Translations: [Insomnia, unspecified] Onset: 3 09-14-2022 Episodic Residual codes; unclassified (1 source) Confusional state; Translations: [Unspecified psychosis] Episodic Residual codes; unclassified (20 sources) Body mass index 20-24 - normal; Translations: [Body Mass Index between 19-24, adult] Onset: 3 10-14-2022 Episodic Residual codes; unclassified (3 sources) For resuscitation; Translations: [Other specified conditions influencing health status] Episodic Residual codes; unclassified (2 sources) Body mass index (BMI) 21.0-21.9, adult; Translations: [Body mass index (BMI) 21.0-21.9, adult] Onset: 3 Episodic Spondylosis; intervertebral disc disorders; other back problems (20 sources) Sciatica; Translations: [Chronic low back pain] Onset: 3 10-13-2022 Episodic Superficial injury; contusion (3 sources) Contusion of right elbow, initial encounter; Translations: [Ecchymosis] Onset: 8 Episodic Transient cerebral ischemia (9 sources) Transient cerebral ischemia; Translations: [Mini stroke] Chronic Unclassified (2 sources) Disorientation, unspecified; Translations: [Disorientation, unspecified] Onset: 8 Episodic Unclassified (1 source) Unilateral primary osteoarthritis, right hip / M16.11(ICD-10) Onset: 8 Unclassified (1 source) Athscl heart disease of [place] coronary artery w/o ang pctrs / I25.10(ICD-10) Onset: 8 Unclassified (1 source) Benign prostatic hyperplasia without lower urinry tract symp / N40.0(ICD-10) Onset: 8 Unclassified (1 source) Gout, unspecified / M10.9(ICD-10) Onset: 8 Unclassified (1 source) Benign prostatic hyperplasia with lower urinary tract symp / N40.1(ICD-10) Onset: 8 Unclassified (1 source) Prsnl hx of TIA (TIA), and cereb infrc w/o resid deficits / Z86.73(ICD-10) Onset: 8 Unclassified (1 source) Bilateral primary osteoarthritis of hip / M16.0(ICD-10) Onset: 8 Unclassified (1 source) Polyneuropathy, unspecified / G62.9(ICD-10) Onset: 8 Unclassified (1 source) Hematuria, unspecified / R31.9(ICD-10) Onset: 8 Unclassified (1 source) Vitamin D deficiency, unspecified / E55.9(ICD-10) Onset: 8 Unclassified (1 source) Anxiety disorder, unspecified / F41.9(ICD-10) Onset: 8 Unclassified (1 source) Adverse effect of antiepileptic and sed-hypntc drugs, init / T42.6X5A(ICD-10) Onset: 8 Unclassified (1 source) Aphasia / R47.01(ICD-10) Onset: 8 Unclassified (1 source) Adverse effect of other opioids, initial encounter / T40.2X5A(ICD-10) Onset: 8 Unclassified (1 source) Adverse effect of benzodiazepines, initial encounter / T42.4X5A(ICD-10) Onset: 8 Unclassified (1 source) Other chronic pain / G89.29(ICD-10) Onset: 8 Unclassified (1 source) Abnormal weight loss / R63.4(ICD-10) Onset: 8 Unclassified (1 source) Encntr for general adult medical exam w/o abnormal findings / Z00.00(ICD-10) Onset: 8 Unclassified (2 sources) Diarrhea, unspecified / R19.7(ICD-10) Onset: 8 Unclassified (1 source) Insomnia, unspecified / G47.00(ICD-10) Onset: 8 Urinary tract infections (18 sources) Urinary tract infectious disease; Translations: [Urinary tract infection, site not specified] Episodic Urinary tract infections (1 source) Urinary tract infections Onset: 8 Past or Other Problems Problem Classification Problem Date Documented Date Episodic/Chronic External cause codes: Fall (17 sources) Fall; Translations: [Fall] Mood disorders (3 sources) Major depressive disorder, single episode, unspecified; Translations: [Mood disorders] Onset: 01-02-2018 10-14-2022 Osteoarthritis (16 sources) Osteoarthritis of right hip joint; Translations: [Osteoarthritis of right hip] Other aftercare (1 source) snf (current) use of anticoagulants; Translations: [doctor of medicine (current) use of anticoagulants] Onset: 12-17-2017 Episodic [...] history of nutritional deficiency] Resolved: 12-02-2020 Episodic Comment on above: Added by Problem Maren No; 2013-03-26; Residual codes; unclassified (16 sources) Immunization due; Translations: [Immunization due] Sprains and strains (20 sources) Strain of muscle, fascia and tendon of unspecified hip, initial encounter; Translations: [Strain of muscle of hip] Onset: 02-02-2022 Resolved: 07-09-2014 Episodic Unclassified (17 sources) Influenza vaccination given; Translations: [Influenza vaccination administered at current visit] Unclassified (20 sources) Patient encounter status; Translations: [Encounter for Medicare annual wellness exam] Unclassified (5 sources) Screening status; Translations: [Depression screening] Unclassified (20 sources) Strain of muscle of hip; Translations: [History of Hip strain] Unclassified (1 source) Body mass index 20-24 - normal; Translations: [Body mass index (BMI) of 22.0 to 22.9 in adult] Unclassified (2 sources) Onset: 10-14-2022 10-14-2022 NEGATED: Highlighted row has not occurred!Residual codes; unclassified (20 sources) Disease Episodic Results Test Name Value Interpretation Reference Range Facility Lipid Profileon 12-26-2024 CHOL:HDL 2.21 Normal [facility] Comment on above: Order Comment: 116.1 Performed By: #### L 500.4100 #### [facility] [address] [place], [address] (374) Cholesterol [Mass/Vol] 135 mg/dL Normal <=200 [facility] Comment on above: Order Comment: 116.1 Result Comment: Chol esterol level, Desirable <200 mg/dL Borderline high cholesterol 200-239 mg/dL High cholesterol >=240 mg/dL Recommendations of the NCEP Adult Treatment Panel for the following risk-cutoff thresholds for the [place] population. Performed By: #### L 500.7220 #### [facility] [address] [place], [place], [id number] (315) Cholesterol in HDL [Mass/Vol] 61 mg/dL Normal [facility] Comment on above: Order Comment: 116.1 Result Comment: Berta onal Cholesterol Education Program (NCEP) guidelines: <40 mg/dL: Low HDL-cholesterol (major risk factor for CHD) >= 60 mg/dL: High HDL-cholesterol (negative risk factor for CHD) HDL-cholesterol is affected by a number of factors, e.g. smoking, exercise, hormones, sex and age. Performed By: #### L 500.4100 #### [facility] [address] [place], [address] Cholesterol in LDL [Mass/Vol] 59 mg/dL Normal [facility] Comment on above: Order Comment: 116.1 Result Comment: Bord shxcin=241-139 mg/dL Higher Onjo=003 mg/dL or greater Friedwald Equation for LDL-C Performed By: #### L 500.4100 #### [facility] [address] [place], [address] Cholesterol in VLDL [Mass/Vol] 15 mg/dL Normal 5-40 [facility] Comment on above: Order Comment: 116.1 Performed By: #### L 500.4100 #### [facility] [address] [place], [address] Triglyceride [Mass/Vol] 73 mg/dL Normal [facility] Comment on above: Order Comment: 116.1 Result Comment: The drugs N-Acetylcysteine and Metamizole may falsely depress this assay. Normal range: <150 mg/dL Borderline High: 150-199 mg/dL High: 200-499 mg/dL Very High: >500 mg/dL Performed By: #### L 500.4100 #### [facility] [address] [place], [address] Absolute lymphocyte countOrd ered By: Rudy Lewis on 09-12-2024 Lymphocytes Auto (Unsp spec) [#/Vol] 1.71 10*3/uL 0.83-4.51 [facility] Absolute neutrophil countOrd ered By: Rudy Lewis on 09-12-2024 Neutrophils (Bld) [#/Vol] 3.7 10*3/uL 2.0-7.7 [facility] Anion gap in Serum or Plasma Ordered By: Rudy Lewis on 09-12-2024 Anion gap [Moles/Vol] 8 mmol/L 5-15 [facility] Automated lymphocyte count a s percentage of total leukocytesOrdered By: Rudy Lewis on 09-12-2024 Lymphocytes/100 WBC Auto (Unsp spec) 26.3 % 19-41 [facility] BUN/creatinine ratioOrdered By: Rudy Lewis on 09-12-2024 Urea nitrogen/Creatinine [Mass ratio] 16.2 mg/mg 10-20 [facility] Basophil percentageOrdered B y: Rudy Lewis on 09-12-2024 Basophils/100 WBC (Bld) 0.9 % 0-1 [facility] Bilirubin, totalOrdered By: Rudy Lewis on 09-12-2024 Bilirubin [Mass/Vol] 0.57 mg/dL 0.00-1.30 [facility] CBC W/Diff, Automatedon 08-31 Absolute Lymph 1.71 X10 3/uL Normal 0.83-4.51 [facility] Comment on above: Order Comment: 116.1 Performed By: #### L 100.0100, L500.4050 #### [facility] [address] [place], [address] Absolute Neut 3.7 X10 3/uL Normal 2.0-7.7 [facility] Comment on above: Order Comment: 116.1 Performed By: #### L 100.0100, L500.4050 #### [facility] [address] [place], [address] Basophils/100 WBC (Bld) 0.9 % Normal 0-1 [facility] Comment on above: Order Comment: 116.1 Performed By: #### L 100.0100, L500.4050 #### [facility] [address] [place], [address] Eosinophils/100 WBC (Bld) 4.0 % Normal 0-5 [facility] Comment on above: Order Comment: 116.1 Performed By: #### L 100.0100, L500.4050 #### [facility] [address] [place], [address] Erythrocyte distribution width (RBC) [Ratio] 13.1 % Normal 11.6-14.6 [facility] Comment on above: Order Comment: 116.1 Performed By: #### L 100.0100, L500.4050 #### [facility] [address] [place], [address] Hematocrit (Bld) [Volume fraction] 41.3 % Normal 40-54 [facility] Comment on above: Order Comment: 116.1 Performed By: #### L 100.0100, L500.4050 #### [facility] [address] [place], [address] Hemoglobin (Bld) [Mass/Vol] 13.4 g/dL Normal 13.0-16.5 [facility] Comment on above: Order Comment: 116.1 Performed By: #### L 100.0100, L500.4050 #### [facility] [address] [place], [address] IG% 0.500 Normal 0.0-0.9 [facility] Comment on above: Order Comment: 116.1 Result Comment: IG% - Immature Granulocytes (promyelocytes, myelocytes and metamyelocytes) > 1% indicates that a LEFT SHIFT is Present. Performed By: #### L 100.0100, L500.4050 #### [facility] [address] [place], [address] Lymphocytes/100 WBC (Bld) 26.3 % Normal 19-41 [facility] Comment on above: Order Comment: 116.1 Performed By: #### L 100.0100, L500.4050 #### [facility] [address] [place], [address] MCH (RBC) [Entitic mass] 31.0 pg Normal 27.0-32.0 [facility] Comment on above: Order Comment: 116.1 Performed By: #### L 100.0100, L500.4050 #### [facility] [address] [place], [address] MCHC (RBC) [Mass/Vol] 32.4 g/dL Normal 32-36 [facility] Comment on above: Order Comment: 116.1 Performed By: #### L 100.0100, L500.4050 #### [facility] [address] [place], [address] MCV (RBC) [Entitic vol] 95.6 fL High 80-94 [facility] Comment on above: Order Comment: 116.1 Performed By: #### L 100.0100, L500.4050 #### [facility] [address] [place], [address] Monocytes/100 WBC (Bld) 11.2 % High 0-10 [facility] Comment on above: Order Comment: 116.1 Performed By: #### L 100.0100, L500.4050 #### [facility] [address] [place], [address] Neutrophils/100 WBC (Bld) 57.1 % Normal 47-70 [facility] Comment on above: Order Comment: 116.1 Performed By: #### L 100.0100, L500.4050 #### [facility] [address] [place], [address] Nucleated RBC (Bld) [#/Vol] 0 10*3/uL Normal 0-5 [facility] Comment on above: Order Comment: 116.1 Performed By: #### L 100.0100, L500.4050 #### [facility] [address] [place], [address] Platelet mean volume (Bld) [Entitic vol] 10.1 fL Normal 6.2-12.0 [facility] Comment on above: Order Comment: 116.1 Performed By: #### L 100.0100, L500.4050 #### [facility] [address] [place], [address] Platelets (Bld) [#/Vol] 163 10*3/uL Normal 150-450 [facility] Comment on above: Order Comment: 116.1 Performed By: #### L 100.0100, L500.4050 #### [facility] [address] [place], [address] RBC (Bld) [#/Vol] 4.32 10*6/uL Low 4.6-6.2 [facility] Comment on above: Order Comment: 116.1 Performed By: #### L 100.0100, L500.4050 #### [facility] [address] [place], [address] RDW SD 46.9 fl High 35.1-43.9 [facility] Comment on above: Order Comment: 116.1 Performed By: #### L 100.0100, L500.4050 #### [facility] [address] [place], [address] WBC (Bld) [#/Vol] 6.5 10*3/uL Normal 4.4-11.0 [facility] Comment on above: Order Comment: 116.1 Performed By: #### L 100.0100, L500.4050 #### [facility] [address] [place], [address] Carbon dioxide, total [Moles /volume] in Central venous bloodOrdered By: Rudy Lewis on 09-12-2024 CO2 [Moles/Vol] 25.5 mmol/L 21.0-32.0 [facility] Chloride assayOrdered By: Selby on 09-12-2024 Chloride [Moles/Vol] 107 mmol/L 98-108 [facility] Comprehensive Metabolic Prof ilon 09-12-2024 Albumin [Mass/Vol] 3.5 g/dL Normal 3.4-4.8 [facility] Comment on above: Order Comment: 116.1 Performed By: #### L 100.0100, L500.4050 #### [facility] [address] [place], [address] Albumin/Globulin [Mass ratio] 1.8 {ratio} Normal 0.9-2.4 [facility] Comment on above: Order Comment: 116.1 Performed By: #### L 100.0100, L500.4050 #### [facility] [address] [place], [address] ALK PHOS 117 U/L Normal 40-129 [facility] Comment on above: Order Comment: 116.1 Performed By: #### L 100.0100, L500.4050 #### [facility] [address] [place], [address] ALT [Catalytic activity/Vol] 11 U/L Normal <=46 [facility] Comment on above: Order Comment: 116.1 Performed By: #### L 100.0100, L500.4050 #### [facility] [address] [place], [address] AST [Catalytic activity/Vol] 30 U/L Normal <=37 [facility] Comment on above: Order Comment: 116.1 Performed By: #### L 100.0100, L500.4050 #### [facility] [address] [place], [address] Bilirubin [Mass/Vol] 0.57 mg/dL Normal 0.00-1.30 [facility] Comment on above: Order Comment: 116.1 Performed By: #### L 100.0100, L500.4050 #### [facility] [address] [place], [address] BUN/CRE 16.2 RATIO Normal 10-20 [facility] Comment on above: Order Comment: 116.1 Performed By: #### L 100.0100, L500.4050 #### [facility] [address] [place], [address] Calcium [Mass/Vol] 8.9 mg/dL Normal 7.6-11.0 [facility] Comment on above: Order Comment: 116.1 Performed By: #### L 100.0100, L500.4050 #### [facility] [address] [place], [address] Chloride [Moles/Vol] 107 mmol/L Normal 98-108 [facility] Comment on above: Order Comment: 116.1 Performed By: #### L 100.0100, L500.4050 #### [facility] [address] [place], [address] CO2 [Moles/Vol] 25.5 mmol/L Normal 21.0-32.0 [facility] Comment on above: Order Comment: 116.1 Performed By: #### L 100.0100, L500.4050 #### [facility] [address] [place], [address] Creatinine [Mass/Vol] 1.06 mg/dL Normal 0.70-1.20 [facility] Comment on above: Order Comment: 116.1 Performed By: #### L 100.0100, L500.4050 #### [facility] [address] [place], [address] GAP 8 Normal 5-15 [facility] Comment on above: Order Comment: 116.1 Performed By: #### L 100.0100, L500.4050 #### [facility] [address] [place], [address] GFR/1.73 sq M.predicted among non-blacks MDRD (S/P/Bld) [Vol rate/Area] 68 mL/min/{1.73_m2} Normal >60 [facility] Comment on above: Order Comment: 116.1 Result Comment: mL/m in/1.73m2 CKD-EPI Creatinine Equation (2020) Performed By: #### L 100.0100, L500.4050 #### [facility] [address] [place], [address] Globulin (S) [Mass/Vol] 1.9 g/dL Low 2.2-4.2 [facility] Comment on above: Order Comment: 116.1 Performed By: #### L 100.0100, L500.4050 #### [facility] [address] [place], [address] Glucose [Mass/Vol] 79 mg/dL Normal 70-99 [facility] Comment on above: Order Comment: 116.1 Performed By: #### L 100.0100, L500.4050 #### [facility] [address] [place], [address] Potassium [Moles/Vol] 4.4 mmol/L Normal 3.3-5.1 [facility] Comment on above: Order Comment: 116.1 Performed By: #### L 100.0100, L500.4050 #### [facility] [address] [place], [address] Sodium [Moles/Vol] 141 mmol/L Normal 133-145 [facility] Comment on above: Order Comment: 116.1 Performed By: #### L 100.0100, L500.4050 #### [facility] [address] [place], [address] T PROT 5.4 g/dL Low 5.9-8.4 [facility] Comment on above: Order Comment: 116.1 Performed By: #### L 100.0100, L500.4050 #### [facility] [address] [place], [address] Urea nitrogen [Mass/Vol] 17 mg/dL Normal 4-19 [facility] Comment on above: Order Comment: 116.1 Performed By: #### L 100.0100, L500.4050 #### [facility] [address] [place], [address] Eosinophil percentageOrdered By: Rudy Lewis on 09-12-2024 Eosinophils/100 WBC (Bld) 4.0 % 0-5 [facility] Erythrocyte distribution wid th ratioOrdered By: Rudy Lewis on 09-12-2024 Erythrocyte distribution width (RBC) [Ratio] 13.1 % 11.6-14.6 [facility] Erythrocyte distribution wid th standard deviationOrdered By: Rudy Lewis on 09-12-2024 Erythrocyte distribution width (RBC) [Ratio] 46.9 fl High 35.1-43.9 [facility] Glomerular filtration rate ( GFR) estimation/1.73 sq m using serum, plasma, or whole bOrdered By: Rudy Lewis on 09-12-2024 GFR/1.73 sq M.predicted among non-blacks MDRD (S/P/Bld) [Vol rate/Area] 68 mL/min/{1.73_m2} >60 [facility] Comment on above: mL/min/1.73m2 CKD-EP I Creatinine Equation (2020) Hematocrit Auto (Bld) [Volum e fraction]Ordered By: Rudy Lewis on 09-12-2024 Hematocrit (Bld) [Volume fraction] 41.3 % 40-54 [facility] Hemoglobin measurementOrdere d By: Rudy Lewis on 09-12-2024 Hemoglobin (Bld) [Mass/Vol] 13.4 g/dL 13.0-16.5 [facility] Immature granulocytes/100 WB C Auto (Bld)Ordered By: Rudy Lewis on 09-12-2024 Immature granulocytes/100 WBC (Bld) 0.500 % 0.0-0.9 [facility] Comment on above: IG% - Immature Granu locytes (promyelocytes, myelocytes and metamyelocytes) > 1% indicates that a LEFT SHIFT is Present. Laboratory - Chemistry and C hemistry - challengeOrdered By: Rudy Lewis on 09-12-2024 AST [Catalytic activity/Vol] 30 U/L <38 [facility] MCV (mean corpuscular volume ) determinationOrdered By: Rudy Lewis on 09-12-2024 MCV (RBC) [Entitic vol] 95.6 fL High 80-94 [facility] Mean corpuscular hemoglobin (MCH) determinationOrdered By: Ruyd Lewis on 09-12-2024 MCH (RBC) [Entitic mass] 31.0 pg 27.0-32.0 [facility] Mean corpuscular hemoglobin concentration (MCHC) determinationOrdered By: Rudy Lewis on 09-12-2024 MCHC (RBC) [Mass/Vol] 32.4 g/dL 32-36 [facility] Mean platelet volume determi nationOrdered By: Rudy Lewis on 09-12-2024 Platelet mean volume (Bld) [Entitic vol] 10.1 fL 6.2-12.0 [facility] Monocyte percentageOrdered B y: Rudy Lewis on 09-12-2024 Monocytes/100 WBC (Bld) 11.2 % High 0-10 [facility] Neutrophil percentageOrdered By: Rudy Lewis on 09-12-2024 Neutrophils/100 WBC (Bld) 57.1 % 47-70 [facility] Nucleated red blood cell per centageOrdered By: Rudy Lewis on 09-12-2024 Nucleated RBC/100 WBC (Bld) [Ratio] 0 % 0-5 [facility] Platelet countOrdered By: Selby on 09-12-2024 Platelets (Bld) [#/Vol] 163 10*3/uL 150-450 [facility] Potassium measurement (mass/ volume)Ordered By: Rudy Lewis on 09-12-2024 Potassium (Unsp spec) [Mass/Vol] 4.4 mmol/L 3.3-5.1 [facility] RBC Auto (Bld) [#/Vol]Ordere d By: Rudy Lewis on 09-12-2024 RBC (Bld) [#/Vol] 4.32 10*6/uL Low 4.6-6.2 [facility] Serum creatinine measurement (mass/volume)Ordered By: Rudy Lewis on 09-12-2024 Creatinine [Mass/Vol] 1.06 mg/dL 0.70-1.20 [facility] Serum globulin measurementOr dered By: Rudy Lewis on 09-12-2024 Globulin (S) [Mass/Vol] 1.9 g/dL Low 2.2-4.2 [facility] Serum glucose measurement (m ass/volume)Ordered By: Rudy Lewis on 09-12-2024 Glucose [Mass/Vol] 79 mg/dL 70-99 [facility] Serum or plasma alanine patiño otransferase (ALT) measurementOrdered By: Rudy Lewis on 09-12-2024 ALT [Catalytic activity/Vol] 11 U/L <47 [facility] Serum or plasma albumin raul urement (mass/volume)Ordered By: Rudy Lewis on 09-12-2024 Albumin [Mass/Vol] 3.5 g/dL 3.4-4.8 [facility] Serum or plasma albumin/glob ulin mass ratioOrdered By: Rudy Lewis on 09-12-2024 Albumin/Globulin [Mass ratio] 1.8 {ratio} 0.9-2.4 [facility] Serum or plasma alkaline mary sphatase measurementOrdered By: Rudy Lewis on 09-12-2024 ALP [Catalytic activity/Vol] 117 U/L 40-129 [facility] Serum or plasma calcium raul urement (mass/volume)Ordered By: Rudy Lewis on 09-12-2024 Calcium [Mass/Vol] 8.9 mg/dL 7.6-11.0 [facility] Serum or plasma urea nitroge n measurement (mass/volume)Ordered By: Rudy Lewis on 09-12-2024 Urea nitrogen [Mass/Vol] 17 mg/dL 4-19 [facility] Sodium levelOrdered By: Rudy Lewis on 09-12-2024 Sodium [Moles/Vol] 141 mmol/L 133-145 [facility] Total proteinOrdered By: Cori Lewis on 09-12-2024 Protein [Mass/Vol] 5.4 g/dL Low 5.9-8.4 [facility] White blood cell (WBC) count Ordered By: Rudy Lewis on 09-12-2024 WBC (Bld) [#/Vol] 6.5 10*3/uL 4.4-11.0 [facility] Absolute lymphocyte countOrd ered By: Rudy Lewis on 07-27-2023 Lymphocytes Auto (Unsp spec) [#/Vol] 1.43 10*3/uL 0.83-4.51 [facility] Automated lymphocyte count a s percentage of total leukocytesOrdered By: Rudy Lewis on 07-27-2023 Lymphocytes/100 WBC Auto (Unsp spec) 16.3 % 19-41 [facility] Basophil percentageOrdered B y: Rudy Lewis on 07-27-2023 Basophils/100 WBC (Bld) 0.6 % 0-1 [facility] Bilirubin [Mass/Vol] 0.60 mg/dL 0.20-1.00 [facility] Comment on above: For patients on eltr ombopag therapy, use of [place] TBIL is not recommended. Chloride [Moles/Vol] 108 mmol/L 98-107 [facility] Eosinophils/100 WBC (Bld) 2.6 % 0-5 [facility] Glucose [Mass/Vol] 89 mg/dL 74-106 [facility] Hemoglobin (Bld) [Mass/Vol] 13.7 g/dL 13.0-16.5 [facility] Monocytes/100 WBC (Bld) 10.5 % 0-10 [facility] Neutrophils (Bld) [#/Vol] 6.1 10*3/uL 2.0-7.7 [facility] Neutrophils/100 WBC (Bld) 69.4 % 47-70 [facility] Potassium [Moles/Vol] 4.7 mmol/L 3.5-5.1 [facility] Protein [Mass/Vol] 5.8 g/dL 6.4-8.2 [facility] Sodium [Moles/Vol] 141 mmol/L 136-145 [facility] WBC (Bld) [#/Vol] 8.8 10*3/uL 4.4-11.0 [facility] Determination of erythrocyte mean corpuscular volume (MCV)Ordered By: Rudy Lewis on 07-27-2023 MCV (RBC) [Entitic vol] 93.8 fL 80-94 [facility] Erythrocyte distribution wid th ratioOrdered By: Rudy Lewis on 07-27-2023 Erythrocyte distribution width (RBC) [Ratio] 14.5 % 11.6-14.6 [facility] Erythrocyte distribution wid th standard deviationOrdered By: Rudy Lewis on 07-27-2023 Erythrocyte distribution width (RBC) [Entitic vol] 50.3 fL 35.1-43.9 [facility] Hematocrit Auto (Bld) [Volum e fraction]Ordered By: Rudy Lewis on 07-27-2023 Hematocrit (Bld) [Volume fraction] 43.6 % 40-54 [facility] Immature granulocytes/100 WB C Auto (Bld)Ordered By: Rudy Lewis on 07-27-2023 Immature granulocytes/100 WBC (Bld) 0.600 % 0.0-0.9 [facility] Comment on above: IG% - Immature Granu locytes (promyelocytes, myelocytes and metamyelocytes) > 1% indicates that a LEFT SHIFT is Present. Laboratory - Chemistry and C hemistry - challengeOrdered By: Rudy Lewis on 07-27-2023 Albumin/Globulin [Mass ratio] 1.1 {ratio} 0.9-2.4 [facility] ALP [Catalytic activity/Vol] 144 U/L 45-117 [facility] ALT [Catalytic activity/Vol] 20 U/L 16-61 [facility] CO2 [Moles/Vol] 28.0 mmol/L 21.0-32.0 [facility] Globulin (S) [Mass/Vol] 2.8 g/dL 2.2-4.2 [facility] Urea nitrogen/Creatinine [Mass ratio] 19.2 mg/mg 10-20 [facility] Laboratory - Hematology and Cell countsOrdered By: Rudy Lewis on 07-27-2023 MCH (RBC) [Entitic mass] 29.5 pg 27.0-32.0 [facility] MCHC (RBC) [Mass/Vol] 31.4 g/dL 32-36 [facility] Nucleated RBC/100 WBC (Bld) [Ratio] 0 % 0-5 [facility] Platelet mean volume (Bld) [Entitic vol] 10.3 fL 6.2-12.0 [facility] Platelets (Bld) [#/Vol] 193 10*3/uL 150-450 [facility] No Panel InformationOrdered By: Rudy Lewis on 07-27-2023 Estimated GFR (MDRD) Amer 74 mL/min >60 [facility] Comment on above: GFR Calc Estimated GFR (MDRD) Non-Af Amer 61 mL/min >60 [facility] Comment on above: Non- GFR Calc RBC Auto (Bld) [#/Vol]Ordere d By: Rudy Lewis on 07-27-2023 RBC (Bld) [#/Vol] 4.65 10*6/uL 4.6-6.2 [facility] Serum or plasma calcium raul urement (mass/volume)Ordered By: Rudy Lewis on 07-27-2023 Calcium [Mass/Vol] 9.2 mg/dL 8.5-10.1 [facility] Serum or plasma creatinine m easurement (mass/volume)Ordered By: Rudy Lewis on 07-27-2023 Creatinine [Mass/Vol] 1.20 mg/dL 0.70-1.30 [facility] Comment on above: The validity of the calculated GFR & GFRAA in patients over 70 years has not been determined. Clinical correlation is essential. Serum or plasma urea nitroge n measurement (mass/volume)Ordered By: Rudy Lewis on 07-27-2023 Urea nitrogen [Mass/Vol] 23 mg/dL 7-18 [facility] Thin prep Papanicolaou smear with manual screeningOrdered By: Rudy Lewis on 07-27-2023 Thin prep Papanicolaou smear with manual screening 3.0 g/dL 3.2-5.0 [facility] Thin prep Papanicolaou smear with manual screening 25 U/L 15-37 [facility] Thin prep Papanicolaou smear with manual screening 5 5-15 [facility] Basophil percentageOrdered B y: Rudy Lewis on 02-24-2023 Basophil percentage 0 SEEN /hpf 0-5 [facility] Bilirubin Test strip Ql (U)O rdered By: Rudy Lewis on 02-24-2023 Bilirubin Ql (U) Negative Negative [facility] Culture, urineOrdered By: Selby on 02-24-2023 Bacteria identified Cx Nom (U) Culture exhibits no growth. [facility] Ketones Test strip Ql (U)Ord ered By: Rudy Lewis on 02-24-2023 Ketones Ql (U) Negative Negative [facility] Mucus LM Ql (Urine sed)Order ed By: Rudy Lewis on 02-24-2023 Mucus Ql (Urine sed) 0 SEEN /hpf [facility] Nitrite Test strip Ql (U)Ord ered By: Rudy Lewis on 02-24-2023 Nitrite Ql (U) Negative Negative [facility] Protein Test strip Ql (U)Ord ered By: Rudy Lewis on 02-24-2023 Protein Ql (U) Negative Negative [facility] Squamous epithelial cells de tection in urine sediment by light microscopyOrdered By: Rudy Lewis on 02-24-2023 Epithelial cells.squamous LM Ql (Urine sed) 0 SEEN /hpf 0-5 [facility] Urine blood detectionOrdered By: Rudy Lewis on 02-24-2023 RBC Ql (U) Negative Negative [facility] RBC Ql (U) 0 SEEN /hpf 0-5 [facility] Urine clarityOrdered By: Cori Lewis on 02-24-2023 Clarity (U) Sl. Cloudy Clear [facility] Urine color determinationOrd ered By: Rudy Lewis on 02-24-2023 Color (U) Yellow Yellow [facility] Urine glucose detectionOrder ed By: Rudy Lewis on 02-24-2023 Glucose Ql (U) Normal mg/dl Normal [facility] Urine leukocyte esterase det ection by dipstickOrdered By: Rudy Lewis on 02-24-2023 Leukocyte esterase Test strip Ql (U) Negative Negative [facility] Urine pHOrdered By: Rudy faria on 02-24-2023 pH (U) 5.0 [pH] 5.0 - 8.0 [facility] Urine sediment bacteria coun t by microscopy (number/high power field)Ordered By: Rudy Lewis on 02-24-2023 Bacteria LM.HPF (Urine sed) [#/Area] 0 /[HPF] None Seen [facility] Urine specific gravity measu rementOrdered By: Rudy Lewis on 02-24-2023 Specific gravity (U) [Rel density] 1.020 1.002-1.03 0 [facility] Urobilinogen Auto test strip Ql (U)Ordered By: Rudy Lewis on 02-24-2023 Urobilinogen Ql (U) 1 mg/dl Normal [facility] Basophil percentageOrdered B y: Rudy Lewis on 02-19-2023 Basophil percentage 25-50 SEEN /hpf 0-5 [facility] Bilirubin Test strip Ql (U)O rdered By: Rudy Lewis on 02-19-2023 Bilirubin Ql (U) Negative Negative [facility] Ketones Test strip Ql (U)Ord ered By: Rudy Lewis on 02-19-2023 Ketones Ql (U) 5 mg/dl Negative [facility] Mucus LM Ql (Urine sed)Order ed By: Rudy Lewis on 02-19-2023 Mucus Ql (Urine sed) 0 SEEN /hpf [facility] Nitrite Test strip Ql (U)Ord ered By: Rudy Lewis on 02-19-2023 Nitrite Ql (U) Negative Negative [facility] Protein Test strip Ql (U)Ord ered By: Rudy Lewis on 02-19-2023 Protein Ql (U) 15 mg/dl Negative [facility] Squamous epithelial cells de tection in urine sediment by light microscopyOrdered By: Rudy Lewis on 02-19-2023 Epithelial cells.squamous LM Ql (Urine sed) 0-5 SEEN /hpf 0-5 [facility] Urine blood detectionOrdered By: Rudy Lewis on 02-19-2023 RBC Ql (U) Negative Negative [facility] RBC Ql (U) 0 SEEN /hpf 0-5 [facility] Urine clarityOrdered By: Cori Lewis on 02-19-2023 Clarity (U) Sl. Cloudy Clear [facility] Urine color determinationOrd ered By: Rudy Lewis on 02-19-2023 Color (U) Yellow Yellow [facility] Urine glucose detectionOrder ed By: Rudy Lewis on 02-19-2023 Glucose Ql (U) Normal mg/dl Normal [facility] Urine leukocyte esterase det ection by dipstickOrdered By: Rudy Lewis on 02-19-2023 Leukocyte esterase Test strip Ql (U) 500 /ul Negative [facility] Urine pHOrdered By: Rudy faria on 02-19-2023 pH (U) 6.0 [pH] 5.0 - 8.0 [facility] Urine sediment bacteria coun t by microscopy (number/high power field)Ordered By: Rudy Lewis on 02-19-2023 Bacteria LM.HPF (Urine sed) [#/Area] 1 /[HPF] None Seen [facility] Urine specific gravity measu rementOrdered By: Rduy Lewis on 02-19-2023 Specific gravity (U) [Rel density] 1.020 1.002-1.03 0 [facility] Urobilinogen Auto test strip Ql (U)Ordered By: Rudy Lewis on 02-19-2023 Urobilinogen Ql (U) 1 mg/dl Normal [facility] Basophil percentageOrdered B y: Rudy Lewis on 02-18-2023 Chloride [Moles/Vol] 111 mmol/L 98-107 [facility] Glucose [Mass/Vol] 86 mg/dL 74-106 [facility] Potassium [Moles/Vol] 4.5 mmol/L 3.5-5.1 [facility] Sodium [Moles/Vol] 143 mmol/L 136-145 [facility] WBC (Bld) [#/Vol] 8.1 10*3/uL 4.4-11.0 [facility] Blood erythrocytes count (nu mber/volume)Ordered By: Rudy Lewis on 02-18-2023 RBC (Bld) [#/Vol] 4.21 10*6/uL 4.6-6.2 [facility] Blood hemoglobin measurement (mass/volume)Ordered By: Rudy Lewis on 02-18-2023 Hemoglobin (Bld) [Mass/Vol] 13.5 g/dL 13.0-16.5 [facility] Blood platelet mean volumeOr dered By: Rudy Lewis on 02-18-2023 Platelet mean volume (Bld) [Entitic vol] 10.0 fL 6.2-12.0 [facility] Determination of erythrocyte mean corpuscular volume (MCV)Ordered By: Rudy Lewis on 02-18-2023 MCV (RBC) [Entitic vol] 100.5 fL 80-94 [facility] Hematocrit Auto (Bld) [Volum e fraction]Ordered By: Rudy Lewis on 02-18-2023 Hematocrit (Bld) [Volume fraction] 42.3 % 40-54 [facility] Laboratory - Chemistry and C hemistry - challengeOrdered By: Rudy Lewis on 02-18-2023 CO2 [Moles/Vol] 30.0 mmol/L 21.0-32.0 [facility] Urea nitrogen/Creatinine [Mass ratio] 22.5 mg/mg 10-20 [facility] Laboratory - Hematology and Cell countsOrdered By: Rudy Lewis on 02-18-2023 Erythrocyte distribution width (RBC) [Entitic vol] 46.1 fL 35.1-43.9 [facility] Erythrocyte distribution width (RBC) [Ratio] 12.3 % 11.6-14.6 [facility] MCH (RBC) [Entitic mass] 32.1 pg 27.0-32.0 [facility] MCHC Auto (RBC) [Mass/Vol]Or dered By: Rudy Lewis on 02-18-2023 MCHC (RBC) [Mass/Vol] 31.9 g/dL 32-36 [facility] No Panel InformationOrdered By: Rudy Lewis on 02-18-2023 Estimated GFR (MDRD) Amer 81 mL/min >60 [facility] Comment on above: GFR Calc Estimated GFR (MDRD) Non-Af Amer 67 mL/min >60 [facility] Comment on above: Non- GFR Calc Platelets bldOrdered By: Cori Lewis on 02-18-2023 Platelets (Bld) [#/Vol] 203 10*3/uL 150-450 [facility] Serum or plasma calcium raul urement (mass/volume)Ordered By: Rudy Lewis on 02-18-2023 Calcium [Mass/Vol] 8.7 mg/dL 8.5-10.1 [facility] Serum or plasma creatinine m easurement (mass/volume)Ordered By: Rudy Lewis on 02-18-2023 Creatinine [Mass/Vol] 1.11 mg/dL 0.70-1.30 [facility] Comment on above: The validity of the calculated GFR & GFRAA in patients over 70 years has not been determined. Clinical correlation is essential. Serum or plasma urea nitroge n measurement (mass/volume)Ordered By: Rudy Lewis on 02-18-2023 Urea nitrogen [Mass/Vol] 25 mg/dL 7-18 [facility] Thin prep Papanicolaou smear with manual screeningOrdered By: Rudy Lewis on 02-18-2023 Thin prep Papanicolaou smear with manual screening 2 5-15 [facility] Basophil percentageOrdered B y: Rudy Lewis on 01-11-2023 Bilirubin [Mass/Vol] 0.60 mg/dL 0.20-1.00 [facility] Comment on above: For patients on eltr ombopag therapy, use of [place] TBIL is not recommended. Chloride [Moles/Vol] 108 mmol/L 98-107 [facility] Glucose [Mass/Vol] 95 mg/dL 74-106 [facility] Potassium [Moles/Vol] 3.8 mmol/L 3.5-5.1 [facility] Protein [Mass/Vol] 5.8 g/dL 6.4-8.2 [facility] Sodium [Moles/Vol] 142 mmol/L 136-145 [facility] WBC (Bld) [#/Vol] 7.5 10*3/uL 4.4-11.0 [facility] Blood erythrocytes count (nu mber/volume)Ordered By: Rudy Lewis on 01-11-2023 RBC (Bld) [#/Vol] 3.89 10*6/uL 4.6-6.2 [facility] Blood hemoglobin measurement (mass/volume)Ordered By: Rudy eLwis on 01-11-2023 Hemoglobin (Bld) [Mass/Vol] 12.6 g/dL 13.0-16.5 [facility] Blood platelet mean volumeOr dered By: Rudy Lewis on 01-11-2023 Platelet mean volume (Bld) [Entitic vol] 9.8 fL 6.2-12.0 [facility] Determination of erythrocyte mean corpuscular volume (MCV)Ordered By: Rudy Lewis on 01-11-2023 MCV (RBC) [Entitic vol] 99.7 fL 80-94 [facility] Hematocrit Auto (Bld) [Volum e fraction]Ordered By: Rudy Lewis on 01-11-2023 Hematocrit (Bld) [Volume fraction] 38.8 % 40-54 [facility] Laboratory - Chemistry and C hemistry - challengeOrdered By: Rudy Lewis on 01-11-2023 ALP [Catalytic activity/Vol] 94 U/L 45-117 [facility] ALT [Catalytic activity/Vol] 25 U/L 16-61 [facility] CO2 [Moles/Vol] 29.0 mmol/L 21.0-32.0 [facility] Globulin (S) [Mass/Vol] 2.9 g/dL 2.2-4.2 [facility] Urea nitrogen/Creatinine [Mass ratio] 17.6 mg/mg 10-20 [facility] Laboratory - Hematology and Cell countsOrdered By: Rudy Lewis on 01-11-2023 Erythrocyte distribution width (RBC) [Entitic vol] 45.7 fL 35.1-43.9 [facility] Erythrocyte distribution width (RBC) [Ratio] 12.5 % 11.6-14.6 [facility] MCH (RBC) [Entitic mass] 32.4 pg 27.0-32.0 [facility] MCHC Auto (RBC) [Mass/Vol]Or dered By: Rudy Lewis on 01-11-2023 MCHC (RBC) [Mass/Vol] 32.5 g/dL 32-36 [facility] No Panel InformationOrdered By: Rudy Lewis on 01-11-2023 Estimated GFR (MDRD) Amer 90 mL/min >60 [facility] Comment on above: GFR Calc Estimated GFR (MDRD) Non-Af Amer 74 mL/min >60 [facility] Comment on above: Non- GFR Calc Platelets bldOrdered By: Cori Lewis on 01-11-2023 Platelets (Bld) [#/Vol] 170 10*3/uL 150-450 [facility] Serum or plasma albumin raul urement (mass/volume)Ordered By: Rudy Lewis on 01-11-2023 Albumin [Mass/Vol] 2.9 g/dL 3.2-5.0 [facility] Serum or plasma albumin/glob ulin mass ratioOrdered By: Rudy Lewis on 01-11-2023 Albumin/Globulin [Mass ratio] 1.0 {ratio} 0.9-2.4 [facility] Serum or plasma calcium raul urement (mass/volume)Ordered By: Rudy Lewis on 01-11-2023 Calcium [Mass/Vol] 8.7 mg/dL 8.5-10.1 [facility] Serum or plasma creatinine m easurement (mass/volume)Ordered By: Rudy Lewis on 01-11-2023 Creatinine [Mass/Vol] 1.02 mg/dL 0.70-1.30 [facility] Comment on above: The validity of the calculated GFR & GFRAA in patients over 70 years has not been determined. Clinical correlation is essential. Serum or plasma urea nitroge n measurement (mass/volume)Ordered By: Rudy Lewis on 01-11-2023 Urea nitrogen [Mass/Vol] 18 mg/dL 7-18 [facility] Thin prep Papanicolaou smear with manual screeningOrdered By: Rudy Lewis on 01-11-2023 Thin prep Papanicolaou smear with manual screening 26 U/L 15-37 [facility] Thin prep Papanicolaou smear with manual screening 5 5-15 [facility] Medicare Annual Wellness Vis iton 04-15-2022 Medicare Annual Wellness Visit *Chief Complaint f/u gait, hyperglycemia, HTN, HLD/CAD, CKD + MWV History of Present Illness The patient is being seen for the subsequent annual wellness visit. Past Medical, Surgical and Family History: reviewed and updated in chart. Medications and Supplements: Review of all medications by a prescribing practitioner or clinical pharmacist (such as prescriptions, OTCs, herbal therapies and supplements) documented in the medical record. No, the patient is not using opioids. Patient Self Assessment of Health Status: good. Tobacco use: Non-User Alcohol use: Non-User Illicit drug use: Non-User Current diet: well balanced diet, does consume adequate fluids and does consume caffeine. Exercise Frequency: the patient does not exercise. Depression/Suicide Screening: . During the past 2 weeks, the patient has not felt down, depressed or hopeless. During the past 2 weeks, the patient has not felt little interest or pleasure in doing things. Hearing Impairment: Patient has significant hearing impairment, bilaterally. Cognitive Impairment: Cognitive impairment was observed. known demenia, on namenda. Bathing: performs independently. Dressing: performs independently. Walking: performs independently. Managing Finances: performs independently. Shopping: performs independently. Managing Medications: performs independently. Housework / Basic Home Maintenance: performs independently. Falls Risk Screening:. ELIDA has fallen in the last 6 months. His fall resulted in the following injury: hit head. Home safety risk factors: none. Advance directives:. Advanced Care Planning discussed and documented advance care plan or surrogate decision maker documented in the medical record. Patient has living will. Patient has healthcare POA. Patient's End of Life Decisions: End of life decisions were reviewed with the patient. I agree to follow the patient's decisions. Additional Information: full code, has in writing. Health maintenance: TDAP-- 10/2015 COVID-- 08/2021 Influenza-- due fall 2021 Shingrix-- completed Pneumonia series-- PPSV 2004; no record of PCV Last DEXA-- 04/2016 normal Cscope(45-75)-- N/A - graduated PSA-- N/A - graduated AAA Screen(65-79)-- 03/2017 normal Anxiety/Depression-- 03/2021 PHQ-2: 4 JULIET-7: N/A Hepatitis C Screen-- none found Last HbA1c-- 5.8 in 12/2020 Lipid Panel-- ratio: 3.2 in 07/2021 (TRIG 243) CT cardiac score-- none found (coronary artery calcifications on 07/2007 CT chest) ECHO-- 01/2017 (LVEF 65 %. Mild LVH. Mild TR. Abnormal LV relaxation.) *Due for: FLU, PREVNAR-20?, LABS, A1c (only prediabetic, can do with labs, IO not necessary) Patient presents today for recheck gait, hyperglycemia, HTN, HLD/CAD, CKD + MWV Patient would like to receive their wellness [...] deductibles that apply under their insurance plan. Refills sent SCALES given concerns:fell in Oct had CAT scan showed aneurysm but MRI showed none _ CHRONIC CONDITIONS: -Gait, patient referred to PT for balance in 07/2021, he completed 6 sessions and was then discharge. Per 10/2021 PT EVAL: Patient tolerates treatment with moderate difficulty. Patient demo's increased weakness in L shoulder this date with ER and AAROM flexion. Verbal cues needed for proper form with seated AAROM and to not compensate with trunk with min carryover. Patient demo's restriction in L GH capsule this date with flexion and ER. Patient with increased fatigue at end of session. -Mood, taking Celexa 40 mg daily. -Insomnia, taking Trazodone 50 mg (1/2 tablet) at bedtime. -Dementia, on Memantine 10 mg BID. MOCA 2019 was stable. -COPD, never a smoker but did have industrial exposure. He was previously on Symbicort daily in distant past, declined this at 03/2021 Now using albuterol as needed. -HTN, taking Metoprolol 25 mg 1/2 tablet daily. -Hyperglycemia, barely in pre-diabetic range, lifestyle managed. 12/2020 Hgb A1c 5.8; prior A1c was 5.6 in 01/2018 -CKD, baseline GFR 56-60 07/2021 GFR 49 + creatinine 1.40, down from prior and down from baseline. 12/2020 GFR 59 + creatinine 1.18, at baseline. -CAD/HLD currently on Rosuvastatin 10 mg AND Plavix anticoagulation. Has seen cardiology (Dr. Obrien) in the past. 07/2021 lipid panel favorable with TC/HDL ratio 3.2, stable from prior ratio 3.2 in 12/2020 No CACS, however, there were coronary artery calcifications on 07/2007 CT chest. Review of Systems The full, multi-organ review of systems, is within normal limits with the exception of what (more content not included)... Normal [facility] No Panel Informationon 04-15 Not at all - 0 [facility] Work Phone: Over half the days - 2 [facility] Work Phone: Minimal Anxiety [facility] Work Phone: Not difficult at all [facility] Work Phone: Comment on above: How difficult have t hose problems made it for you to do your work, take care of things at home, or get along with other people? 2 1 [facility] Work Phone: Comment on above: Over the last two we eks, how often have you been bothered by the following problems? Feeling nervous, anxious, or on edge: Not at all - 0Not being able to stop or control worrying: Not at all - 0Worrying too much about different things: Not at all - 0Trouble relaxing: Not at all - 0Being so restless that it's hard to sit still: Not at all - 0Becoming easily annoyed or irritable: Over half the days - 2Feeling afraid as if something awful might happen: Not at all - 0 PHQ-2 VITALSon 04-15-2022 Adult depression screening assessment Yes [facility] Work Phone: PHQ-2 VITALS 3-Nearly every day [facility] Work Phone: PHQ-2 VITALS 2-More than half the days [facility] Work Phone: PHQ-2 VITALS 1-Several days [facility] Work Phone: PHQ-2 VITALS 0-Not at all [facility] Work Phone: PHQ-2 VITALS Not difficult at all [facility] Work Phone: PHQ-2 VITALS Adult [facility] Work Phone: MRA Head without Contraston 03-03-2022 MRA Head vessels WO contrast FINAL REPORT Interpreted by: JENNIFER ULLOA ELAINE, DO 03/03/22 17:25 Patient Name: ELIDA LANZA STUDY: MRA HEAD W/O C; 03/03/2022 12:53 pm INDICATION: aneursym seen on CT I67.1: Aneurysm, cerebral. COMPARISON: None. 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 : No What are the patient's signs and symptoms? : aneursym seen on CT Fall, Gait abnormality Physical Therapy - General Referral Evaluation and Treatment Evaluate AND Treat Status: Hold For - Scheduling Requested for: 11Feb2022 Patient Discussion/Summary 1. Recent fall You are walking and you grind your cane slipped out from you and you fell onto your shoulder and head. You appropriately went to the emergency department on February 02. They did multiple x-rays and CAT scans. 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 This aneurysm probably has been there for a while. I do not think the aneurysm caused you to fall nor do I think the fall because the aneurysm. I am recommending an MRA which will look specifically at the arteries in the brain to determine if this aneurysm is of any concern or if we need to have you see a specialist to talk about possible treatment. I would like you to continue to walk with your cane I am going to encourage you to go back to physical therapy because I am worried you could fall again. We will call you with the results of the MRA of the brain you will call us if anything changes please stay on all other current medications please keep all future appointments Chief Complaint Hospital FUV-Fall History of Present Illness ELIDA is here with his for Hospital FUV-Posterior head injury and right shoulder injury from fall on concrete (garage floor). Pt reports that pt has fallen multiple time recently; once approx 1.5 weeks prior to fall hospitalization, and once the day after fall hospitalization. Gaps- Flu, Medicare Advanced Planning The patient was at his home when he fell in his garage. He was taken to the emergency department. At that time a CT scan was completed and it showed a small aneurysm. The patient and are worried that this aneurysm could be something to be further evaluated Otherwise he has a slight soreness to the shoulder and hip. I reviewed all results from the emergency room visit 'Scores and Scales' PHQ-9 Printed in Appendix #1 below. JULIET-7 [id number] JULIET-7 Total Score2 Feeling nervous, anxious or on edgeSeveral days - 1 Not being able to stop or control worryingNot at all - 0 Worrying too much about different thingsNot at all - 0 Trouble relaxingNot at all - 0 Being so restless that it's hard to sit stillNot at all - 0 Becoming easily annoyed or irritableNot at all - 0 Feeling afraid as if something awful might happenSeveral days - 1 Review of Systems Constitutional: no chills, no fever and no night sweats. Eyes: no blurred vision and no eyesight problems. ENT: no hearing loss, no nasal congestion, no nasal discharge, no hoarseness and no sore throat. Neck: no mass(es) and no swelling. Cardiovascular: no chest pain, no intermittent leg claudication, no lower extremity edema, no palpitations and no syncope. Respiratory: no cough, no shortness of breath during exertion, no shortness of breath at rest and no wheezing. Gastrointestinal: no abdominal pain, no blood in stools, no constipation, no diarrhea, no melena, no nausea, no rectal pain and no vomiting. Genitourinary: no dysuria, no change in urinary frequency, no urinary hesitancy and no feelings of urinary urgency. Musculoskeletal: no arthralgias, no back pain and no myalgias. Integumentary: no new skin lesions and no rashes. Neurological: no difficulty walking, no headache, no limb weakness, no numbness and no tingling. Psychiatric: no anxiety, no depression, no anhedonia and no substance use disorders. Endocrine: no recent weight gain and no recent weight loss. Hematologic/Lymphatic: no tendency for easy bruising and no swollen glands. Active Problems (HFpEF) heart failure with preserved ejection fraction (428.9) (I50.30) Acute pain of left shoulder (719.41) (M25.512) Balance problems (781.99) (R26.89) Benign enlargement of prostate (600.00) (N40.0) Benign essential hypertension (401.1) (I10) Bilateral impacted cerumen (380.4) (H61.23) Body mass index (BMI) of 22.0 to 22.9 in adult (V85.1) (Z68.22) CAD (coronary artery disease) (414.00) (I25.10) Mild on a cath 2010 Carotid artery stenosis (433.10) (I65.29) Mild Chronic low back pain (724.2,338.29) (M54.50,G89.29) CKD (chronic kidney disease) stage 3, GFR 30-59 ml/min (585.3) (N18.30) COPD (chronic obstructive pulmonary disease) (496) (J44.9) Dementia (294.20) (F03.90) Depression with anxiety (300.4) (F41.8) DVT (deep ve (more content not included)... Normal Notice [employer] CR Humerus 2+ Views Righton 02-02-2022 CR Humerus 2+ Views Right Patient Name: ELIDA LANZA Diagnostic Radiology ACCESSION EXAM DATE/TIME PROCEDURE ORDERING PROVIDER [id number] 02/02/2022 20:05 EDT CR Humerus 2+ Views MD PROSPER, CRUZITO Right CPT code 36884 Reason For Exam (CR Humerus 2+ Views Right) fall Report RIGHT SHOULDER 3 VIEWS CLINICAL INDICATION: fall, pain TECHNIQUE: 3 views of the right shoulder. COMPARISON: None. FINDINGS: Diffuse osteopenia. No acute fracture or dislocation. Degenerative change in the glenohumeral joint, including some superior migration of the humeral head suggesting rotator cuff insufficiency. More pronounced degenerative change in the AC joint. Soft tissues grossly unremarkable. IMPRESSION: 1. No acute osseous abnormality. 2. Degenerative change. RIGHT HUMERUS 2 VIEWS CLINICAL INDICATION: fall, pain TECHNIQUE: 2 views of the right humerus. COMPARISON: None. FINDINGS: Diffuse osteopenia. No acute fracture or dislocation. Soft tissues grossly unremarkable. IMPRESSION: 1. No acute osseous abnormality. Diagnostic Radiology Report Report Dictated on Workstation: [email or web address] Final Dictating Physician: MD MCKEON WENDELL Signed Date and Time: 02/02/2022 9:04 pm Signed by: MD MCKEON WENDELL Transcribed Date and Time: 02/02/2022 9:05 [facility] CR Shoulder 2+ Views Righton 02-02-2022 CR Shoulder 2+ Views Right [id number] ACCESSION EXAM DATE/TIME PROCEDURE ORDERING PROVIDER [id number] 02/02/2022 20:05 EDT CR Shoulder 2+ Views MD PROSPER, [facility] Right CPT code 51658 Reason For Exam (CR Shoulder 2+ Views Right) fall Report RIGHT SHOULDER 3 VIEWS CLINICAL INDICATION: fall, pain TECHNIQUE: 3 views of the right shoulder. COMPARISON: None. FINDINGS: Diffuse osteopenia. No acute fracture or dislocation. Degenerative change in the glenohumeral joint, including some superior migration of the humeral head suggesting rotator cuff insufficiency. More pronounced degenerative change in the AC joint. Soft tissues grossly unremarkable. IMPRESSION: 1. No acute osseous abnormality. 2. Degenerative change. RIGHT HUMERUS 2 VIEWS CLINICAL INDICATION: fall, pain TECHNIQUE: 2 views of the right humerus. COMPARISON: None. FINDINGS: Diffuse osteopenia. No acute fracture or dislocation. Soft tissues grossly unremarkable. IMPRESSION: 1. No acute osseous abnormality. Diagnostic Radiology Report Report Dictated on Workstation: [email or web address] Final Dictating Physician: MD MCKEON WENDELL Signed Date and Time: 02/02/2022 9:04 pm Signed by: MD MCKEON WENDELL Transcribed Date and Time: 02/02/2022 9:05 Normal [facility] CT Cervical Spine WO Khadra ton 02-02-2022 Patient Name: ELIDA DENTON Computed Tomography ACCESSION EXAM DATE/TIME PROCEDURE ORDERING PROVIDER [id number] 02/02/2022 20:[address] Spine Cervical w/o MD PROSPER, CRUZITO Contrast CPT code 95412 Reason For Exam (CT Spine Cervical w/o Contrast) fall Report CT BRAIN WITHOUT CONTRAST CLINICAL INDICATION: fall, pain TECHNIQUE: CT scan of the brain without IV contrast. Multiplanar reformations. COMPARISON: None. FINDINGS: No apparent mass or mass effect, hemorrhage, midline shift or hydrocephalus. No evidence of acute cortical infarct. No abnormal, extra-axial fluid or air collection. 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 Patchy low density in the periventricular and subcortical white matter is nonspecific, but may relate to chronic small vessel ischemic change. Mild-moderate, diffuse volume loss. Osseous calvarium grossly intact. Mucosal thickening partially visualized in the left posterior ethmoid sinus. IMPRESSION: 1. No acute intracranial findings. 2. 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 3. Probable chronic ischemic and atrophic changes. CT CERVICAL SPINE WITHOUT CONTRAST CLINICAL INDICATION: fall, pain TECHNIQUE: CT scan of the cervical spine without IV contrast. Multiplanar reformations. COMPARISON: None. FINDINGS: Diffuse osteopenia. Mild dextroconvex curvature may be positional versus soft tissue spasm. Extensive, multilevel degenerative disc disease and spondylosis. Possible partial bony ankylosis in the C3-4 level. Very mild anterolisthesis in the C4-5 and C7-T1 levels probably on degenerative basis. Computed Tomography Report No acute compression deformity or gross malalignment of cervical vertebral bodies. No acute fracture. No acute, osseous central spinal canal encroachment. Paraspinal soft tissues grossly unremarkable. IMPRESSION: 1. No acute compression deformity or apparent fracture in the cervical spine. 2. Degenerative spondylosis. CT PELVIS WITHOUT CONTRAST CLINICAL INDICATION: fall TECHNIQUE: CT scan of the pelvis without IV contrast. Multiplanar reformations. COMPARISON: None. FINDINGS: Diffuse osteopenia. No acute fracture or dislocation. Status post right total hip arthroplasty grossly intact. Degenerative and postsurgical change partially visualized in the lower lumbar spine. Degenerative change also in left hip and bilateral SI joints, right greater than left. Soft tissues grossly unremarkable. IMPRESSION: 1. No acute osseous abnormality. 2. Postsurgical and degenerative change. Report Dictated on Workstation: [email or web address] --- Final --- Dictating Physician: MD MCKEON WENDELL Signed Date and Time: 02/02/2022 9:01 pm Signed by: MD MCKEON WENDELL Transcribed Date and Time: 02/02/2022 9:02 [facility] Jimbo Mckeon MD - 02/02/2022 Patient Name: ELIDA LANZA Computed Tomography ACCESSION EXAM DATE/TIME PROCEDURE ORDERING PROVIDER [id number] 02/02/2022 20:[address] Spine Cervical w/o MD PROSPER, CRUZITO Contrast CPT code 03923 Reason For Exam (CT Spine Cervical w/o Contrast) fall Report CT BRAIN WITHOUT CONTRAST CLINICAL INDICATION: fall, pain TECHNIQUE: CT scan of the brain without IV contrast. Multiplanar reformations. COMPARISON: None. FINDINGS: No apparent mass or mass effect, hemorrhage, midline shift or hydrocephalus. No evidence of acute cortical infarct. No abnormal, extra-axial fluid or air collection. 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 Patchy low density in the periventricular and subcortical white matter is nonspecific, but may relate to chronic small vessel ischemic change. Mild-moderate, diffuse volume loss. Osseous calvarium grossly intact. Mucosal thickening partially visualized in the left posterior ethmoid sinus. IMPRESSION: 1. No acute intracranial findings. 2. 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 3. Probable chronic ischemic and atrophic changes. CT CERVICAL SPINE WITHOUT CONTRAST CLINICAL INDICATION: fall, pain TECHNIQUE: CT scan of the cervical spine without IV contrast. Multiplanar reformations. COMPARISON: None. FINDINGS: Diffuse osteopenia. Mild dextroconvex curvature may be positional versus soft tissue spasm. Extensive, multilevel degenerative disc disease and spondylosis. Possible partial bony ankylosis in the C3-4 level. Very mild anterolisthesis in the C4-5 and C7-T1 levels probably on degenerative basis. Computed Tomography Report No acute compression deformity or gross malalignment of cervical vertebral bodies. No acute fracture. No acute, osseous central spinal canal encroachment. Paraspinal soft tissues grossly unremarkable. IMPRESSION: 1. No acute compression deformity or apparent fracture in the cervical spine. 2. Degenerative spondylosis. CT PELVIS WITHOUT CONTRAST CLINICAL INDICATION: fall TECHNIQUE: CT scan of the pelvis without IV contrast. Multiplanar reformations. COMPARISON: None. FINDINGS: Diffuse osteopenia. No acute fracture or dislocation. Status post right total hip arthroplasty grossly intact. Degenerative and postsurgical change partially visualized in the lower lumbar spine. Degenerative change also in left hip and bilateral SI joints, right greater than left. Soft tissues grossly unremarkable. IMPRESSION: 1. No acute osseous abnormality. 2. Postsurgical and degenerative change. Report Dictated on Workstation: [email or web address] --- Final --- Dictating Physician: MD MCKEON WENDELL Signed Date and Time: 02/02/2022 9:01 pm Signed by: MD MCKEON WENDELL Transcribed Date and Time: 02/02/2022 9:02 [facility] Work Phone: [facility] Work Phone: CT Head WO Contraston 2021 Patient Name: ELIDA DENTON Computed Tomography ACCESSION EXAM DATE/TIME PROCEDURE ORDERING PROVIDER [id number] 02/02/2022 20:[address] Head or Brain w/o MD PROSPER, CRUZITO Contrast CPT code 70646 Reason For Exam (CT Head or Brain w/o Contrast) fall Report CT BRAIN WITHOUT CONTRAST CLINICAL INDICATION: fall, pain TECHNIQUE: CT scan of the brain without IV contrast. Multiplanar reformations. COMPARISON: None. FINDINGS: No apparent mass or mass effect, hemorrhage, midline shift or hydrocephalus. No evidence of acute cortical infarct. No abnormal, extra-axial fluid or air collection. 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 Patchy low density in the periventricular and subcortical white matter is nonspecific, but may relate to chronic small vessel ischemic change. Mild-moderate, diffuse volume loss. Osseous calvarium grossly intact. Mucosal thickening partially visualized in the left posterior ethmoid sinus. IMPRESSION: 1. No acute intracranial findings. 2. 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 3. Probable chronic ischemic and atrophic changes. CT CERVICAL SPINE WITHOUT CONTRAST CLINICAL INDICATION: fall, pain TECHNIQUE: CT scan of the cervical spine without IV contrast. Multiplanar reformations. COMPARISON: None. FINDINGS: Diffuse osteopenia. Mild dextroconvex curvature may be positional versus soft tissue spasm. Extensive, multilevel degenerative disc disease and spondylosis. Possible partial bony ankylosis in the C3-4 level. Very mild anterolisthesis in the C4-5 and C7-T1 levels probably on degenerative basis. Computed Tomography Report No acute compression deformity or gross malalignment of cervical vertebral bodies. No acute fracture. No acute, osseous central spinal canal encroachment. Paraspinal soft tissues grossly unremarkable. IMPRESSION: 1. No acute compression deformity or apparent fracture in the cervical spine. 2. Degenerative spondylosis. CT PELVIS WITHOUT CONTRAST CLINICAL INDICATION: fall TECHNIQUE: CT scan of the pelvis without IV contrast. Multiplanar reformations. COMPARISON: None. FINDINGS: Diffuse osteopenia. No acute fracture or dislocation. Status post right total hip arthroplasty grossly intact. Degenerative and postsurgical change partially visualized in the lower lumbar spine. Degenerative change also in left hip and bilateral SI joints, right greater than left. Soft tissues grossly unremarkable. IMPRESSION: 1. No acute osseous abnormality. 2. Postsurgical and degenerative change. Report Dictated on Workstation: [id number] --- Final --- Dictating Physician: MD MCKEON WENDELL Signed Date and Time: 02/02/2022 9:01 pm Signed by: MD MCKEON WENDELL Transcribed Date and Time: 02/02/2022 9:02 [facility] Jimbo Mckeon MD - 02/02/2022 [id number] Comput[facility] Tomography ACCESSION EXAM DATE/TIME PROCEDURE ORDERING PROVIDER [id number] 02/02/2022 20:[address] Head or Brain w/o MD PROSPER, CRUZITO Contrast CPT code 67906 Reason For Exam (CT Head or Brain w/o Contrast) fall Report CT BRAIN WITHOUT CONTRAST CLINICAL INDICATION: fall, pain TECHNIQUE: CT scan of the brain without IV contrast. Multiplanar reformations. COMPARISON: None. FINDINGS: No apparent mass or mass effect, hemorrhage, midline shift or hydrocephalus. No evidence of acute cortical infarct. No abnormal, extra-axial fluid or air collection. 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 Patchy low density in the periventricular and subcortical white matter is nonspecific, but may relate to chronic small vessel ischemic change. Mild-moderate, diffuse volume loss. Osseous calvarium grossly intact. Mucosal thickening partially visualized in the left posterior ethmoid sinus. IMPRESSION: 1. No acute intracranial findings. 2. 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 3. Probable chronic ischemic and atrophic changes. CT CERVICAL SPINE WITHOUT CONTRAST CLINICAL INDICATION: fall, pain TECHNIQUE: CT scan of the cervical spine without IV contrast. Multiplanar reformations. COMPARISON: None. FINDINGS: Diffuse osteopenia. Mild dextroconvex curvature may be positional versus soft tissue spasm. Extensive, multilevel degenerative disc disease and spondylosis. Possible partial bony ankylosis in the C3-4 level. Very mild anterolisthesis in the C4-5 and C7-T1 levels probably on degenerative basis. Computed Tomography Report No acute compression deformity or gross malalignment of cervical vertebral bodies. No acute fracture. No acute, osseous central spinal canal encroachment. Paraspinal soft tissues grossly unremarkable. IMPRESSION: 1. No acute compression deformity or apparent fracture in the cervical spine. 2. Degenerative spondylosis. CT PELVIS WITHOUT CONTRAST CLINICAL INDICATION: fall TECHNIQUE: CT scan of the pelvis without IV contrast. Multiplanar reformations. COMPARISON: None. FINDINGS: Diffuse osteopenia. No acute fracture or dislocation. Status post right total hip arthroplasty grossly intact. Degenerative and postsurgical change partially visualized in the lower lumbar spine. Degenerative change also in left hip and bilateral SI joints, right greater than left. Soft tissues grossly unremarkable. IMPRESSION: 1. No acute osseous abnormality. 2. Postsurgical and degenerative change. Report Dictated on Workstation: [email or web address] --- Final --- Dictating Physician: MD MCKEON WENDELL Signed Date and Time: 02/02/2022 9:01 pm Signed by: MD MCKEON WENDELL Transcribed Date and Time: 02/02/2022 9:02 [facility] Work Phone: CT Head WO ContrastOrdered B y: Jimbo Mckeon on 02-02-2022 [facility] Work Phone: CT Head or Brain w/o Contras ton 02-02-2022 CT Head or Brain w/o Contrast [facility]: [id number] Computed Tomography ACCESSION EXAM DATE/TIME PROCEDURE ORDERING PROVIDER [id number] 02/02/2022 20:[address] Head or Brain w/o MD PROSPER, CRUZITO Contrast CPT code 83125 Reason For Exam (CT Head or Brain w/o Contrast) fall Report CT BRAIN WITHOUT CONTRAST CLINICAL INDICATION: fall, pain TECHNIQUE: CT scan of the brain without IV contrast. Multiplanar reformations. COMPARISON: None. FINDINGS: No apparent mass or mass effect, hemorrhage, midline shift or hydrocephalus. No evidence of acute cortical infarct. No abnormal, extra-axial fluid or air collection. 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 Patchy low density in the periventricular and subcortical white matter is nonspecific, but may relate to chronic small vessel ischemic change. Mild-moderate, diffuse volume loss. Osseous calvarium grossly intact. Mucosal thickening partially visualized in the left posterior ethmoid sinus. IMPRESSION: 1. No acute intracranial findings. 2. 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 3. Probable chronic ischemic and atrophic changes. CT CERVICAL SPINE WITHOUT CONTRAST CLINICAL INDICATION: fall, pain TECHNIQUE: CT scan of the cervical spine without IV contrast. Multiplanar reformations. COMPARISON: None. FINDINGS: Diffuse osteopenia. Mild dextroconvex curvature may be positional versus soft tissue spasm. Extensive, multilevel degenerative disc disease and spondylosis. Possible partial bony ankylosis in the C3-4 level. Very mild anterolisthesis in the C4-5 and C7-T1 levels probably on degenerative basis. Computed Tomography Report No acute compression deformity or gross malalignment of cervical vertebral bodies. No acute fracture. No acute, osseous central spinal canal encroachment. Paraspinal soft tissues grossly unremarkable. IMPRESSION: 1. No acute compression deformity or apparent fracture in the cervical spine. 2. Degenerative spondylosis. CT PELVIS WITHOUT CONTRAST CLINICAL INDICATION: fall TECHNIQUE: CT scan of the pelvis without IV contrast. Multiplanar reformations. COMPARISON: None. FINDINGS: Diffuse osteopenia. No acute fracture or dislocation. Status post right total hip arthroplasty grossly intact. Degenerative and postsurgical change partially visualized in the lower lumbar spine. Degenerative change also in left hip and bilateral SI joints, right greater than left. Soft tissues grossly unremarkable. IMPRESSION: 1. No acute osseous abnormality. 2. Postsurgical and degenerative change. Report Dictated on Workstation: [email or web address] Final Dictating Physician: MD MCKEON WENDELL Signed Date and Time: 02/02/2022 9:01 pm Signed by: MD MCKEON WENDELL Transcribed Date and Time: 02/02/2022 9:02 Normal [facility] CT PELVIS WO CONTRAST Additi onal Contrast? Noneon 02-02-2022 [facility]: [id number] Computed Tomography ACCESSION EXAM DATE/TIME PROCEDURE ORDERING PROVIDER [id number] 02/02/2022 20:[address] Pelvis w/o Contrast MD CHENG VIJAY (PO Only) CPT code 16069 Reason For Exam (CT Pelvis w/o Contrast (PO Only)) fall Report CT BRAIN WITHOUT CONTRAST CLINICAL INDICATION: fall, pain TECHNIQUE: CT scan of the brain without IV contrast. Multiplanar reformations. COMPARISON: None. FINDINGS: No apparent mass or mass effect, hemorrhage, midline shift or hydrocephalus. No evidence of acute cortical infarct. No abnormal, extra-axial fluid or air collection. 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 Patchy low density in the periventricular and subcortical white matter is nonspecific, but may relate to chronic small vessel ischemic change. Mild-moderate, diffuse volume loss. Osseous calvarium grossly intact. Mucosal thickening partially visualized in the left posterior ethmoid sinus. IMPRESSION: 1. No acute intracranial findings. 2. 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 3. Probable chronic ischemic and atrophic changes. CT CERVICAL SPINE WITHOUT CONTRAST CLINICAL INDICATION: fall, pain TECHNIQUE: CT scan of the cervical spine without IV contrast. Multiplanar reformations. COMPARISON: None. FINDINGS: Diffuse osteopenia. Mild dextroconvex curvature may be positional versus soft tissue spasm. Extensive, multilevel degenerative disc disease and spondylosis. Possible partial bony ankylosis in the C3-4 level. Very mild anterolisthesis in the C4-5 and C7-T1 levels probably on degenerative basis. Computed Tomography Report No acute compression deformity or gross malalignment of cervical vertebral bodies. No acute fracture. No acute, osseous central spinal canal encroachment. Paraspinal soft tissues grossly unremarkable. IMPRESSION: 1. No acute compression deformity or apparent fracture in the cervical spine. 2. Degenerative spondylosis. CT PELVIS WITHOUT CONTRAST CLINICAL INDICATION: fall TECHNIQUE: CT scan of the pelvis without IV contrast. Multiplanar reformations. COMPARISON: None. FINDINGS: Diffuse osteopenia. No acute fracture or dislocation. Status post right total hip arthroplasty grossly intact. Degenerative and postsurgical change partially visualized in the lower lumbar spine. Degenerative change also in left hip and bilateral SI joints, right greater than left. Soft tissues grossly unremarkable. IMPRESSION: 1. No acute osseous abnormality. 2. Postsurgical and degenerative change. Report Dictated on Workstation: [email or web address] --- Final --- Dictating Physician: MD MCKEON WENDELL Signed Date and Time: 02/02/2022 9:01 pm Signed by: MD MCKEON WENDELL Transcribed Date and Time: 02/02/2022 9:02 [facility] Jimbo Mckeon MD - 02/02/2022 [facility] [id number] Computed Tomography ACCESSION EXAM DATE/TIME PROCEDURE ORDERING PROVIDER [id number] 02/02/2022 20:[address] Pelvis w/o Contrast MD CHENG VIJAY (PO Only) CPT code 72901 Reason For Exam (CT Pelvis w/o Contrast (PO Only)) fall Report CT BRAIN WITHOUT CONTRAST CLINICAL INDICATION: fall, pain TECHNIQUE: CT scan of the brain without IV contrast. Multiplanar reformations. COMPARISON: None. FINDINGS: No apparent mass or mass effect, hemorrhage, midline shift or hydrocephalus. No evidence of acute cortical infarct. No abnormal, extra-axial fluid or air collection. 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 Patchy low density in the periventricular and subcortical white matter is nonspecific, but may relate to chronic small vessel ischemic change. Mild-moderate, diffuse volume loss. Osseous calvarium grossly intact. Mucosal thickening partially visualized in the left posterior ethmoid sinus. IMPRESSION: 1. No acute intracranial findings. 2. 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 3. Probable chronic ischemic and atrophic changes. CT CERVICAL SPINE WITHOUT CONTRAST CLINICAL INDICATION: fall, pain TECHNIQUE: CT scan of the cervical spine without IV contrast. Multiplanar reformations. COMPARISON: None. FINDINGS: Diffuse osteopenia. Mild dextroconvex curvature may be positional versus soft tissue spasm. Extensive, multilevel degenerative disc disease and spondylosis. Possible partial bony ankylosis in the C3-4 level. Very mild anterolisthesis in the C4-5 and C7-T1 levels probably on degenerative basis. Computed Tomography Report No acute compression deformity or gross malalignment of cervical vertebral bodies. No acute fracture. No acute, osseous central spinal canal encroachment. Paraspinal soft tissues grossly unremarkable. IMPRESSION: 1. No acute compression deformity or apparent fracture in the cervical spine. 2. Degenerative spondylosis. CT PELVIS WITHOUT CONTRAST CLINICAL INDICATION: fall TECHNIQUE: CT scan of the pelvis without IV contrast. Multiplanar reformations. COMPARISON: None. FINDINGS: Diffuse osteopenia. No acute fracture or dislocation. Status post right total hip arthroplasty grossly intact. Degenerative and postsurgical change partially visualized in the lower lumbar spine. Degenerative change also in left hip and bilateral SI joints, right greater than left. Soft tissues grossly unremarkable. IMPRESSION: 1. No acute osseous abnormality. 2. Postsurgical and degenerative change. Report Dictated on Workstation: [email or web address] --- Final --- Dictating Physician: MD MCKEON WENDELL Signed Date and Time: 02/02/2022 9:01 pm Signed by: MD MCKEON WENDELL Transcribed Date and Time: 02/02/2022 9:02 [facility] Work Phone: [facility] Work Phone: CT Pelvis w/o Contrast (PO O nly)on 02-02-2022 CT Pelvis w/o Contrast (PO Only) Patient Name: ELIDA LANZA [facility]#: [id number] Computed Tomography ACCESSION EXAM DATE/TIME PROCEDURE ORDERING PROVIDER [id number] 02/02/2022 20:[address] Pelvis w/o Contrast MD PROSPER, CRUZITO (PO Only) CPT code 39342 Reason For Exam (CT Pelvis w/o Contrast (PO Only)) fall Report CT BRAIN WITHOUT CONTRAST CLINICAL INDICATION: fall, pain TECHNIQUE: CT scan of the brain without IV contrast. Multiplanar reformations. COMPARISON: None. FINDINGS: No apparent mass or mass effect, hemorrhage, midline shift or hydrocephalus. No evidence of acute cortical infarct. No abnormal, extra-axial fluid or air collection. 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 Patchy low density in the periventricular and subcortical white matter is nonspecific, but may relate to chronic small vessel ischemic change. Mild-moderate, diffuse volume loss. Osseous calvarium grossly intact. Mucosal thickening partially visualized in the left posterior ethmoid sinus. IMPRESSION: 1. No acute intracranial findings. 2. 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 3. Probable chronic ischemic and atrophic changes. CT CERVICAL SPINE WITHOUT CONTRAST CLINICAL INDICATION: fall, pain TECHNIQUE: CT scan of the cervical spine without IV contrast. Multiplanar reformations. COMPARISON: None. FINDINGS: Diffuse osteopenia. Mild dextroconvex curvature may be positional versus soft tissue spasm. Extensive, multilevel degenerative disc disease and spondylosis. Possible partial bony ankylosis in the C3-4 level. Very mild anterolisthesis in the C4-5 and C7-T1 levels probably on degenerative basis. Computed Tomography Report No acute compression deformity or gross malalignment of cervical vertebral bodies. No acute fracture. No acute, osseous central spinal canal encroachment. Paraspinal soft tissues grossly unremarkable. IMPRESSION: 1. No acute compression deformity or apparent fracture in the cervical spine. 2. Degenerative spondylosis. CT PELVIS WITHOUT CONTRAST CLINICAL INDICATION: fall TECHNIQUE: CT scan of the pelvis without IV contrast. Multiplanar reformations. COMPARISON: None. FINDINGS: Diffuse osteopenia. No acute fracture or dislocation. Status post right total hip arthroplasty grossly intact. Degenerative and postsurgical change partially visualized in the lower lumbar spine. Degenerative change also in left hip and bilateral SI joints, right greater than left. Soft tissues grossly unremarkable. IMPRESSION: 1. No acute osseous abnormality. 2. Postsurgical and degenerative change. Report Dictated on Workstation: [email or web address] Final Dictating Physician: MD MCKEON WENDELL Signed Date and Time: 02/02/2022 9:01 pm Signed by: MD MCKEON WENDELL Transcribed Date and Time: 02/02/2022 9:02 Normal [facility] CT Spine Cervical w/o Contra nestor 02-02-2022 CT Spine Cervical w/o Contrast Patient Name: ELIDA LANZA Computed Tomography ACCESSION EXAM DATE/TIME PROCEDURE ORDERING PROVIDER [id number] 02/02/2022 20:[address] Spine Cervical w/o MD PROSPER, CRUZITO Contrast CPT code 38959 Reason For Exam (CT Spine Cervical w/o Contrast) fall Report CT BRAIN WITHOUT CONTRAST CLINICAL INDICATION: fall, pain TECHNIQUE: CT scan of the brain without IV contrast. Multiplanar reformations. COMPARISON: None. FINDINGS: No apparent mass or mass effect, hemorrhage, midline shift or hydrocephalus. No evidence of acute cortical infarct. No abnormal, extra-axial fluid or air collection. 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 Patchy low density in the periventricular and subcortical white matter is nonspecific, but may relate to chronic small vessel ischemic change. Mild-moderate, diffuse volume loss. Osseous calvarium grossly intact. Mucosal thickening partially visualized in the left posterior ethmoid sinus. IMPRESSION: 1. No acute intracranial findings. 2. 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 3. Probable chronic ischemic and atrophic changes. CT CERVICAL SPINE WITHOUT CONTRAST CLINICAL INDICATION: fall, pain TECHNIQUE: CT scan of the cervical spine without IV contrast. Multiplanar reformations. COMPARISON: None. FINDINGS: Diffuse osteopenia. Mild dextroconvex curvature may be positional versus soft tissue spasm. Extensive, multilevel degenerative disc disease and spondylosis. Possible partial bony ankylosis in the C3-4 level. Very mild anterolisthesis in the C4-5 and C7-T1 levels probably on degenerative basis. Computed Tomography Report No acute compression deformity or gross malalignment of cervical vertebral bodies. No acute fracture. No acute, osseous central spinal canal encroachment. Paraspinal soft tissues grossly unremarkable. IMPRESSION: 1. No acute compression deformity or apparent fracture in the cervical spine. 2. Degenerative spondylosis. CT PELVIS WITHOUT CONTRAST CLINICAL INDICATION: fall TECHNIQUE: CT scan of the pelvis without IV contrast. Multiplanar reformations. COMPARISON: None. FINDINGS: Diffuse osteopenia. No acute fracture or dislocation. Status post right total hip arthroplasty grossly intact. Degenerative and postsurgical change partially visualized in the lower lumbar spine. Degenerative change also in left hip and bilateral SI joints, right greater than left. Soft tissues grossly unremarkable. IMPRESSION: 1. No acute osseous abnormality. 2. Postsurgical and degenerative change. Report Dictated on Workstation: [email or web address] Final Dictating Physician: MD MCKEON WENDELL Signed Date and Time: 02/02/2022 9:01 pm Signed by: MD MCKEON WENDELL Transcribed Date and Time: 02/02/2022 9:02 Normal [facility] No Panel Informationon 02-02 Radiology Study observation (narrative) [facility] Work Phone: XR HUMERUS RIGHT (MIN 2 VIEW S)on 02-02-2022 Patient Name: ELIDA DENTON Diagnostic Radiology ACCESSION EXAM DATE/TIME PROCEDURE ORDERING PROVIDER [id number] 02/02/2022 20:05 EDT CR Humerus 2+ Views MD CHENG VIJAY Right CPT code 72637 Reason For Exam (CR Humerus 2+ Views Right) fall Report RIGHT SHOULDER 3 VIEWS CLINICAL INDICATION: fall, pain TECHNIQUE: 3 views of the right shoulder. COMPARISON: None. FINDINGS: Diffuse osteopenia. No acute fracture or dislocation. Degenerative change in the glenohumeral joint, including some superior migration of the humeral head suggesting rotator cuff insufficiency. More pronounced degenerative change in the AC joint. Soft tissues grossly unremarkable. IMPRESSION: 1. No acute osseous abnormality. 2. Degenerative change. RIGHT HUMERUS 2 VIEWS CLINICAL INDICATION: fall, pain TECHNIQUE: 2 views of the right humerus. COMPARISON: None. FINDINGS: Diffuse osteopenia. No acute fracture or dislocation. Soft tissues grossly unremarkable. IMPRESSION: 1. No acute osseous abnormality. Diagnostic Radiology Report Report Dictated on Workstation: [email or web address] --- Final --- Dictating Physician: MD MCKEON WENDELL Signed Date and Time: 02/02/2022 9:04 pm Signed by: MD MCKEON WENDELL Transcribed Date and Time: 02/02/2022 9:05 [facility] Jimbo Mckeon MD - 02/02/2022 Patient Name: ELIDA LANZA Diagnostic Radiology ACCESSION EXAM DATE/TIME PROCEDURE ORDERING PROVIDER [id number] 02/02/2022 20:05 EDT CR Humerus 2+ Views MD CHENG VIJAY Right CPT code 12300 Reason For Exam (CR Humerus 2+ Views Right) fall Report RIGHT SHOULDER 3 VIEWS CLINICAL INDICATION: fall, pain TECHNIQUE: 3 views of the right shoulder. COMPARISON: None. FINDINGS: Diffuse osteopenia. No acute fracture or dislocation. Degenerative change in the glenohumeral joint, including some superior migration of the humeral head suggesting rotator cuff insufficiency. More pronounced degenerative change in the AC joint. Soft tissues grossly unremarkable. IMPRESSION: 1. No acute osseous abnormality. 2. Degenerative change. RIGHT HUMERUS 2 VIEWS CLINICAL INDICATION: fall, pain TECHNIQUE: 2 views of the right humerus. COMPARISON: None. FINDINGS: Diffuse osteopenia. No acute fracture or dislocation. Soft tissues grossly unremarkable. IMPRESSION: 1. No acute osseous abnormality. Diagnostic Radiology Report Report Dictated on Workstation: [email or web address] --- Final --- Dictating Physician: MD MCKEON WENDELL Signed Date and Time: 02/02/2022 9:04 pm Signed by: MD MCKEON WENDELL Transcribed Date and Time: 02/02/2022 9:05 [facility] Work Phone: [facility] Work Phone: XR Shoulder Right 2 VWon Patient Name: ELIDA DENTON Diagnostic Radiology ACCESSION EXAM DATE/TIME PROCEDURE ORDERING PROVIDER [id number] 02/02/2022 20:05 EDT CR Shoulder 2+ Views MD PROSPER, [facility] Right CPT code 72387 Reason For Exam (CR Shoulder 2+ Views Right) fall Report RIGHT SHOULDER 3 VIEWS CLINICAL INDICATION: fall, pain TECHNIQUE: 3 views of the right shoulder. COMPARISON: None. FINDINGS: Diffuse osteopenia. No acute fracture or dislocation. Degenerative change in the glenohumeral joint, including some superior migration of the humeral head suggesting rotator cuff insufficiency. More pronounced degenerative change in the AC joint. Soft tissues grossly unremarkable. IMPRESSION: 1. No acute osseous abnormality. 2. Degenerative change. RIGHT HUMERUS 2 VIEWS CLINICAL INDICATION: fall, pain TECHNIQUE: 2 views of the right humerus. COMPARISON: None. FINDINGS: Diffuse osteopenia. No acute fracture or dislocation. Soft tissues grossly unremarkable. IMPRESSION: 1. No acute osseous abnormality. Diagnostic Radiology Report Report Dictated on Workstation: [email or web address] --- Final --- Dictating Physician: MD MCKEON WENDELL Signed Date and Time: 02/02/2022 9:04 pm Signed by: MD MCKEON WENDELL Transcribed Date and Time: 02/02/2022 9:05 Jimbo Mahmood MD - 02/02/2022 Patient Name: ELIDA LANZA Diagnostic Radiology ACCESSION EXAM DATE/TIME PROCEDURE ORDERING PROVIDER [id number] 02/02/2022 20:05 EDT CR Shoulder 2+ Views MD PROSPER, CRUZITO Right CPT code 53200 Reason For Exam (CR Shoulder 2+ Views Right) fall Report RIGHT SHOULDER 3 VIEWS CLINICAL INDICATION: fall, pain TECHNIQUE: 3 views of the right shoulder. COMPARISON: None. FINDINGS: Diffuse osteopenia. No acute fracture or dislocation. Degenerative change in the glenohumeral joint, including some superior migration of the humeral head suggesting rotator cuff insufficiency. More pronounced degenerative change in the AC joint. Soft tissues grossly unremarkable. IMPRESSION: 1. No acute osseous abnormality. 2. Degenerative change. RIGHT HUMERUS 2 VIEWS CLINICAL INDICATION: fall, pain TECHNIQUE: 2 views of the right humerus. COMPARISON: None. FINDINGS: Diffuse osteopenia. No acute fracture or dislocation. Soft tissues grossly unremarkable. IMPRESSION: 1. No acute osseous abnormality. Diagnostic Radiology Report Report Dictated on Workstation: [email or web address] --- Final --- Dictating Physician: MD MCKEON WENDELL Signed Date and Time: 02/02/2022 9:04 pm Signed by: MD MCKEON WENDELL Transcribed Date and Time: 02/02/2022 9:05 [facility] Work Phone: [facility] Work Phone: PT Progress Noteon 2 PT Progress Note Therapy Diagnosis Assessed Shoulder pain, bilateral (719.41) (P65.511,M21.512) Plan Goals: Goals set and discussed today. By discharge ELIDA LANZA will achieve the following goals: Activity Limitation: QuickDash 25 or less Pain: Patient will reports no more than 1/10 pain in VAS scale with all ADLS, HHCs, and Self Care tasks. Range Of Motion/Joint Mobility: Pt will demo improved AROM of (L) shoulder to >/= 165 FLEX and 165 ABD for improved ease with functional activities with reaching, lifting, carrying for progression toward independence with ADL?s AND IADL?s. Strength: Pt will demo improved MMT by >/= 1 point on 0-5 point scale in BUE for improved strength and stability, and improved ease with lifting, carrying, and proper mechanics with ADL?s AND IADL?s. Reach, Patient will be able to reach to [place] shelf to retrieve objects 10 lbs without pain or difficulty to allow for return to PLOF and ability to complete ADLs and HHCs without pain and difficulty. Planned interventions include: cryotherapy, education/instruction, electrical stimulation, home program, hot pack, manual therapy, neuromuscular re-education, therapeutic activities and therapeutic exercises. Frequency and duration: 1-2 time(s) a week, for 4 weeks . 09/18/21 to 10/19/21. Potential to achieve rehab goals is good will continue to work on progressing toward plan of care as tolerated to be able to reach overhead to put dishes away in the cupboard with little to no difficulty. Assessment Patient identified by name and Patient tolerates treatment with moderate difficulty. Patient demo's increased weakness in L shoulder this date with ER and AAROM flexion. Verbal cues needed for proper form with seated AAROM and to not compensate with trunk with min carryover. Patient demo's restriction in L GH capsule this date with flexion and ER. Patient with increased fatigue at end of session. Adult Risk Screening Initial Fall Risk Screening: ELIDA has not fallen in the last 6 months. Please identify location of pain: (. Pain Quality: aching. Domestic Violence Screen: Does not feel threatened or abused physically, emotionally or sexually. Do you feel UNSAFE? The patient feels safe in the home. Depression/Suicide Screening: During the past 2 weeks, the patient has not felt down, depressed or hopeless. During the past 2 weeks, the patient has not felt little interest or pleasure in doing things. Insurance Insurance reviewed Visit number: 6 Medicare Certification Period: Beginnin2021 Endin2021 Subjective Patient reports:. Patient states pain being "all right" this date. Home program performing as directed: No. Precautions: Fall Risk: moderate PMHx on blood thinners. Treatment Time in clinic started at 1155 am Time in clinic ended at 1240 pm Total time in clinic is 45 minutes. Total timed code time is 43 minutes. Therapeutic exercise (00105): timed minutes 43, units 3 . Nustep x6 min Pulleys x3' Flexion/ x3' abduction Seated Seated Ball Roll Out 3 min Seated SAPD OTB, 2 min Seated Rows OTB, 2 min Seated Tricep Ext OTB, 2 min Seated Bicep Curl 2#, 2 min Seated Cane Flex 2 min Seated BA YTB 2 min (X, not today) Seated scapular retractions x2' 5" hold Seated Ball Circles GPB 30x cw and ccw Held this date: Supine AAROM flexion x2' Supine AAROM bench press x2' Supine AAROM ER x3' L Supine AROM Abduction x2' L . Manual Therapy (74190):. Held this date: PROM FE, ABD, ER (L) shoulder Gr. I-II AP Oscillations (L) GH jt Gr. III-IV AP and INF glides (L) GH jt. 'Scores and Scales' Signatures Electronically signed by : Kerry Ayala, MANAGED CARE DIRECTOR; Oct 14 2021 12:45PM EST (Author) Electronically signed by : Nisha Nunn, PT; Oct 16 2021 3:20PM EST Normal [email or web address] PT Progress Noteon PT Progress Note Therapy Diagnosis Assessed Shoulder pain, bilateral (719.41) (M25.511,M25.512) Plan Goals: Goals set and discussed today. By discharge ELIDA LANZA will achieve the following goals: Activity Limitation: QuickDash 25 or less Pain: Patient will reports no more than 1/10 pain in VAS scale with all ADLS, HHCs, and Self Care tasks. Range Of Motion/Joint Mobility: Pt will demo improved AROM of (L) shoulder to >/= 165 FLEX and 165 ABD for improved ease with functional activities with reaching, lifting, carrying for progression toward independence with ADL?s AND IADL?s. Strength: Pt will demo improved MMT by >/= 1 point on 0-5 point scale in BUE for improved strength and stability, and improved ease with lifting, carrying, and proper mechanics with ADL?s AND IADL?s. Reach, Patient will be able to reach to [place] shelf to retrieve objects 10 lbs without pain or difficulty to allow for return to PLOF and ability to complete ADLs and HHCs without pain and difficulty. Planned interventions include: cryotherapy, education/instruction, electrical stimulation, home program, hot pack, manual therapy, neuromuscular re-education, therapeutic activities and therapeutic exercises. Frequency and duration: 1-2 time(s) a week, for 4 weeks . 09/18/21 to 10/19/21. Potential to achieve rehab goals is good will continue to work on progressing toward plan of care as tolerated to be able to reach overhead with little to no increased symptoms. Assessment Patient with no c/o increased pain throughout progressions this session. Continues to demo more active assisted motion than solely active d/t significant weakness of (L) shoulder. Patient lacks the strength to be able to lift (L) arm independently continuing to impact his day to day activity. Adult Risk Screening Initial Fall Risk Screening: ELIDA has not fallen in the last 6 months. Please identify location of pain: (. Pain Quality: aching. Domestic Violence Screen: Does not feel threatened or abused physically, emotionally or sexually. Do you feel UNSAFE? The patient feels safe in the home. Depression/Suicide Screening: During the past 2 weeks, the patient has not felt down, depressed or hopeless. During the past 2 weeks, the patient has not felt little interest or pleasure in doing things. Insurance Insurance reviewed Visit number: 5 Medicare Certification Period: Beginnin2021 Endin2021 Subjective Patient reports:. Patient states his shoulder is sore today. States intensity is "about the same". Home program performing as directed: Yes. Precautions: Fall Risk: moderate PMHx on blood thinners. Treatment Time in clinic started at 0933 am Time in clinic ended at 1016 am Total time in clinic is 43 minutes. Total timed code time is 43 minutes. Therapeutic exercise (48545): timed minutes 43, units 3 . Nustep x6 min Pulleys x3' Flexion/ x3' abduction Seated Seated Ball Roll Out 3 min (N) Seated SAPD OTB, 2 min (p, resistance) Seated Rows OTB, 2 min (P, resistance) Seated Tricep Ext OTB, 2 min (N) Seated Bicep Curl 2#, 2 min (N) Seated Cane Flex 2 min (N) Seated BA YTB 2 min Seated scapular retractions x2' 5" hold Seated Ball Circles GPB 30x cw and ccw Held this date: Supine AAROM flexion x2' Supine AAROM bench press x2' Supine AAROM ER x3' L Supine AROM Abduction x2' L . Manual Therapy (96202):. Held this date: PROM FE, ABD, ER (L) shoulder Gr. I-II AP Oscillations (L) GH jt Gr. III-IV AP and INF glides (L) GH jt. 'Scores and Scales' Signatures Electronically signed by : Nisha Nunn, PT; Oct 10 2021 10:19AM EST (Author) Normal [employer] PT Progress Noteon 2 PT Progress Note Therapy Diagnosis Assessed Shoulder pain, bilateral (719.41) (M25.511,M25.512) Plan Goals: Goals set and discussed today. By discharge ELIDA LANZA will achieve the following goals: Activity Limitation: QuickDash 25 or less Pain: Patient will reports no more than 1/10 pain in VAS scale with all ADLS, HHCs, and Self Care tasks. Range Of Motion/Joint Mobility: Pt will demo improved AROM of (L) shoulder to >/= 165 FLEX and 165 ABD for improved ease with functional activities with reaching, lifting, carrying for progression toward independence with ADL?s AND IADL?s. Strength: Pt will demo improved MMT by >/= 1 point on 0-5 point scale in BUE for improved strength and stability, and improved ease with lifting, carrying, and proper mechanics with ADL?s AND IADL?s. Reach, Patient will be able to reach to [place] shelf to retrieve objects 10 lbs without pain or difficulty to allow for return to PLOF and ability to complete ADLs and HHCs without pain and difficulty. Planned interventions include: cryotherapy, education/instruction, electrical stimulation, home program, hot pack, manual therapy, neuromuscular re-education, therapeutic activities and therapeutic exercises. Frequency and duration: 1-2 time(s) a week, for 4 weeks . 09/18/21 to 10/19/21. Potential to achieve rehab goals is good will continue to work on progressing toward plan of care as tolerated to be able to reach overhead with little to no increased symptoms. Assessment Patient presents this date with a ecchymosis extending throughout (L) upper arm anterior, lateral, and posteriorly from lateral aspect of (L) shoulder down to (L) elbow. Patient denies fall, hitting arm on something, pain with palpation, or change in (L) shoulder pain but cannot recall when bruising began. Patient reports that he is on blood thinning medication. Progressed interventions this date to address significant strength deficits throughout (L) shoulder girdle > (R). Demos improving ROM with AAROM but severe strength deficits significantly limiting AROM. Additionally, patient demos safety concerns with sit <> stand transfers d/t uncontrolled and premature descent from standing position despite verbal cueing, assistance, and close/direct supervision provided. Adult Risk Screening Initial Fall Risk Screening: ELIDA has not fallen in the last 6 months. Please identify location of pain: (. Pain Quality: aching. Domestic Violence Screen: Does not feel threatened or abused physically, emotionally or sexually. Do you feel UNSAFE? The patient feels safe in the home. Depression/Suicide Screening: During the past 2 weeks, the patient has not felt down, depressed or hopeless. During the past 2 weeks, the patient has not felt little interest or pleasure in doing things. Insurance Insurance reviewed Visit number: 4 Medicare Certification Period: Beginnin2021 Endin2021 Subjective Patient reports:. Patient states shoulder pain is "about the same" and rates intensity at 3/10 on VAS. Reports no change in ability to reach and lift (L) arm. States (R) shoulder is feeling ok but (L) remains the same. Precautions: Fall Risk: moderate PMHx on blood thinners. Treatment Time in clinic started at 1048 am Time in clinic ended at 1132 am Total time in clinic is 44 minutes. Total timed code time is 44 minutes. Therapeutic exercise (57943): timed minutes 44, units 3 . Nustep x6 min (P, time) Pulleys x3' Flexion/ x3' abduction Seated Seated SAPD YTB, 2x10 (N) Seated Rows GTB, 2x10 (N) Supine AAROM flexion x2' Supine AAROM bench press x2' Supine AAROM ER x3' L (P, time) Supine AROM Abduction x2' L Supine BA YTB 2 min Supine HABD YTB, 2 min (1 min today d/t fatigue) Seated scapular retractions x2' 5" hold Seated Gear Shifts (L) 2 min (N) Seated Ball on Table Circles 20x CW and CCW (N) . Manual Therapy (98004):. Held this date: PROM FE, ABD, ER (L) shoulder Gr. I-II AP Oscillations (L) GH jt Gr. III-IV AP and INF glides (L) GH jt. 'Scores and Scales' Signatures Electronically signed by : Nisha Nunn, PT; Oct 08 2021 11:36AM EST (Author) [facility] PT Progress Noteon PT Progress Note Therapy Diagnosis Assessed Shoulder pain, bilateral (719.41) (M25.511,M25.512) Plan Goals: Goals set and discussed today. By discharge ELIDA LANZA will achieve the following goals: Activity Limitation: QuickDash 25 or less Pain: Patient will reports no more than 1/10 pain in VAS scale with all ADLS, HHCs, and Self Care tasks. Range Of Motion/Joint Mobility: Pt will demo improved AROM of (L) shoulder to >/= 165 FLEX and 165 ABD for improved ease with functional activities with reaching, lifting, carrying for progression toward independence with ADL?s AND IADL?s. Strength: Pt will demo improved MMT by >/= 1 point on 0-5 point scale in BUE for improved strength and stability, and improved ease with lifting, carrying, and proper mechanics with ADL?s AND IADL?s. Reach, Patient will be able to reach to OH shelf to retrieve objects 10 lbs without pain or difficulty to allow for return to PLOF and ability to complete ADLs and HHCs without pain and difficulty. Planned interventions include: cryotherapy, education/instruction, electrical stimulation, home program, hot pack, manual therapy, neuromuscular re-education, therapeutic activities and therapeutic exercises. Frequency and duration: 1-2 time(s) a week, for 4 weeks . 09/18/21 to 10/19/21. Potential to achieve rehab goals is good will continue to work on progressing toward plan of care as tolerated to be able to reach overhead with little to no increased symptoms. Assessment Patient demos severe weakness throughout (B) shoulders; as well as, limited jt and soft tissue mobility effecting his mobility. Patient tolerates session well but is challenged d/t weakness and stiffness. Appropriately challenged this date to address deficits. Adult Risk Screening Initial Fall Risk Screening: ELIDA has not fallen in the last 6 months. Pain Scale: On a scale of 0 to 10, the patient rates the pain at 3. Please identify location of pain: (L) shoulder. Pain Quality: aching. Domestic Violence Screen: Does not feel threatened or abused physically, emotionally or sexually. Do you feel UNSAFE? The patient feels safe in the home. Depression/Suicide Screening: During the past 2 weeks, the patient has not felt down, depressed or hopeless. During the past 2 weeks, the patient has not felt little interest or pleasure in doing things. Insurance Insurance reviewed Visit number: 3 Medicare Certification Period: Beginnin2021 Endin2021 Subjective Patient reports:. Patient states his has some mild pain in (L) shoulder but it's "not too much". Precautions: Fall Risk: moderate Treatment Time in clinic started at 1028 am Time in clinic ended at 1114 am Total time in clinic is 46 minutes. Total timed code time is 46 minutes. Therapeutic exercise (71420): timed minutes 36, units 2 . Nustep x5' Pulleys x3' Flexion/ x3' abduction Supine AAROM flexion x2' Supine AAROM bench press x2' Supine AAROM ER x2' L Supine AAROM Abduction x2' L Supine BA YTB 2 min Supine HABD x2' YTB Seated scapular retractions x2' 5" hold Seated shoulder rolls fwd/bkwd 2 min each . Manual Therapy (94153): timed minutes 10, units 1 . PROM FE, ABD, ER (L) shoulder Gr. I-II AP Oscillations (L) GH jt Gr. III-IV AP and INF glides (L) GH jt. 'Scores and Scales' Signatures Electronically signed by : Nisha Nunn, PT; Oct 03 2021 12:40PM EST (Author) Normal [facility] PT Progress Noteon 2 PT Progress Note Therapy Diagnosis Assessed Shoulder pain, bilateral (719.41) (M25.511,M25.512) Plan Goals: Goals set and discussed today. By discharge ELIDA LANZA will achieve the following goals: Activity Limitation: QuickDash 25 or less Pain: Patient will reports no more than 1/10 pain in VAS scale with all ADLS, HHCs, and Self Care tasks. Range Of Motion/Joint Mobility: Pt will demo improved AROM of (L) shoulder to >/= 165 FLEX and 165 ABD for improved ease with functional activities with reaching, lifting, carrying for progression toward independence with ADL?s AND IADL?s. Strength: Pt will demo improved MMT by >/= 1 point on 0-5 point scale in BUE for improved strength and stability, and improved ease with lifting, carrying, and proper mechanics with ADL?s AND IADL?s. Reach, Patient will be able to reach to OH shelf to retrieve objects 10 lbs without pain or difficulty to allow for return to PLOF and ability to complete ADLs and HHCs without pain and difficulty. Planned interventions include: cryotherapy, education/instruction, electrical stimulation, home program, hot pack, manual therapy, neuromuscular re-education, therapeutic activities and therapeutic exercises. Frequency and duration: 1-2 time(s) a week, for 4 weeks . 09/18/21 to 10/19/21. Potential to achieve rehab goals is good will continue to work on progressing toward plan of care as tolerated to be able to reach overhead with little to no increased symptoms. Assessment Patient identified by name and Patient demo's weakness in L shoulder demo'g difficulty with AAROM and PROM. Patient demo's difficulty with standing AAROM exercises with increased symptoms being unable to complete reps. Patient demo's weakness in L GH ER with resisted exercises. Adult Risk Screening Initial Fall Risk Screening: ELIDA has not fallen in the last 6 months. Please identify location of pain: (L) shoulder. Pain Quality: aching. Domestic Violence Screen: Does not feel threatened or abused physically, emotionally or sexually. Do you feel UNSAFE? The patient feels safe in the home. Depression/Suicide Screening: During the past 2 weeks, the patient has not felt down, depressed or hopeless. During the past 2 weeks, the patient has not felt little interest or pleasure in doing things. Insurance Insurance reviewed Visit number: 2 Medicare Certification Period: Beginnin2021 Endin2021 Subjective Patient reports:. Patient states that is his having pain in his L shoulder this date. Patient states that there isn't really anything difficult to do stating that he has been managing. Precautions: Fall Risk: moderate Treatment Time in clinic started at 130 pm Time in clinic ended at 215 pm Total time in clinic is 45 minutes. Total timed code time is 43 minutes. Therapeutic exercise (91235): timed minutes 40, units 3 . Nustep x5' (N) Pulleys x3' Flexion/ x3' abduction (N) Supine AAROM flexion x2' L (N) Supine AAROM bench press x2' L (N) Supine AAROM ER x2' L (N) Supine AAROM Abduction x2' L (N) Supine HABD x2' YTB (N) Supine Bilat ER x2' YTB (X, demo's weakness) Seated scapular retractions x2' 5" hold (N) Seated shoulder rolls fwd/bkwd 2x10 each (N) Standing wall slides 2x10 Flexion/Abduction L (X, increased pain). Manual Therapy (10842): timed minutes 3 . PROM L shoulder flexion (N). 'Scores and Scales' Signatures Electronically signed by : Kerry Ayala MANAGED CARE DIRECTOR; Sep 23 2021 3:06PM EST (Author) Electronically signed by : Nisha Nunn PT; Sep 24 2021 3:36PM EST Normal [email or web address] PT Ortho Evaluation (PT Orth o Evaluation)on 09-18-2021 PT Ortho Evaluation (PT Ortho Evaluation) Therapy Diagnosis Shoulder pain, bilateral (719.41) (M25.511,M25.512) Plan of Care Goals: Goals set and discussed today. By discharge ELIDA LANZA will achieve the following goals: Activity Limitation: QuickDash 25 or less Pain: Patient will reports no more than 1/10 pain in VAS scale with all ADLS, HHCs, and Self Care tasks. Range Of Motion/Joint Mobility: Pt will demo improved AROM of (L) shoulder to >/= 165 FLEX and 165 ABD for improved ease with functional activities with reaching, lifting, carrying for progression toward independence with ADL?s AND IADL?s. Strength: Pt will demo improved MMT by >/= 1 point on 0-5 point scale in BUE for improved strength and stability, and improved ease with lifting, carrying, and proper mechanics with ADL?s AND IADL?s. Reach, Patient will be able to reach to OH shelf to retrieve objects 10 lbs without pain or difficulty to allow for return to PLOF and ability to complete ADLs and HHCs without pain and difficulty. Planned interventions include: cryotherapy, education/instruction, electrical stimulation, home program, hot pack, manual therapy, neuromuscular re-education, therapeutic activities and therapeutic exercises. Frequency and duration: 1-2 time(s) a week, for 4 weeks . 09/18/21 to 10/19/21. Potential to achieve rehab goals is good Plan of care was developed with input and agreement by the patient. Assessment Patient presents to PT this date with SANDS consistent with mechanical (L) shoulder pain and stiffness. He demos loss of ROM, strength, flexibility, jt mobility, impaired body mechanics, and postural control contributing to ongoing pain and difficulty with lifting, carrying, pushing, pulling, reaching, driving, dressing, and sleeping impacting their ability to complete ADLs, HHCs, and self-care tasks at prior level. Skilled PT intervention required to address deficits and limitations listed above to return patient to PLOF without restriction. Clinical Presentation: Stable and/or uncomplicated characteristics. Level of Complexity: low Problem List: activity limitations, ADLs/IADLs/self care skills, decreased functional level, decreased knowledge of HEP, fall risk, pain, participation restrictions, posture, range of motion/joint mobility and strength. Reason For Visit Initial Evaluation . (L) shoulder pain. Referred by: Dr. Cathy Cid Adult Risk Screening Initial Fall Risk Screening: ELIDA has not fallen in the last 6 months. Pain Scale: On a scale of 0 to 10, the patient rates the pain at 3. Please identify location of pain: (L) shoulder. Pain Quality: aching. Domestic Violence Screen: Does not feel threatened or abused physically, emotionally or sexually. Do you feel UNSAFE? The patient feels safe in the home. Depression/Suicide Screening: During the past 2 weeks, the patient has not felt down, depressed or hopeless. During the past 2 weeks, the patient has not felt little interest or pleasure in doing things. Insurance Insurance reviewed Visit number: 1 Medicare Certification Period: Beginnin2021 Endin2021 Subjective Current Episode of Functional Impairment and/or Pain Date of onset: 07/25/21 Mechanism of Injury: insidious onset . Patient reports insidious onset of (L) shoulder pain 3 weeks ago. Pain is located lateral aspect of (L) shoulder. Patient states pain is constant at 3/10 on VAS. Describes as "dull". Denies imaging, numbness, tingling, and radic. States he takes Tylenol which "makes the pain tolerable". Patient states pain is the same always denies presence of aggravating and alleviating factors. Precautions: Fall Risk: moderate Functional Assessment Prior level of function: Pain free with all ADLs, HHCs, and self care tasks. Functional limitations:. Patient states that shoulder pain in (L) shoulder is constant with all ADLs, HHCs, and self care tasks. Patient stated goal(s) for treatment include: relieving pain . Current Status: unchanged. Living Environment: reviewed and no concern. Social Support: lives with spouse. Personal Factors That May Impact Care: language gabonese . No barriers to learning or treatment reported or noted this date. Objective Ortho Observation Observed Posture Impairment: rounded shoulders ROM / Joint Mobility (Range of Motion in degrees) Shoulder: (Luna: " P! " Denotes Pain with Movement, " * " Indicates [place] Resistant Otherwise Measurements are in Supine) Extension: L Active 160. Flexion: R Active 88, R Passive 85, ERP, FIrm , L Active 145. ABDuction: R Active 74, R Passive 75, ERP, Firm. External Rotation (ER) ABDuction: R Active 0 deg. ER, in 0 deg.ABD, R Passive 10, ERP, Firm deg. ER, in 45 deg. ABD, L Active 55 deg. ER, in 0 deg. ABD Internal Rotation (IR) ABDuction: R Active NL deg. IR, in 0 deg. ABD, R Passive 65, firm, no pain deg. IR, in 45 deg. ABD. Hand up back: (L) L2, (R) L2. All planes limited by pain and stiffness. Patient s (more content not included)... Normal [facility] PT Progress Noteon 2 PT Progress Note Therapy Diagnosis Assessed Balance problems (781.99) (R26.89) Generalized weakness (780.79) (R53.1) Unsteadiness on feet (781.2) (R26.81) Plan Goals: Goals set and discussed today. By discharge ELIDA LANZA will achieve the following goals: Activity [...] Adult Risk Screening Initial Fall Risk Screening: ELIDA has not fallen in the last 6 months. His fall did not result in injury. ELIDA does not have a fear of falling. [...] daily life. 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 Objective Ortho Strength Hip: (Luna: "P!" Denotes Pain with Movement) Extension: 3+/5 on right and 4-/5 on left. Flexion: 4/5 on right and 5/5 on left. Abduction: 3+/5 on right and 3+/5 on left. Adduction: 4/5 on right and 4+/5 on left. Knee: (Luna: " P! " Denotes Pain with Movement) Knee extension was [...] code time is 41 minutes. Therapeutic exercise (69459): timed minutes 41, units 3 . Reassessment of OBJ measures. [facility] completed, provided, and reviewed Patient Education. Provided today: a personalized home program (Scanned), education Education Provided: plan of care, anatomy, fall risk, posture, physiology, home exercise program, body mechanics, home safety and DC plan, assessment of progress. Information communicated to patient. Response to education: verbalized understandi (more content not included)... [facility] Therapy Re-eval Noteon 08-28 Therapy Re-eval Note Therapy Diagnosis Assessed 1. Balance problems (781.99) (R26.89) 2. Generalized weakness (780.79) (R53.1) 3. Unsteadiness on feet (781.2) (R26.81) Plan Goals: Goals set and discussed today. By discharge ELIDA LANZA will achieve the following goals: Activity [...] Adult Risk Screening Initial Fall Risk Screening: ELIDA has not fallen in the last 6 months. His fall did not result in injury. ELIDA does not have a fear of falling. [...] daily life. 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 Objective Ortho Strength Hip: (Luna: "P!" Denotes Pain with Movement) Extension: 3+/5 on right and 4-/5 on left. Flexion: 4/5 on right and 5/5 on left. Abduction: 3+/5 on right and 3+/5 on left. Adduction: 4/5 on right and 4+/5 on left. Knee: (Luna: " P! " Denotes Pain with Movement) Knee extension was [...] code time is 41 minutes. Therapeutic exercise (93888): timed minutes 41, units 3 . Reassessment of OBJ measures. [facility] completed, provided, and reviewed Patient Education. Provided today: a personalized home program (Scanned), education Education Provided: plan of care, anatomy, fall risk, posture, physiology, home exercise program, body mechanics, home safety and DC plan, assessment of progress. Information communicated to patient. Response to education: verbalized un (more content not included)... Normal [facility] PT Progress Noteon 2 PT Progress Note Therapy Diagnosis Assessed Balance problems (781.99) (R26.89) Generalized weakness (780.79) (R53.1) Unsteadiness on feet (781.2) (R26.81) Plan Goals: Goals set and discussed today. By discharge ELIDA LANZA will achieve the following goals: Activity Limitation: ABC 75% or greater Balance: Patient will demo 60 seconds of tandem stance (B) on uneven surface for improved safety and stability with all functional mobility in home and in community. Gait/Locomotion: Pt will demo improved gait mechanics with even step length, stance time, proper heel strike and push off, and min-no evidence of instability or antalgic gait for return to PLOF. Participation Restrictions: Patient will be able to ambulate about grocery store in community confidently, safely, Renae, without fear of falling, and without need for greater than 15 min rest break post. Strength: Pt will demo improved MMT by >/= 1 point on 0-5 point scale in BLE for improved strength and stability, and improved ease with transfers, lifting/carrying, and proper mechanics with ADL?s AND IADL?s. Transfers: Patient will be able to complete sit <> stand transfer independently, safely, and without compensation to demo improved safety with functional mobility in home and community. Planned interventions include: education/instruction, gait training, home program, neuromuscular re-education, therapeutic activities and therapeutic exercises. Frequency and duration: 2 time(s) a week, for 6 weeks. Potential to achieve rehab goals is good will continue to work on progressing toward plan of care as tolerated to tolerate prolonged ambulation with decreased fatigue. Assessment Patient identified by name and Patient haim's difficulty with static standing balance exercises. Patient haim's weakness in LLE with standing strengthening exercises with contralateral hip drop noted. Verbal cues noted for proper form with mod carryover. Patient haim's increased fatigue with progression of session. Adult Risk Screening Initial Fall Risk Screening: ELIDA has not fallen in the last 6 months. His fall did not result in injury. ELIDA does not have a fear of falling. [...] doing things. Insurance Insurance reviewed Visit number: 7 Medicare Certification Period: Beginnin2021 Endin2021 Subjective Patient reports:. Patient reports not having pain and no new changes. States that he is not doing his HEP d/t being tired. Home program performing as directed: No. 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 Treatment Time in clinic started at 1200 pm Time in clinic ended at 1244 pm Total time in clinic is 44 minutes. Total timed code time is 41 minutes. Therapeutic exercise (71138): timed minutes 41, units 3 . NuStep 5 min, Lvl 3 SBA: IB 2x1 min Standing HIp ABD 2#, 2x10 (B) (P, weight, reps) Standing HIp EXT 2#, 2x10 (B) (P, weight, reps) Standing Hip Flex 2#, 2x10 (B) Standing HR 2#, 2x10 on airex (P, surface) Standing TR 2#, 2x10 on airex (P, surface) CGA: Narrow Stance EC 2 min Tandem 1 min on airex (P, stance) Normal Stance on AE no hands 2x1 min STS 2 AE, with SPC, 1x10 SUP: LTR 3 min Hip ADD 5/5, 3 min Hip ABD BTB, 5/5, 3 min (X, time) Bridge 5/5, 3 min (X, time) SLR 2x10 (B) . 'Scores and Scales' Signatures Electronically signed by : Kerry Ayala PTA; Aug 26 2021 1:02PM EST (Author) Electronically signed by : Nisha Nunn, PT; Aug 28 2021 10:26AM EST [facility] PT Progress Noteon 2 PT Progress Note No report was sent Normal [employer] Therapy Communicationon 08-02 Therapy Communication Message ELIDA LANZA canceled today . Patient canceled today d/t ill spouse. Signatures Electronically signed by : Kerry Ayala, MANAGED CARE DIRECTOR; Aug 21 2021 11:44AM EST (Author) [facility] PT Progress Noteon 2 PT Progress Note Therapy Diagnosis Assessed Balance problems (781.99) (R26.89) Generalized weakness (780.79) (R53.1) Unsteadiness on feet (781.2) (R26.81) Plan Goals: Goals set and discussed today. By discharge ELIDA LANZA will achieve the following goals: Activity Limitation: ABC 75% or greater Balance: Patient will demo 60 seconds of tandem stance (B) on uneven surface for improved safety and stability with all functional mobility in home and in community. Gait/Locomotion: Pt will demo improved gait mechanics with even step length, stance time, proper heel strike and push off, and min-no evidence of instability or antalgic gait for return to PLOF. Participation Restrictions: Patient will be able to ambulate about grocery store in community confidently, safely, Renae, without fear of falling, and without need for greater than 15 min rest break post. Strength: Pt will demo improved MMT by >/= 1 point on 0-5 point scale in BLE for improved strength and stability, and improved ease with transfers, lifting/carrying, and proper mechanics with ADL?s AND IADL?s. Transfers: Patient will be able to complete sit <> stand transfer independently, safely, and without compensation to demo improved safety with functional mobility in home and community. Planned interventions include: education/instruction, gait training, home program, neuromuscular re-education, therapeutic activities and therapeutic exercises. Frequency and duration: 2 time(s) a week, for 6 weeks. Potential to achieve rehab goals is good will continue to work on progressing toward plan of care as tolerated to ambulate grocery store with little to no difficulty. Assessment Patient identified by name and Patient demo's unsteadiness on feet when challenged with change of proprioception this date. Patient requiring max verbal cues for straight posture during standing strengthening exercises with min carry over. Patient quick to fatigue during session. Adult Risk Screening Initial Fall Risk Screening: ELIDA has not fallen in the last 6 months. His fall did not result in injury. ELIDA does not have a fear of falling. [...] doing things. Insurance Insurance reviewed Visit number: 6 Medicare Certification Period: Beginnin2021 Endin2021 Subjective Patient reports:. Patient reports not doing his HEP much at home. When asked why he states because he is too tired. 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 Treatment Time in clinic started at 1202 pm Time in clinic ended at 1245 pm Total time in clinic is 43 minutes. Total timed code time is 41 minutes. Therapeutic exercise (80712): timed minutes 41, units 3 . NuStep 5 min, Lvl 3 SBA: IB 2x1 min Standing HIp ABD 2#, 2x10 (B) (P, weight, reps) Standing HIp EXT 2#, 2x10 (B) (P, weight, reps) Standing Hip Flex 2#, 2x10 (B) Standing HR 2#, 2x10 Standing TR 2#, 2x10 (N) CGA: Narrow Stance EC 2 min (P, stance) Mod Tandem 1 min on airex (P, surface) Normal Stance on AE no hands 2x1 min STS 2 AE, with SPC, 1x10 SUP: LTR 3 min Hip ADD 5/5, 3 min Hip ABD BTB, 5/5, 3 min (X, time) Bridge 5/5, 3 min (X, time) SLR 2x10 (B) (X, time) . 'Scores and Scales' Signatures Electronically signed by : Kerry Ayala, MANAGED CARE DIRECTOR; Aug 19 2021 2:34PM EST (Author) Electronically signed by : Nisha Nunn, PT; Aug 21 2021 10:28AM EST [facility] PT Progress Noteon 2 PT Progress Note Therapy Diagnosis Assessed Balance problems (781.99) (R26.89) Unsteadiness on feet (781.2) (R26.81) Generalized weakness (780.79) (R53.1) Plan Goals: Goals set and discussed today. By discharge ELIDA LANZA will achieve the following goals: Activity Limitation: ABC 75% or greater Balance: Patient will demo 60 seconds of tandem stance (B) on uneven surface for improved safety and stability with all functional mobility in home and in community. Gait/Locomotion: Pt will demo improved gait mechanics with even step length, stance time, proper heel strike and push off, and min-no evidence of instability or antalgic gait for return to PLOF. Participation Restrictions: Patient will be able to ambulate about grocery store in community confidently, safely, Renae, without fear of falling, and without need for greater than 15 min rest break post. Strength: Pt will demo improved MMT by >/= 1 point on 0-5 point scale in BLE for improved strength and stability, and improved ease with transfers, lifting/carrying, and proper mechanics with ADL?s AND IADL?s. Transfers: Patient will be able to complete sit <> stand transfer independently, safely, and without compensation to demo improved safety with functional mobility in home and community. Planned interventions include: education/instruction, gait training, home program, neuromuscular re-education, therapeutic activities and therapeutic exercises. Frequency and duration: 2 time(s) a week, for 6 weeks. Potential to achieve rehab goals is good will continue to progress POC to address strength and proprioceptive deficits impacting balance and safety with functional mobility in home and community. Plan of care was developed with input and agreement by the patient. Assessment Patient requires frequent verbal and tactile cueing throughout session for form, execution, and safety. Patient challenged with interventions d/t mobility, strength, and proprioception deficits contributing to ongoing safety concerns with functional mobility. Adult Risk Screening Initial Fall Risk Screening: ELIDA has not fallen in the last 6 months. His fall did not result in injury. ELIDA does not have a fear of falling. [...] doing things. Insurance Insurance reviewed Visit number: 5 Medicare Certification Period: Beginnin2021 Endin2021 Subjective Patient reports:. Patient states he is doing well today. Reports no change in condition since last visit. No falls since last visit. Patient's name and verified at the start of today's session. 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 Treatment Time in clinic started at 1058 am Time in clinic ended at 1142 am Total time in clinic is 44 minutes. Total timed code time is 44 minutes. Therapeutic exercise (24925): timed minutes 44, units 3 . NuStep 5 min, Lvl 3 SBA: IB 2x1 min Standing HIp ABD 2#, 2x10 (B) (P, weight, reps) Standing HIp EXT 2#, 2x10 (B) (P, weight, reps) Standing Hip Flex 2#, 2x10 (B) (N) Standing HR 2#, 2x10 (N) CGA: Normal Stance EC 2 min Mod Tandem 1 min (B) Normal Stance on AE no hands 1 min STS 2 AE, with SPC, 1x10 SUP: LTR 3 min Hip ADD 5/5, 3 min Hip ABD BTB, 5/5, 3 min Bridge 5/5, 3 min SLR 2x10 (B) . 'Scores and Scales' Signatures Electronically signed by : Nisha Nunn, PT; Aug 13 2021 11:44AM EST (Author) Normal [employer] PT Progress Noteon 2 PT Progress Note Therapy Diagnosis Assessed Balance problems (781.99) (R26.89) Unsteadiness on feet (781.2) (R26.81) Generalized weakness (780.79) (R53.1) Plan Goals: Goals set and discussed today. By discharge ELIDA LANZA will achieve the following goals: Activity Limitation: ABC 75% or greater Balance: Patient will demo 60 seconds of tandem stance (B) on uneven surface for improved safety and stability with all functional mobility in home and in community. Gait/Locomotion: Pt will demo improved gait mechanics with even step length, stance time, proper heel strike and push off, and min-no evidence of instability or antalgic gait for return to PLOF. Participation Restrictions: Patient will be able to ambulate about grocery store in community confidently, safely, Renae, without fear of falling, and without need for greater than 15 min rest break post. Strength: Pt will demo improved MMT by >/= 1 point on 0-5 point scale in BLE for improved strength and stability, and improved ease with transfers, lifting/carrying, and proper mechanics with ADL?s AND IADL?s. Transfers: Patient will be able to complete sit <> stand transfer independently, safely, and without compensation to demo improved safety with functional mobility in home and community. Planned interventions include: education/instruction, gait training, home program, neuromuscular re-education, therapeutic activities and therapeutic exercises. Frequency and duration: 2 time(s) a week, for 6 weeks. Potential to achieve rehab goals is good will continue to progress POC to address strength and proprioceptive deficits impacting balance and safety with functional mobility in home and community. Plan of care was developed with input and agreement by the patient. Assessment Patient tolerates session well. Requires CGA to Gadiel this date for safety. Lacks safety with functional mobility d/t balance and strength deficits which place him at increased risk for falls. Requires mod verbal cueing throughout for proper form and execution. Educated patient again on controlled decent and ensuring seat is behind him before sitting. Adult Risk Screening Initial Fall Risk Screening: ELIDA has not fallen in the last 6 months. His fall did not result in injury. ELIDA does not have a fear of falling. [...] doing things. Insurance Insurance reviewed Visit number: 4 Medicare Certification Period: Beginnin2021 Endin2021 Subjective Precautions: Fall Risk: moderate PMhx: "failed back surgery" 15 years ago, hx of blood clots, THR 20 years ago, HTN, and OA. Treatment Time in clinic started at 1245 pm Time in clinic ended at 0131 pm Total time in clinic is 46 minutes. Total timed code time is 46 minutes. Therapeutic exercise (38093): timed minutes 46, units 3 . NuStep 6 min, Lvl 2 IB 2x1 min LTR 3 min Hip ADD 5/5, 3 min Hip ABD BTB, 5/5, 3 min Bridge 5/5, 3 min SLR 2x10 (B) Standing HIp ABD 1#, 1x10 (B) Standing HIp EXT 1#, 1x10 (B) Standing March 1#, 2 min Standing Normal Stance EC 2x30 seconds (P, no hands) Mod Tandem 1 min (B) Normal Stance on AE no hands 1 min STS 2 AE, with SPC, 1x10 . 'Scores and Scales' Signatures Electronically signed by : Nisha Nunn, PT; Aug 07 2021 1:32PM EST (Author) Normal [employer] PT Progress Noteon 2 PT Progress Note Therapy Diagnosis Assessed Balance problems (781.99) (R26.89) Unsteadiness on feet (781.2) (R26.81) Generalized weakness (780.79) (R53.1) Plan Goals: Goals set and discussed today. By discharge ELIDA LANZA will achieve the following goals: Activity Limitation: ABC 75% or greater Balance: Patient will demo 60 seconds of tandem stance (B) on uneven surface for improved safety and stability with all functional mobility in home and in community. Gait/Locomotion: Pt will demo improved gait mechanics with even step length, stance time, proper heel strike and push off, and min-no evidence of instability or antalgic gait for return to PLOF. Participation Restrictions: Patient will be able to ambulate about grocery store in community confidently, safely, Renae, without fear of falling, and without need for greater than 15 min rest break post. Strength: Pt will demo improved MMT by >/= 1 point on 0-5 point scale in BLE for improved strength and stability, and improved ease with transfers, lifting/carrying, and proper mechanics with ADL?s AND IADL?s. Transfers: Patient will be able to complete sit <> stand transfer independently, safely, and without compensation to demo improved safety with functional mobility in home and community. Planned interventions include: education/instruction, gait training, home program, neuromuscular re-education, therapeutic activities and therapeutic exercises. Frequency and duration: 2 time(s) a week, for 6 weeks. Potential to achieve rehab goals is good will continue to progress POC to address strength and proprioceptive deficits impacting balance and safety with functional mobility in home and community. Plan of care was developed with input and agreement by the patient. Assessment Patient tolerates session well. Requires mod cueing throughout for form and execution. x1 LOB requiring Gadiel PT assist to remain upright and maintain balance. Patient able to complete interventions with only minimal fatigue reported. Continue to progress as tolerated, Appropriately challenged. Adult Risk Screening Initial Fall Risk Screening: ELIDA has not fallen in the last 6 months. His fall did not result in injury. ELIDA does not have a fear of falling. [...] doing things. Insurance Insurance reviewed Visit number: 3 Medicare Certification Period: Beginnin2021 Endin2021 Subjective Patient reports:. No changes in condition to report since last visit. Patient denies falls since last visit. Denies pain at start of session. Home program performing as directed: No . Patient states he has not completed HEP at home as directed. Patient does not provide reason as to reason for noncompliance. 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 Treatment Time in clinic started at 1259 pm Time in clinic ended at 0137 pm Total time in clinic is 38 minutes. Total timed code time is 38 minutes. Therapeutic exercise (27003): timed minutes 38, units 3 . NuStep 5 min, Lvl 2 IB 2x1 min LTR 3 min Hip ADD 5/5, 3 min Hip ABD BTB, 55, 3 min Bridge 5/5, 3 min SLR 2x10 (B) Standing HIp ABD 1#, 1x10 (B) (P, weight) Standing HIp EXT 1#, 1x10 (B) (P, weight) Standing March 1#, 2 min (P, weight) Standing Normal Stance EC with finger touch 1 min Mod Tandem 1 min (B) Normal Stance on AE no hands 1 min STS 2 AE, with SPC, 1x10 . 'Scores and Scales' Signatures Electronically signed by : Nisha Nunn, PT; Aug 05 2021 1:39PM EST (Author) Normal [facility] PT Progress Noteon 2 PT Progress Note Therapy Diagnosis Assessed Balance problems (781.99) (R26.89) Unsteadiness on feet (781.2) (R26.81) Generalized weakness (780.79) (R53.1) Plan Goals: Goals set and discussed today. By discharge ELIDA LANZA will achieve the following goals: Activity Limitation: ABC 75% or greater Balance: Patient will demo 60 seconds of tandem stance (B) on uneven surface for improved safety and stability with all functional mobility in home and in community. Gait/Locomotion: Pt will demo improved gait mechanics with even step length, stance time, proper heel strike and push off, and min-no evidence of instability or antalgic gait for return to PLOF. Participation Restrictions: Patient will be able to ambulate about grocery store in community confidently, safely, Renae, without fear of falling, and without need for greater than 15 min rest break post. Strength: Pt will demo improved MMT by >/= 1 point on 0-5 point scale in BLE for improved strength and stability, and improved ease with transfers, lifting/carrying, and proper mechanics with ADL?s AND IADL?s. Transfers: Patient will be able to complete sit <> stand transfer independently, safely, and without compensation to demo improved safety with functional mobility in home and community. Planned interventions include: education/instruction, gait training, home program, neuromuscular re-education, therapeutic activities and therapeutic exercises. Frequency and duration: 2 time(s) a week, for 6 weeks. Potential to achieve rehab goals is good will continue to progress POC to address strength and proprioceptive deficits impacting balance and safety with functional mobility in home and community. Plan of care was developed with input and agreement by the patient. Assessment Patient tolerates today session without pain but with mild fatigue. Patient challenged with interventions but demos ability to complete with no more than SBA needed with intermittent CGA for safety. Patient with ongoing strength and proprioceptive deficits. Adult Risk Screening Initial Fall Risk Screening: ELIDA has not fallen in the last 6 months. His fall did not result in injury. ELIDA does not have a fear of falling. [...] doing things. Insurance Insurance reviewed Visit number: 2 Medicare Certification Period: Beginnin2021 Endin2021 Subjective Patient reports:. Patient denies pain since last visit. Denies falls since last visit. States he is doing well today. Home program performing as directed: No . No chance since iE was yesterday. 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 Treatment Time in clinic started at 0229 pm Time in clinic ended at 0313 pm Total time in clinic is 44 minutes. Total timed code time is 38 minutes. Therapeutic exercise (92288): timed minutes 38, units 3 . NuStep 8 min (nb 6 min) IB 2x1 min Hip ADD 5/5, 3 min LTR 3 min Hip ABD BTB, 55, 3 min Bridge 5/5, 3 min SLR 2x10 (B) Standing HIp ABD 1x10 (B) Standing HIp EXT 1x10 (B) Standing Normal Stance EC with finger touch 1 min Mod Tandem 1 min (B) Normal Stance on AE no hands 1 min Standing March 2 min. 'Scores and Scales' Signatures Electronically signed by : Nisha Nunn, PT; Aug 01 2021 3:16PM EST (Author) Normal [facility] PT Ortho Evaluation (PT Orth o Evaluation)on 07-30-2021 PT Ortho Evaluation (PT Ortho Evaluation) Therapy Diagnosis Balance problems (781.99) (R26.89) Unsteadiness on feet (781.2) (R26.81) Generalized weakness (780.79) (R53.1) Plan of Care Goals: Goals set and discussed today. By discharge ELIDA LANZA will achieve the following goals: Activity Limitation: ABC 75% or greater Balance: Patient will demo 60 seconds of tandem stance (B) on uneven surface for improved safety and stability with all functional mobility in home and in community. Gait/Locomotion: Pt will demo improved gait mechanics with even step length, stance time, proper heel strike and push off, and min-no evidence of instability or antalgic gait for return to PLOF. Participation Restrictions: Patient will be able to ambulate about grocery store in community confidently, safely, Renae, without fear of falling, and without need for greater than 15 min rest break post. Strength: Pt will demo improved MMT by >/= 1 point on 0-5 point scale in BLE for improved strength and stability, and improved ease with transfers, lifting/carrying, and proper mechanics with ADL?s AND IADL?s. Transfers: Patient will be able to complete sit <> stand transfer independently, safely, and without compensation to demo improved safety with functional mobility in home and community. Planned interventions include: education/instruction, gait training, home program, neuromuscular re-education, therapeutic activities and therapeutic exercises. Frequency and duration: 2 time(s) a week, for 6 weeks. Potential to achieve rehab goals is good Plan of care was developed with input and agreement by the patient. Assessment Patient presents to PT this date with SANDS consistent with unsteadiness on feet and balance [...] above in order to return patient to OF without restriction. Clinical Presentation: Stable and/or uncomplicated characteristics. Level of Complexity: low Problem List: activity limitations, ADLs/IADLs/self care skills, aerobic capacity/endurance, balance, decreased functional level, decreased knowledge of HEP, fall risk, gait/locomotion, motor function/control/tone, participation restrictions, sensory and strength. Reason For Visit Initial Evaluation . Balance problems. Adult Risk Screening Initial Fall Risk Screening: ELIDA has not fallen in the last 6 months. His fall did not result in injury. ELIDA does not have a fear of falling. He needs assistance with Assitive device - cane . Needs assistance walking in his home. He needs assistance in an unfamiliar setting. The patient is using an assistive device. Pain Scale: On a scale of 0 to 10, the patient rates the pain at 3. Please identify location of pain: (L) shoulder. [...] doing things. Insurance Insurance reviewed Visit number: 1 Medicare Certification Period: Beginnin2021 Endin2021 Subjective Mechanism of Injury:. Patient reports use of cane for last 2-3 years. States that he "gets around alright" with use of the cane but is unsure if he would be able to walk independently. Patient reports mild fatigue after grocery shopping needing 45 min to rest post. Reports presence of low back pain occasionally 2x/week. Medical Screening: Reviewed medical history form with patient and medical screening assessed. 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 Functional Assessment Prior level of function: no AD prior to 2 years ago. Functional limitations: standing , walking and lifting . Patient stated goal(s) for treatment include: increasing strength , increasing mobility and returning to regular activity levels . Current Status: unchanged. Living Environment: 1 curb step steps into the house . Patient reports living on first floor of an apartment building where there is 1 curb step without railing to enter. Reports home is all one level thereafter. Social Support: lives with spouse. Personal Factors That May Impact Care: hearing [place], language [place] . No barriers to learning or treatment reported or noted this date. Objective Ortho Observation Observed Posture Impairment: forward head, rounded shoulders, thoracic kyphosis, decreased lumbar lordosis Transitions and Transfers Functional Mobility Assessment: sit to (more content not included)... Normal [employer] Blood Pressure Cuff Sizeon 0 07-03-2021 Blood Pressure Cuff Size Adult [facility] Work Phone: Laboratory - Chemistry and C hemistry - challengeon 07-03-2021 Albumin BCP dye [Mass/Vol] 4.8 g/dL 3.4 - 5.0 [facility] Work Phone: ALP [Catalytic activity/Vol] 110 U/L 33 - 136 [facility] Work Phone: ALT With P-5'-P [Catalytic activity/Vol] 19 U/L 10 - 52 [facility] Work Phone: Comment on above: Patients treated wit h Sulfasalazine may generate falsely decreased results for ALT. Anion gap [Moles/Vol] 19 mmol/L 10 - 20 [facility] Work Phone: AST With P-5'-P [Catalytic activity/Vol] 28 U/L 9 - 39 [facility] Work Phone: Comment on above: MILD HEMOLYSIS DETEC CASSIE. The result may be falsely elevated due tohemolysis or other interferents. Clinical correlation is recommended.Repeat testing may be considered. Bilirubin [Mass/Vol] 0.6 mg/dL 0.0 - 1.2 [facility] Work Phone: Calcium [Mass/Vol] 9.6 mg/dL 8.6 - 10.6 [facility] Work Phone: Chloride [Moles/Vol] 103 mmol/L 98 - 107 [facility] Work Phone: CO2 [Moles/Vol] 23 mmol/L 21 - 32 [facility] Work Phone: Creatinine [Mass/Vol] 1.40 mg/dL above high threshold See Below [facility] Work Phone: Comment on above: Reference Range: 0.5 0 - 1.30 Glucose [Mass/Vol] 117 mg/dL above high threshold 74 - 99 [facility] Work Phone: Potassium [Moles/Vol] 4.8 mmol/L 3.5 - 5.3 [facility] Work Phone: Comment on above: MILD HEMOLYSIS DETEC CASSIE. The result may be falsely elevated due tohemolysis or other interferents. Clinical correlation is recommended.Repeat testing may be considered. Protein [Mass/Vol] 6.9 g/dL 6.4 - 8.2 [facility] Work Phone: Sodium [Moles/Vol] 140 mmol/L 136 - 145 [facility] Work Phone: Urea nitrogen [Mass/Vol] 26 mg/dL above high threshold 6 - 23 [facility] Work Phone: Laboratory - Hematology and Cell countson 07-03-2021 Erythrocyte distribution width (RBC) [Ratio] 12.8 % See Below [facility] Work Phone: Comment on above: Reference Range: 11. 5 - 14.5 Hematocrit (Bld) [Volume fraction] 50.9 % See Below [facility] Work Phone: Comment on above: Reference Range: 41. 0 - 52.0 Hemoglobin (Bld) [Mass/Vol] 16.3 g/dL See Below [facility] Work Phone: Comment on above: Reference Range: 13. 5 - 17.5 MCHC (RBC) [Mass/Vol] 32.0 g/dL See Below [facility] Work Phone: Comment on above: Reference Range: 32. 0 - 36.0 MCV (RBC) [Entitic vol] 103 fL above high threshold 80 - 100 [facility] Work Phone: Platelets (Bld) [#/Vol] 213 10*3/uL 150 - 450 [facility] Work Phone: RBC (Bld) [#/Vol] 4.93 {x10E12/L} See Below [facility] Work Phone: Comment on above: Reference Range: 4.5 0 - 5.90 WBC (Bld) [#/Vol] 9.4 10*3/uL 4.4 - 11.3 [facility] Work Phone: Lipid Panelon 07-03-2021 Cholesterol [Mass/Vol] 165 mg/dL 0 - 199 [facility] Work Phone: Comment on above: . AGE DESIRABLE BORD DANNY HIGH HIGH 0-19 Y 0 - 169 170 - 199 >/= 200 20-24 Y 0 - 189 190 - 224 >/= 225 >24 Y 0 - 199 200 - 239 >/= 240 All ranges are based on fasting samples. Specific therapeutic targets will vary based on patient-specific cardiac risk.. Pediatric guidelines reference:Pediatrics 2011, 128(S5). Adult guidelines reference: NCEP ATPIII Guidelines, MELVIN 2001, 258:2486-97. Venipuncture immediately after or during the administration of Metamizole may lead to falsely low results. Testing should be performed immediately prior to Metamizole dosing. Cholesterol in HDL [Mass/Vol] 52.3 mg/dL [facility] Work Phone: Comment on above: . AGE VERY LOW LOW N ORMAL HIGH 0-19 Y < 35 < 40 40-45 ---- 20- 24 Y ---- < 40 >45 ---- >24 Y ---- < 40 40-60 >60. Cholesterol in LDL [Mass/Vol] 64 mg/dL 0 - 99 [facility] Work Phone: Comment on above: . NEAR BORD AGE GUI RABLE OPTIMAL HIGH HIGH VERY HIGH 0-19 Y 0 - 109 --- 110-129 >/= 130 ---- 20-24 Y 0 - 119 --- 120-159 >/= 160 ---- >24 Y 0 - 99 100-129 130-159 160-189 >/=190. Cholesterol non HDL [Mass/Vol] 113 mg/dL [facility] Work Phone: Comment on above: AGE DESIRABLE BORDER LINE HIGH HIGH VERY HIGH 0-19 Y 0 - 119 120 - 144 >/= 145 >/= 160 20-24 Y 0 - 149 150 - 189 >/= 190 ---- >24 Y 30 MG/DL ABOVE LDL CHOLESTEROL GOAL. Cholesterol.total/Cho lesterol in HDL [Mass ratio] 3.2 {ratio} [facility] Work Phone: Comment on above: REF VALUESDESIRABLE < 3.4HIGH RISK > 5.0 Triglyceride [Mass/Vol] 243 mg/dL above high threshold 0 - 149 [facility] Work Phone: Comment on above: . AGE DESIRABLE BORD DANNY HIGH HIGH VERY HIGH 0 D-90 D 19 - 174 ---- ---- ----91 D- 9 Y 0 - 74 75 - 99 >/= 100 ---- 10-19 Y 0 - 89 90 - 129 >/= 130 ---- 20-24 Y 0 - 114 115 - 149 >/= 150 ---- >24 Y 0 - 149 150 - 199 200- 499 >/= 500. Venipuncture immediately after or during the administration of Metamizole may lead to falsely low results. Testing should be performed immediately prior to Metamizole dosing. Lipid Panel 49 mg/dL above high threshold 0 - 40 [facility] Work Phone: No Panel Informationon 07-03 0.0 {/100_WBC} 0.0-0.0 [facility] Work Phone: 49 {mL/min/1.73m2} Abnormal >90 [facility] Work Phone: Comment on above: CALCULATIONS OF RHEA MATED GFR ARE PERFORMED USING THE 2020 CKD-EPI STUDY REFIT EQUATION WITHOUT THE RACE VARIABLE FOR THE IDMS-TRACEABLE CREATININE METHODS.https://jasn.asnjournals.org/content/early// N.2422495523 Office Visit (Primary Care T xt/Forms)on 07-03-2021 Follow-up visit Diagnoses/Problems Assessed Benign essential hypertension (401.1) (I10) CKD (chronic kidney disease) stage 3, GFR 30-59 ml/min (585.3) (N18.30) COPD (chronic obstructive pulmonary disease) (496) (J44.9) Hyperlipidemia (272.4) (E78.5) Dr. Cid Dementia (294.20) (F03.90) Depression with anxiety (300.4) (F41.8) Non-smoker (V49.89) (Z78.9) Balance problems (781.99) (R26.89) Orders Balance problems Physical Therapy - General Referral Evaluation and Treatment Evaluate AND Treat Status: Hold For - Scheduling Requested for: 03Jul2021 Benign essential hypertension Comprehensive Metabolic Panel; Status:Active; Requested for:02Jul2021; CKD (chronic kidney disease) stage 3, GFR 30-59 ml/min Complete Blood Count; Status:Active; Requested for:02Jul2021; Vitamin D 25-Hydroxy; Status:Active; Requested for:02Jul2021; Hyperlipidemia Lipid Panel; Status:Active; Requested for:02Jul2021; Patient Discussion/Summary High Blood Pressure/CKD3 -stable -hydrate with water, 6-8 glasses per day -continue current medications -exercise as tolerated -monitor bp routinely at home -follow a low sodium diet Followed by Cardiology () -due for labs Dementia/Depression -check vitamin D level -continue current medications High Cholesterol -follow a low fat diet -due for lipid panel -continue current medications COPD -stable Ordered Physical therapy for balance Follow up with [facility] in 6mo for MCW Chief Complaint 6 mo History of Present Illness 1. HTN The patient presents for follow up of hypertension. Patient denies symptoms including headaches, dizziness, vision changes, syncope, chest pain, palpitations, dyspnea, and edema. Medications are being taken as directed and tolerated well without side effects: Metoprolol Blood pressure is monitored outside the office and is at goal. BP at home runs 118/70s The patient reports adherence to a low salt diet but not exercising Last labs were 12/2020 He is not followed by Cardiology at this time (used to follow with vascular for carotids), still takes Plavix (+h/o DVT) He reports he hydrates well with water, but states he needs to drink more (2-3 cups per day) +h/o GIB 2. 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 CAD/HLD Taking Rosuvastatin, Clopidogrel 4. Dementia Taking Memantine, takes Trazodone at night time for insomnia (takes this every night, 1/2 tablet) *Depression-> taking Citalopram Answers questions appropriately Still driving Reports he is stable, denies SI Son Thanh lives nearby, sees patient 1-2x/week Scores and Scales PHQ-9 Printed in Appendix #1 below. JULIET-7 [id number] JULIET-7 Total Score2 Feeling nervous, anxious or on edgeSeveral days - 1 Not being able to stop or control worryingNot at all - 0 Worrying too much about different thingsNot at all - 0 Trouble relaxingNot at all - 0 Being so restless that it's hard to sit stillNot at all - 0 Becoming easily annoyed or irritableNot at all - 0 Feeling afraid as if something awful might happenSeveral days - 1 Review of Systems see HPI Active Problems Problems (HFpEF) heart failure with preserved ejection fraction (428.9) (I50.30) Acute pain of left shoulder (719.41) (M25.512) Balance problems (781.99) (R26.89) Benign enlargement of prostate (600.00) (N40.0) Benign essential hypertension (401.1) (I10) Bilateral impacted cerumen (380.4) (H61.23) Body mass index (BMI) of 22.0 to 22.9 in adult (V85.1) (Z68.22) CAD (coronary artery disease) (414.00) (I25.10) Carotid artery stenosis (433.10) (I65.29) Chronic low back pain (724.2,338.29) (M54.50,G89.29) CKD (chronic kidney disease) stage 3, GFR 30-59 ml/min (585.3) (N18.30) COPD (chronic obstructive pulmonary disease) (496) (J44.9) Dementia (294.20) (F03.90) Depression with anxiety (300.4) (F41.8) DVT (deep venous thrombosis) (453.40) (I82.409) Elevated glucose (790.29) (R73.09) Encounter for Medicare annual wellness exam (V70.0) (Z00.00) Gait abnormality (781.2) (R26.9) GERD (gastroesophageal reflux disease) (530.81) (K21.9) History of vitamin D deficiency (V12.1) (Z86.39) Hyperlipidemia (272.4) (E78.5) Immunization due (V05.9) (Z23) Insomnia (780.52) (G47.00) Neoplasm of uncertain behavior of skin (238.2) (D48.5) Onychomycosis (110.1) (B35.1) Osteoarthritis of hip (715.95) (M16.9) Osteoarthritis of right hip (715.95) (M16.11) Peripheral neuropathy (356.9) (G62.9) 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 Normal Touchworks Vitamin D 25-Hydroxyon 07-03 25-hydroxyvitamin D3 [Mass/Vol] 50 ng/mL [facility] Work Phone: Comment on above: .DEFICIENCY: < 20 NG /MLINSUFFICIENCY: 20-29 NG/MLSUFFICIENCY: 30-100 NG/MLTHIS ASSAY ACCURATELY QUANTIFIES THE SUM OFVITAMIN D3, 25-HYDROXY AND VIT D2,25-HYDROXY. Office Visit (Urgent Care)on 05-24-2021 Follow-up visit Diagnoses/Problems Assessed Acute pain of left shoulder (719.41) (M25.512) Orders Acute pain of left shoulder Sling; Status:Active - Perform Order; Requested for:24May2021; Perform:In Office; Due:03Jun2021;Ordered; For:Acute pain of left shoulder; Ordered By:Zaynab Cosby; Xray Shoulder Complete Min 2 Views; Status:Complete; Done: 24May2021 01:00PM Performed:[facility]; Due:22Aug2021;Ordered; Stat; For:Acute pain of left shoulder; Ordered By:Zaynab Cosby; Laterality : Left Radiologist to Determine Optimal Study : Y What are the patient's signs and symptoms? : Shoulder pain and decreased ROM after feeling a "snapping" sensation per pt. Patient Discussion/Summary You were evaluated in the urgent care today for the left shoulder pain. X-ray of the left shoulder was performed. The radiologist does not see any fractures or dislocations. Degenerative changes are noted. You were placed in a sling while in the urgent care. Wear this for additional support. Remove 3-4 times per day and perform gentle range of motion exercises. You may take Tylenol as needed for the discomfort For additional relief, apply ice to the area of discomfort 2-3 times per day, in 20-minute increments, careful to protect the skin Follow-up with your primary care doctor if symptoms fail to improve over the next 5 days. Chief Complaint Chief Complaints Shoulder Pain Shoulder Problem History of Present Illness 82-year-old male presents to the urgent care [...] in his elbow, forearm, wrist or hand. Review of Systems All other systems have been reviewed and are negative for complaint. Active Problems Problems (HFpEF) heart failure with preserved ejection fraction (428.9) (I50.30) Balance problems (781.99) (R26.89) Benign enlargement of prostate (600.00) (N40.0) Benign essential hypertension (401.1) (I10) Bilateral impacted cerumen (380.4) (H61.23) Body mass index (BMI) of 22.0 to 22.9 in adult (V85.1) (Z68.22) CAD (coronary artery disease) (414.00) (I25.10) Mild on a cath 2010 Carotid artery stenosis (433.10) (I65.29) Mild Chronic low back pain (724.2,338.29) (M54.50,G89.29) CKD (chronic kidney disease) stage 3, GFR 30-59 ml/min (585.3) (N18.30) COPD (chronic obstructive pulmonary disease) (496) (J44.9) Dementia (294.20) (F03.90) Depression with anxiety (300.4) (F41.8) DVT (deep venous thrombosis) (453.40) (I82.409) 2015 R LE Elevated glucose (790.29) (R73.09) Encounter for Medicare annual wellness exam (V70.0) (Z00.00) Gait abnormality (781.2) (R26.9) GERD (gastroesophageal reflux disease) (530.81) (K21.9) History of vitamin D deficiency (V12.1) (Z86.39) Added by Problem List Migration; 2013-03-26 Hyperlipidemia (272.4) (E78.5) Dr. 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) Shortness of breath on exertion (786.05) (R06.02) Special screening for other conditions (V82.89) (Z13.89) Wheezing (786.07) (R06.2) Past Medical History Problems History of Anemia (285.9) (D64.9) Added by Problem List Migration; 2013-03-26 History of Deep vein thrombosis (DVT) of femoral vein of right lower extremity, unspecified chronicity (453.41) (I82.411) Resolved Date: 14 Mar 2019 History of Depression (311) (F32.A) Added by Problem List Migration; 2013-03-26 History of Hip strain (843.9) (S76.019A) Resolved Date: 09 Jul 2014 History of acute gouty arthritis (V13.4) (Z87.39) Resolved Date: 26 May 2019 History of constipation (V12.79) (Z87.19) History of deep venous thrombosis (V12.51) (Z86.718) History of gastroesophageal reflux (GERD) (V12.79) (Z87.19) History of osteoarthritis (V13.4) (Z87.39) History of vitamin D deficiency (V12.1) (Z86.39) Resolved Date: 02 Dec 2020 Added by Problem List Migration; 2013-03-26 Personal h (more content not included)... Normal [facility] Radiologyon 05-24-2021 XR Shoulder 2 Views Normal [facility] Work Phone: Tobacco Screening.on 022 Tobacco use status CPHS b) No [facility] Work Phone: No Panel Informationon 03-19 Adult depression screening assessment Minimal Depression [facility] Work Phone: Not at all - 0 [facility] Work Phone: More than half the days - 2 [facility] Work Phone: Not difficult at all [facility] Work Phone: Negative [facility] Work Phone: Blood Pressure Cuff Sizeon 1 05-18-2020 Blood Pressure Cuff Size Adult [facility] Work Phone: Radiologyon 03-18-2021 XR Chest 2 Views Normal [facility] Work Phone: XR Chest 2 Views Please click on the link to view the study images Normal [facility] Work Phone: No Panel Informationon 02-05 [facility] Work Phone: Tobacco Screening.on 021 Fall risk assessment a) No falls within the last year [facility] [place] Work Phone: Tobacco use status CPHS b) No [facility] [place] Work Phone: Cardiac Stress Teston 2020 Cardiac Stress Test [id number] [facility], [address], [place] [address] and Dobutamine Stress Echo Patient Name: ELIDA SALEH [facility] Work Phone: No Panel Informationon 12-04 Several days - 1 [facility] Work Phone: Not at all - 0 [facility] Work Phone: Minimal Anxiety [facility] Work Phone: Not difficult at all [facility] Work Phone: Comment on above: How difficult have t hose problems made it for you to do your work, take care of things at home, or get along with other people? 2 1 [facility] Work Phone: Comment on above: Over the last two we eks, how often have you been bothered by the following problems? Feeling nervous, anxious, or on edge: Several days - 1Not being able to stop or control worrying: Not at all - 0Worrying too much about different things: Not at all - 0Trouble relaxing: Not at all - 0Being so restless that it's hard to sit still: Not at all - 0Becoming easily annoyed or irritable: Not at all - 0Feeling afraid as if something awful might happen: Several days - 1 Negative [facility] Work Phone: 0 1 [facility] Work Phone: Comment on above: Q1: 0, Q2: 0, Hemoglobin A1Con 12-02-2020 Glucose [Mass/Vol] 120 mg/dL [facility] Work Phone: HbA1c (Bld) [Mass fraction] 5.8 % [facility] Work Phone: Comment on above: Diagnosis of Diabete s-Adults Non-Diabetic: < or = 5.6% Increased risk for developing diabetes: 5.7-6.4% Diagnostic of diabetes: > or = 6.5%. Monitoring of Diabetes Age (y) Therapeutic Goal (%) Adults: >18 <7.0 Pediatrics: 13-18 <7.5 7-12 <8.0 0- 6 7.5-8.5 [place] [employer]. Diabetes Care 33(S1), May 2009. Laboratory - Chemistry and C hemistry - challengeon 12-02-2020 Anion gap [Moles/Vol] 15 mmol/L 10 - 20 [facility] Cathy [facility] Work Phone: Calcium [Mass/Vol] 10.1 mg/dL 8.6 - 10.6 [facility] Work Phone: Chloride [Moles/Vol] 105 mmol/L 98 - 107 [facility] Work Phone: CO2 [Moles/Vol] 28 mmol/L 21 - 32 [facility] Work Phone: Creatinine [Mass/Vol] 1.18 mg/dL See Below [facility] Work Phone: Comment on above: Reference Range: 0.5 0 - 1.30 Glucose [Mass/Vol] 104 mg/dL above high threshold 74 - 99 [facility] Work Phone: Potassium [Moles/Vol] 4.6 mmol/L 3.5 - 5.3 [facility] Work Phone: Sodium [Moles/Vol] 143 mmol/L 136 - 145 [facility] Work Phone: Urea nitrogen [Mass/Vol] 22 mg/dL 6 - 23 [facility] Work Phone: Laboratory - Hematology and Cell countson 12-02-2020 Erythrocyte distribution width (RBC) [Ratio] 12.7 % See Below [facility] Work Phone: Comment on above: Reference Range: 11. 5 - 14.5 Hematocrit (Bld) [Volume fraction] 51.8 % See Below [facility] Work Phone: Comment on above: Reference Range: 41. 0 - 52.0 Hemoglobin (Bld) [Mass/Vol] 16.5 g/dL See Below [facility] Work Phone: Comment on above: Reference Range: 13. 5 - 17.5 MCHC (RBC) [Mass/Vol] 31.9 g/dL below low threshold See Below [facility] Work Phone: Comment on above: Reference Range: 32. 0 - 36.0 MCV (RBC) [Entitic vol] 103 fL above high threshold 80 - 100 [facility] Work Phone: Platelets (Bld) [#/Vol] 207 10*3/uL 150 - 450 [facility] Work Phone: RBC (Bld) [#/Vol] 5.02 {x10E12/L} See Below [facility] Work Phone: Comment on above: Reference Range: 4.5 0 - 5.90 WBC (Bld) [#/Vol] 8.3 10*3/uL 4.4 - 11.3 [facility] Work Phone: Lipid Panelon 12-02-2020 Cholesterol [Mass/Vol] 147 mg/dL 0 - 199 [facility] Work Phone: Comment on above: . AGE DESIRABLE BORD DANNY HIGH HIGH 0-19 Y 0 - 169 170 - 199 >/= 200 20-24 Y 0 - 189 190 - 224 >/= 225 >24 Y 0 - 199 200 - 239 >/= 240 All ranges are based on fasting samples. Specific therapeutic targets will vary based on patient-specific cardiac risk.. Pediatric guidelines reference:Pediatrics 2011, 128(S5). Adult guidelines reference: NCEP ATPIII Guidelines, MELVIN 2001, 258:2486-97. Venipuncture immediately after or during the administration of Metamizole may lead to falsely low results. Testing should be performed immediately prior to Metamizole dosing. Cholesterol in HDL [Mass/Vol] 46.6 mg/dL [facility] Work Phone: Comment on above: . AGE VERY LOW LOW N ORMAL HIGH 0-19 Y < 35 < 40 40-45 ---- 20- 24 Y ---- < 40 >45 ---- >24 Y ---- < 40 40-60 >60. Cholesterol in LDL [Mass/Vol] 59 mg/dL 0 - 99 [facility] Work Phone: Comment on above: . NEAR BORD AGE GUI RABLE OPTIMAL HIGH HIGH VERY HIGH 0-19 Y 0 - 109 --- 110-129 >/= 130 ---- 20-24 Y 0 - 119 --- 120-159 >/= 160 ---- >24 Y 0 - 99 100-129 130-159 160-189 >/=190. Cholesterol non HDL [Mass/Vol] 100 mg/dL [facility] Work Phone: Comment on above: AGE DESIRABLE BORDER LINE HIGH HIGH VERY HIGH 0-19 Y 0 - 119 120 - 144 >/= 145 >/= 160 20-24 Y 0 - 149 150 - 189 >/= 190 ---- >24 Y 30 MG/DL ABOVE LDL CHOLESTEROL GOAL. Cholesterol.total/Cho lesterol in HDL [Mass ratio] 3.2 {ratio} [facility] Work Phone: Comment on above: REF VALUESDESIRABLE < 3.4HIGH RISK > 5.0 Triglyceride [Mass/Vol] 209 mg/dL above high threshold 0 - 149 [facility] Work Phone: Comment on above: . AGE DESIRABLE BORD DANNY HIGH HIGH VERY HIGH 0 D-90 D 19 - 174 ---- ---- ----91 D- 9 Y 0 - 74 75 - 99 >/= 100 ---- 10-19 Y 0 - 89 90 - 129 >/= 130 ---- 20-24 Y 0 - 114 115 - 149 >/= 150 ---- >24 Y 0 - 149 150 - 199 200- 499 >/= 500. Venipuncture immediately after or during the administration of Metamizole may lead to falsely low results. Testing should be performed immediately prior to Metamizole dosing. Lipid Panel 42 mg/dL above high threshold 0 - 40 [facility] Work Phone: No Panel Informationon 12-02 Not at all - 0 [facility] Work Phone: Negative [facility] Work Phone: 0 1 [facility] Work Phone: Comment on above: Q1: 0, Q2: 0, 71 {mL/min/1.73m2} >60 [facility] Work Phone: Comment on above: CALCULATIONS OF RHEA MATED GFR ARE PERFORMED USING THE MDRD STUDY EQUATION FOR THE IDMS-TRACEABLE CREATININE METHODS. CLIN CHEM 2007;53:766-72 59 {mL/min/1.73m2} Abnormal >60 [facility] Work Phone: 0.0 {/100_WBC} 0.0-0.0 [facility] Work Phone: Tobacco Screening.on 021 Fall risk assessment a) No falls within the last year [facility] Work Phone: Tobacco use status CPHS b) No [facility] Work Phone: Hematologyon 05-30-2020 Hematocrit (Bld) [Volume fraction] 49.9 % See Below [facility] Work Phone: Comment on above: Reference Range: 41. 0 - 52.0 Hemoglobin (Bld) [Mass/Vol] 16.2 g/dL See Below [facility] Work Phone: Comment on above: Reference Range: 13. 5 - 17.5 MCV (RBC) [Entitic vol] 103 fL above high threshold 80 - 100 [facility] Work Phone: Platelets (Bld) [#/Vol] 241 {x10E9/L} 150 - 450 [facility] Work Phone: RBC (Bld) [#/Vol] 4.83 {x10E12/L} See Below [facility] Work Phone: Comment on above: Reference Range: 4.5 0 - 5.90 WBC (Bld) [#/Vol] 0.0 {/100_WBC} 0.0-0.0 [facility] Work Phone: WBC (Bld) [#/Vol] 8.0 {x10E9/L} 4.4 - 11.3 [facility] Work Phone: Lipid Panelon 05-30-2020 Cholesterol [Mass/Vol] 268 mg/dL above high threshold 0 - 199 [facility] Work Phone: Comment on above: . AGE DESIRABLE BORD DANNY HIGH HIGH 0-19 Y 0 - 169 170 - 199 >/= 200 20-24 Y 0 - 189 190 - 224 >/= 225 >24 Y 0 - 199 200 - 239 >/= 240 All ranges are based on fasting samples. Specific therapeutic targets will vary based on patient-specific cardiac risk.. Pediatric guidelines reference:Pediatrics 2011, 128(S5). Adult guidelines reference: NCEP ATPIII Guidelines, MELVIN 2001, 258:6716-97. Venipuncture immediately after or during the administration of Metamizole may lead to falsely low results. Testing should be performed immediately prior to Metamizole dosing. Cholesterol in HDL [Mass/Vol] 43.5 mg/dL [facility] Work Phone: Comment on above: . AGE VERY LOW LOW N ORMAL HIGH 0-19 Y < 35 < 40 40-45 ---- 20- 24 Y ---- < 40 >45 ---- >24 Y ---- < 40 40-60 >60. Cholesterol in LDL [Mass/Vol] 169 mg/dL above high threshold 0 - 99 [facility] Work Phone: Comment on above: . NEAR BORD AGE GUI RABLE OPTIMAL HIGH HIGH VERY HIGH 0-19 Y 0 - 109 --- 110-129 >/= 130 ---- 20-24 Y 0 - 119 --- 120-159 >/= 160 ---- >24 Y 0 - 99 100-129 130-159 160-189 >/=190. Cholesterol non HDL [Mass/Vol] 225 mg/dL [facility] Work Phone: Comment on above: AGE DESIRABLE BORDER LINE HIGH HIGH VERY HIGH 0-19 Y 0 - 119 120 - 144 >/= 145 >/= 160 20-24 Y 0 - 149 150 - 189 >/= 190 ---- >24 Y 30 MG/DL ABOVE LDL CHOLESTEROL GOAL. Cholesterol.total/Cho lesterol in HDL [Mass ratio] 6.2 {ratio} Abnormal [facility] Work Phone: Comment on above: REF VALUESDESIRABLE < 3.4HIGH RISK > 5.0 Triglyceride [Mass/Vol] 279 mg/dL above high threshold 0 - 149 [facility] Work Phone: Comment on above: . AGE DESIRABLE BORD DANNY HIGH HIGH VERY HIGH 0 D-90 D 19 - 174 ---- ---- ----91 D- 9 Y 0 - 74 75 - 99 >/= 100 ---- 10-19 Y 0 - 89 90 - 129 >/= 130 ---- 20-24 Y 0 - 114 115 - 149 >/= 150 ---- >24 Y 0 - 149 150 - 199 200- 499 >/= 500. Venipuncture immediately after or during the administration of Metamizole may lead to falsely low results. Testing should be performed immediately prior to Metamizole dosing. Lipid Panel 56 mg/dL above high threshold 0 - 40 [facility] Work Phone: Metabolic Panelon 05-30-2020 Anion gap [Moles/Vol] 16 mmol/L 10 - 20 [facility] Work Phone: [phone] Calcium [Mass/Vol] 9.4 mg/dL 8.6 - 10.6 [facility] Work Phone: Chloride [Moles/Vol] 103 mmol/L 98 - 107 [facility] Work Phone: CO2 [Moles/Vol] 26 mmol/L 21 - 32 [facility] Work Phone: Creatinine [Mass/Vol] 1.33 mg/dL above high threshold See Below [facility] Work Phone: Comment on above: Reference Range: 0.5 0 - 1.30 Glucose [Mass/Vol] 118 mg/dL above high threshold 74 - 99 [facility] Work Phone: [phone] Potassium [Moles/Vol] 4.4 mmol/L 3.5 - 5.3 [facility] Work Phone: Sodium [Moles/Vol] 141 mmol/L 136 - 145 [facility] Work Phone: Urea nitrogen [Mass/Vol] 24 mg/dL above high threshold 6 - 23 [facility] Work Phone: Otheron 05-30-2020 Erythrocyte distribution width (RBC) [Ratio] 13.2 % See Below [facility] Work Phone: Comment on above: Reference Range: 11. 5 - 14.5 MCHC (RBC) [Mass/Vol] 32.5 g/dL See Below [facility] Work Phone: Comment on above: Reference Range: 32. 0 - 36.0 62 {mL/min/1.73m2} >60 [facility] Work Phone: Comment on above: CALCULATIONS OF RHEA MATED GFR ARE PERFORMED USING THE MDRD STUDY EQUATION FOR THE IDMS-TRACEABLE CREATININE METHODS. CLIN CHEM 2007;53:766-72 51 {mL/min/1.73m2} Abnormal >60 [facility] Work Phone: LIPID PANEL (CORONARY RISK 2 )on 01-27-2018 Cholesterol in HDL mass conc 46.0 mg/dL Normal [facility] Comment on above: Result Comment: . AG E VERY LOW LOW NORMAL HIGH 0-19 Y < 35 < 40 40-45 ---- 20-24 Y ---- < 40 >45 ---- >24 Y ---- < 40 40-60 >60. Performed By: #### V TDOH ####[facility] [place] [address] Cholesterol in LDL mass conc 65 mg/dL Normal 0 - 99 [facility] Comment on above: Result Comment: . DAMION VAZQUEZ BORVictoriano AGE DESIRABLE OPTIMAL HIGH HIGH VERY HIGH 0-19 Y 0 - 109 --- 110-129 >/= 130 ---- 20-24 Y 0 - 119 --- 120-159 >/= 160 ---- >24 Y 0 - 99 100-129 130-159 160-189 >/=190. Performed By: #### V TDOH ####[facility] [place] [address] Cholesterol in VLDL mass conc 29 mg/dL Normal 0 - 40 [facility] Comment on above: Performed By: #### V TDOH ####[facility] [place] [address] Cholesterol mass conc 140 mg/dL Normal 0 - 199 [facility] Comment on above: Result Comment: . AG E DESIRABLE BORDERLINE HIGH HIGH 0-19 Y 0 - 169 170 - 199 >/= 200 20-24 Y 0 - 189 190 - 224 >/= 225 >24 Y 0 - 199 200 - 239 >/= 240 All ranges are based on fasting samples. Specific therapeutic targets will vary based on patient-specific cardiac risk.. Pediatric guidelines reference:Pediatrics 2011, 128(S5). Adult guidelines reference: NCEP ATPIII Guidelines, MELVIN 2001, 258:2486-97. Venipuncture immediately after or during the administration of Metamizole may lead to falsely low results. Testing should be performed immediately prior to Metamizole dosing. Performed By: #### V TDOH ####[facility] [place] [address] Cholesterol.total/Cho lesterol in HDL mass ratio 3.0 {ratio} Normal [facility] Comment on above: Result Comment: REF VALUESDESIRABLE < 3.4HIGH RISK > 5.0 Performed By: #### V TDOH ####[facility] [place] [address] Triglyceride mass conc 143 mg/dL Normal 0 - 149 [facility] Comment on above: Result Comment: . AG E DESIRABLE BORDERLINE HIGH HIGH VERY HIGH 0 D-90 D 19 - 174 ---- ---- ----91 D- 9 Y 0 - 74 75 - 99 >/= 100 ---- 10-19 Y 0 - 89 90 - 129 >/= 130 ---- 20-24 Y 0 - 114 115 - 149 >/= 150 ---- >24 Y 0 - 149 150 - 199 200- 499 >/= 500. Venipuncture immediately after or during the administration of Metamizole may lead to falsely low results. Testing should be performed immediately prior to Metamizole dosing. Performed By: #### V TDOH ####[facility] [place] [address] CBC AND DIFFERENTIALon 01-02 % AUTOMATED IMMATURE GRAN 0.5 % Normal 0.0 - 0.9 [facility] Comment on above: Result Comment: Perc ent differential counts (%) should be interpreted in the context of the absolute cell counts (cells/L). Performed By: #### V TDOH ####[facility] [place] [address] % NEUTROPHIL 79.1 % Normal 40.0 - 80.0 [facility] Comment on above: Performed By: #### V TDOH ####[facility] [place] [address] Basophils/100 WBC Auto (Bld) 0.03 x10E9/L Normal 0.00 - 0.10 [facility] Comment on above: Performed By: #### V TDOH ####[facility] [place] [address] Basophils/100 WBC Auto (Bld) 0.4 % Normal 0.0 - 2.0 [facility] Comment on above: Performed By: #### V TDOH ####[facility] [place] [address] Eosinophils Auto #/vol (Bld) 0.02 10*3/uL Normal 0.00 - 0.40 [facility] Comment on above: Performed By: #### V TDOH ####[facility] [place] [address] Eosinophils/100 WBC Auto (Bld) 0.2 % Normal 0.0 - 6.0 [facility] Comment on above: Performed By: #### V TDOH ####[facility] [place] [address] Erythrocyte distribution width Auto Ratio (RBC) 13.1 % Normal 11.5 - 14.5 [facility] Comment on above: Performed By: #### V TDOH ####[facility] [place] [address] Hematocrit Auto Volume Fraction (Bld) 44.7 % Normal 41.0 - 52.0 [facility] Comment on above: Performed By: #### V TDOH ####[facility] [place] [address] Hemoglobin mass conc (Bld) 14.7 g/dL Normal 13.5 - 17.5 [facility] Comment on above: Performed By: #### V TDOH ####[facility] [place] [address] Lymphocytes Auto #/vol (Bld) 1.00 10*3/uL Normal 0.80 - 3.00 [facility] Comment on above: Performed By: #### V TDOH ####[facility] [place] [address] Lymphocytes/100 WBC Auto (Bld) 12.0 % Normal 13.0 - 44.0 [facility] Comment on above: Performed By: #### V TDOH ####[facility] [place] [address] MCHC Auto mass conc (RBC) 32.9 g/dL Normal 32.0 - 36.0 [facility] Comment on above: Performed By: #### V TDOH ####[facility] [place] [address] MCV Auto Entitic volume (RBC) 95 fL Normal 80 - 100 [facility] Comment on above: Performed By: #### V TDOH ####[facility] [place] [address] Monocytes Auto #/vol (Bld) 0.65 10*3/uL Normal 0.05 - 0.80 [facility] Comment on above: Performed By: #### V TDOH ####[facility] [place] [address] Monocytes/100 WBC Auto (Bld) 7.8 % Normal 2.0 - 10.0 [facility] Comment on above: Performed By: #### V TDOH ####[facility] [place] [address] Neutrophils Auto #/vol (Bld) 6.58 10*3/uL High 1.60 - 5.50 [facility] Comment on above: Performed By: #### V TDOH ####[facility] [place] [address] Platelets Auto #/vol (Bld) 197 10*3/uL Normal 150 - 450 [facility] Comment on above: Performed By: #### V TDOH ####[facility] [place] [address] RBC Auto #/vol (Bld) 4.70 x10E12/L Normal 4.50 - 5.90 [facility] Comment on above: Performed By: #### V TDOH ####[facility] [place] [address] WBC Auto #/vol (Bld) 8.3 10*3/uL Normal 4.4 - 11.3 [facility] Comment on above: Performed By: #### V TDOH ####[facility] [place] [address] CHEST 1 VIEWon 01-02-2018 CHEST 1 VIEW Name: YUKO ELIDA STUDY:CHEST 1 VIEW; 01/02/2018 3:18 pm INDICATION:Signs/Symptoms: sob. COMPARISON:12/17/2017 ORDERING CLINICIAN:GRETA LOOMIS TECHNIQUE:Frontal view of the chest. FINDINGS:The cardiomediastinal silhouette is normal. The lungs are clear offocal consolidation. There is no pneumothorax or pleural effusion. IMPRESSION:No acute cardiopulmonary process. Electronically signed by: JOHNNY CERON MD Normal [facility] COMPREHENSIVE PANELon 2017 Albumin mass conc 4.2 g/dL Normal 3.4 - 5.0 [facility] Comment on above: Performed By: #### V TDOH ####[facility] [place] [address] ALP enzyme act/vol 118 U/L Normal 33 - 136 [facility] Comment on above: Performed By: #### V TDOH ####[facility] [place] [address] ALT enzyme act/vol 15 U/L Normal 10 - 52 [facility] Comment on above: Result Comment: Jaqueline ents treated with Sulfasalazine may generate falsely decreased results for ALT. Performed By: #### V TDOH ####[facility] [place] [address] Anion gap 3 molar conc 16 mmol/L Normal 10 - 20 [facility] Comment on above: Performed By: #### V TDOH ####[facility] [place] [address] AST enzyme act/vol 24 U/L Normal 9 - 39 [facility] Comment on above: Performed By: #### V TDOH ####[facility] [place] [address] Bilirubin mass conc 0.6 mg/dL Normal 0.0 - 1.2 [facility] Comment on above: Performed By: #### V TDOH ####[facility] [place] [address] Calcium mass conc 9.4 mg/dL Normal 8.6 - 10.3 [facility] Comment on above: Performed By: #### V TDOH ####[facility] [place] [address] Chloride molar conc 105 mmol/L Normal 98 - 107 [facility] Comment on above: Performed By: #### V TDOH ####[facility] [place] [address] Creatinine mass conc 1.18 mg/dL Normal 0.50 - 1.30 [facility] Comment on above: Performed By: #### V TDOH ####[facility] [place] [address] GFR- AM. 71 mL/min/1.73m2 Normal >60 [facility] Comment on above: Result Comment: CALC ULATIONS OF ESTIMATED GFR ARE PERFORMED USING THE MDRD STUDY EQUATION FOR THE IDMS-TRACEABLE CREATININE METHODS. CLIN CHEM 2007;53:766-72 Performed By: #### V TDOH ####[facility] [place] [address] GFR-NON AM. 59 mL/min/1.73m2 Abnormal >60 [facility] Comment on above: Performed By: #### V TDOH ####[facility] [place] [address] Glucose mass conc 114 mg/dL High 74 - 99 [facility] Comment on above: Performed By: #### V TDOH ####[facility] [place] [address] HCO3 molar conc (Bld) 24 mmol/L Normal 21 - 32 [facility] Comment on above: Performed By: #### V TDOH ####[facility] [place] [address] Potassium molar conc 4.2 mmol/L Normal 3.5 - 5.3 [facility] Comment on above: Performed By: #### V TDOH ####[facility] [place] [address] Protein mass conc 6.5 g/dL Normal 6.4 - 8.2 [facility] Comment on above: Performed By: #### V TDOH ####[facility] [place] [address] Sodium molar conc 141 mmol/L Normal 136 - 145 [facility] Comment on above: Performed By: #### V TDOH ####[facility] [place] [address] Urea nitrogen mass conc 22 mg/dL Normal 6 - 23 [facility] Comment on above: Performed By: #### V TDOH ####[facility] [place] [address] CT HEAD WO CONTRASTon 2017 CT HEAD WO CONTRAST Name: ELIDA LANZA STUDY:CT HEAD WO CONTRAST; 01/02/2018 3:30 pm INDICATION:Signs/Symptoms: confusion. COMPARISON:11/26/2017 ORDERING CLINICIAN:GRETA LOOMIS TECHNIQUE:Multiple axial CT images of the brain are obtained without use ofintravenous contrast. FINDINGS:INTRACRANIAL: Brain Parenchyma: Normal dial-white matter differentiation. No masseffect or midline shift. There are nonspecific patchy and/orconfluent areas of subcortical and periventricular white matterhypoattenuation representing small vessel ischemic/microangiopathiccha nges.Hemorrhage: None.Ventricles and Sulci: Unchanged appearance of predominantly byfrontoparietal atrophy. Ventricular system is normal in caliber andconfiguration. EXTRACRANIAL: Soft Tissues: Within normal limits.Extracranial Vessels: No calcification.Paranasal Sinuses/Mastoids: Imaged portion is clear.Calvarium: No destructive lesion or acute fracture. IMPRESSION:No acute intracranial hemorrhage or mass effect.Electronically signed by: TOMASA WALTER MD Normal [facility] PT/INRon 01-02-2018 INR Coag RelTime (PPP) 1.2 {INR} High 0.9 - 1.1 [facility] Comment on above: Performed By: #### V TDOH ####[facility] [place] [address] Prothrombin time (PT) Coag time (PPP) 12.6 s Normal 9.8 - 12.7 [facility] Comment on above: Performed By: #### V TDOH ####[facility] [place] [address] Provider Note - ED v2on Protein mass conc Provider Note - ED v 2:Chart Review:ED NOTESED NOTES: increased confusion today per family. 79-year-old male presents to the ER with chief complaint of confusion. Patientbrought in by family. Patient has known history confusion the past. HISTORY OF PRESENTING ILLNESSCLIFFORD was seen by me at 02-Jan-2018 16:59 for a chief complaint ofconfusion(1). The historian is the patientson. The patient's exam is limitedby: condition. Triage Information: Most recent Vital Sign Value Date Temp (F): 98 01-02-2018 14:35 Temp (C): 36.6 01-02-2018 14:35 Heart Rate (beats/min): 130 01-02-2018 14:35 Respirations (breaths/min): 20 01-02-2018 14:35 SpO2 (%): 96 01-02-2018 14:35 BP Systolic (mm Hg): 147 01-02-2018 14:35 BP Diastolic (mm Hg): 78 01-02-2018 14:35 PAST MEDICAL HISTORYATTESTATION: I have reviewed and confirmed nurse's/medic's notes for patient'smedications, allergies, medical history, and surgical history ALLERGIES/INTOLERANCES: No Known Allergies HEALTH HISTORY: No documented data. OUTPATIENT MEDICATIONS: Home Medications Review Status for Reconciliation: N/Fidel Status: Patient Currently Takes Medications Drug Name: metoprolol tartrate 25 mg oral tabletInstructions: 1/2 tab daily (12.5) Drug Name: citalopram 40 mg oral tabletInstructions: 1 cap(s) orally once a day Drug Name: acetaminophen-hydrocodone 750 mg-10 mg oral tabletInstructions: 1 cap(s) orally 5 times a day Drug Name: traZODone 100 mg oral tabletInstructions: 100 milligram(s) orally once (at bedtime) Drug Name: gabapentinInstructions: 900 milligram(s) orally 4 times a day Drug Name: oxyCODONE 5 mg oral tabletInstructions: 5 milligram(s) orally every 8 hours, As Needed Drug Name: LORazepam 0.5 mg oral tabletInstructions: 0.5 milligram(s) orally 2 times a day Drug Name: allopurinol 100 mg oral tabletInstructions: 100 milligram(s) orally once a day Drug Name: rosuvastatin 10 mg oral tabletInstructions: 1 tab(s) orally once a day (at bedtime) Drug Name: clopidogrel 75 mg oral tabletInstructions: 1 tab(s) orally once a day Drug Name: Symbicort 160 mcg-4.5 mcg/inh inhalation aerosolInstructions: 2 puff(s) inhaled 2 times a day, As Needed Drug Name: cephalexin 500 mg oral tabletInstructions: 1 tab(s) orally 2 times a day x 7 days SIGNIFICANT EVENTS: Immunizations Description:Tdap Status:Active Past Medical History Description:HTN Status:Active Description:Hypercholesterol emia Status:Active Description:COPD Status:Active Description:Depression Status:Active Description:Back Problems Status:Active Description:GI bleed Status:Active Description:DVT right lower leg Status:Active Past Surgical History Description:Hernia Repair Status:Active Description:Hemigastrectomy Status:Active Description:Bowel resection after obstruction Status:Active Description:Incisional hernia repair Status:Active REVIEW OF SYSTEMSROS not obtained due to patient's mental status. PHYSICAL EXAMCONSTITUTIONAL: Well appearing, well nourished, awake, alert, oriented toperson and in no apparent distress. HENMT: Airway patent, ears with clear tympanic membranes bilaterally. Nasalmucosa clear. Mouth with normal mucosa. Throat has no vesicles, nooropharyngeal exudates and uvula is midline. Face with no lymph nodeenlargement. EYES: Clear bilaterally, pupils equal, round and reactive to light. CARDIOVASCULAR: Normal rate, regular rhythm. Heart sounds S1, S2. No murmurs,rubs or gallops. PMI non-displaced. RESPIRATORY: Breath sounds clear and equal bilaterally. GASTROINTESTINAL: Abdomen soft, non-distended, no rebound, no guarding. Bowelsounds normal in all 4 quadrants. GENITOURINARY: No discharge, no lesions. MUSCULOSKELETAL: Spine appears normal, range of motion is not limited, nomuscle or joint tenderness. NEUROLOGICAL: Alert and oriented, no focal deficits, no motor or sensorydeficits. SKIN: Skin normal color for race, warm, dry and intact. No evidence of trauma.PSYCHIATRIC: Alert and oriented to person. normal mood and affect. No apparentrisk to self or others. HEME/LYMPH: No adenopathy or splenomegaly. No cervical, supraclavicular oringuinal lymphadenopathy. CLINICAL IMPRESSIONDiagnosis/Annotati on: ED Dx Name:Chronic confusion Code:R41.0 Dispostion: discharged Type: home ATTESTATION Comments/Additional Findings:Long discussion with the family no acute medical findings here in the ED.Believe that this is more related to chronic issues. Explained to the familythat this with the patient possible placement in a usp. agreedPatient Will Be Discharged Home However They Will Follow-Up with Dr. Colon Further Evaluation for placement. CRITICAL CARE TIMEIs this a critically ill patient?: no Electronic Signatures:Adam Rogers () (Signed 02-Jan-2018 17:45)Authored: Provider Note - ED v2 Last Updated: 02-Jan-2018 17:45 by Adam Rogers () References:1. Data Referenced From "Triage - ED" 01/02/2018 2:35 PM Normal [facility] TROPONIN Ion 01-02-2018 Troponin I.cardiac mass conc 0.03 ng/mL Normal 0.00 - 0.03 [facility] Comment on above: Result Comment: LESS THAN 0.04 NG/ML: NEGATIVEREPEAT TESTING IN FOUR TO SIX HOURSIF CLINICALLY INDICATED.0.04 - 0.5 NG/ML: CONSISTENT WITH POSSIBLECARDIAC DAMAGE AND POSSIBLE INCREASEDCLINICAL RISK.SERIAL MEASUREMENTS MAY HELP ASSESS EXTENT OFMYOCARDIAL DAMAGE.>0.5 NG/ML: CONSISTENT WITH CARDIAC DAMAGE,INCREASED CLINICAL RISK AND MYOCARDIALINFARCTION. SERIAL MEASUREMENTS MAY HELPASSESS EXTENT OF MYOCARDIAL DAMAGE..Note: Troponin I testing is performed using differenttesting methodology at [facility] than at located [facility]. Direct result comparisons should onlybe made within the same method. Performed By: #### V TDOH ####[facility] [place] [address] Triage - EDon 01-02-2018 INR Coag RelTime (Bld) Pain:Pain Rating (0-10): Rest0 Chart Review:CHIEF COMPLAINT ELIDA LANZA is a Male patient with a chief complaint of surgicalcomplication.Onset of the Complaint: [id number] Date/Time: 02-Jan-2018 14:05Pain Rating (0-10): Rest: 0Vital Signs:Temperature: 98.0F ( 36.6C) taken temporalBlood Pressure: 147/78 Mean:Heart Rate: 130Respiratory Rate: 20Pulse Oximetry: 96% on room air, no respiratory support. Height: 5 feet 10.00inches. 177.8 CMWeight: 140.0 pounds. Calculated 63.5 kg. (stated)Calculated BMI (kg/m2): 20.086 Calculated BSA (m2) 1.77 Allergies: noESI: 3 PAIN Pain Scale Used: JAMES Past Medical History:? Past Medical History Reviewedyes Electronic Signatures:Arianna León (CYNTHIA SINCLAIR) (Signed 02-Jan-2018 14:38)Authored: Triage, Past Medical History Last Updated: 02-Jan-2018 14:38 by Arianna León (CYNTHIA SINCLAIR) Normal [facility] URINALYSISon 01-02-2018 APPEARANCE CLEAR Normal CLEAR [facility] Comment on above: Performed By: #### V TDOH ####[facility] [place] [address] BILIRUBIN Negative Normal NEGATIVE [facility] Comment on above: Performed By: #### V TDOH ####[facility] [place] [address] BLOOD Negative Normal NEGATIVE [facility] Comment on above: Performed By: #### V TDOH ####[facility] [place] [address] COLOR YELLOW Normal STRAW,YELL OW [facility] Comment on above: Performed By: #### V TDOH ####[facility] [place] [address] GLUCOSE Negative Normal NEGATIVE [facility] Comment on above: Performed By: #### V TDOH ####[facility] [place] [address] KETONES 20(1+) Abnormal NEGATIVE [facility] Comment on above: Performed By: #### V TDOH ####[facility] [place] [address] LEUKOCYTE ESTERASE Negative Normal NEGATIVE [facility] Comment on above: Performed By: #### V TDOH ####[facility] [place] [address] NITRITE Negative Normal NEGATIVE [facility] Comment on above: Performed By: #### V TDOH ####[facility] [place] [address] pH 6.0 Normal 5.0 - 8.0 [facility] Comment on above: Performed By: #### V TDOH ####[facility] [place] [address] Protein mass conc Negative Normal NEGATIVE [facility] Comment on above: Performed By: #### V TDOH ####[facility] [place] [address] SPECIFIC GRAVITY 1.021 Normal 1.005 - 1.035 [facility] Comment on above: Performed By: #### V TDOH ####[facility] [place] [address] UROBILINOGEN 4.0 mg/dL High 0.0 - 1.9 [facility] Comment on above: Result Comment: SOME PIGMENTS AND MEDICATIONS MAY CAUSE AFALSE POSITIVE UROBILINOGEN Performed By: #### V TDOH ####[facility] [place] [address] BASIC METABOLIC PANELon 12-01 Anion gap 3 molar conc 13 mmol/L Normal 10 - 20 [facility] Comment on above: Performed By: #### L IPID ####[address] [place] [address] Calcium mass conc 9.1 mg/dL Normal 8.6 - 10.3 [facility] Comment on above: Performed By: #### L IPID ####[address] [address] Chloride molar conc 103 mmol/L Normal 98 - 107 [facility] Comment on above: Performed By: #### L IPID ####[address] [address] Creatinine mass conc 1.05 mg/dL Normal 0.50 - 1.30 [facility] Comment on above: Performed By: #### L IPID ####[address] [place] [address] GFR- AM. >60 Normal >60 [facility] Comment on above: Result Comment: CALC ULATIONS OF ESTIMATED GFR ARE PERFORMED USING THE MDRD STUDY EQUATION FOR THE IDMS-TRACEABLE CREATININE METHODS. CLIN CHEM 2007;53:766-72 Performed By: #### L IPID ####[address] [place] [address] GFR-NON AM. >60 Normal >60 [facility] Comment on above: Performed By: #### L IPID ####[address] [place] [address] Glucose mass conc 152 mg/dL High 74 - 99 [facility] Comment on above: Performed By: #### L IPID ####[address] [place] [address] HCO3 molar conc (Bld) 27 mmol/L Normal 21 - 32 [facility] Comment on above: Performed By: #### L IPID ####[address] [place] [address] Potassium molar conc 3.8 mmol/L Normal 3.5 - 5.3 [facility] Comment on above: Performed By: #### L IPID ####[address] [place] [address] Sodium molar conc 139 mmol/L Normal 136 - 145 [facility] Comment on above: Performed By: #### L IPID ####[address] [address] Urea nitrogen mass conc 14 mg/dL Normal 6 - 23 [facility] Comment on above: Performed By: #### L IPID ####[address] [address] CBC AND DIFFERENTIALon 12-17 % AUTOMATED IMMATURE GRAN 0.3 % Normal 0.0 - 0.9 [facility] Comment on above: Result Comment: Perc ent differential counts (%) should be interpreted in the context of the absolute cell counts (cells/L). Performed By: #### L IPID ####[address] [address] % NEUTROPHIL 72.5 % Normal 40.0 - 80.0 [facility] Comment on above: Performed By: #### L IPID ####[address] [address] Basophils/100 WBC Auto (Bld) 0.05 x10E9/L Normal 0.00 - 0.10 [facility] Comment on above: Performed By: #### L IPID ####[address] [address] Basophils/100 WBC Auto (Bld) 0.7 % Normal 0.0 - 2.0 [facility] Comment on above: Performed By: #### L IPID ####[address] [address] Eosinophils Auto #/vol (Bld) 0.06 10*3/uL Normal 0.00 - 0.40 [facility] Comment on above: Performed By: #### L IPID ####[address] [address] Eosinophils/100 WBC Auto (Bld) 0.9 % Normal 0.0 - 6.0 [facility] Comment on above: Performed By: #### L IPID ####[address] [address] Erythrocyte distribution width Auto Ratio (RBC) 13.0 % Normal 11.5 - 14.5 [facility] Comment on above: Performed By: #### L IPID ####[address] [address] Hematocrit Auto Volume Fraction (Bld) 42.7 % Normal 41.0 - 52.0 [facility] Comment on above: Performed By: #### L IPID ####[address] [address] Hemoglobin mass conc (Bld) 13.7 g/dL Normal 13.5 - 17.5 [facility] Comment on above: Performed By: #### L IPID ####[address] [address] Lymphocytes Auto #/vol (Bld) 1.15 10*3/uL Normal 0.80 - 3.00 [facility] Comment on above: Performed By: #### L IPID ####[address] [address] Lymphocytes/100 WBC Auto (Bld) 16.7 % Normal 13.0 - 44.0 [facility] Comment on above: Performed By: #### L IPID ####[address] [address] MCHC Auto mass conc (RBC) 32.1 g/dL Normal 32.0 - 36.0 [facility] Comment on above: Performed By: #### L IPID ####[address] [address] MCV Auto Entitic volume (RBC) 97 fL Normal 80 - 100 [facility] Comment on above: Performed By: #### L IPID ####[address] [address] Monocytes Auto #/vol (Bld) 0.61 10*3/uL Normal 0.05 - 0.80 [facility] Comment on above: Performed By: #### L IPID ####[address] [place] [address] Monocytes/100 WBC Auto (Bld) 8.9 % Normal 2.0 - 10.0 [facility] Comment on above: Performed By: #### L IPID ####[address] [place] [address] Neutrophils Auto #/vol (Bld) 5.00 10*3/uL Normal 1.60 - 5.50 [facility] Comment on above: Performed By: #### L IPID ####[address] [place] [address] Platelets Auto #/vol (Bld) 256 10*3/uL Normal 150 - 450 [facility] Comment on above: Performed By: #### L IPID ####[address] [place] [address] RBC Auto #/vol (Bld) 4.42 x10E12/L Low 4.50 - 5.90 [facility] Comment on above: Performed By: #### L IPID ####[address] [place] [address] WBC Auto #/vol (Bld) 6.9 10*3/uL Normal 4.4 - 11.3 [facility] Comment on above: Performed By: #### L IPID ####[address] [place] [address] CHEST 1 VIEWon 12-17-2017 CHEST 1 VIEW Name: ELIDA LANZA STUDY:TH CHEST 1 VIEW; 12/17/2017 4:17 pm INDICATION:Signs/Symptoms: Right elbow bruise and edema, bumped right elbow onthe door, and likewise. Medial elbow edema and hematoma.. COMPARISON:November 26, 2017 ORDERING CLINICIAN:MYCHAL DAVALOS FINDINGS:No consolidation, effusion, edema, or pneumothorax. Heart size withinnormal limits. Postsurgical changes of the upper abdomen. IMPRESSION:No evidence of acute intrathoracic abnormality.Electronically signed by: TOMASA QUIÑONES MD Normal [facility] DUPLEX EXTREMITY VEINS LMTD/ UNILATon 12-17-2017 DUPLEX EXTREMITY VEINS LMTD/UNILAT Name: ELIDA LANZA STUDY:DUPLEX EXTREMITY VEINS LMTD/UNILAT; 12/17/2017 4:55 pm INDICATION:Signs/Symptoms: Right elbow bruise and edema, bumped right elbow onthe door, and likewise. Medial elbow edema and hematoma.. COMPARISON:None. ORDERING CLINICIAN:MYCHAL DAVALOS TECHNIQUE:Vascular ultrasound of the right upper extremity was performed.Evaluation was performed with grayscale, color, and spectral Doppler.When possible, compression views of the evaluated veins was alsoperformed. FINDINGS:Evaluation of the visualized portions of the right internal jugular,innominate, subclavian, axillary, brachial, cephalic, and basilicveins was performed. There is normal respiratory variation, normal compressibility, aswell as normal color doppler signal in the visualized vessels. Thereis no evidence of thrombus. There is a heterogenous well-circumscribed area in the subcutaneoussoft tissue measuring 3.0 x 1.2 x 2.7 cm in the medial right elbowarea which most probably a small represents a hematoma. IMPRESSION:1. No evidence of DVT in the visualized veins of the right upperextremity.2. Medial right elbow hematoma measuring 3.0 x 1.2 x 2.7 cm.Electronically signed by: FENG MANUEL MD Normal [facility] ELBOW COMPLETE MIN. 3 VIEWSo n 12-17-2017 ELBOW COMPLETE MIN. 3 VIEWS Name: ELIDA LANZA STUDY:ELBOW COMPLETE MIN. 3 VIEWS; 12/17/2017 4:21 pm INDICATION:Signs/Symptoms: Right elbow bruise and edema, bumped right elbow onthe door, and likewise. Medial elbow edema and hematoma.. COMPARISON:None ORDERING CLINICIAN:MYCHAL DAVALOS FINDINGS:Five views right elbow. Mild osteoarthritic changes. There is alsothe suggestion of some chondrocalcinosis which could be pseudogout. No acute fracture seen. IMPRESSION:Arthritic changes, mild of the right elbow with suggestedchondrocalcinosis which raises the possibility of pseudogout/CPPDarthropathy.E lectronically signed by: TOMASA QUIÑONES MD Normal [facility] PT/INRon 12-17-2017 INR Coag RelTime (PPP) 1.2 {INR} High 0.9 - 1.1 [facility] Comment on above: Performed By: #### L IPID ####[facility] [place] [address] Prothrombin time (PT) Coag time (PPP) 12.5 s Normal 9.8 - 12.7 [facility] Comment on above: Performed By: #### L IPID ####[facility] [place] [address] Provider Note - ED v2on 12-01 Protein mass conc Provider Note - ED v 2:Chart Review: ED NOTESED NOTES: Patient was brought into the emergency room by his lzhkgdx-dx-xzu , bothpatient and his woezuem-iv-slt walked into the emergency room with patientcomplaint of right elbow bruise and small hematoma when he bumped his rightelbow against a door at home yesterday. Patient's is hospitalized kvjczccych-jn-ocm brought him into the ER for evaluation. Patient has been onEliquis for right leg DVT. He denies any chest pain or shortness of breath.Denies any trouble moving her elbow or shoulder wrist. Admitted to [facility] and physician Dr. Tapia cut down his Eliquis to half. Patientdenies fall or hitting his head, or neck injury or blackout or pass out. Deniesfall or hitting any objects except right elbow contusion with his arm hit thedoor yesterday.Patient denies any hematuria or other part of body. He denies headachedizziness or lightheadedness palpitation. Denies any chest pain or shortness ofbreath. Denies any blood in stool black stool or vomiting blood. Patient hadlunch with his wtvclme-ff-ftc before he came to the emergency room.Patient has history of chronic back pain has been in pain management , wastreated with narcotic and gabapentin fatigue recently. His pain managementdoctor had done a mental status, dementia? Exam and discontinued painmedication, after evaluation by specialists, patient is advised not to driveand not to live alone. He also recommended social staff worker consult for possibleplacement as patient's is in the hospital . Dr. Tapia, patient primarycare physician is out of town as a result they decided come to ER forevaluation. 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 Triage Information: Most recent Vital Sign Value Date Temp (F): 97.8 12-17-2017 15:26 Temp (C): 36.5 12-17-2017 15:26 Heart Rate (beats/min): 80 12-17-2017 15:26 Respirations (breaths/min): 18 12-17-2017 15:26 SpO2 (%): 97 12-17-2017 15:26 BP Systolic (mm Hg): 143 12-17-2017 15:26 BP Diastolic (mm Hg): 82 12-17-2017 15:26 PAST MEDICAL HISTORYATTESTATION: I have reviewed and confirmed nurse's/medic's notes for patient'smedications, allergies, medical history, and surgical history ALLERGIES/INTOLERANCES: No Known Allergies HEALTH HISTORY: No documented data. OUTPATIENT MEDICATIONS: Home Medications Review Status for Reconciliation: N/Fidel Status: Patient Currently Takes Medications Drug Name: metoprolol tartrate 25 mg oral tabletInstructions: 1/2 tab daily (12.5) Drug Name: citalopram 40 mg oral tabletInstructions: 1 cap(s) orally once a day Drug Name: acetaminophen-hydrocodone 750 mg-10 mg oral tabletInstructions: 1 cap(s) orally 5 times a day Drug Name: traZODone 100 mg oral tabletInstructions: 100 milligram(s) orally once (at bedtime) Drug Name: gabapentinInstructions: 900 milligram(s) orally 4 times a day Drug Name: oxyCODONE 5 mg oral tabletInstructions: 5 milligram(s) orally every 8 hours, As Needed Drug Name: LORazepam 0.5 mg oral tabletInstructions: 0.5 milligram(s) orally 2 times a day Drug Name: allopurinol 100 mg oral tabletInstructions: 100 milligram(s) orally once a day Drug Name: rosuvastatin 10 mg oral tabletInstructions: 1 tab(s) orally once a day (at bedtime) Drug Name: clopidogrel 75 mg oral tabletInstructions: 1 tab(s) orally once a day Drug Name: Symbicort 160 mcg-4.5 mcg/inh inhalation aerosolInstructions: 2 puff(s) inhaled 2 times a day, As Needed Drug Name: cephalexin 500 mg oral tabletInstructions: 1 tab(s) orally 2 times a day x 7 days SIGNIFICANT EVENTS: Immunizations Description:Tdap Status:Active Past Medical History Description:HTN Status:Active Description:Hypercholesterol emia Status:Active Description:COPD Status:Active Description:Depression Status:Active Description:Back Problems Status:Active Description:GI bleed Status:Active Description:DVT right lower leg Status:Active Past Surgical History Description:Hernia Repair Status:Active Description:Hemigastrectomy Status:Active Description:Bowel resection after obstruction Status:Active Description:Incisional hernia repair Status:Active REVIEW OF SYSTEMSCONSTITUTIONAL: Negative for: chills and feverENMTNose: Negative for: congestionThroat/Neck: Negative for: neck stiffnessCARDIOVASCULAR: Negative for: chest pain, diaphoresis, orthopnea, palpitationsand tachycardiaRESPIRATORY: Negative for: dyspnea, hemoptysis, pleuritic chest pain andwheezingGASTROINTESTINAL: Negative for: abdominal pain, nausea and vomiting; melena andstool incontinenceGENITOURINARY: Negative for: dysuria, frequency and urgency;MUSCULOSKELETAL: (Right elbow area Bruises small superficial hematoma, Deniesany pain with the range of motion of her shoulder wrist joint. 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 No deformity. He was talking and breathing comfortablyhe was awake alert and oriented times HENMT: Clinically and cooperative without any acute distress talking andbreathing comfortably. No deformity shortage of noted small old bruises notedleft above the eyebrow area without any hematoma bony depression. No facialedema or erythema. No drooping or drooling or stridor. Cervical, thoracic andlumbar spine nontender. Some pain with range of motion especially tried toraise arm above shoulder and the left side. Right arm both lower extremity andbilateral elbow and wrist with good range of motion and nontender. She wasawake, alert and oriented times 3. EYES: Clear bilaterally, pupils equal, round and reactive to light. Noperiorbital edema or erythema or cellulitis. No subconjunctival hemorrhage.Funduscopic examination grossly unremarkable CARDIOVASCULAR: Normal rate, regular rhythm. Heart sounds S1, S2. No murmurs,rubs or gallops. PMI non-displaced., Pulse and nontender Holten negativeinfected supposed intact sensation no peripheral edema P RESPIRATORY: Breath sounds clear and equal bilaterally. Chest wall nontender nocrepitation or subcutaneous emphysema. Breathing comfortably and moving airwell bilaterally GASTROINTESTINAL: Abdomen soft, non-distended, no rebound, no guarding. Bowelsounds normal in all 4 quadrants. GENITOURINARY: No CVA tenderness MUSCULOSKELETAL: Cervical thoracic and lumbar spine nontender elbow andshoulder without any deformity or tenderness except right elbow as superficialhematoma and bruise. No deformity of the elbow. Intact brachial and radialpulses. Good capillary refill at tip of finger intact sensation. Elbow andshoulder and wrist with good range of motion nontender bilaterally. Small oldbruises noted left forearm on the volar surface proximally without any bonytenderness or hematoma. Bilateral hand camera operator and intact radial pulses this isnontender. Cervical, thoracic and lumbar spine nontender head isnormocephalic/atraumatic pelvic is stable patient agreed motion and anklejoint. Chest wall is nontender. NEUROLOGICAL: Alert and oriented, cranial nerves grossly intact, no focaldefects. No motor or sensory deficit noted, patient had good portion of bothupper extremity with intact sensation. Cerebellar examination normal rate. Neckwas supple. SKIN: Skin normal color for race, warm, dry and intact. No evidence of traumaor lesions. PSYCHIATRIC: Alert and oriented to person, place, time/situation.normal mood and affect. No apparent risk to self or others. HEME/LYMPH: No adenopathy or splenomegaly. No cervical, supraclavicular oringuinal lymphadenopathy. RESULTS/VITAL SIGNSRESULTS:Recent Lab Results: I have reviewed these laboratory results: Complete Blood Count + Differential 17-Dec-2017 15:47:00 ResultValueWhite Blood Cell Count 6.9Red Blood Cell Count 4.42 LHGB 13.7HCT 42.7MCV 97MCHC 32.1PLT 256RDW-CV 13.0Neutrophil % 72.5Immature Granulocytes % 0.3Lymphocyte % 16.7Monocyte % 8.9Eosinophil % 0.9Basophil % 0.7Neutrophil Count 5.00Lymphocyte Count 1.15Monocyte Count 0.61Eosinophil Count 0.06Basophil Count 0.05 Basic Metabolic Panel 17-Dec-2017 15:47:00 ResultValueGlucose, Serum 152 HNA 139K 3.8CL 103Bicarbonate, Serum 27Anion Gap, Serum 13BUN 14CREAT 1.05GFR-Non >60GFR- >60Calcium, Serum 9.1 PT + INR, Plasma 17-Dec-2017 15:47:00 ResultValueProthrombin Time, Plasma 12.5International Normalized Ratio, Plasma 1.2 H Radiology Results: Impression: Arthritic changes, mild of the right elbow with suggestedchondrocalcinosis which raises the possibility of pseudogout/CPPDarthropathy. Xray Elbow Complete Min 3 View [Dec 17 2017 4:46PM] Impression: No evidence of acute intrathoracic abnormality. Xray Chest 1 View [Dec 17 2017 4:45PM] VITAL SIGNS: T PRBP SpO2O2(LPM) %FiO2 [id number] 15:26:[id number]/82 97 room air, no respiratorysupport EKG INTERPRETATION:EKG Date/Time: 17-Dec-2017 15:36Rate: 81Comments: Sinus rhythm rate of 81 low-voltage QRS complex. Nonspecificinterventricular conduction delay when compared to old EKG of 727 2010 nosignificant interval change noted. There were no ST segment elevation. AbnormalEKG without any interval change since last EKG MEDICAL DECISION MAKING/ED COURSEMDM/ED COURSE: Ultrasound showed no evidence of DVT except right elbow hematoma. X-ray showedno fracture or dislocation. EKG was unchanged from prior EKG and troponinnegative the past was unremarkable. He didn't have any bony tenderness noimpairment range of motion neurologically intact and no cardiac symptom. He wasdischarged home with close follow-up talking and off for social service consultand possible placement as recommended by specialist. Patient will be CLINICAL IMPRESSIONDiagnosis/Annotati on: ED Dx Name:Traumatic hematoma of left elbow Code:S50.02XA Name:On anticoagulant therapy Code:Z79.01 Dispostion: discharged Type: home ATTESTATION CRITICAL CARE TIMEIs this a critically ill patient?: no Electronic Signatures:Mychal Davalos) (Signed 17-Dec-2017 17:12)Authored: Provider Note - ED v2 Last Updated: 17-Dec-2017 17:12 by Mychal Davalos) References:1. Data Referenced From "Triage - ED" 12/17/2017 3:26 PM Normal [facility] Triage - EDon 12-17-2017 Triage - ED Pain:Pain Rating (0- 10): Rest0 Chart Review:CHIEF COMPLAINT ELIDA LANZA is a Male patient with a chief complaint of elbowpain/injury.Onset of the Complaint: [id number] Date/Time: 17-Dec-2017 15:15Pain Rating (0-10): Rest: 0Vital Signs:Temperature: 97.8F ( 36.5C) taken temporalBlood Pressure: 143/82 Mean:Heart Rate: 80Respiratory Rate: 18Pulse Oximetry: 97% on room air, no respiratory support. Height: 5 feet 1.00inches. 154.9 CMWeight: 155.0 pounds. Calculated 70.3 kg. (stated)Calculated BMI (kg/m2): 29.298 Calculated BSA (m2) 1.74 Allergies: noESI: 4 Symptoms Are POSITIVE For:bruising.Symptoms Are Negative For:abrasion, bleeding, deformity, difficulty bending, difficulty walking,numbness, pain (describe), decreased ROM and tingling. PAIN Pain Scale Used: JAMES ARRIVAL INFORMATION Means of Arrival: Ambulatory Mode of Arrival: private vehicle Arrival From:home Accompanied By: self PRIMARY ASSESSMENT ABCD Normal Findings: airway open and patent, breathing normal, circulationnormal and alert and oriented Past Medical History:? Past Medical History Reviewedyes Electronic Signatures:Yadira Antonio (RN) (Signed 17-Dec-2017 15:28)Authored: Triage, Past Medical History Last Updated: 17-Dec-2017 15:28 by Yadira Antonio (RN) Normal [facility] UA MICROSCOPICon 12-17-2017 MUCUS FEW Normal [facility] Comment on above: Performed By: #### L IPID ####[facility] [place] [address] RBC 1 /HPF Abnormal 0-5 [facility] Comment on above: Performed By: #### L IPID ####[id number] [place] [address] WBC 2 /HPF Abnormal 0-5 [facility] Comment on above: Performed By: #### L IPID ####[address] [address] URINALYSISon 12-17-2017 APPEARANCE CLEAR Normal CLEAR [facility] Comment on above: Performed By: #### L IPID ####[id number] [place] [address] BILIRUBIN Negative Normal NEGATIVE [facility] Comment on above: Performed By: #### L IPID ####[id number] [place] [address] BLOOD Negative Normal NEGATIVE [facility] Comment on above: Performed By: #### L IPID ####[id number] [place] [address] COLOR YELLOW Normal STRAW,YELL OW [facility] Comment on above: Performed By: #### L IPID ####[id number] [place] [address] GLUCOSE Negative Normal NEGATIVE [facility] Comment on above: Performed By: #### L IPID ####[address] [place] [address] KETONES Negative Normal NEGATIVE [facility] Comment on above: Performed By: #### L IPID ####[address] [place] [address] LEUKOCYTE ESTERASE TRACE Abnormal NEGATIVE [facility] Comment on above: Performed By: #### L IPID ####[id number] [place] [address] NITRITE Negative Normal NEGATIVE [facility] Comment on above: Performed By: #### L IPID ####[address] [place] [address] pH 6.0 Normal 5.0 - 8.0 [facility] Comment on above: Performed By: #### L IPID ####[address] [address] Protein mass conc Negative Normal NEGATIVE [facility] Comment on above: Performed By: #### L IPID ####[address] [address] SPECIFIC GRAVITY 1.010 Normal 1.005 - 1.035 [facility] Comment on above: Performed By: #### L IPID ####[address] [address] UROBILINOGEN 2.0 mg/dL High 0.0 - 1.9 [facility] Comment on above: Result Comment: SOME PIGMENTS AND MEDICATIONS MAY CAUSE AFALSE POSITIVE UROBILINOGEN Performed By: #### L IPID ####[address] [address] BASIC METABOLIC PANELon 07- Anion gap 3 molar conc 14 mmol/L Normal 10 - 20 [facility] Comment on above: Performed By: #### C MP ####[address] [address] Calcium mass conc 8.6 mg/dL Normal 8.6 - 10.3 [facility] Comment on above: Performed By: #### C MP ####[address] [address] Chloride molar conc 107 mmol/L Normal 98 - 107 [facility] Comment on above: Performed By: #### C MP ####[address] [address] Creatinine mass conc 1.12 mg/dL Normal 0.50 - 1.30 [facility] Comment on above: Performed By: #### C MP ####[address] [place] [address] GFR- AM. >60 Normal >60 [facility] Comment on above: Result Comment: CALC ULATIONS OF ESTIMATED GFR ARE PERFORMED USING THE MDRD STUDY EQUATION FOR THE IDMS-TRACEABLE CREATININE METHODS. CLIN CHEM 2007;53:766-72 Performed By: #### C MP ####[address] [place] [address] GFR-NON AM. >60 Normal >60 [facility] Comment on above: Performed By: #### C MP ####[address] [address] Glucose mass conc 92 mg/dL Normal 74 - 99 [facility] Comment on above: Performed By: #### C MP ####[address] [address] HCO3 molar conc (Bld) 23 mmol/L Normal 21 - 32 [facility] Comment on above: Performed By: #### C MP ####[address] [address] Potassium molar conc 3.7 mmol/L Normal 3.5 - 5.3 [facility] Comment on above: Performed By: #### C MP ####[address] [address] Sodium molar conc 140 mmol/L Normal 136 - 145 [facility] Comment on above: Performed By: #### C MP ####[address] [address] Urea nitrogen mass conc 18 mg/dL Normal 6 - 23 [facility] Comment on above: Performed By: #### C MP ####[address] [address] CBCon 11-28-2017 Erythrocyte distribution width Auto Ratio (RBC) 13.5 % Normal 11.5 - 14.5 [facility] Comment on above: Performed By: #### C MP ####[address] [address] Hematocrit Auto Volume Fraction (Bld) 42.4 % Normal 41.0 - 52.0 [facility] Comment on above: Performed By: #### C MP ####[address] [address] Hemoglobin mass conc (Bld) 14.2 g/dL Normal 13.5 - 17.5 [facility] Comment on above: Performed By: #### C MP ####[address] [address] MCHC Auto mass conc (RBC) 33.5 g/dL Normal 32.0 - 36.0 [facility] Comment on above: Performed By: #### C MP ####[address] [address] MCV Auto Entitic volume (RBC) 97 fL Normal 80 - 100 [facility] Comment on above: Performed By: #### C MP ####[address] [address] Platelets Auto #/vol (Bld) 190 10*3/uL Normal 150 - 450 [facility] Comment on above: Performed By: #### C MP ####[address] [address] RBC Auto #/vol (Bld) 4.38 x10E12/L Low 4.50 - 5.90 [facility] Comment on above: Performed By: #### C MP ####[address] [address] WBC Auto #/vol (Bld) 10.1 10*3/uL Normal 4.4 - 11.3 [facility] Comment on above: Performed By: #### C MP ####[address] [address] PT/INRon 11-28-2017 INR Coag RelTime (PPP) 1.2 {INR} High 0.9 - 1.1 [facility] Comment on above: Performed By: #### C MP ####[address] [address] Prothrombin time (PT) Coag time (PPP) 13.2 s High 9.8 - 12.7 [facility] Comment on above: Performed By: #### C MP ####[address] [place] [address] Provider Note - ED v2on 07-2 Protein mass conc Provider Note - ED v 2:Chart Review:ED NOTESED NOTES: Please not that this chart was dictated with voice commands and proof readingwas done however there may be discrepancies, please contact with questions orconcerns. HPI:This is an 79-year-old male with past medical history of HTN, CAD, TIA, BPHstatus post remote TURP presenting to the emergency department for evaluationof hematuria. Of note the patient was admitted to the hospital and dischargedhome yesterday. During that hospitalization he reports having a Judd catheterplaced. Patient is not aware of why this was placed. States it was removedyesterday and he did urinate without difficulty. His afternoon and noted frankred blood when urinating. States 3 more additional episodes. Patient had beenon Lovenox for DVT prevention while he was admitted to the hospital. He deniesany dysuria or increased frequency. He denies any difficulty generating streamof urine. He denies any abdominal pain or abdominal distention. Denies anyrecent fevers, chills, nausea or vomiting. Family HX: Denies any significant/pertinent family history.Social Hx: Denies ETOH or drug use.Review of Systems:Gen.: No weight loss, fatigue, anorexia, chills, fever.Eyes: No vision loss, double vision, drainage, eye pain.ENT: No pharyngitis, dry mouth, hoarseness. No nasal congestion or discharge.Cardiac: No chest pain, palpitations, orthopnea, syncope, near syncope.Pulmonary: No shortness of breath, cough, hemoptysis.Heme/lymph: No swollen glands, fever, bleeding, easy bruising.GI: No abdominal pain, change in bowel habits, melena, hematemesis,hematochezia, nausea, vomiting, diarrhea.: No discharge, dysuria, frequency, urgency, hematuria.Musculoskeletal: No limb pain, joint pain, joint swelling.Skin: No rashes.Review of systems is otherwise negative unless stated above or in history ofpresent illness. Physical Exam:General: Vitals noted, afebrile. NAD.HEENT: Head is normocephalic, atraumatic. Eyes are noninjected, anicteric,PERRLA, EOMI. Throat: Posterior oropharynx unremarkable without erythema orexudates, uvula is midline.Neck: Supple. No meningismus.Cardiac: Regular, rate, rhythm, no audible murmur appreciated. 2+ pulsesthroughout and brisk capillary refill present.Pulmonary: Lungs clear bilaterally with good aeration. No adventitious breathsounds. No accessory muscle use.Abdomen: Soft, nondistended, nontender to palpation. No peritoneal signs.Normoactive bowel sounds.Genitourinary: No CVA tenderness. Circumcised male. No abrasions or trauma wasidentified. The testicles are vertical nontender.Extremities: No peripheral edema. Negative Homans bilaterally, no cords.Neurovascularly intact throughout. No cyanosis or clubbing. HERNANDEZ X4.Skin: Warm, dry intact. No evidence of trauma or lesions.Neuro: No focal neurologic deficits. Normal mood and affect. Alert and orientedX3. Medical Decision-Making:Summary: Patient arrived stable vital signs. Initially cannot produce urine andbladder scanner showed 56 mL's of urine. He was given IV fluids and able tourinate without difficulty. There was no subsequent urinary retention. There isno gross hemateria identified when inspecting the urine. Patient urinated 2times the emergency department and the subsequent urine was clear. Initiallyhad planned for probable three-way Judd catheter for bladder irrigationhowever subsequent urine was clear with gross hematuria. He was recommended toreturn if he is unable to urinate or has abdominal distention or abdominalpain. He was given close follow-up with urology. Likely sources related torecent catheterization. There was no evidence of trauma on physical exam.Leukocyte esterase was identified on the urinalysis and he was placed onKeflex. Patients HPI, PE, ED course and plan of care staffed and discussed withattending physician.Plan: Homegoing. I discussed the differential, results and discharge plan withthe patient and/or family/friend/caregiver if present. I emphasized theimportance of follow-up with the physician I referred them to in the timeframerecommended. I explained reasons for the patient to return to the EmergencyDepartment. Questions were addressed. They understand return precautions anddischarge instructions. The patient and/or family/friend/caregiver expressedunderstanding.Dispo sition:Discharge HISTORY OF PRESENTING ILLNESSCLIFFORD was seen by me at 28-Nov-2017 17:27 for a chief complaint ofhematuria(1). Triage Information: Most recent Vital Sign Value Date Temp (F): 98 11-28-2017 17:26 Temp (C): 36.6 11-28-2017 17:26 Heart Rate (beats/min): 78 11-28-2017 17:26 Respirations (breaths/min): 16 11-28-2017 17:26 SpO2 (%): 94 11-28-2017 17:26 BP Systolic (mm Hg): 121 11-28-2017 17:26 BP Diastolic (mm Hg): 69 11-28-2017 17:26 PAST MEDICAL HISTORYATTESTATION: I have reviewed and confirmed nurse's/medic's notes for patient'smedications, allergies, medical history, and surgical history ALLERGIES/INTOLERANCES: No Known Allergies HEALTH HISTORY: No documented data. OUTPATIENT MEDICATIONS: Home Medications Review Status for Reconciliation: NotDoneMed Status: Patient Currently Takes Medications Drug Name: metoprolol tartrate 25 mg oral tabletInstructions: 1/2 tab daily (12.5) Drug Name: citalopram 40 mg oral tabletInstructions: 1 cap(s) orally once a day Drug Name: acetaminophen-hydrocodone 750 mg-10 mg oral tabletInstructions: 1 cap(s) orally 5 times a day Drug Name: traZODone 100 mg oral tabletInstructions: 100 milligram(s) orally once (at bedtime) Drug Name: gabapentinInstructions: 900 milligram(s) orally 4 times a day Drug Name: oxyCODONE 5 mg oral tabletInstructions: 5 milligram(s) orally every 8 hours, As Needed Drug Name: LORazepam 0.5 mg oral tabletInstructions: 0.5 milligram(s) orally 2 times a day Drug Name: allopurinol 100 mg oral tabletInstructions: 100 milligram(s) orally once a day Drug Name: rosuvastatin 10 mg oral tabletInstructions: 1 tab(s) orally once a day (at bedtime) Drug Name: clopidogrel 75 mg oral tabletInstructions: 1 tab(s) orally once a day Drug Name: Symbicort 160 mcg-4.5 mcg/inh inhalation aerosolInstructions: 2 puff(s) inhaled 2 times a day, As Needed Drug Name: cephalexin 500 mg oral tabletInstructions: 1 tab(s) orally 2 times a day x 7 days SIGNIFICANT EVENTS: Immunizations Description:Tdap Status:Active Past Medical History Description:HTN Status:Active Description:Hypercholesterol emia Status:Active Description:COPD Status:Active Description:Depression Status:Active Description:Back Problems Status:Active Description:GI bleed Status:Active Description:DVT right lower leg Status:Active Past Surgical History Description:Hernia Repair Status:Active Description:Hemigastrectomy Status:Active Description:Bowel resection after obstruction Status:Active Description:Incisional hernia repair Status:Active RESULTS/VITAL SIGNSRESULTS:Recent Lab Results: I have reviewed these laboratory results: Urinalysis 28-Nov-2017 19:41:00 ResultValueColor, Urine YELLOW Reference Range: STRAW,YELLOWAppearance, Urine HAZYSpecific [place], Urine 1.006pH, Urine 5.0Protein, Urine 30(1+) AGlucose, Urine NEGATIVEBlood, Urine LARGE(3+) AKetones, Urine NEGATIVEBilirubin, Urine NEGATIVEUrobilinogen, Urine <2.0Nitrite, Urine NEGATIVELeukocyte Esterase, Urine SMALL(1+) A Complete Blood Count 28-Nov-2017 19:21:00 ResultValueWhite Blood Cell Count 10.1Red Blood Cell Count 4.38 LHGB 14.2HCT 42.4MCV 97MCHC 33.5PLT 190RDW-CV 13.5 Basic Metabolic Panel 28-Nov-2017 19:21:00 ResultValueGlucose, Serum 92NA 140K 3.7CL 107Bicarbonate, Serum 23Anion Gap, Serum 14BUN 18CREAT 1.12GFR-Non >60GFR- >60Calcium, Serum 8.6 PT + INR, Plasma 28-Nov-2017 19:21:00 ResultValueProthrombin Time, Plasma 13.2 HInternational Normalized Ratio, Plasma 1.2 H VITAL SIGNS: T PRBP SpO2O2(LPM) %FiO2 [id number] 17:26:[id number]/69 94 room air, no respiratorysupport CLINICAL IMPRESSIONDiagnosis/Annotati on: ED Dx Name:Hematuria Code:R31.9 Name:UTI (urinary tract infection) Code:N39.0 Dispostion: discharged Type: homeCondition on Disposition: stable ATTESTATIONAttestation: Supervising physician on site, available for consultation,non-participato ry in the evaluation of the care of this patient. Comments/Additional Findings:Review the above. Hematuria seems to have abated clinically. Was not grosslybloody at this time. Stable for discharge to home to follow-up with urology asnecessary. CRITICAL CARE TIMEIs this a critically ill patient?: no Electronic Signatures:Estela Schneider (PAC) (Signed 28-Nov-2017 20:21)Authored: Provider Note - ED [id number] Calle Chester Donald (MD) (Signed 01-Dec-2017 04:51)Authored: Provider Note - ED [id number]: Provider Note - ED v2 Last Updated: 01-Dec-2017 04:[address] Chester Donald (MD) References:1. Data Referenced From "Triage - ED" 11/28/2017 5:26 PM Normal [facility] Triage - EDon 11-28-2017 INR Coag RelTime (Bld) Pain:Pain Rating (0-10): Rest0 Chart Review:CHIEF COMPLAINT ELIDA LANZA is a Male patient with a chief complaint of hematuria.Onset of the Complaint: [id number] Date/Time: 28-Nov-2017 17:17Pain Rating (0-10): Rest: 0Vital Signs:Temperature: 98.0F ( 36.6C) taken temporalBlood Pressure: 121/69 Mean:Heart Rate: 78Respiratory Rate: 16Pulse Oximetry: 94% on room air, no respiratory support. Height: 5 feet 9.00inches. 175.2 CMWeight: 150.0 pounds. Calculated 68.0 kg. (stated)Calculated BMI (kg/m2): 22.153 Calculated BSA (m2) 1.82 Allergies: noESI: 4 PAIN Pain Scale Used: JAMES Past Medical History:? Past Medical History Reviewedyes Electronic Signatures:Arianna León (CYNTHIA SINCLAIR) (Signed 28-Nov-2017 17:29)Authored: Triage, Past Medical History Last Updated: 28-Nov-2017 17:29 by Arianna León (CYNTHIA SINCLAIR) Normal [facility] UA MICROSCOPICon 11-28-2017 AMORPHOUS CRYSTAL 1+ /HPF Normal [facility] Comment on above: Performed By: #### C MP ####[address] [place] [address] BACTERIA 2+ /HPF Abnormal [facility] Comment on above: Performed By: #### C MP ####[address] [place] [address] MUCUS FEW Normal [facility] Comment on above: Performed By: #### C MP ####[address] [place] [address] RBC 122 /HPF Abnormal 0-5 [facility] Comment on above: Performed By: #### C MP ####[address] [place] [address] SQUAMOUS EPITH. CELLS <1 Normal [facility] Comment on above: Performed By: #### C MP ####[address] [place] [address] WBC 25 /HPF Abnormal 0-5 [facility] Comment on above: Performed By: #### C MP ####[address] [place] [address] WBC CLUMPS RARE Normal [facility] Comment on above: Performed By: #### C MP ####[address] [place] [address] URINALYSISon 11-28-2017 APPEARANCE HAZY Normal CLEAR [facility] Comment on above: Performed By: #### C MP ####[address] [place] [address] BILIRUBIN Negative Normal NEGATIVE [facility] Comment on above: Performed By: #### C MP ####[address] [place] [address] BLOOD LARGE(3+) Abnormal NEGATIVE [facility] Comment on above: Performed By: #### C MP ####[address] [place] [address] COLOR YELLOW Normal STRAW,YELL OW [facility] Comment on above: Performed By: #### C MP ####[address] [place] [address] GLUCOSE Negative Normal NEGATIVE [facility] Comment on above: Performed By: #### C MP ####[address] [address] KETONES Negative Normal NEGATIVE [facility] Comment on above: Performed By: #### C MP ####[address] [address] LEUKOCYTE ESTERASE SMALL(1+) Abnormal NEGATIVE [facility] Comment on above: Performed By: #### C MP ####[address] [address] NITRITE Negative Normal NEGATIVE [facility] Comment on above: Performed By: #### C MP ####[address] [address] pH 5.0 Normal 5.0 - 8.0 [facility] Comment on above: Performed By: #### C MP ####[address] [address] Protein mass conc 30(1+) Abnormal NEGATIVE [facility] Comment on above: Performed By: #### C MP ####[address] [address] SPECIFIC GRAVITY 1.006 Normal 1.005 - 1.035 [facility] Comment on above: Performed By: #### C MP ####[address] [address] UROBILINOGEN <2.0 Normal 0.0 - 1.9 [facility] Comment on above: Performed By: #### C MP ####[address] [address] CBC AND DIFFERENTIALon 11-27 % AUTOMATED IMMATURE GRAN 0.3 % Normal 0.0 - 0.9 [facility] Comment on above: Result Comment: Perc ent differential counts (%) should be interpreted in the context of the absolute cell counts (cells/L). Performed By: #### T 4FRE ####[address] [address] % NEUTROPHIL 63.4 % Normal 40.0 - 80.0 [facility] Comment on above: Performed By: #### T 4FRE ####[address] [address] Basophils/100 WBC Auto (Bld) 0.5 % Normal 0.0 - 2.0 [facility] Comment on above: Performed By: #### T 4FRE ####[address] [address] Basophils/100 WBC Auto (Bld) 0.03 x10E9/L Normal 0.00 - 0.10 [facility] Comment on above: Performed By: #### T 4FRE ####[address] [address] Eosinophils Auto #/vol (Bld) 0.15 10*3/uL Normal 0.00 - 0.40 [facility] Comment on above: Performed By: #### T 4FRE ####[address] [address] Eosinophils/100 WBC Auto (Bld) 2.5 % Normal 0.0 - 6.0 [facility] Comment on above: Performed By: #### T 4FRE ####[address] [address] Erythrocyte distribution width Auto Ratio (RBC) 13.2 % Normal 11.5 - 14.5 [facility] Comment on above: Performed By: #### T 4FRE ####[address] [address] Hematocrit Auto Volume Fraction (Bld) 41.6 % Normal 41.0 - 52.0 [facility] Comment on above: Performed By: #### T 4FRE ####[address] [address] Hemoglobin mass conc (Bld) 13.8 g/dL Normal 13.5 - 17.5 [facility] Comment on above: Performed By: #### T 4FRE ####[address] [address] Lymphocytes Auto #/vol (Bld) 1.31 10*3/uL Normal 0.80 - 3.00 [facility] Comment on above: Performed By: #### T 4FRE ####[address] [address] Lymphocytes/100 WBC Auto (Bld) 21.9 % Normal 13.0 - 44.0 [facility] Comment on above: Performed By: #### T 4FRE ####[address] [address] MCHC Auto mass conc (RBC) 33.2 g/dL Normal 32.0 - 36.0 [facility] Comment on above: Performed By: #### T 4FRE ####[address] [address] MCV Auto Entitic volume (RBC) 94 fL Normal 80 - 100 [facility] Comment on above: Performed By: #### T 4FRE ####[address] [address] Monocytes Auto #/vol (Bld) 0.68 10*3/uL Normal 0.05 - 0.80 [facility] Comment on above: Performed By: #### T 4FRE ####[address] [address] Monocytes/100 WBC Auto (Bld) 11.4 % Normal 2.0 - 10.0 [facility] Comment on above: Performed By: #### T 4FRE ####[address] [address] Neutrophils Auto #/vol (Bld) 3.80 10*3/uL Normal 1.60 - 5.50 [facility] Comment on above: Performed By: #### T 4FRE ####[address] [address] Platelets Auto #/vol (Bld) 171 10*3/uL Normal 150 - 450 [facility] Comment on above: Performed By: #### T 4FRE ####[address] [address] RBC Auto #/vol (Bld) 4.41 x10E12/L Low 4.50 - 5.90 [facility] Comment on above: Performed By: #### T 4FRE ####[address] [address] WBC Auto #/vol (Bld) 6.0 10*3/uL Normal 4.4 - 11.3 [facility] Comment on above: Performed By: #### T 4FRE ####[facility] [place] [address] COMPREHENSIVE PANELon 2017 Albumin mass conc 3.7 g/dL Normal 3.4 - 5.0 [facility] Comment on above: Performed By: #### T 4FRE ####[address] [place] [address] ALP enzyme act/vol 100 U/L Normal 33 - 136 [facility] Comment on above: Performed By: #### T 4FRE ####[facility] [place] [address] ALT enzyme act/vol 11 U/L Normal 10 - 52 [facility] Comment on above: Result Comment: Jaqueline ents treated with Sulfasalazine may generate falsely decreased results for ALT. Performed By: #### T 4FRE ####[address] [place] [address] Anion gap 3 molar conc 13 mmol/L Normal 10 - 20 [facility] Comment on above: Performed By: #### T 4FRE ####[address] [place] [address] AST enzyme act/vol 19 U/L Normal 9 - 39 [facility] Comment on above: Performed By: #### T 4FRE ####[address] [place] [address] Bilirubin mass conc 0.6 mg/dL Normal 0.0 - 1.2 [facility] Comment on above: Performed By: #### T 4FRE ####[facility] [place] [address] Calcium mass conc 9.1 mg/dL Normal 8.6 - 10.3 [facility] Comment on above: Performed By: #### T 4FRE ####[address] [place] [address] Chloride molar conc 108 mmol/L High 98 - 107 [facility] Comment on above: Performed By: #### T 4FRE ####[address] [place] [address] Creatinine mass conc 0.97 mg/dL Normal 0.50 - 1.30 [facility] Comment on above: Performed By: #### T 4FRE ####[address] [place] [address] GFR- AM. >60 Normal >60 [facility] Comment on above: Result Comment: CALC ULATIONS OF ESTIMATED GFR ARE PERFORMED USING THE MDRD STUDY EQUATION FOR THE IDMS-TRACEABLE CREATININE METHODS. CLIN CHEM 2007;53:766-72 Performed By: #### T 4FRE ####[address] [place] [address] GFR-NON AM. >60 Normal >60 [facility] Comment on above: Performed By: #### T 4FRE ####[address] [place] [address] Glucose mass conc 94 mg/dL Normal 74 - 99 [facility] Comment on above: Performed By: #### T 4FRE ####[address] [address] HCO3 molar conc (Bld) 25 mmol/L Normal 21 - 32 [facility] Comment on above: Performed By: #### T 4FRE ####[address] [place] [address] Potassium molar conc 3.5 mmol/L Normal 3.5 - 5.3 [facility] Comment on above: Performed By: #### T 4FRE ####[address] [place] [address] Protein mass conc 5.8 g/dL Low 6.4 - 8.2 [facility] Comment on above: Performed By: #### T 4FRE ####[address] [address] Sodium molar conc 142 mmol/L Normal 136 - 145 [facility] Comment on above: Performed By: #### T 4FRE ####[address] [address] Urea nitrogen mass conc 16 mg/dL Normal 6 - 23 [facility] Comment on above: Performed By: #### T 4FRE ####[address] [address] Discharge Planning Noteon Discharge Planning Note Patient Learning:? Factors that Impact Ability to Learncomprehension(1) Other Factors:? Functional Screen: In the recent/past 2-4 weeks, patient or family havenoticedno issues that require a rehabilitation consult at this time(2) Final Disposition/Discharge:Dispos ition/Discharge Information: Discharge/Transfer Information:? Discharge/Transfer Date/[id number] 18:28? Discharged Accompanied Byfamily member? Discharge Modeambulatory? Transportation Methodprivate car? Valuables/Medications/Belong ings Returnedyes? Final DispositionHome Electronic Signatures:Magalys Weiss (CYNTHIA) (Signed 27-Nov-2017 18:47)Authored: Discharge Planning Note, Final Disposition/Discharge Last Updated: 27-Nov-2017 18:47 by Magalys Weiss (CYNTHIA) References:1. Data Referenced From "5. Education" 11/26/2017 5:04 PM2. Data Referenced From Admission Risk Screen - Adult" 11/26/2017 5:04 PM Normal [facility] Discharge [id number] Protein mass conc Discharge Orders:Ant icipated Discharge Date:? Anticipated Discharge [id number] Hospital Providers:Provider RoleProvider Name? PrimaryJonna Tapia? AttendingBobo Crowe Activity:activity as tolerated. May shower. May drive. Diet:? Dietregular? Diet Consistency/Textureregular / thin Provider FINAL REVIEW of Orders:Final Review:? Final Review of Medication Reconciliation and Orders Completedby Physician? Reviewing ProviderBobo Crowe MD at 27-Nov-2017 17:50:09 Electronic Signatures:Marysol Hendrickson (Scribe) (Entered 27-Nov-2017 17:48)Entered: Discharge Orders, Gold Form - Client Care Manager SummaryBobo Crowe) (Signed 27-Nov-2017 17:50)Entered: Provider FINAL REVIEW of OrdersAuthored: Discharge Orders, Provider FINAL REVIEW of Orders, Gold Form -Client Care Manager Summary Last Updated: 27-Nov-2017 17:50 by Bobo Crowe) Normal [facility] History and Physicalon 11-27 History and Physical History of Present Illness:Admission Reason: Confusion/DisorientationHPI: Mr. Lanza is an 79 year old male pt. with PMH remarkable for HTN,CAD, TIA who woke up in middle of night with headache in his frontal loberegion, was sudden onset and persisted throughout day. He denies any confusion,but according to his family member, he was found to be confused and with someaphasia. Therefore, he was taken in to PCP office, but PCP rec he be evaluatedin ED. Workup in ED--> Vital signs: 98.1, 88, 18, 98%, 138/74; Labs: WBC 7.6,PLT 194; HGB 14.9, HCT 44.5; Na 142, K+ 3.8; CHL 106; Bicarb 25; BUN 17; Creat1.06; Glucose 110; UA was negative for any infection; CT scan of head wasnegative for any acute findings; Chest x-ray was negative for any acutecardiopulmonary issues. He was admitted for further evaluation.Seen and examined today. He is sitting up in bed awake on exam. He states hehad headache over frontal lobe region from 3am yesterday am until yesterdayevening when in ED. He denies any headache on exam. He denies anylightheadedness, dizziness, blurred vision, nasal drainage. Denies any urinaryissues. He denies chest pain, breathing difficulties, abdominal pain, N/V/D/C.No fever or chills. Denies any weakness or numbness to any extremities. Past Medical/Surgical History:GoutEssential HTNBPHBursitis of hipCADChronic back painCOPDChronic renal insufficiencyDVT RLEDepressionAnxietyGERDHype rcholesteremiaInsomniaTIAOA klever. hipsPeripheral neuropathyVitamin D deficiencyAnemiaUrinary RetentionBack surgeryHernia RepairTURPGastrectomy Social History:Lives home alone, independent with ADL's; Never smoker; denies alcohol Family History:Father age 58, was a legal examiner, had lung diseaseMother age 53, complications of appendicitis Review of Systems:Constitutional: + headache; No fever, chills, anorexia or weight lossEyes: No blurry vision, diplopia or vision lossENT: No nasal congestion, earache or sore throatRespiratory: No cough, SOB, hemoptysis or wheezingCardiac: No Chest Pain or palpitations, dyspnea on exertion, or orthopneaGastrointestinal: No abdominal pain, nausea, vomiting, diarrhea, melena,hemoptysis, or hematocheziaGenitourinary: No dysuria, hematuria, frequency, urgency, incontinence orflank painMusculoskeletal: No arthralgia, myalgia, stiffness, weaknessNeurological: No dizziness, light-headedness, blurry vision, headache, orsyncopePsychiatric: No history of anxiety, depression, hallucinations,suicidal/homi cidal ideationSkin: No Rash or pruritis, ulcersEndocrine: No heat or cold intolerance, polyuria, polydipsiaHematologic: No bruising, petechiae Comorbidities:? Comorbid Conditionschronic obstructive pulmonary disease, hypertension? COPDunknown Allergies:? No Known Allergies: Objective: Objective Information: T [id number]%D ate/Time11/27 15: 15: 15: 16: 15:53Range(36.5C - 37C ) (69 - 84 ) (17 - 18 ) (91 - 159 )/ (54 - 88 ) (94% -96% )Highest temp of 37 C was recorded at 11/27 15:33Hqownjupfoh8/28 17:13 P [id number] / 60 (102 - 130 ) / (60 - 78 )[id number] / 58 (106 - 148 ) / (58 - 85 )[id number] / 61 (108 - 132 ) / (61 - 82 ) Pain at Rest reported at 11/27 10:45: 0 Physical Exam: Constitutional: Well developed, awake/alert/oriented x3, no distress, alert andcooperativeEyes: PERRL, EOMI, clear scleraENMT: mucous membranes moist, no apparent injury, no lesions seenHead/Neck: Neck supple, no apparent injury, thyroid without mass or tenderness,No JVD, trachea midline, no bruitsRespiratory/Thorax: Patent airways, CTAB, normal breath sounds with good chestexpansion, thorax symmetricCardiovascular: Regular, rate and rhythm, no murmurs, 2+ equal pulses of theextremities, normal S 1and S 2Gastrointestinal: Nondistended, soft, non-tender, no rebound tenderness orguarding, no masses palpable, no organomegaly, +BS, no bruitsMusculoskeletal: ROM intact, no joint swelling, normal strengthExtremities: normal extremities, no cyanosis edema, contusions or wounds, noclubbingNeurological: alert and oriented x3, intact senses, motor, response andreflexes, normal strengthLymphatic: No significant lymphadenopathyPsychological : Appropriate mood and behaviorSkin: Warm and dry, no lesions, no rashes Medications: Medications: Continuous Medications ----No continuous medications are active Scheduled Medications ---- 1. Allopurinol: 100 mg Oral Every 24 Hours2. Atorvastatin: 40 mg Oral At Bedtime3. Citalopram: 40 mg Oral Daily4. Clopidogrel: 75 mg Oral Daily5. Enoxaparin SubCutaneous: 40 mg SubCutaneous Every 24 Hours6. Fluticasone 250 microgram -Salmeterol 50 microgram/ Inh: 1 inhalationInhalation Every 12 Hours7. Gabapentin: 900 mg Oral 4 Times a Day8. Metoprolol Tartrate: 12.5 mg Oral Every 24 Hours9. traZODone: 100 mg Oral At Bedtime PRN Medications ---- 1. HYDROcodone 10 mg - Acetaminophen 325 m tablet(s) Oral Every 4 Hours 2. LORazepam: 0.5 mg Oral Every 12 Hours3. oxyCODONE Immediate Release: 5 mg Oral Every 4 Hours Recent Lab Results: Results: I have reviewed these laboratory results: Complete Blood Count + Differential 27-Nov-2017 05:22:00 ResultValueWhite Blood Cell Count 6.0Red Blood Cell Count 4.41 LHGB 13.8HCT 41.6MCV 94MCHC 33.2PLT 171RDW-CV 13.2Neutrophil % 63.4Immature Granulocytes % 0.3Lymphocyte % 21.9Monocyte % 11.4Eosinophil % 2.5Basophil % 0.5Neutrophil Count 3.80Lymphocyte Count 1.31Monocyte Count 0.68Eosinophil Count 0.15Basophil Count 0.03 Comprehensive Metabolic Panel 27-Nov-2017 05:22:00 ResultValueGlucose, Serum 94NA 142K 3.5CL 108 HBicarbonate, Serum 25Anion Gap, Serum 13BUN 16CREAT 0.97GFR-Non >60GFR- >60Calcium, Serum 9.1ALB 3.7ALKP 100T Pro 5.8 LT Bili 0.6Alanine Aminotransferase, Serum 11Aspartate Transaminase, Serum 19 Urinalysis 26-Nov-2017 14:18:00 ResultValueColor, Urine YELLOW Reference Range: STRAW,YELLOWAppearance, Urine HAZYSpecific [place], Urine 1.025pH, Urine 5.0Protein, Urine NEGATIVEGlucose, Urine NEGATIVEBlood, Urine NEGATIVEKetones, Urine 20(1+) ABilirubin, Urine NEGATIVEUrobilinogen, Urine 4.0 HNitrite, Urine NEGATIVELeukocyte Esterase, Urine NEGATIVE Culture, Urine 26-Nov-2017 14:18:00 ResultValueCulture, Urine NO GROWTH Lactate, Level 26-Nov-2017 13:40:00 ResultValueLactate, Level 1.8 Culture, Blood 26-Nov-2017 13:40:00 ResultValueCulture, Blood NEGATIVE TO DATE, CULTURE IN PROGRESS. Radiology Results: Results: Impression: *There is no evidence of hemohrage, mass lesion or acute infarction.THIS MRI Brain without Contrast [Nov 27 2017 3:52PM] Impression: 1. No active cardiopulmonary disease. Xray Chest 2 View PA + Lateral [Nov 26 2017 1:14PM] Impression: Age related degenerative change as described without acute findings. CT Head without Contrast [Nov 26 2017 1:13PM] Assessment and Plan:Assessment:This is an 79-year-old gentleman with history of hypertension, chronic backpain on several narcotic pain medications, CAD history of TIA patient is onPlavix, was admitted to hospital secondary to headache, patient was confusedand disoriented per family report.Problem #1 confusion/disorientation/slu rred speech. CT scan of brain wasnegative for any acute finding, patient was sent for MRI of brain there was noany evidence of acute stroke, not even remote stroke, patient is back to hisbaseline, though patient had any neurovascular problem I think patient'sheadache and disorientation was most likely secondary to medication he is onlarge amount of gabapentin, trazodone, oxycodone, and lorazepam. At this timewe will continue with the Plavix, no any limitation patient's activity patientis cleared to be discharged home.Problem #2 Hypertension. Well-controlled continue with beta kylee.Problem #3 chronic back pain, stable at this point continue with patient'scurrent medication.Problem #4 gout. No any acute gouty attack continue with allopurinol.Problem #5 hyperlipidemia. On atorvastatin is stable.Problem #6 DVT prophylaxis. Lovenox.Disposition. Discharge home. Signatures/Attestation/Certi fication:Scribe Only - Scribe AttestationI am scribing for, and in the presence of theprovider.Scribing on behalf of (Provider name) Provider Only - Attestation to ScribeThe documentation recorded by theindividual acting as Scribe, in my presence, accurately and completely reflectsthe service(s) I personally performed and the decisions made by me.Attending Provider ? Inpatient Certification StatementN/A - observationpatient/other outpatient visits Electronic Signatures:Marysol Hendrickson (Scribe) (Entered 27-Nov-2017 17:24)Entered: History of Present Illness, Comorbidities, Allergies, Objective,Signatures/Attesta tion/CertificationBobo Crowe) (Signed 27-Nov-2017 18:14)Entered: Assessment and PlanAuthored: History of Present Illness, Comorbidities, Allergies, Objective,Assessment and Plan, Signatures/Attestation/Certi fication Last Updated: 27-Nov-2017 18:14 by Bobo Crowe) Normal [facility] NR MRI BRAIN WOon 11-27-2017 NR MRI BRAIN WO Name: ELIDA LANZA STUDY:NR MRI BRAIN WO; 11/27/2017 3:25 pm INDICATION:Signs/Symptoms: headache, aphasia. COMPARISON:March 2009. ORDERING CLINICIAN:BOBO CROWE TECHNIQUE:The brain was studied in the sagittal axial and coronal planesutilizing FLAIR, T1 and T2 weighted images FINDINGS:There is slight prominence of the cortical sulci and sylvianfissures. There is prominence of the cerebral spinal fluid spacesanterior to both frontal lobes and within the anterior portion of theinterhemispheric fissure unchanged from the previous exam. There isprominence of the cerebrospinal fluid spaces within the posteriorfossa unchanged from the previous exam. There is mild ventriculardilatation. There are a few scattered foci of abnormal signal withinthe basal ganglia and subcortical white matter bilaterally. Theseare compatible with minimal small vessel ischemic changes. Thesenonspecific findings could also be produced by a demyelinating orpost inflammatory process. The visualized skull base paranasalsinuses and orbital structures are unremarkable. Diffusion weightedimages and associated ADC maps of the brain were unremarkable. Thereis no evidence of diffusion restriction to suggest the presence ofacute infarction. IMPRESSION*There is no evidence of hemohrage, mass lesion or acute infarction.THIS EXAMINATION WAS [facility]PRET[facility] [place] signed by: SURESH VILLARREAL MD [facility] Admission Risk Screen - Adul ton 11-26-2017 Admission Risk Screen - Adult Allergies: Allergies:? No Known Allergies: Patient Verification:? New W ID Band Applied in my Departmentno? Type of ID Patient is WearingW wristband, but not applied here? Patient Transferred from Other Facility ([facility], [facility],etc)no? Patient Identity Verified Bypatient? ID Band FULL Name, include Middle, spelling matches patient's ID used forverificationyes? ID Band Matches Patient ID used for Verficationyes? ID Band MRN Matches EMR MRNyes Advance Directive:? Advance Directive Medicalyes? Advance Directive typeLiving Will, Durable Power of Packaging Designer for Healthcare? Living Will AvailabilityLiving Will not available now? Living Will [id number]? Durable Power of Packaging Designer AvailabilityDPOA not available now? Durable Power of Packaging Designer [id number]? Durable Power of Packaging Designer contact (name and number)Stephani--[phone] ? Advance Directive Mental Healthnot applicable Falls Screen:Type of AssessmentadmissionModerate Risk Factorspatient care equipment (scds, iv?s, chest tubes, judd,etc)High Risk Factorsagitation/confusion, gait instability, impulsivityRisk for Injury Associated with Fallcoagulation ? blood thinners (Coumadin,heparin gtt), coagulopathyFall Risk Conclusionhigh falls risk with risk for associated injuryUniversal Safety InterventionsWDL *orient to call system *instruct to call forassistance before getting out of bed *non-slip footwear when patient is out ofbed *call swan in reach *personal items and telephone in reach *physically safeenvironment (no spills or clutter) *bed in lowest position with wheels locked*appropriate side rails in place *room/bathroom lighting operational, lightcord in reach *appropriate signage on doorFall and Injury Risk Interventionssupervised toileting (mandatory for all highrisk patients), exit (bed/chair) alarms (mandatory for all high risk patients),bed alarm - zero scale to ensure bed alarm operation, educate pt/family,educate patient/family for risk for injury (fractures and bleeding), do notleave patient unattended while in the bathroom Family Violence Screen:? Are you or have you been threatened or abused physically, emotionally, orsexually by anyone?no? Do you feel UNSAFE going back to the place where you are living?no? Clinical assessment: Are there any apparent signs of injuries/behaviors thatcould be related to abuse/neglectno? Social Service Consult for abuse/neglect needed this visit?no Functional screen:? Functional Screen: In the recent/past 2-4 weeks, patient or family havenoticedno issues that require a rehabilitation consult at this time Learning Assessment (Patient):? Patient is Able to be Assessed for Learningyes? Factors Influencing Readiness to Learnacuteness of illness; confused? Factors that Impact Ability to Learncomprehension? Devices/Methods Used to Communicateglasses? Learning Preferencesverbal instruction? Cultural Considerationsnone? Developmental Considerationsnone? Caodaism Considerationsnone Learning Assessment (Other Learner):? Other learner availableno Suicide/Depression Screen:? During the past month, have you often been bothered by feeling down,depressed or hopeless?no? During the past month, have you often had little interest or pleasure indoing things?no? Have you had any thoughts of harming yourself?no (1)? Have you had any thoughts of harming anyone else?no (1) Adult Nutrition Screen:? Have you recently lost weight without tryingyes; 2-13 lb? Have you been eating poorly because of a decreased appetiteno? MST Score1? RiskMST = 0 or 1 Not at risk. Eating well with little or no weight loss? Nutrition Consult needed this visit?no? Can Patient Participate in Room Service?yes, with assistance? Patient requires Paper Dishes/Plastic Utensilsno Pain Screen:? Pain Scalenumerical 0-10? Pain Scale Educationteaching provided? Current Pain Level0 = None? Acceptable Pain Levelunable to assess? Expression of Pain (nonverbal)verbalization? Chronic Painyes? Chronic Back pain locationlower, back? Chronic Pelvic pain locationright, hip Spiritual Screen:? Are there any cultural, spiritual, hinduism practices/values/needs that areimportant for us to know?no CAGE:Is this an injured patient at a Trauma Center ([facility] [place] [facility]): no Vaccinations:Vaccination - Influenza Vaccination Screen:? Is it flu season? (between and )No Vaccination - Pneumonia Vaccination Screen:? Patient has received a previous pneumonia vaccine:yes Michael:Skin - Michael Scale: ? Michael: Sensory Perception (response to environment)(3) slightly limited? Michael: Moisture (degree skin exposed to moisture)(4) rarely moist? Michael: Activity (ability to walk)(3) walks occasionally? Michael: Mobility (amount/control of body movement)(3) slightly limited? Michael: Nutrition (quality of food intake)(3) adequate? Michael: Friction and Shear(3) no apparent problem? Michael: Score19 Significant Indicatiors:Significant Indicators: Complete Pressure Injury:Pressure Injury Present on Admissionno Electronic Signatures:Kamala Griffith (CYNTHIA) (Signed 26-Nov-2017 20:25)Authored: Admission Risk Screens, Vaccinations, Michael, Pressure Injury Last Updated: 26-Nov-2017 20:25 by Kamala Griffith (CYNTHIA) References:1. Data Referenced From "Triage - ED" 11/26/2017 01:32 PM [facility] BLOOD CULTURE, BACTERIALon 0 11-26-2017 BLOOD CULTURE, BACTERIAL PATIENT: ELIDA LANZA LOCATION: [address]#: [id number] : [birth year] AGE: SEX: M ORDERED BY: CECILIA ROGERS: Blood COLLECTED: 11/26/17 13:40ANTIBIOTICS AT [place].: RECEIVED : 11/26/17 22:38SITE: ANTECUBITAL R E S U L T S BLOOD CULTURE, BACTERIAL FINAL 12/01/17 23:42 No Growth at 1 days No Growth at 2 days No Growth at 3 days No Growth at 4 days NO GROWTH - FINAL REPORT [facility] Comment on above: Performed By: #### C MP ####[address] [place] [address] BLOOD CULTURE, BACTERIAL PATIENT: ELIDA LANZA LOCATION: [id number]#: [id number] : [birth year] AGE: SEX: M ORDERED BY: CECILIA ROGERS: Blood COLLECTED: 11/26/17 13:40ANTIBIOTICS AT [place].: RECEIVED : 11/26/17 22:38SITE: ANTECUBITAL R E S U L T S BLOOD CULTURE, BACTERIAL FINAL 12/01/17 23:42 No Growth at 1 days No Growth at 2 days No Growth at 3 days No Growth at 4 days NO GROWTH - FINAL REPORT [facility] Comment on above: Performed By: #### C MP ####[address] [place] [address] CBC AND DIFFERENTIALon 11-26 % AUTOMATED IMMATURE GRAN 0.4 % Normal 0.0 - 0.9 [facility] Comment on above: Result Comment: Perc ent differential counts (%) should be interpreted in the context of the absolute cell counts (cells/L). Performed By: #### T SH2 ####[address] [place] [address] % NEUTROPHIL 76.6 % Normal 40.0 - 80.0 [facility] Comment on above: Performed By: #### T SH2 ####[address] [address] Basophils/100 WBC Auto (Bld) 0.4 % Normal 0.0 - 2.0 [facility] Comment on above: Performed By: #### T SH2 ####[address] [address] Basophils/100 WBC Auto (Bld) 0.03 x10E9/L Normal 0.00 - 0.10 [facility] Comment on above: Performed By: #### T SH2 ####[address] [address] Eosinophils Auto #/vol (Bld) 0.02 10*3/uL Normal 0.00 - 0.40 [facility] Comment on above: Performed By: #### T SH2 ####[address] [address] Eosinophils/100 WBC Auto (Bld) 0.3 % Normal 0.0 - 6.0 [facility] Comment on above: Performed By: #### T SH2 ####[address] [address] Erythrocyte distribution width Auto Ratio (RBC) 13.0 % Normal 11.5 - 14.5 [facility] Comment on above: Performed By: #### T SH2 ####[address] [address] Hematocrit Auto Volume Fraction (Bld) 44.5 % Normal 41.0 - 52.0 [facility] Comment on above: Performed By: #### T SH2 ####[address] [address] Hemoglobin mass conc (Bld) 14.9 g/dL Normal 13.5 - 17.5 [facility] Comment on above: Performed By: #### T SH2 ####[address] [address] Lymphocytes Auto #/vol (Bld) 1.14 10*3/uL Normal 0.80 - 3.00 [facility] Comment on above: Performed By: #### T SH2 ####[address] [address] Lymphocytes/100 WBC Auto (Bld) 15.0 % Normal 13.0 - 44.0 [facility] Comment on above: Performed By: #### T SH2 ####[address] [place] [address] MCHC Auto mass conc (RBC) 33.5 g/dL Normal 32.0 - 36.0 [facility] Comment on above: Performed By: #### T SH2 ####[address] [address] MCV Auto Entitic volume (RBC) 94 fL Normal 80 - 100 [facility] Comment on above: Performed By: #### T SH2 ####[address] [address] Monocytes Auto #/vol (Bld) 0.56 10*3/uL Normal 0.05 - 0.80 [facility] Comment on above: Performed By: #### T SH2 ####[address] [address] Monocytes/100 WBC Auto (Bld) 7.3 % Normal 2.0 - 10.0 [facility] Comment on above: Performed By: #### T SH2 ####[address] [address] Neutrophils Auto #/vol (Bld) 5.84 10*3/uL High 1.60 - 5.50 [facility] Comment on above: Performed By: #### T SH2 ####[address] [address] Platelets Auto #/vol (Bld) 194 10*3/uL Normal 150 - 450 [facility] Comment on above: Performed By: #### T SH2 ####[address] [address] RBC Auto #/vol (Bld) 4.75 x10E12/L Normal 4.50 - 5.90 [facility] Comment on above: Performed By: #### T SH2 ####[address] [address] WBC Auto #/vol (Bld) 7.6 10*3/uL Normal 4.4 - 11.3 [facility] Comment on above: Performed By: #### T SH2 ####[address] [address] CHEST 2 VIEW PA AND LATon CHEST 2 VIEW PA AND LAT Name: ELIDA LANZA STUDY:CHEST 2 VIEW PA AND LAT; 11/26/2017 1:07 pm INDICATION:Signs/Symptoms: cough. COMPARISON:11/28/2013 ORDERING CLINICIAN:ADAM ROGERS FINDINGS:CARDIOMEDIASTINAL SILHOUETTE AND VASCULATURE: Cardiac size:Within normal limits considering technique Aortic shadow: Within normal limits considering technique Mediastinal contours: Within normal limits considering technique Pulmonary vasculature: Within normal limits without definitecongestion LUNGS:Lungs are clear. ABDOMEN AND OTHER FINDINGS:No remarkable upper abdominal findings. BONES:No acute osseous changes. IMPRESSION:1. No active cardiopulmonary disease.Electronically signed by: CONSTANCE FERNANDEZ MD [facility] COMPREHENSIVE PANELon 2017 Albumin mass conc 4.2 g/dL Normal 3.4 - 5.0 [facility] Comment on above: Performed By: #### T SH2 ####[address] [address] ALP enzyme act/vol 114 U/L Normal 33 - 136 [facility] Comment on above: Performed By: #### T SH2 ####[address] [address] ALT enzyme act/vol 13 U/L Normal 10 - 52 [facility] Comment on above: Result Comment: Jaqueline ents treated with Sulfasalazine may generate falsely decreased results for ALT. Performed By: #### T SH2 ####[address] [place] [address] Anion gap 3 molar conc 15 mmol/L Normal 10 - 20 [facility] Comment on above: Performed By: #### T SH2 ####[address] [place] [address] AST enzyme act/vol 23 U/L Normal 9 - 39 [facility] Comment on above: Performed By: #### T SH2 ####[address] [place] [address] Bilirubin mass conc 0.7 mg/dL Normal 0.0 - 1.2 [facility] Comment on above: Performed By: #### T SH2 ####[address] [address] Calcium mass conc 9.7 mg/dL Normal 8.6 - 10.3 [facility] Comment on above: Performed By: #### T SH2 ####[address] [place] [address] Chloride molar conc 106 mmol/L Normal 98 - 107 [facility] Comment on above: Performed By: #### T SH2 ####[address] [place] [address] Creatinine mass conc 1.06 mg/dL Normal 0.50 - 1.30 [facility] Comment on above: Performed By: #### T SH2 ####[address] [address] GFR- AM. >60 Normal >60 [facility] Comment on above: Result Comment: CALC ULATIONS OF ESTIMATED GFR ARE PERFORMED USING THE MDRD STUDY EQUATION FOR THE IDMS-TRACEABLE CREATININE METHODS. CLIN CHEM 2007;53:766-72 Performed By: #### T SH2 ####[address] [address] GFR-NON AM. >60 Normal >60 [facility] Comment on above: Performed By: #### T SH2 ####[address] [address] Glucose mass conc 110 mg/dL High 74 - 99 [facility] Comment on above: Performed By: #### T SH2 ####[address] [address] HCO3 molar conc (Bld) 25 mmol/L Normal 21 - 32 [facility] Comment on above: Performed By: #### T SH2 ####[address] [place] [address] Potassium molar conc 3.8 mmol/L Normal 3.5 - 5.3 [facility] Comment on above: Performed By: #### T SH2 ####[address] [place] [address] Protein mass conc 6.6 g/dL Normal 6.4 - 8.2 [facility] Comment on above: Performed By: #### T SH2 ####[address] [address] Sodium molar conc 142 mmol/L Normal 136 - 145 [facility] Comment on above: Performed By: #### T SH2 ####[facility] [place] [address] Urea nitrogen mass conc 17 mg/dL Normal 6 - 23 [facility] Comment on above: Performed By: #### T SH2 ####[facility] [place] [address] CT HEAD WO CONTRASTon 2017 CT HEAD WO CONTRAST Name: ELIDA LANZA STUDY:CT HEAD WO CONTRAST; 11/26/2017 1:05 pm INDICATION:Signs/Symptoms: AMS. COMPARISON:None. ORDERING CLINICIAN:ADAM ROGERS TECHNIQUE:Sequential trans axial images were obtained . FINDINGS:INTRACRANIAL:There is mild prominence of the cortical sulci indicating atrophy. There is mild ventriculomegaly, again consistent with atrophy. Mild decreased attenuation of the periventricular and long tracks ofthe white matter most consistent with gliosis from arterial disease.There is no evidence of definite subacute infarction, intracranialhemorrhage or mass. EXTRACRANIAL:Visualized paranasal sinuses and mastoids are clear.The calvarium is intact. IMPRESSION:Age related degenerative change as described without acute findings.Electronically signed by: CONSTANCE FERNANDEZ MD [facility] LACTATEon 11-26-2017 Lactate molar conc 1.8 mmol/L Normal 0.4 - 2.0 [facility] Comment on above: Result Comment: Chelsea puncture immediately after or during the administration of Metamizole may lead to falsely low results. Testing should be performed immediately prior to Metamizole dosing. Performed By: #### T SH2 ####[address] [place] [address] Patient Profile - Adult v2on 11-26-2017 Protein mass conc Profile:Initial Info :How to be AddressedCliffordSpoken Language PreferredEnglish (1)Are you currently using the Personal Electronic Health Record or [facility]ENTERCAREnoStated Reason for Admissionheadache, speech problemsArrived Fromemergency departmentPatient Belongingsremains with patientPatient Belongings Remaining with Patientclothing; medical/assistiveequipment; vision aids; dental appliance; jewelryMedications Brought to Hospitalno General Health:Weight in kg68.4 kilogram(s)Weight in qdz191.9 pound(s)Height in feet5 feetHeight in inches9 inch(es)Height in cm175.2 centimeter(s)BMI (kg/m2)22.283 square meterWeight Methodactual (measured)Scale TypebedHeight Methodstated [facility] Based Care:How would you like to participate in your care?Likes to eat snacksWhat is the number one concern for you during this hospitalization?about headWhat is the most important thing we can do to support you during thishospitalization?to keep informedIs there anything we need to know to best care for you?Likes coffee Substance:Current or Former Substance Use never: Cigarette/Tobacco, e-Cigarette/Vaping,Alcohol, Street Drugs Health Mgmt:Symptoms/Conditions Managed at Homechronic painChronic Pain Locationback and right hipChronic Pain Management Strategiesmedication therapy; positioningChronic Pain Managementmanaged Relationship/Environ:Primary Source of Support/Comfortchild(hanh)Tiara es WithaloneLiving ArrangementshouseResource/En vironmental ConcernsnoneAnticipated Transition [place] term care facilityServices Anticipated at Transitionskilled nursingSignificant IndicatorsComplete Information Review:? Allergies, Home Meds and Significant Events have been Reviewed and Verifiedwith Patient/Familyyes ALLERGY, INTOLERANCE, ADVERSE EVENT: Allergies:? No Known Allergies: Active Electronic Signatures:Kamala Griffith (CYNTHIA) (Signed 26-Nov-2017 17:29)Authored: Profile, Additional Information Last Updated: 26-Nov-2017 17:29 by Kamala Griffith (CYNTHIA) References:1. Data Referenced From "Triage - ED" 11/26/2017 1:32 PM [facility] Provider Note - EDon 018 Protein mass conc Time Seen:? Time [id number] 12:38 Triage Vital Signs:? Triage Information Most recent Vital Sign Value Date Temp (F): 98.1 11-26-2017 13:32 Temp (C): 36.7 11-26-2017 13:32 Heart Rate (beats/min): 88 11-26-2017 13:32 Respirations (breaths/min): 18 11-26-2017 13:32 SpO2 (%): 98 11-26-2017 13:32 BP Systolic (mm Hg): 138 11-26-2017 13:32 BP Diastolic (mm Hg): 74 11-26-2017 13:32 History of Present Illness:This 78 year old Male presents with complaint(s) of altered mental status(1) ? Historianpatient? Significant Negative Findingsno chills, no fever, no pain? Timinggradual onset, waxing and waning? Durationtoday? SeverityMILD? Additional [id number] male presents to the ER with chief complaint of episode confusion.Patient still remained slightly confused per the relative which is [id number]. Limited history and physical secondary to altered mental status. Allergy, Intolerance, Adverse Event: Allergies:? No Known Allergies: Active Outpatient Medication, Review/Add Medications:* Incomplete Medication History as of 04-Oct-2015 13:20 documented inStructured Notes HISTORY ATTESTATION:? AttestationI have reviewed and confirmed nurse's/medic's notes for patient'smedications, allergies, medical history, and surgical history Review of Systems:? Constitutionalnegative: chills, fever ? Eyenegative: pain, redness, vision changes ? Necknegative: pain, stiffness ? Cardiovascularnegative: chest pain, tachycardia ? Respiratorynegative: cough, dyspnea, wheezing ? Gastrointestinalnegative: abdominal pain, diarrhea, vomiting ? Genitourinarynegative: dysuria, frequency, hematuria, urgency ? Musculoskeletalnegative: pain, swelling ? Integumentarynegative: abrasions, hives, itching, petechiae, rash ? Neurologicalnegative: headache, loss of consciousness ? Allergic/Immunologicnegative : rash PHYSICAL EXAM:? CONSTITUTIONAL: Well appearing, well nourished, awake, alert, oriented [facility], [facility]and in no apparent distress.? ENMT: Airway patent, ears with clear tympanic membranes bilaterally. Nasalmucosa clear. Mouth with normal mucosa. Throat has no vesicles, nooropharyngeal exudates and uvula is midline.? EYES: Conjunctiva pink, sclera anicteric, pupils equal, round and reactive tolight.? CARDIAC: Normal rate, regular rhythm. Heart sounds S1, S2. No murmurs, rubsor gallops. PMI non-displaced? RESPIRATORY: No retractions or use of accessory muscles. Breath sounds clearand equal bilaterally.? GASTROINTESTINAL: Abdomen soft and non-distended, without tenderness, reboundor guarding. Bowel sounds normal.? GENITOURINARY: No costovertebral angle tenderness.? MUSCULOSKELETAL: Neck non-tender, good range of motion. No cyanosis,clubbing, or edema. Normal tone and strength x 4 extremities.? NEUROLOGICAL: Alert and oriented, cranial nerves grossly intact, no focaldefects.? SKIN: Skin normal color for race, warm, dry and intact. No evidence of traumaor lesions.? PSYCHIATRIC: Alert and oriented to person. normal mood and affect. Noapparent risk to self or others.? HEME LYMPH: No adenopathy or splenomegaly. No cervical or inguinallymphadenopathy. Diagnoses/Visit Problems:? Confusion and disorientation:? Confusion: DISCHARGE DISPOSITION:? Disposition: hospitalized? Disposition: Observation CONDITION ON DISPO:? Condition on Dispositionstable MEDICATION RECONCILIATION/DISCHARGE MEDS:* Outpatient Medication Status not yet specifiedAttestation:PATSY Allison CARE:? Is This a Critically Ill Patientno Electronic Signatures:Adam Rogers () (Signed 26-Nov-2017 17:21)Authored: Time Seen / ED Notes, Triage Vital Signs, History of PresentIllness, Patient History, History Attestation, ROS, Physical Exam, MedicalDecision Making, ED Disposition (REQUIRED), Attestation Last Updated: 26-Nov-2017 17:21 by Adam Rogers () References:1. Data Referenced From "Triage - ED" 11/26/2017 1:32 PM [facility] Triage - EDon 11-26-2017 Triage - ED Chart Review:CHIEF C REBECCA Pastrana YUKO is a Male patient with a chief complaint of altered mentalstatus.Triage Date/Time: 26-Nov-2017 13:32Vital Signs:Temperature: 98.1F ( 36.7C) taken temporalBlood Pressure: 138/74 Mean:Heart Rate: 88Respiratory Rate: 18Pulse Oximetry: 98% Height: 5 feet 8.00 inches. 172.7 CMWeight: 175.0 pounds. Calculated 79.3 kg. (stated)Calculated BMI (kg/m2): 26.588 Calculated BSA (m2) 1.95 Patient immunocompromised related to: N/AAllergies: noPatient has suicidal thoughts: noPatient has homicidal thoughts: noESI: 3 Symptoms Are Negative For:aphasia, ataxia, confusion, diaphoresis, facial droop, headache, numbness,seizure and vomiting.Last Known Well: unknown PAIN Pain Scale Used: JAMES ARRIVAL INFORMATION Means of Arrival: Ambulatory Mode of Arrival: private vehicle Arrival From:home Accompanied By: immediate family memberLanguage:Spoken Language Preferred: Venezuelan Reading Language Preferred: Venezuelan PRIMARY ASSESSMENT ELIDA LANZA's primary assessment is Within Normal Limits. The airway isopen and patent. Breathing spontaneous and unlabored with clear breath soundsbilaterally. Circulation is normal with good peripheral pulses. Skin is warmand dry and color is normal for race. PAST MEDICAL HISTORY Immunization History:Last Known Tetanus Immunization: Unknown TRAVEL HISTORY Travel Exposure History: NO travel to International locations in the past 30days Past Medical History:? Past Medical History Reviewedyes Electronic Signatures:Terri Jeffries (CYNTHIA) (Signed 26-Nov-2017 13:39)Authored: Triage, Past Medical History Last Updated: 26-Nov-2017 13:39 by Terri Jeffries (RN) Normal [facility] URINALYSISon 11-26-2017 APPEARANCE HAZY Normal CLEAR [facility] Comment on above: Performed By: #### T SH2 ####[address] [place] [address] BILIRUBIN Negative Normal NEGATIVE [facility] Comment on above: Performed By: #### T SH2 ####[address] [place] [address] BLOOD Negative Normal NEGATIVE [facility] Comment on above: Performed By: #### T SH2 ####[facility] [place] [address] COLOR YELLOW Normal STRAW,YELL OW [facility] Comment on above: Performed By: #### T SH2 ####[facility] [place] [address] GLUCOSE Negative Normal NEGATIVE [facility] Comment on above: Performed By: #### T SH2 ####[address] [place] [address] KETONES 20(1+) Abnormal NEGATIVE [facility] Comment on above: Performed By: #### T SH2 ####[facility] [place] [address] LEUKOCYTE ESTERASE Negative Normal NEGATIVE [facility] Comment on above: Performed By: #### T SH2 ####[facility] [place] [address] NITRITE Negative Normal NEGATIVE [facility] Comment on above: Performed By: #### T SH2 ####[address] [place] [address] pH 5.0 Normal 5.0 - 8.0 [facility] Comment on above: Performed By: #### T SH2 ####[facility] [place] [address] Protein mass conc Negative Normal NEGATIVE [facility] Comment on above: Performed By: #### T SH2 ####[address] [place] [address] SPECIFIC GRAVITY 1.025 Normal 1.005 - 1.035 [facility] Comment on above: Performed By: #### T SH2 ####[address] [place] [address] UROBILINOGEN 4.0 mg/dL High 0.0 - 1.9 [facility] Comment on above: Result Comment: SOME PIGMENTS AND MEDICATIONS MAY CAUSE AFALSE POSITIVE UROBILINOGEN Performed By: #### T SH2 ####[address] [place] [address] URINE CULTURE,BACTERIALon URINE CULTURE,BACTERIAL PATIENT: ELIDA LANZA LOCATION: [address]#: [id number] : [birth year] AGE: SEX: M ORDERED BY: CECILIA ROGERS: URINE COLLECTED: 11/26/17 14:18ANTIBIOTICS AT [facility].: RECEIVED : 11/26/17 14:23SITE: Straight Cath R E S U L T S URINE CULTURE,BACTERIAL FINAL 11/27/17 14:48 NO GROWTH Normal [facility] Comment on above: Performed By: #### T 4FRE ####[address] [place] [address] DUPLEX EXTREMITY VEINS LMTD/ UNILATon 10-20-2017 DUPLEX EXTREMITY VEINS LMTD/UNILAT Name: ELIDA LANZA STUDY:DUPLEX EXTREMITY VEINS LMTD/UNILAT; 10/20/2017 12:54 pm INDICATION:Signs/Symptoms: folow up right femoral vein dvt. COMPARISON:None. ORDERING CLINICIAN:JONNA TAPIA TECHNIQUE:Grayscale, color and spectral Doppler ultrasound evaluation of theright lower extremity deep venous system. FINDINGS: RIGHT: There is normal compressibility of the common femoral(including saphenofemoral junction), deep femoral, femoral (includingproximal, mid, and distal aspects), popliteal, posterior tibial andperoneal veins. There is a normal, spontaneous and phasic venousspectral Doppler waveform throughout the lower extremity. LEFT: There is normal, symmetric venous spectral Doppler waveform inthe common femoral vein. IMPRESSION:No acute femoropopliteal DVT in the right lower extremity. If thereremains clinical concern for acute lower extremity DVT then afollow-up evaluation can be obtained in 5-7 days for furtherassessment.Electronic ally signed by: TOMASA WALTER MD Normal [facility] CLOST.DIFF.TOXIN,PCRon 10-12 CLOST.DIFF.TOXIN,PCR NOT DETECTED Normal Not Detected [facility] Comment on above: Result Comment: This assay detects the presence of the tcdB (toxin B) gene via DNA amplification, and results should be interpreted in the context of the patients history and clinical findings. This test cannot be performed on formed stools or used as a test of cure, and should not be performed more than once per 7 days. Performed By: #### C DPCR ####[facility] [place] [address] LEUKOCYTES,FECALon 8 LEUKOCYTES,FECAL NONE OBSERVED Normal [facility] Comment on above: Performed By: #### T SH2 ####[facility] [place] [address] CBCon 10-11-2017 Erythrocyte distribution width Auto Ratio (RBC) 13.3 % Normal 11.5 - 14.5 [facility] Comment on above: Performed By: #### C BC ####[address] [address] Hematocrit Auto Volume Fraction (Bld) 46.7 % Normal 41.0 - 52.0 [facility] Comment on above: Performed By: #### C BC ####[address] [address] Hemoglobin mass conc (Bld) 15.5 g/dL Normal 13.5 - 17.5 [facility] Comment on above: Performed By: #### C BC ####[address] [address] MCHC Auto mass conc (RBC) 33.2 g/dL Normal 32.0 - 36.0 [facility] Comment on above: Performed By: #### C BC ####[address] [address] MCV Auto Entitic volume (RBC) 96 fL Normal 80 - 100 [facility] Comment on above: Performed By: #### C BC ####[address] [address] Platelets Auto #/vol (Bld) 200 10*3/uL Normal 150 - 450 [facility] Comment on above: Performed By: #### C BC ####[address] [address] RBC Auto #/vol (Bld) 4.88 x10E12/L Normal 4.50 - 5.90 [facility] Comment on above: Performed By: #### C BC ####[address] [address] WBC Auto #/vol (Bld) 7.1 10*3/uL Normal 4.4 - 11.3 [facility] Comment on above: Performed By: #### C BC ####[address] [address] COMPREHENSIVE PANELon 2017 Albumin mass conc 4.5 g/dL Normal 3.4 - 5.0 [facility] Comment on above: Performed By: #### C MP ####[address] [address] ALP enzyme act/vol 117 U/L Normal 33 - 136 [facility] Comment on above: Performed By: #### C MP ####[address] [place] [address] ALT enzyme act/vol 19 U/L Normal 10 - 52 [facility] Comment on above: Result Comment: Jaqueline ents treated with Sulfasalazine may generate falsely decreased results for ALT. Performed By: #### C MP ####[address] [address] Anion gap 3 molar conc 12 mmol/L Normal 10 - 20 [facility] Comment on above: Performed By: #### C MP ####[address] [address] AST enzyme act/vol 35 U/L Normal 9 - 39 [facility] Comment on above: Performed By: #### C MP ####[address] [address] Bilirubin mass conc 0.7 mg/dL Normal 0.0 - 1.2 [facility] Comment on above: Performed By: #### C MP ####[address] [address] Calcium mass conc 9.5 mg/dL Normal 8.6 - 10.3 [facility] Comment on above: Performed By: #### C MP ####[address] [address] Chloride molar conc 105 mmol/L Normal 98 - 107 [facility] Comment on above: Performed By: #### C MP ####[address] [address] Creatinine mass conc 1.25 mg/dL Normal 0.50 - 1.30 [facility] Comment on above: Performed By: #### C MP ####[address] [address] GFR- AM. 67 mL/min/1.73m2 Normal >60 [facility] Comment on above: Result Comment: CALC ULATIONS OF ESTIMATED GFR ARE PERFORMED USING THE MDRD STUDY EQUATION FOR THE IDMS-TRACEABLE CREATININE METHODS. CLIN CHEM 2007;53:766-72 Performed By: #### C MP ####[facility] [place] [address] GFR-NON AM. 55 mL/min/1.73m2 Abnormal >60 [facility] Comment on above: Performed By: #### C MP ####[address] [place] [address] Glucose mass conc 113 mg/dL High 74 - 99 [facility] Comment on above: Performed By: #### C MP ####[address] [place] [address] HCO3 molar conc (Bld) 27 mmol/L Normal 21 - 32 [facility] Comment on above: Performed By: #### C MP ####[address] [place] [address] Potassium molar conc 4.4 mmol/L Normal 3.5 - 5.3 [facility] Comment on above: Performed By: #### C MP ####[address] [place] [address] Protein mass conc 7.0 g/dL Normal 6.4 - 8.2 [facility] Comment on above: Performed By: #### C MP ####[address] [place] [address] Sodium molar conc 140 mmol/L Normal 136 - 145 [facility] Comment on above: Performed By: #### C MP ####[address] [place] [address] Urea nitrogen mass conc 16 mg/dL Normal 6 - 23 [facility] Comment on above: Performed By: #### C MP ####[address] [address] GRAM STAIN ONLYon 10-11-2017 GRAM STAIN ONLY TEST GRAM STAIN ONLY WAS CANCELLED, 10/16/2017 17:36 CHARGING CRANE OPERATOR ERROR. 10/16/2017 17:36.PATIENT: ELIDA LANZA LOCATION: [facility] BILL#: [id number] : [birth year] AGE: SEX: M ORDERED BY: CHACE TAPIAE: STOOL COLLECTED: 10/11/17 17:00ANTIBIOTICS AT [place].: RECEIVED : 10/11/17 21:27SITE: R E S U L T S GRAM STAIN ONLY CANCELLED 10/16/17 17:36 Normal [facility] Comment on above: Performed By: #### T SH2 ####[address] [address] OCCULT BLOOD TEST,STOOLon OCCULT BLOOD,STOOL Negative Normal Negative [facility] Comment on above: Performed By: #### O CCB1 ####[address] [address] CBC AND DIFFERENTIALon 05-24 % AUTOMATED IMMATURE GRAN 0.4 % Normal 0.0 - 0.9 [facility] Comment on above: Result Comment: Perc ent differential counts (%) should be interpreted in the context of the absolute cell counts (cells/L). Performed By: #### C BCDF ####[address] [address] % NEUTROPHIL 54.3 % Normal 40.0 - 80.0 [facility] Comment on above: Performed By: #### C BCDF ####[address] [address] Basophils/100 WBC Auto (Bld) 0.8 % Normal 0.0 - 2.0 [facility] Comment on above: Performed By: #### C BCDF ####[address] [address] Basophils/100 WBC Auto (Bld) 0.06 x10E9/L Normal 0.00 - 0.10 [facility] Comment on above: Performed By: #### C BCDF ####[address] [address] Eosinophils Auto #/vol (Bld) 0.42 10*3/uL High 0.00 - 0.40 [facility] Comment on above: Performed By: #### C BCDF ####[address] [address] Eosinophils/100 WBC Auto (Bld) 5.7 % Normal 0.0 - 6.0 [facility] Comment on above: Performed By: #### C BCDF ####[address] [address] Erythrocyte distribution width Auto Ratio (RBC) 13.2 % Normal 11.5 - 14.5 [facility] Comment on above: Performed By: #### C BCDF ####[address] [address] Hematocrit Auto Volume Fraction (Bld) 48.0 % Normal 41.0 - 52.0 [facility] Comment on above: Performed By: #### C BCDF ####[address] [address] Hemoglobin mass conc (Bld) 15.3 g/dL Normal 13.5 - 17.5 [facility] Comment on above: Performed By: #### C BCDF ####[address] [address] Lymphocytes Auto #/vol (Bld) 2.05 10*3/uL Normal 0.80 - 3.00 [facility] Comment on above: Performed By: #### C BCDF ####[address] [address] Lymphocytes/100 WBC Auto (Bld) 28.0 % Normal 13.0 - 44.0 [facility] Comment on above: Performed By: #### C BCDF ####[address] [address] MCHC Auto mass conc (RBC) 31.9 g/dL Low 32.0 - 36.0 [facility] Comment on above: Performed By: #### C BCDF ####[address] [address] MCV Auto Entitic volume (RBC) 97 fL Normal 80 - 100 [facility] Comment on above: Performed By: #### C BCDF ####[address] [address] Monocytes Auto #/vol (Bld) 0.79 10*3/uL Normal 0.05 - 0.80 [facility] Comment on above: Performed By: #### C BCDF ####[address] [address] Monocytes/100 WBC Auto (Bld) 10.8 % High 2.0 - 10.0 [facility] Comment on above: Performed By: #### C BCDF ####[address] [address] Neutrophils Auto #/vol (Bld) 3.96 10*3/uL Normal 1.60 - 5.50 [facility] Comment on above: Performed By: #### C BCDF ####[address] [address] Platelets Auto #/vol (Bld) 213 10*3/uL Normal 150 - 450 [facility] Comment on above: Performed By: #### C BCDF ####[address] [address] RBC Auto #/vol (Bld) 4.96 x10E12/L Normal 4.50 - 5.90 [facility] Comment on above: Performed By: #### C BCDF ####[address] [address] WBC Auto #/vol (Bld) 7.3 10*3/uL Normal 4.4 - 11.3 [facility] Comment on above: Performed By: #### C BCDF ####[address] [address] COMPREHENSIVE PANELon 2017 Albumin mass conc 4.2 g/dL Normal 3.4 - 5.0 [facility] Comment on above: Performed By: #### C MP ####[address] [address] ALP enzyme act/vol 98 U/L Normal 33 - 136 [facility] Comment on above: Performed By: #### C MP ####[address] [address] ALT enzyme act/vol 18 U/L Normal 10 - 52 [facility] Comment on above: Result Comment: Jaqueline ents treated with Sulfasalazine may generate falsely decreased results for ALT. Performed By: #### C MP ####[address] [address] Anion gap 3 molar conc 13 mmol/L Normal 10 - 20 [facility] Comment on above: Performed By: #### C MP ####[address] [place] [address] AST enzyme act/vol 28 U/L Normal 9 - 39 [facility] Comment on above: Performed By: #### C MP ####[address] [place] [address] Bilirubin mass conc 0.4 mg/dL Normal 0.0 - 1.2 [facility] Comment on above: Performed By: #### C MP ####[address] [address] Calcium mass conc 9.3 mg/dL Normal 8.6 - 10.3 [facility] Comment on above: Performed By: #### C MP ####[address] [address] Chloride molar conc 105 mmol/L Normal 98 - 107 [facility] Comment on above: Performed By: #### C MP ####[address] [address] Creatinine mass conc 1.36 mg/dL High 0.50 - 1.30 [facility] Comment on above: Performed By: #### C MP ####[address] [address] GFR- AM. 61 mL/min/1.73m2 Normal >60 [facility] Comment on above: Result Comment: CALC ULATIONS OF ESTIMATED GFR ARE PERFORMED USING THE MDRD STUDY EQUATION FOR THE IDMS-TRACEABLE CREATININE METHODS. CLIN CHEM 2007;53:766-72 Performed By: #### C MP ####[address] [place] [address] GFR-NON AM. 50 mL/min/1.73m2 Abnormal >60 [facility] Comment on above: Performed By: #### C MP ####[address] [address] Glucose mass conc 96 mg/dL Normal 74 - 99 [facility] Comment on above: Performed By: #### C MP ####[address] [address] HCO3 molar conc (Bld) 25 mmol/L Normal 21 - 32 [facility] Comment on above: Performed By: #### C MP ####[facility] [place] [address] Potassium molar conc 4.2 mmol/L Normal 3.5 - 5.3 [facility] Comment on above: Performed By: #### C MP ####[facility] [place] [address] Protein mass conc 6.8 g/dL Normal 6.4 - 8.2 [facility] Comment on above: Performed By: #### C MP ####[address] [place] [address] Sodium molar conc 139 mmol/L Normal 136 - 145 [facility] Comment on above: Performed By: #### C MP ####[address] [place] [address] Urea nitrogen mass conc 19 mg/dL Normal 6 - 23 [facility] Comment on above: Performed By: #### C MP ####[address] [address] LIPID PANEL (CORONARY RISK 2 )on 05-24-2017 Cholesterol in HDL mass conc 43.0 mg/dL Normal [facility] Comment on above: Result Comment: . AG E VERY LOW LOW NORMAL HIGH 0-19 Y < 35 < 40 40-45 ---- 20-24 Y ---- < 40 >45 ---- >24 Y ---- < 40 40-60 >60. Performed By: #### L IPID ####[address] [address] Cholesterol in LDL mass conc 81 mg/dL Normal 0 - 99 [facility] Comment on above: Result Comment: . NE TAYLOR MONTIEL AGE DESIRABLE OPTIMAL HIGH HIGH VERY HIGH 0-19 Y 0 - 109 --- 110-129 >/= 130 ---- 20-24 Y 0 - 119 --- 120-159 >/= 160 ---- >24 Y 0 - 99 100-129 130-159 160-189 >/=190. Performed By: #### L IPID ####[address] [place] [address] Cholesterol in VLDL mass conc 36 mg/dL Normal 0 - 40 [facility] Comment on above: Performed By: #### L IPID ####[address] [place] [address] Cholesterol mass conc 160 mg/dL Normal 0 - 199 [facility] Comment on above: Result Comment: . AG E DESIRABLE BORDERLINE HIGH HIGH 0-19 Y 0 - 169 170 - 199 >/= 200 20-24 Y 0 - 189 190 - 224 >/= 225 >24 Y 0 - 199 200 - 239 >/= 240 All ranges are based on fasting samples. Specific therapeutic targets will vary based on patient-specific cardiac risk.. Pediatric guidelines reference:Pediatrics 2011, 128(S5). Adult guidelines reference: NCEP ATPIII Guidelines, MELVIN 2001, 258:2486-97. Venipuncture immediately after or during the administration of Metamizole may lead to falsely low results. Testing should be performed immediately prior to Metamizole dosing. Performed By: #### L IPID ####[address] [place] [address] Cholesterol.total/Cho lesterol in HDL mass ratio 3.7 {ratio} Normal [facility] Comment on above: Result Comment: REF VALUESDESIRABLE < 3.4HIGH RISK > 5.0 Performed By: #### L IPID ####[address] [place] [address] Triglyceride mass conc 179 mg/dL High 0 - 149 [facility] Comment on above: Result Comment: . AG E DESIRABLE BORDERLINE HIGH HIGH VERY HIGH 0 D-90 D 19 - 174 ---- ---- ----91 D- 9 Y 0 - 74 75 - 99 >/= 100 ---- 10-19 Y 0 - 89 90 - 129 >/= 130 ---- 20-24 Y 0 - 114 115 - 149 >/= 150 ---- >24 Y 0 - 149 150 - 199 200- 499 >/= 500. Venipuncture immediately after or during the administration of Metamizole may lead to falsely low results. Testing should be performed immediately prior to Metamizole dosing. Performed By: #### L IPID ####[address] [place] [address] THYROXINE,FREEon 05-24-2017 THYROXINE,FREE 0.67 ng/dL Low 0.78 - 1.48 [facility] Comment on above: Result Comment: Thyr oxine Free testing is performed using different testing methodology at [facility] than at other [facility]. Direct result comparisons should only be made within the same method. Patients receiving more than 5 mg/day of biotin may have interference in test results. A sample should be taken no sooner than eight hours after previous dose. Performed By: #### T 4FRE ####[address] [place] [address] TSHon 05-24-2017 Thyrotropin Qn 2.08 m[IU]/L Normal 0.44 - 3.98 [facility] Comment on above: Result Comment: TSH testing is performed using different testing methodology at [facility] than at [facility]. Direct result comparisons should only be made within the same method. Performed By: #### T SH2 ####[address] [place] [address] VITAMIN D, 25-HYDROXYon 05-04 VITAMIN D, 25-HYDROXY 23 ng/mL Abnormal [facility] Comment on above: Result Comment: .DEF ICIENCY: < 20 NG/MLINSUFFICIENCY: 20-29 NG/MLOPTIMUM LEVEL: 30-80 NG/MLPOSSIBLE TOXICITY: > 80 NG/MLTHIS ASSAY ACCURATELY QUANTIFIES THE SUM OFVITAMIN D3, 25-HYDROXY AND VIT D2,25-HYDROXY. Performed By: #### V TDOH ####[facility] [place] [address] Vital Signs Date Time Vital Sign Value Performing Clinician Facility 12-09-2022 13:00-0400 Body mass index (BMI) [Ratio] 20.94 kg/m2 Cathy Cid DO Work Phone: [facility] 12-09-2022 13:00-0400 Body temperature 97.5 [degF] Cathy Cid DO Work Phone: [facility] 12-09-2022 13:00-0400 Body weight 64.32 kg Cathy Cid DO Work Phone: [facility] 12-09-2022 13:00-0400 Diastolic blood pressure 76 mm[Hg] Cathy Vallestran DO Work Phone: [facility] 12-09-2022 13:00-0400 Heart rate 70 /min Cathy Vallestran DO Work Phone: [facility] 12-09-2022 13:00-0400 Respiratory rate 12 /min Cathy Vallestran DO Work Phone: [facility] 12-09-2022 13:00-0400 SaO2% (BldA) [Mass fraction] 95 % Cathy Vallestran DO Work Phone: [facility] 12-09-2022 13:00-0400 Systolic blood pressure 118 mm[Hg] Cathy Vallestran DO Work Phone: [facility] 10-14-2022 13:48-0400 Body mass index (BMI) [Ratio] 21.01 kg/m2 Cathy Vallestran DO Work Phone: [facility] 10-14-2022 13:48-0400 Body temperature 99 [degF] Cathy Vallestran DO Work Phone: [facility] 10-14-2022 13:48-0400 Body weight 64.55 kg Cathy Vallestran DO Work Phone: [facility] 10-14-2022 13:48-0400 Diastolic blood pressure 55 mm[Hg] Cathy Vallestran DO Work Phone: [facility] 10-14-2022 13:48-0400 Heart rate 80 /min Cathy Vallestran DO Work Phone: [facility] 10-14-2022 13:48-0400 Respiratory rate 14 /min Cathy Vallestran DO Work Phone: [facility] 10-14-2022 13:48-0400 SaO2% (BldA) [Mass fraction] 92 % Cathy Vallestran DO Work Phone: [facility] 10-14-2022 13:48-0400 Systolic blood pressure 93 mm[Hg] Cathy Vallestran DO Work Phone: [facility] 04-15-2022 10:25-0500 Body mass index (BMI) [Ratio] 22.31 kg/m2 Cathy Maxwell Van Nostran Work Phone: [facility] Work Phone: 04-15-2022 10:25-0500 Body surface area Derived from formula 1.83 m2 Cathy Maxwell Van Nostran Work Phone: [facility] Work Phone: 04-15-2022 10:25-0500 Body temperature 97.2 [degF] Cathy Maxwell Van Nostran Work Phone: [facility] Work Phone: 04-15-2022 10:25-0500 Body weight 68.52 kg Cathy Maxwell Van Nostran Work Phone: [facility] Work Phone: 04-15-2022 10:25-0500 Diastolic blood pressure 67 mm[Hg] Cathy Maxwell Van Nostran Work Phone: [facility] Work Phone: 04-15-2022 10:25-0500 Heart rate 80 /min Cathy Maxwell Van Nostran Work Phone: [facility] Work Phone: 04-15-2022 10:25-0500 Respiratory rate 14 /min Cathy Maxwell Van Nostran Work Phone: [facility] Work Phone: 04-15-2022 10:25-0500 SaO2% (BldA) [Mass fraction] 93 % Cathy Maxwell Van Nostran Work Phone: [facility] Work Phone: 04-15-2022 10:25-0500 Systolic blood pressure 106 mm[Hg] Cathy Maxwell Van Nostran Work Phone: [facility] Work Phone: 04-15-2022 10:25-0500 17 1 Cathy Maxwell Van Nostran Work Phone: [facility] Work Phone: Comment on above: PHQ-9 TS 02-11-2022 16:20-0400 Body height 175.26 cm Cathy Maxwell Van Nostran Work Phone: [facility] Work Phone: 02-11-2022 16:20-0400 Body mass index (BMI) [Ratio] 22.5 kg/m2 Cathy Maxwell Van Nostran Work Phone: [facility] Work Phone: 02-11-2022 16:20-0400 Body surface area Derived from formula 1.84 m2 Catyh Maxwell Van Nostran Work Phone: [facility] Work Phone: 02-11-2022 16:20-0400 Body temperature 98.7 [degF] Cathy Maxwell Van Nostran Work Phone: [facility] Work Phone: 02-11-2022 16:20-0400 Body weight 69.12 kg Cathy Maxwell Van Nostran Work Phone: [facility] Work Phone: 02-11-2022 16:20-0400 Diastolic blood pressure 69 mm[Hg] Cathy Maxwell Van Nostran Work Phone: [facility] Work Phone: 02-11-2022 16:20-0400 Heart rate 79 /min Cathy Maxwell Van Nostran Work Phone: [facility] Work Phone: 02-11-2022 16:20-0400 Respiratory rate 12 /min Cathy E Van Nostran Work Phone: [facility] Work Phone: 02-11-2022 16:20-0400 SaO2% (BldA) [Mass fraction] 93 % Cathy Minaya Nostran Work Phone: [facility] Work Phone: 02-11-2022 16:20-0400 Systolic blood pressure 109 mm[Hg] Cathy Minaya Nostran Work Phone: [facility] Work Phone: 02-02-2022 21:43-0400 Diastolic blood pressure 82 mm[Hg] Cruzito Cheng MD Work Phone: [facility] 02-02-2022 21:43-0400 Heart rate 88 /min Cruzito Cheng MD Work Phone: [facility] 02-02-2022 21:43-0400 Respiratory rate 16 /min Cruzito Cheng MD Work Phone: [facility] 02-02-2022 21:43-0400 SaO2% (BldA) [Mass fraction] 96 % Cruzito Cheng MD Work Phone: [facility] 02-02-2022 21:43-0400 Systolic blood pressure 122 mm[Hg] Cruzito Cheng MD Work Phone: [facility] 02-02-2022 18:45-0400 Body height 180.3 cm Cruzito Cheng MD Work Phone: [facility] 02-02-2022 18:45-0400 Body mass index (BMI) [Ratio] 22.32 kg/m2 Cruzito Cheng MD Work Phone: [facility] 02-02-2022 18:45-0400 Body temperature 97.7 [degF] Cruzito Cheng MD Work Phone: [facility] 02-02-2022 18:45-0400 Body weight 72.58 kg Cruzito Cheng MD Work Phone: [facility] 07-03-2021 10:43-0500 Body mass index (BMI) [Ratio] 23.78 kg/m2 Cathy Maxwell Van Nostran Work Phone: [facility] Work Phone: 07-03-2021 10:43-0500 Body surface area Derived from formula 1.88 m2 Cathy Maxwell Van Nostran Work Phone: [facility] Physicians Work Phone: 07-03-2021 10:43-0500 Body temperature 95.9 [degF] Cathy Maxwell Van Nostran [facility] Phone[facility] Work Phone: 07-03-2021 10:43-0500 Body weight 73.03 kg Cathy Maxwell Van Nostran Work Phone: [facility] Work Phone: 07-03-2021 10:43-0500 Diastolic blood pressure 75 mm[Hg] Cathy Maxwell Van Nostran Work Phone: -[facility] Work Phone: 07-03-2021 10:43-0500 Heart rate 63 /min Cathy Maxwell Van Nostran Work Phone: [facility] Work Phone: 07-03-2021 10:43-0500 Respiratory rate 12 /min Cathy Maxwell Van Nostran Work Phone: [facility] Work Phone: 07-03-2021 10:43-0500 SaO2% (BldA) [Mass fraction] 94 % Cathy Maxwell Van Nostran Work Phone: [facility] Work Phone: 07-03-2021 10:43-0500 Systolic blood pressure 114 mm[Hg] Cathy E Van Nostran Work Phone: [facility] Work Phone: 05-24-2021 12:24-0500 Body temperature 97.8 [degF] Cathy Hans Van Nostran Work Phone: [facility] Work Phone: 05-24-2021 12:24-0500 Diastolic blood pressure 91 mm[Hg] Cathy Maxwell Van Nostran Work Phone: [facility] Work Phone: 05-24-2021 12:24-0500 Heart rate 86 /min Cathy Maxwell Van Nostran Work Phone: [facility] Work Phone: 05-24-2021 12:24-0500 Respiratory rate 16 /min Cathy Maxwell Van Nostran Work Phone: [facility] Work Phone: 05-24-2021 12:24-0500 SaO2% (BldA) [Mass fraction] 93 % Cathy Maxwell Van Nostran Work Phone: [facility] Work Phone: 05-24-2021 12:24-0500 Systolic blood pressure 155 mm[Hg] Cathy Maxwell Van Nostran Work Phone: [facility] Work Phone: 03-18-2021 14:04-0500 Body mass index (BMI) [Ratio] 23.66 kg/m2 Cathy Maxwell Van Nostran Work Phone: [facility] Work Phone: 03-18-2021 14:04-0500 Body surface area Derived from formula 1.88 m2 Cathy Maxwell Van Nostran Work Phone: [facility] Work Phone: 03-18-2021 14:04-0500 Body temperature 98.4 [degF] Cathy Maxwell Van Nostran [facility] Work Phone: 03-18-2021 14:04-0500 Body weight 72.66 kg Cathy Maxwell Van Nostran [facility] Work Phone: 03-18-2021 14:04-0500 Diastolic blood pressure 70 mm[Hg] Cathy Maxwell Van Nostran Work Phone: [facility] Work Phone: 03-18-2021 14:04-0500 Heart rate 72 /min Cathy Maxwell Van Nostran Work Phone: [facility] Work Phone: 03-18-2021 14:04-0500 SaO2% (BldA) [Mass fraction] 91 % Cathy Maxwell Van Nostran Work Phone: [facility] Work Phone: 03-18-2021 14:04-0500 Systolic blood pressure 112 mm[Hg] Cathy Maxwell Van Nostran [facility] Work Phone: 01-09-2021 10:54-0400 Body height 175.26 cm Cathy Maxwell Van Nostran Work Phone: [facility]Hqddkitcys-Qaql na [address] [place] Work Phone: 01-09-2021 10:54-0400 Body mass index (BMI) [Ratio] 22.89 kg/m2 Cathy Maxwell Van Nostran Work Phone: MB-Vmtxgutakr-Lqst na [address] [place] Work Phone: 01-09-2021 10:54-0400 Body surface area Derived from formula 1.85 m2 Cathy Maxwell Van Nostran Work Phone: AQ-Skrukfyrxy-Fohu na [address] [place] Work Phone: 01-09-2021 10:54-0400 Body weight 70.31 kg Cathy Minaya Nostran Work Phone: XV-Drjvilczki-Jpqh na [address] [place] Work Phone: 01-09-2021 10:54-0400 Diastolic blood pressure 75 mm[Hg] Ctahy Maxwell Van Nostran Work Phone: MN-Juduskcmnh-Jdjg na [address] [place] Work Phone: 01-09-2021 10:54-0400 Heart rate 79 /min Cathy Maxwell Van Nostran Work Phone: IN-Zyjxyoovgp-Ncea na [address] [place] Work Phone: 01-09-2021 10:54-0400 SaO2% (BldA) [Mass fraction] 95 % Cathy Minaya Nostran Work Phone: VP-Bkornyqdqs-Inua na [address] [place] Work Phone: 01-09-2021 10:54-0400 Systolic blood pressure 120 mm[Hg] Cathy Minaya Nostran Work Phone: UM-Dthubpffkf-Xkmw na [address] [place] Work Phone: 01-09-2021 10:54-0400 0 1 Cathy Maxwell Van Nostran Work Phone: GP-Nrvqshyagi-Egrr na [address] [place] Work Phone: Comment on above: [employer] 12-02-2020 10:09-0400 Body mass index (BMI) [Ratio] 22.61 kg/m2 Cathy Hans Wander Nostran Work Phone: [facility] Work Phone: 12-02-2020 10:09-0400 Body surface area Derived from formula 1.84 m2 Cathy Maxwell Van Nostran Work Phone: [facility] Work Phone: 12-02-2020 10:09-0400 Body temperature 96.8 [degF] Cathy Maxwell Van Nostran Work Phone: [facility] Work Phone: 12-02-2020 10:09-0400 Body weight 69.46 kg Cathy Maxwell Van Nostran Work Phone: [facility] Work Phone: 12-02-2020 10:09-0400 Diastolic blood pressure 77 mm[Hg] Cathy Maxwell Van Nostran Work Phone: [facility] Work Phone: 12-02-2020 10:09-0400 Heart rate 74 /min Cathy Maxwell Van Nostran Work Phone: [facility] Work Phone: 12-02-2020 10:09-0400 SaO2% (BldA) [Mass fraction] 97 % Cathy Maxwell Van Nostran Work Phone: [facility] Work Phone: 12-02-2020 10:09-0400 Systolic blood pressure 127 mm[Hg] Cathy Maxwell Van Nostran Work Phone: [facility] Work Phone: 06-03-2020 11:59-0500 BMI (Body Mass Index) 22.68 kg/m2 [facility]Tocxdrf [facility] Work Phone: 06-03-2020 11:59-0500 Body Temperature 97 [degF] Jonna jm-JMTCDI-Exunyul -[facility] Work Phone: 06-03-2020 11:59-0500 Body weight 69.66 kg Jonna qu-IRVETU-Colausv [facility] Work Phone: 06-03-2020 11:59-0500 BP Diastolic 74 mm[Hg] Jonna sk-GBGRXE-Nmpixxt [facility] Work Phone: 06-03-2020 11:59-0500 BP Systolic 112 mm[Hg] Jonna ei-NNOXFB-Tsexaux [facility] Work Phone: 06-03-2020 11:59-0500 BSA (Body Surface Area) 1.85 m2 [facility] Work Phone: 06-03-2020 11:59-0500 Height 175.26 cm [facility]-EQIBZM-Irvhnnz [facility] Work Phone: 06-03-2020 11:59-0500 Pulse (Heart Rate) 74 /min [facility]-EGXMXF-WxlsynoH[facility] Work Phone: 06-03-2020 11:59-0500 Pulse Oximetry 98 % [facility]-PXDMLT-Ttdrpbd [facility] Work Phone: 11-28-2019 12:10-0400 BMI (Body Mass Index) 22.34 kg/m2 [facility] Work Phone: 11-28-2019 12:10-0400 Body Temperature 97.2 [degF] [facility] Work Phone: 11-28-2019 12:10-0400 Body weight 68.61 kg [facility] Work Phone: 11-28-2019 12:10-0400 BP Diastolic 70 mm[Hg] [facility] Blanco [facility] Work Phone: 11-28-2019 12:10-0400 BP Systolic 109 mm[Hg] [facility] Bl[facility] Work Phone: 11-28-2019 12:10-0400 BSA (Body Surface Area) 1.83 m2 [facility] Work Phone: 11-28-2019 12:10-0400 Pulse (Heart Rate) 67 /min [facility] Work Phone: 11-28-2019 12:10-0400 Pulse Oximetry 95 % Kurteletai Blanco [facility] Work Phone: 05-26-2019 15:54-0500 BMI (Body Mass Index) 24.52 kg/m2 Chenguttai Blanco [facility] Work Phone: 05-26-2019 15:54-0500 Body Temperature 98.5 [degF] Chenguttai Blanco [facility] Work Phone: 05-26-2019 15:54-0500 Body weight 75.33 kg Chenguttai Blanco [facility] Work Phone: 05-26-2019 15:54-0500 BP Diastolic 72 mm[Hg] Chenguttai Blanco [facility] Work Phone: 05-26-2019 15:54-0500 BP Systolic 110 mm[Hg] Chenguttai Blanco [facility] Work Phone: 05-26-2019 15:54-0500 BSA (Body Surface Area) 1.91 m2 Chenguttai Blanco [facility] Work Phone: 05-26-2019 15:54-0500 Pulse (Heart Rate) 72 /min Chenguttai Blanco [facility] Work Phone: 05-26-2019 15:54-0500 Pulse Oximetry 98 % Chenguttai Blanco [facility] Work Phone: 05-26-2019 15:54-0500 Respiratory Rate 14 /min Chenguttai Blanco [facility] Work Phone: 01-17-2019 12:39-0400 BMI (Body Mass Index) 24.37 kg/m2 Chengnhtai Blanco [facility] Work Phone: 01-17-2019 12:39-0400 Body Temperature 98.4 [degF] Chloetai Blanco [facility] Fa shyam [facility] Work Phone: 01-17-2019 12:39-0400 Body weight 74.84 kg Chloetazacarias LrBlanco [facility] Tavarez cristela [facility] Work Phone: 01-17-2019 12:39-0400 BP Diastolic 70 mm[Hg] Chloetai Blanco [facility]ela [facility] Work Phone: Comment on above: Location: RUE; Position: Sitting 01-17-2019 12:39-0400 BP Systolic 111 mm[Hg] Chloetai Blanco [facility] T[facility] cristela [facility] Work Phone: Comment on above: Location: RUE; Position: Sitting 01-17-2019 12:39-0400 BSA (Body Surface Area) 1.9 m2 Chloetai Blanco [facility] Work Phone: 01-17-2019 12:39-0400 Height 175.26 cm Chloetazacarias Booar [facility] cr[facility]ela [facility] Work Phone: 01-17-2019 12:39-0400 Pulse (Heart Rate) 73 /min Chengeletai Blanco [facility] Work Phone: 01-17-2019 12:39-0400 Pulse Oximetry 93 % Chloetai Blanco [facility] T[facility] Work Phone: 01-17-2019 12:39-0400 Respiratory Rate 12 /min Chloetai Blanco [facility] Work Phone: 09-09-2018 16:56-0400 BMI (Body Mass Index) 23.12 kg/m2 Chenguttai Blanco [facility] Work Phone: 09-09-2018 16:56-0400 Body Temperature 98.4 [degF] Chenguttai Blanco [facility] Work Phone: 09-09-2018 16:56-0400 Body weight 73.09 kg Jonna Booar [facility] Tavarez cristela [facility] Work Phone: 09-09-2018 16:56-0400 BP Diastolic 69 mm[Hg] Chloetai Blanco [facility] cr[facility] Work Phone: 09-09-2018 16:56-0400 BP Systolic 120 mm[Hg] Chloetai Blanco [facility] Work Phone: 09-09-2018 16:56-0400 BSA (Body Surface Area) 1.9 m2 Kurtnhtai Blanco [facility] Work Phone: 09-09-2018 16:56-0400 Pulse (Heart Rate) 70 /min Kurtnhtai Blanco [facility] Work Phone: 09-09-2018 16:56-0400 Pulse Oximetry 95 % Chloetazacarias LrBlanco [facility] Work Phone: 09-09-2018 16:56-0400 Respiratory Rate 10 /min Chloetazacarias Booar [facility] Fa shyam [facility] Work Phone: 09-09-2018 16:56-0400 Weight 73.09 kg Jonna Tapia [facility] Work Phone: Encounters Encounter Date Encounter Type Care Provider Facility Start: 12-26-2024 ambulatory Rudy Negrete ty:[facility] Start: 09-12-2024 End: 09-12-[address] Rudy Lewis Sr. DO Work Phone: -[facility] Start: 09-12-2024 End: 09-12-2024 Departed Referred Rudy Lewis MD -[facility] Start: 09-12-2024 End: 09-12-2024 ambulatory Rudy Lewis Sr. Facility:[facility] Start: 07-27-2023 End: 07-27-2023 ambulatory [facility] Work Phone: Start: 07-27-2023 End: 07-27-2023 Departed Referred [facility] Start: 06-16-2023 End: 06-16-2023 ambulatory [facility] Work Phone: Start: 06-16-2023 End: 06-16-2023 Patient encounter procedure [facility] Work Phone: Start: 02-24-2023 End: 02-24-2023 ambulatory [facility] Work Phone: Start: 02-24-2023 End: 02-24-2023 Departed Referred [facility] Start: 02-24-2023 Registered Referred [facility] Start: 02-18-2023 End: 02-19-2023 ambulatory [facility] Work Phone: Start: 02-18-2023 End: 02-19-2023 Departed Referred [facility] Start: 02-18-2023 Registered Referred [facility] Start: 01-11-2023 End: 01-11-2023 ambulatory [facility] Work Phone: Start: 01-11-2023 End: 01-11-2023 Departed Referred [facility] Start: 12-09-2022 End: 12-09-2022 Office outpatient visit 25 minutes Cathy Cid DO Work Phone: [facility] Comment on above: Depression with anxi ety (Primary Dx); Coronary artery disease due to lipid rich plaque; Stenosis of carotid artery, unspecified laterality; Hx of blood clots Start: 10-15-2022 End: 10-16-2022 ambulatory CATHY CID [facility] Start: 10-14-2022 End: 10-15-2022 ambulatory CATHY CID [facility] Start: 10-14-2022 End: 10-14-2022 ambulatory CATHY CID [facility] Start: 10-14-2022 End: 10-14-2022 Office outpatient visit 25 minutes Cathy Cid DO Work Phone: [facility] Comment on above: Depression with anxi ety (Primary Dx); Body mass index (BMI) of 21.0 to 21.9 in adult; Unexplained weight loss; Fatigue, unspecified type; Apathy; Irritability; Chronic obstructive pulmonary disease, unspecified COPD type (CMS/HCC); Dementia, unspecified dementia severity, unspecified dementia type, unspecified whether behavioral, psychotic, or mood disturbance or anxiety (CMS/HCC); Stage 3a chronic kidney disease Start: 07-28-[address] Cathy Cid Facility:[id number] Start: 06-30-2022 AUDIT Cathy Benavidez Work Phone: [facility] Work Phone: Start: 05-12-[address] Cathy Cid Facility:[id number] Start: 04-15-2022 Adv care pln tlkd & alt dcsn maker docd Cathy Cid [facility] Work Phone: Start: 04-15-[address] Cathy Cid Facility:[id number] Start: 03-18-2022 AUDIT Cathy Benavidez Work Phone: [facility] Work Phone: Start: 03-04-2022 Chart Update Cathy Benavidez Work Phone: [facility] Work Phone: Start: 03-03-[address] Cathy Cid Facility:[id number] Start: 02-11-2022 Office outpatient vi sit 25 minutes Cathy Cid Work Phone: [facility] Work Phone: Start: 02-11-2022 Patient encounter procedure [facility]athy Vallestran [facility] Work Phone: Start: 02-11-[address] Cathy Cid Facility:[id number] Start: 02-03-2022 AUDIT Cathy Manzo ostran Work Phone: [facility] Work Phone: Start: 02-02-2022 End: 02-02-2022 Emergency department patient visit UNKNOWN PROVIDER [facility] Start: 02-02-2022 End: 02-02-2022 Emergency department patient visit Cruzito Cheng MD Work Phone: [facility] Comment on above: Injury of head, init ial encounter (Primary Dx); Sprain of right shoulder, unspecified shoulder sprain type, initial encounter Start: 01-28-[address] Ctahy Cid Facility:[id number] Start: 11-27-2021 Patient encounter procedure Cathy Vallestran Work Phone: [facility] [place] Work Phone: Start: 11-26-[address] Cathy Cid Facility:[id number] Start: 11-19-2021 AUDIT Cathy Cuelloran [facility] Phone[facility] Work Phone: Start: 10-17-2021 MARIA GUADALUPE, Provider : Nisha Nunn, Status: Pen, Time: 12:00 PM Cathy Vallestran Work Phone: [facility] Work Phone: Start: 10-16-2021 AUDIT Cathy Manzo ostran [facility] Work Phone: Start: 10-14-2021 Patient encounter procedure Cathy Minaya Nostran Work Phone: [facility] [place] Work Phone: Start: 10-14-[address] Cathy Minaya Nosanabella Facility:[id number] Start: 10-10-2021 Patient encounter procedure Cathy Minaya Nostran Work Phone: [facility] [place] Work Phone: Start: 10-10-2021 PTFUADULT4, Provider : Nisha Nunn, Status: Pen, Time: 9:30 AM Cathy Minaya Nostran Work Phone: [facility] [place] Work Phone: Start: 10-10-[address] Cathy Cid Facility:[id number] Start: 10-08-2021 Patient encounter procedure Cathy Maxwell Wander Nostran Work Phone: [facility] [place] Work Phone: Start: 10-08-[address] Cathy Minaya Nosanabella Facility:[id number] Start: 10-03-[address] Cathy Cid Facility:[id number] Start: 10-03-2021 Patient encounter procedure Cathy Maxwell Wander Nostran Work Phone: [facility] [place] Work Phone: Start: 09-24-[address] Cathy Cid Facility:[id number] Start: 09-23-2021 Patient encounter procedure Cathy Minaya Nostran Work Phone: [facility] [place] Work Phone: Start: 09-23-[address] Cathy Minaya Nostran Facility:[id number] Start: 09-18-[address] Cathy Minaya Nostran Facility:[id number] Start: 09-18-2021 Patient encounter procedure Cathy Maxwell Wander Nostran Work Phone: [facility] [place] Work Phone: Start: 09-11-2021 FUV, Provider: Cathy Cid, Status: Pen, Time: 1:30 PM Cathy Maxwell Van Nostran Work Phone: [facility] Work Phone: Start: 09-09-2021 AUDIT Cathy Maxwell Van N ostran Work Phone: [facility] Work Phone: Start: 08-28-[address] Zaynab Nicole Facility:[id number] Start: 08-28-2021 AUDIT Cathy Maxwell Van N ostran Work Phone: [facility] Work Phone: Start: 08-28-2021 Patient encounter procedure Cathy Minaya Nostran Work Phone: [facility] [place] Work Phone: Start: 08-28-2021 PTRECHECKA, Provider : Nisha Nunn, Status: Pen, Time: 12:45 PM Cathy Minaya Nostran Work Phone: [facility] Work Phone: Start: 08-27-2021 AUDIT Cathy Maxwell Van N ostran Work Phone: [facility] Work Phone: Start: 08-26-[address] Zaynab Nicole Facility:[id number] Start: 08-21-2021 PTFUADULT4, Provider : Kerry yAala, Status: Pen, Time: 12:00 PM Cathy Maxwell Van Nostran Work Phone: [facility] [place] Work Phone: Start: 08-19-2021 Patient encounter procedure Cathy Maxwell Van Nostran Work Phone: [facility] [place] Work Phone: Start: 08-19-[address] Zaynab Nicole Facility:[id number] Start: 08-13-2021 Patient encounter procedure Cathy Minaya Nostran Work Phone: [facility] [place] Work Phone: Start: 08-13-[address] Zaynab Nicole Facility:[id number] Start: 08-07-2021 Patient encounter procedure Cathy Maxwell Van Nostran Work Phone: [facility] [place] Work Phone: Start: 08-07-[address] Zaynab Nicole Facility:[id number] Start: 08-01-2021 Patient encounter procedure Cathy Maxwell Van Nostran Work Phone: [facility] [place] Work Phone: Start: 07-30-2021 Patient encounter procedure Cathy Maxwell Van Nostran Work Phone: [facility] [place] Work Phone: Start: 07-03-2021 Office outpatient vi sit 25 minutes Cathy Minaya Nostran Work Phone: [facility] Work Phone: Start: 06-03-2021 AUDIT Cathy Maxwell Van N ostran Work Phone: [facility] Work Phone: Start: 05-24-2021 Office outpatient ne w 30 minutes Cathy Maxwell Van Nostran Work Phone: [facility] Work Phone: Start: 05-21-2021 AUDIT Cathy Maxwell Van N ostran Work Phone: [facility] Work Phone: Start: 03-20-2021 Chart Update Cathy Maxwell Van N ostran Work Phone: [facility] Work Phone: Start: 03-18-2021 Patient encounter procedure Cathy Maxwell Van Nostran Work Phone: [facility] Work Phone: Start: 02-17-2021 AUDIT Cathy Maxwell Van N ostran Work Phone: [facility] Work Phone: Start: 01-09-2021 EPV, Provider: Anna Obrien, Status: Pen, Time: 11:00 AM Cathy Minaya Nostran Work Phone: [facility] Work Phone: Start: 01-09-2021 Office outpatient vi sit 25 minutes Cathy Maxwell Van Nostran Work Phone: [facility]Dlsmpofiof-Zyldmh [address] [place] Work Phone: Start: 12-19-2020 Chart Update Cathy Manzo ostran Work Phone: [facility] Work Phone: Start: 12-19-2020 KATIE, Provider : MANJINDER PEARL,MG CARD, Status: Pen, Time: 1:00 PM Cathy Minaya Nostran Work Phone: [facility] Work Phone: Start: 12-17-2020 AUDIT Cathy Maxwell Van N ostran Work Phone: [facility] Work Phone: Start: 12-03-2020 Chart Update Cathy Minaya N ostran Work Phone: [facility] Work Phone: Start: 12-02-2020 Office outpatient vi sit 25 minutes Cathy Maxwell Van Nostran Work Phone: [facility] Work Phone: Start: 10-02-2020 AUDIT Cathy E Van N ostran Work Phone: [facility] Work Phone: Start: 06-03-2020 Patient encounter procedure Jonna Whitaker [facility] Work Phone: Start: 01-17-2020 Patient encounter procedure Jonna Tapia [facility] Work Phone: Start: 11-28-2019 Patient encounter procedure Kurtuttai Blanco [facility] Work Phone: Start: 05-26-2019 Patient encounter procedure Chenguttai Blanco [facility] Work Phone: Start: 04-17-2019 Patient encounter procedure Kurtuttai Blanco [facility] Work Phone: Start: 03-22-2019 Patient encounter procedure Chenguttai Blanco [facility] Work Phone: Start: 03-14-2019 Patient encounter procedure Kurtuttai Blanco [facility] Work Phone: Start: 02-21-2019 Patient encounter procedure Kurtuttai Blanco [facility] Work Phone: Start: 01-17-2019 Patient encounter procedure Kurtuttai Blanco [facility] Work Phone: Start: 09-09-2018 Patient encounter procedure Kurtuttai Blanco [facility] Work Phone: Start: 03-11-2018 Patient encounter procedure Chenguttai Blanco [facility] Work Phone: Start: 02-10-2018 Patient encounter procedure Kurtuttai Blanco [facility] Work Phone: Start: 01-27-2018 Patient encounter Jonna Tapia Facility:[facility] Start: 01-21-2018 Patient encounter procedure Kurtuttai Blanco [facility] Work Phone: Start: 01-02-2018 Emergency dept visit high severity&threat funcj Chloetai Blanco [facility] Start: 01-02-2018 End: 01-02-2018 Patient encounter ADAM ROGERS Facility:[id number] Start: 12-20-2017 Patient encounter procedure Kurtuttai Blanco [facility] Work Phone: Start: 12-17-2017 Emergency dept visit high severity&threat funcj Jonna Tapia [facility] Start: 12-17-2017 End: 12-17-2017 Patient encounter Mychal Davalos Facility:[id number] Start: 11-29-2017 Patient encounter procedure Jonna Booar [facility] Work Phone: Start: 11-28-2017 Emergency department visit high/urgent severity Jonna Tapia [facility] Start: 11-28-2017 End: 11-29-2017 Patient encounter OTIS STARK Facility:[id number] Start: 11-27-2017 [facility] Start: 11-26-2017 Initial observation care[facility]day [facility] Start: 11-26-2017 End: 11-27-2017 Patient encounter Jonna Tapia Facility:[id number] Start: 11-26-2017 Patient encounter procedure Franciscazacarias LrBlanco [facility] Work Phone: Start: 11-02-2017 Patient encounter procedure Franciscazacarias LrBlanco [facility] Work Phone: Start: 10-20-2017 Patient encounter Jonna Lrohar Facility:[id number] Start: 10-18-2017 Patient encounter procedure Chloetazacarias Booar [facility] Work Phone: Start: 10-11-2017 Patient encounter Franciscazacarias Goncalves israelaram Blanco Facility:[facility] Start: 09-09-2017 Patient encounter procedure Chloetazacarias LrBlanco [facility] Work Phone: Start: 07-07-2017 Patient encounter procedure Chloetazacarias LrBlanco [facility] Work Phone: Start: 05-24-2017 Patient encounter Kurteletai Ivanna woodaram Blanco Facility:[facility] Start: 05-10-2017 Patient encounter procedure Chloetazacarias LrBlanco [facility] Work Phone: Start: 02-16-2017 Patient encounter procedure [facility] Phone: Start: 12-23-2016 Patient encounter procedure [facility] Work Phone: Start: 10-21-2016 Patient encounter procedure Jonna Tapia [facility] Work Phone: Patient encounter procedure Cathy Cid Work Phone: [facility] Work Phone: Procedures Date Procedure Procedure Detail Performing Clinician Start: 06-16-2023 Videoswallow Start: 02-24-2023 Urine culture Start: 02-19-2023 Bacteria identified in Urine by Culture Start: 10-15-2022 Basic metabolic 2000 panel - Serum or Plasma CATHY CID Start: 10-14-2022 CBC panel - Blood by Automated count CATHY CID Start: 10-14-2022 Comprehensive metabo lic 2000 panel - Serum or Plasma CATHY CID Start: 10-14-2022 TSH WITH REFLEX TO F REE T4 IF ABNORMAL CATHY CID Start: 02-02-2022 Radex humerus minimu m 2 views Cruzito Cheng MD Work Phone: Start: 02-02-2022 Ct cervical spine w/ o contrast material Cruzito Cheng MD Work Phone: Start: 02-02-2022 Ct head/brain w/o co ntrast material Cruzito Cheng MD Work Phone: Start: 02-02-2022 Ct pelvis w/o contra st material Cruzito Cheng MD Work Phone: Start: 01-12-2022 Medicare Annual Well ness Visit Start: 09-11-2021 Follow-up visit Start: 07-03-2021 Lipid 1996 panel - S rose or Plasma Cathy Cid DO Work Phone: Start: 11-28-2019 Basic metabolic 1998 panel - Serum or Plasma Jonna Tapia Start: 11-28-2019 CBC W Auto Different ial [facility] Start: 11-28-2019 [facility] Start: 09-09-2018 Basic metabolic 1998 panel - Serum or Plasma [facility] Start: 09-09-2018 CBC W Auto Different ial panel - Blood [facility] Start: 09-09-2018 TSH WITH REFLEX TO F REE T4 IF ABNORMAL [facility] Start: 01-02-2018 Iv infusion hydratio n each additional hour [facility] Start: 01-02-2018 Iv infusion hydratio n initial 31 min-1 hour Chengnhtai Blanco Start: 11-28-2017 Iv infusion hydratio n initial 31 min-1 hour Chenguttai Blanco Hern[facility] History of Back Surgery Oseguera guttai Blanco History of [facility] Gastrectomy [facility] History of Transuret hral Res[facility] Of Pro[facility]P) [facility] Plan of Treatment Date Care Activity Detail Author Start: 07-03-2026 Lipid panel Lipid Panel [facility] Start: 10-03-2025 DTaP/Tdap/Td Vaccine s (2 - Td or Tdap) DTaP/Tdap/Td Vaccines (2 - Td or Tdap) [facility] Start: 10-16-2023 Creatinine measurement Creatinine Le renate [facility] Start: 10-16-2023 Potassium measurement Potassium Leve l [facility] Start: 04-16-2023 Medicare Annual Well ness Visit Medicare Annual Wellness Visit (AWV) [facility] Start: 04-15-2023 End: 04-15-2023 Patient encounter procedure 04/15/2023 2:30 PM EST Office Visit [facility] [address] [place] [address] Cathy Cid DO [address] [facility] [place], [place] [id number] [facility] Start: 02-24-2023 Bacteria identified in Urine by Culture Urine Culture [facility] Start: 02-24-2023 [facility] Start: 01-01-2023 Influenza vaccination Influenza Vacc ine (#1) [facility] Start: 12-09-2022 End: 12-09-2022 Patient encounter procedure 12/09/2022 1:00 PM EDT Office Visit [facility] [address] [place] [id number] Cathy Cid DO [address] [facility] [place] [address] [facility] Start: 10-14-2022 FUV, Provider: Cathy Cid, Status: Pen, Time: 1:30 PM FUV, Provider: Cathy Cid, Status: Pen, Time: 1:30 PM [facility] Work Phone: Start: 10-14-2022 End: 10-15-2023 CBC panel - Blood by Automated count CBC Lab Routine Depression with anxiety Unexplained weight loss Fatigue, unspecified type Apathy Irritability Expected: 10/14/2022 (Approximate), Expires: 10/15/2023 [facility] Work Phone: Comment on above: Expected: 10/14/2022 (Approximate), Expires: 10/15/2023 Start: 10-14-2022 End: 10-15-2023 Comprehensive metabolic 2000 panel - Serum or Plasma Comprehensive Metabolic Panel Lab Routine Depression with anxiety Unexplained weight loss Fatigue, unspecified type Apathy Irritability Expected: 10/14/2022 (Approximate), Expires: 10/15/2023 [facility] Work Phone: Comment on above: Expected: 10/14/2022 (Approximate), Expires: 10/15/2023 Start: 10-14-2022 End: 10-15-2023 TSH with reflex to Free T4 if abnormal TSH with reflex to Free T4 if abnormal Lab Routine Depression with anxiety Unexplained weight loss Fatigue, unspecified type Apathy Irritability Expected: 10/14/2022 (Approximate), Expires: 10/15/2023 [facility] Work Phone: Comment on above: Expected: 10/14/2022 (Approximate), Expires: 10/15/2023 Start: 06-13-2022 COVID-19 Vaccine (5 - Booster for Moderna series) COVID-19 Vaccine (5 - Booster for Moderna series) [facility] Start: 06-01-2022 NPV, Provider: Bill Spears, Status: Pen, Time: 1:00 PM NPV, Provider: Bill Spears, Status: Pen, Time: 1:00 PM [facility] Work Phone: Start: 04-15-2022 EPV, Provider: Cathy Cid, Status: Pen, Time: 10:30 AM EPV, Provider: Cathy Cid, Status: Pen, Time: 10:30 AM [facility] Work Phone: Start: 03-12-2022 EPV, Provider: Cathy Cid, Status: Pen, Time: 1:00 PM EPV, Provider: Cathy Cid, Status: Pen, Time: 1:00 PM [facility] [place] Work Phone: Start: 02-11-2022 FUVHOSP, Provider: Dylan Edmonds, Status: Pen, Time: 4:00 PM FUVHOSP, Provider: Dylan Edmonds, Status: Pen, Time: 4:00 PM [facility] Work Phone: Start: 01-12-2022 Patient encounter procedure MCRANNUAL, Provider: Cathy Cid, Status: Pen, Time: 1:30 PM [facility] Work Phone: Start: 01-07-2022 Patient encounter procedure MCRANNUAL, Provider: Cathy Cid, Status: Pen, Time: 10:30 AM [facility] Work Phone: Start: 12-02-2021 Diabetes mellitus screening Diabetes Screening [facility] Start: 12-01-2021 Influenza vaccination Flu vaccine (# 1) [facility] Start: 10-17-2021 PTFUADULT4, Provider : Nisha Nunn, Status: Pen, Time: 12:00 PM PTFUADULT4, Provider: Nisha Nunn, Status: Pen, Time: 12:00 PM [facility] [address] [place] Work Phone: Start: 10-17-2021 PTRECHECKA, Provider : Nisha Nunn, Status: Pen, Time: 12:00 PM PTRECHECKA, Provider: Nisha Nunn, Status: Pen, Time: 12:00 PM [facility] [address] [place] Work Phone: Start: 10-14-2021 PTFUADULT4, Provider : Kerry Ayala, Status: Pen, Time: 12:00 PM PTFUADULT4, Provider: Kerry Ayala, Status: Pen, Time: 12:00 PM [facility] [address] [place] Work Phone: Start: 10-14-2021 PTFUADULT4, Provider : Nisha Nunn, Status: Pen, Time: 12:00 PM PTFUADULT4, Provider: Nisha Nunn, Status: Pen, Time: 12:00 PM [facility] [address] [place] Work Phone: Start: 10-10-2021 PTFUADULT4, Provider : Nisha Nunn, Status: Pen, Time: 9:30 AM PTFUADULT4, Provider: Nisha Nunn, Status: Pen, Time: 9:30 AM [facility] [address] [place] Work Phone: Start: 10-08-2021 PTFUADULT4, Provider : Nisha Nunn, Status: Pen, Time: 10:45 AM PTFUADULT4, Provider: Nisha Nunn, Status: Pen, Time: 10:45 AM [facility] [address] [place] Work Phone: Start: 10-03-2021 PTFUADULT4, Provider : Nisha Nunn, Status: Pen, Time: 10:30 AM PTFUADULT4, Provider: Nisha Nunn, Status: Pen, Time: 10:30 AM [facility] [place] Work Phone: Start: 09-23-2021 PTFUADULT4, Provider : Kerry Ayala, Status: Pen, Time: 1:30 PM PTFUADULT4, Provider: Kerry Ayala, Status: Pen, Time: 1:30 PM [facility] [address] [place] Work Phone: Start: 09-18-2021 PTEVAADULT, Provider : Nisha Nunn, Status: Pen, Time: 12:00 PM PTEVAADULT, Provider: Nisha Nunn, Status: Pen, Time: 12:00 PM [facility] Work Phone: Start: 09-16-2021 PTEVAADULT, Provider : Nisha Nunn, Status: Pen, Time: 9:30 AM PTEVAADULT, Provider: Nisha Nunn, Status: Pen, Time: 9:30 AM [facility] Work Phone: Start: 09-11-2021 FUV, Provider: Cathy Cid, Status: Pen, Time: 1:30 PM FUV, Provider: Cathy Cid, Status: Pen, Time: 1:30 PM [facility] [place] Work Phone: Start: 09-11-2021 PTFUADULT4, Provider : Nisha Nunn, Status: Pen, Time: 12:00 PM PTFUADULT4, Provider: Nisha Nunn, Status: Pen, Time: 12:00 PM [facility] [address] [place] Work Phone: Start: 09-09-2021 PTFUADULT4, Provider : Nisha Nunn, Status: Pen, Time: 12:00 PM PTFUADULT4, Provider: Nisha Nunn, Status: Pen, Time: 12:00 PM [facility] [address] [place] Work Phone: Start: 09-04-2021 PTFUADULT4, Provider : Nisha Nunn, Status: Pen, Time: 12:00 PM PTFUADULT4, Provider: Nisha Nunn, Status: Pen, Time: 12:00 PM [facility] [address] [place] Work Phone: Start: 09-02-2021 PTFUADULT4, Provider : Nisha Nunn, Status: Pen, Time: 12:00 PM PTFUADULT4, Provider: Nisha Nunn, Status: Pen, Time: 12:00 PM [facility] [address] [place] Work Phone: Start: 08-28-2021 PTFUADULT4, Provider : Kerry Ayala, Status: Pen, Time: 12:45 PM PTFUADULT4, Provider: Kerry Ayala, Status: Pen, Time: 12:45 PM [facility] [address] [place] Work Phone: Start: 08-28-2021 PTFUADULT4, Provider : Nisha Nunn, Status: Pen, Time: 12:45 PM PTFUADULT4, Provider: Nisha Nunn, Status: Pen, Time: 12:45 PM [facility] [address] [place] Work Phone: Start: 08-26-2021 PTFUADULT4, Provider : Kerry Ayala, Status: Pen, Time: 12:00 PM PTFUADULT4, Provider: Kerry Ayala, Status: Pen, Time: 12:00 PM [facility] [address] [place] Work Phone: Start: 08-21-2021 PTFUADULT4, Provider : Kerry Ayala, Status: Pen, Time: 12:00 PM PTFUADULT4, Provider: Kerry Ayala, Status: Pen, Time: 12:00 PM [facility] [address] [place] Work Phone: Start: 08-19-2021 PTFUADULT4, Provider : Nisha Nunn, Status: Pen, Time: 12:00 PM PTFUADULT4, Provider: Nisha Nunn, Status: Pen, Time: 12:00 PM [facility] [address] [place] Work Phone: Start: 08-13-2021 PTFUADULT4, Provider : Nisha Nunn, Status: Pen, Time: 11:15 AM PTFUADULT4, Provider: Nisha Nunn, Status: Pen, Time: 11:15 AM [facility] Work Phone: Start: 08-13-2021 PTFUADULT4, Provider : Nisha Nunn, Status: Pen, Time: 11:00 AM PTFUADULT4, Provider: Nisha Nunn, Status: Pen, Time: 11:00 AM [facility] [address] [place] Work Phone: Start: 08-07-2021 PTFUADULT4, Provider : Nisha Nunn, Status: Pen, Time: 12:45 PM PTFUADULT4, Provider: Nisha Nunn, Status: Pen, Time: 12:45 PM [facility] Work Phone: Start: 08-05-2021 PTFUADULT4, Provider : Nisha Nunn, Status: Pen, Time: 1:00 PM PTFUADULT4, Provider: Nisha Nunn, Status: Pen, Time: 1:00 PM [facility] Work Phone: Start: 08-05-2021 PTEVAADULT, Provider : Nisha Nunn, Status: Pen, Time: 12:30 PM PTEVAADULT, Provider: Nisha Nunn, Status: Pen, Time: 12:30 PM [facility] Work Phone: Start: 07-15-2021 PTEVAADULT, Provider : Nisha Nunn, Status: Pen, Time: 3:30 PM PTEVAADULT, Provider: Nisha Nunn, Status: Pen, Time: 3:30 PM [facility] Work Phone: Start: 07-15-2021 PTEVAADULT, Provider : Nisha Nunn, Status: Pen, Time: 3:15 PM PTEVAADULT, Provider: Nisha Nunn, Status: Pen, Time: 3:15 PM [facility] Work Phone: Start: 07-03-2021 EPV, Provider: Cathy Cid, Status: Pen, Time: 10:30 AM EPV, Provider: Cathy Cid, Status: Pen, Time: 10:30 AM [facility] Work Phone: Start: 06-09-2021 EPV, Provider: Cathy Cid, Status: Pen, Time: 11:10 AM EPV, Provider: Cathy Cid, Status: Pen, Time: 11:10 AM [facility] Work Phone: Start: 03-18-2021 EPV, Provider: Cathy Cid, Status: Pen, Time: 2:20 PM EPV, Provider: Cathy Cid, Status: Pen, Time: 2:20 PM [facility] Work Phone: Start: 01-09-2021 NPV, Provider: Anna Obrien, Status: Pen, Time: 11:00 AM NPV, Provider: Anna Obrien, Status: Pen, Time: 11:00 AM [facility] Work Phone: Start: 12-19-2020 STRSSECHPH, Provider : MANJINDER HHVI ECHO,MG CARD, Status: Pen, Time: 1:00 PM STRECHPH, Provider: YAOVIEW HHVI ECHO,MG CARD, Status: Pen, Time: 1:00 PM [facility] Work Phone: Start: 12-02-2020 Patient encounter procedure MCRANNUAL, Provider: Cathy Cid, Status: Pen, Time: 10:40 AM [facility] Work Phone: Start: 05-20-2020 Zoster Vaccines (2 of 3) Zoste r Vaccines (2 of 3) [facility] Start: 01-31-2006 Pneumococcal Vaccine : 65+ Years (2 - PCV) Pneumococcal Vaccine: 65+ Years (2 - PCV) [facility] Start: 11-28-1955 DTaP/Tdap/Td vaccine (1 - Tdap) DTaP/Tdap/Td vaccine (1 - Tdap) [facility] Start: 05-30-1937 COVID-19 Vaccine (#1) COVID-19 Vacci ne (#1) [facility] Start: 05-30-1937 Examination of skin Derm Melan jose Skin Check [facility] Start: 11-27-1936 Echocardiography Echocardiogram [facility] Basic metabolic 1998 panel - Serum or Plasma Basic Metabolic Panel [facility] Work Phone: Comment on above: Before next appointm ent CBC W Auto Different ial panel - Blood [facility] Work Phone: Comment on above: Before next appointm ent -[facility] Work Phone: NEGATED: Highlighted row has been ruled out! Planned Goals not documented [facility] Work Phone: Immunizations Immunization Date Immunization Notes Care Provider [facility] 04-15-2022 Prevnar 20 0.5 ML Intramuscular Suspension Prefilled Syringe; Translations: [Prevnar 20 0.5 ML Intramuscular Suspension Prefilled Syringe] Cathy Cid Work Phone: [facility] Work Phone: Comment on above: Series: 02-14-2022 Fluzone High-Dose Quadrivalent 0.7 ML Intramuscular Suspension Prefilled Syringe Cathy Cid Work Phone: [facility] Work Phone: 02-14-2022 influenza virus vaccine, unspecified formulation Cathy Cid DO Work Phone: [facility] Work Phone: 08-22-2021 Moderna COVID-19 Vaccine 100 MCG/0.5ML Intramuscular Suspension Cathy Cid Work Phone: [facility] [place] Work Phone: 03-18-2021 Fluzone High-Dose Quadrivalent 0.7 ML Intramuscular Suspension Prefilled Syringe; Translations: [Fluzone High-Dose Quadrivalent 0.7 ML Intramuscular Suspension Prefilled Syringe] Cathy Minaya Nostran Work Phone: [facility] Work Phone: Comment on above: Series: 03-18-2021 influenza virus vaccine, unspecified formulation Cathy Vallestran DO Work Phone: [facility] Work Phone: 03-09-2021 Moderna COVID-19 Vaccine 100 MCG/0.5ML Intramuscular Suspension Cathy Minaya Nostran Work Phone: [facility] Work Phone: 07-17-2020 Moderna COVID-19 Vaccine 100 MCG/0.5ML Intramuscular Suspension Cathy Minaya Nostran Work Phone: [facility] Work Phone: 06-17-2020 Moderna COVID-19 Vaccine 100 MCG/0.5ML Intramuscular Suspension Cathy Minaya Nostran Work Phone: [facility] Work Phone: 03-25-2020 zoster vaccine recombinant Chenguttai [id number] [facility] Work Phone: Comment on above: Series: 03-25-2020 zoster vaccine, unspecified formulation Cathy Vallestran DO Work Phone: [facility] Work Phone: 01-18-2020 Fluzone High-Dose Quadrivalent 0.7 ML Intramuscular Suspension Prefilled Syringe Cathy Minaya Nostran Work Phone: [facility] Work Phone: 01-18-2020 influenza virus vaccine, unspecified formulation Cathy Vallestran DO Work Phone: [facility] Work Phone: 01-18-2020 zoster vaccine recombinant Cathy Maxwell Van Nostran Work Phone: [facility] Work Phone: 01-18-2020 zoster vaccine, unspecified formulation Cathy Cid DO Work Phone: [facility] Work Phone: 01-02-2020 influenza virus vaccine, unspecified formulation Cathy Cid DO Work Phone: [facility] Work Phone: 01-02-2020 influenza, seasonal, injectable, preservative free Cathy Maxwell [place] Work Phone: [facility] Work Phone: Comment on above: Series: 02-21-2019 influenza, high dose seasonal, preservative-free; Translations: [Fluzone High-Dose 0.5 ML Intramuscular Suspension Prefilled Syringe] [facility] Work Phone: Comment on above: Series: 09-09-2018 zoster vaccine recombinant; Translations: [Shingrix 50 MCG/0.5ML Intramuscular Suspension Reconstituted] [facility] Work Phone: 01-21-2018 influenza virus vaccine, unspecified formulation Cathyivan Cid DO Work Phone: [facility] Work Phone: 01-21-2018 influenza, injectabl e, quadrivalent, contains preservative; Translations: [Flulaval Quadrivalent Intramuscular Suspension] [facility] Work Phone: Comment on above: Series: 12-23-2016 influenza virus vaccine, unspecified formulation Cathy Cid DO Work Phone: [facility] Work Phone: 12-23-2016 influenza, injectabl e, quadrivalent, contains preservative; Translations: [Flulaval Quadrivalent Intramuscular Suspension] [facility] Work Phone: Comment on above: Series: 01-28-2016 influenza, high dose seasonal, preservative-free Cathy E Wander [place] Work Phone: [facility] 01-02-2016 influenza virus vaccine, unspecified formulation Cathy Minaya Nostran Work Phone: [facility] Work Phone: Comment on above: Series: 01-02-2016 influenza, seasonal, injectable Jonna Tapia [facility] Work Phone: 01-02-2016 influenza, seasonal, injectable, preservative free Cathy Cid DO Work Phone: [facility] Work Phone: 10-04-2015 tetanus toxoid, redu telly diphtheria toxoid, and acellular pertussis vaccine, adsorbed; Translations: [Tdap] [facility] Work Phone: Comment on above: Series: 02-07-2015 influenza, seasonal, injectable [facility] Comment on above: Series: 01-30-2014 influenza, seasonal, injectable Jonna Tapia [facility] Work Phone: Comment on above: Series: 05-03-2013 zoster vaccine, live Jonna Rockwell [facility] Work Phone: Comment on above: Series: 01-03-2013 influenza, seasonal, injectable Cathy Minaya Nostran Work Phone: [facility] Work Phone: Comment on above: Series: 01-03-2013 influenza, seasonal, injectable Jonna Tapia [facility] Work Phone: 01-15-2012 influenza, seasonal, [facility] Work Phone: Comment on above: Series: 02-06-2011 influenza, seasonal, injectable Cathy Minaya Nostran Work Phone: [facility] Work Phone: Comment on above: Series: 02-06-2011 influenza, seasonal, injectable [facility] Work Phone: 04-25-2009 tetanus and diphther ia toxoids, adsorbed, preservative free, for adult use (2 Lf of tetanus toxoid and 2 Lf of diphtheria toxoid) [facility] Work Phone: Comment on above: Series: 02-05-2009 influenza virus vaccine, unspecified formulation Cathy Cid Work Phone: [facility] Work Phone: Comment on above: Series: 02-05-2009 influenza, seasonal, injectable [facility] Work Phone: 01-31-2005 pneumococcal polysaccharide vaccine, 23 valent [facility] Work Phone: Comment on above: Series: Payers Date Payer Category Payer Self-pay [id number] Unknown [id number] 2012 Unknown [id number] 2008 Unknown 2008 Unknown [id number] 2002 Medicare [id number] 2001 Medicare [id number] 2001 Medicare 1936 Unknown [id number] 2..1.169536.3.579.2. 1936 Unknown [id number] 2.0.1.522994.3.579.2 1936 Unknown [id number] 2.0.1.750021.3.579.2. 1936 Unknown [id number] 2.0.1.200750.3.579.2. 1936 Unknown [id number] 2. 840.1.658770.3.579.2. 1936 Unknown [id number] 2. 840.1.633401.3.579.2. 1936 Unknown [id number] 2. 840.1.715097.3.579.2. 1936 Unknown [id number] 2. 840.1.334545.3.579.2. 1936 Unknown [id number] 2. 840.1.620074.3.579.2.668 1936 Unknown [id number] 2. 840.1.604622.3.579.2. 1936 Unknown [id number] 2. 840.1.866472.3.579.2. 1936 Unknown [id number] 2.0.1.955408.3.579.2. 1936 Unknown [id number] .0.1.258650.3.579.2. 1936 Unknown [id number] 2. 840.1.642646.3.579.2. 1936 Unknown [id number] .0.1.473852.3.579.2. 1936 Unknown [id number] .0.1.417158.3.579.2. 1936 Unknown [id number] .0.1.323567.3.579.2. 1936 Unknown [id number] . 840.1.612990.3.579.2. 1936 Unknown [id number] . 840.1.365831.3.579.2. 1936 Unknown [id number] . 840.1.184575.3.579.2. 1936 Unknown [id number] . 840.1.502510.3.579.2. 1936 Unknown [id number] .16. 840.1.709384.3.579.2.356 1936 Unknown [id number] 2.16. 840.1.941379.3.579.2.356 1936 Unknown [id number] 2.16. 840.1.942657.3.579.2.356 1936 Unknown [id number] 2.16. 840.1.323929.3.579.2.356 1936 Unknown [id number] 2.16. 840.1.487326.3.579.2.356 1936 Unknown [id number] 2.16. 840.1.389217.3.579.2.356 1936 Unknown [id number] 2.16. 840.1.163501.3.579.2.356 1936 Unknown [id number] 2.16.84 0.1.401450.3.579.2.1245 1936 Unknown [id number] 2.16.84 0.1.265749.3.579.2.1245 1936 Unknown [id number] 2.16.84 0.1.924195.3.579.2.1244 Unknown [id number] Unknown [id number] 2.16.8 40.1.464115.3.579.2.462 Unknown [id number] 2.16.8 40.1.406316.3.579.2.462 Social History Date Type Detail Facility Start: 10-14-2022 Never a smoker Never a smoker [facility] Work Phone: Start: 02-02-2022 End: 10-14-2022 Tobacco smoking status CTIS Never smoked tobacco [facility] Work Phone: Start: 02-02-2022 End: 10-14-2022 Tobacco use and exposure Smokeless tobacco non-user [facility] Work Phone: Start: 02-02-2022 Alcohol intake Lifetime non-d riky (finding) [employer] Work Phone: Start: 11-27-1938 Sex Assigned At Not on file Dr. TATTOFFA Work Phone: Start: 01-23-2022 End: 12-09-2022 Exposure to SARS-CoV-2 (event) Not sure [facility] Work Phone: History of tobacco use Passive smoker [facility] Work Phone: Start: 10-14-2022 End: 12-09-2022 Alcohol intake Ex-drinker (finding) [facility] Work Phone: Start: 10-14-2022 Tobacco [facility] Work [facility]: Start: 11-27-1938 End: 1940 Sex Assigned At Male [facility] Tobacco smoking status NHIS Unknown if ever smoked [facility] Work Phone: NEGATED: Highlighted row - Never smoker [facility] Work Phone: NEGATED: Highlighted rowStart: NINF History of tobacco use Passive smoker Dr. TATTOFFA Work Phone: Functional Status Date Assessment Result Facility 03-19-2021 PHQ-9 Adult Depressi on Score PHQ-9 Adult Depression Score 4 [facility] Work Phone: Comment on above: Q1: 2, Q2: 2, Q3: 0, Q4: 0, Q5: 0, Q6: 0, Q7: 0, Q8: 0, Q9: 0, NEGATED: Highlighted row Functional performance Functional status health issues are not documented Disease [facility] Work Phone: Mental Status Date Assessment Result Facility NEGATED: Highlighted row Cognitive function [Interpretation] Cognitive status health issues are not documented Disease [facility] Work Phone: Clinical Notes 12-02-2020 to 06-16-2023 Assessment & Plan Note - Chica Early - 12/09/2022 1:47 PM EDTAssessment & Plan Note - Chica Early - 12/09/2022 1:47 PM EDAlma Cid DO - 12/09/2022 1:00 PM EDTAttachments Note Date & Type Note Facility [facility] + Plan note Associated Problem(s): Depression with anxiety There is report of improvement in mood and engagement per since changing to the Zoloft. Continue Zoloft 50 mg daily. [facility] Work Phone: 12-09-2022 Miscellaneous Notes Associated [...] history, fall risk. documented in this encounter [facility] Work Phone: 12-09-2022 Evaluation + Plan note Associated Problem(s): Carotid artery stenosis Continue Plavix [facility] Work Phone: 12-09-2022 Evaluation + Plan note Associated Problem(s): CAD (coronary artery disease) Stable, continue Rosuvastatin 10 mg & Plavix anticoagulation. T [facility] Work Phone: 12-09-2022 Evaluation + Plan note Associated Problem(s): Hx of blood clots Currently on Plavix, has taken Eliquis in the past. Hx of DVT (x3) Hx of GI bleed/ulcer that required surgical intervention per over 40 years ago. R/B discussion held regarding Plavix vs Xarelto/Eliquis, elects to continue with Plavix given complicated history, fall risk. [facility] Work Phone: 12-09-2022 History of Present illness Narrative Subjective Patient ID: Elida Lanza is a 84 y.o. male who [...] Attestation By signing my name below, I, Jhonny José attest that this documentation has been prepared under the direction and in the presence of Cathy Cid DO. documented in this encounter [facility] Work Phone: 12-09-2022 Instructions Chica Early - 12/09/2022 1:00 PM EDT Continue Plavix Continue Sertraline 50 mg daily. Continue with Ensure Follow-up as scheduled for routine care. documented in this encounter [facility] Work Phone: 10-14-2022 Evaluation + Plan note Associated Problem(s): CKD (chronic kidney disease) stage 3, GFR 30-59 ml/min ([facility]) Prior labs at baseline for patient. Will continue to monitor on regular basis. Revisited good BP control, avoiding NSAIDs, and adequate hydration as measures to further protect kidneys. [facility] Work Phone: 10-14-2022 Miscellaneous Notes Associated Problem(s): CKD (chronic kidney disease) stage 3, GFR 30-59 ml/min ([facility]) Prior labs at baseline for patient. Will continue to monitor on regular basis. Revisited good BP control, avoiding NSAIDs, and adequate hydration as measures to further protect kidneys. Associated Problem(s): Dementia ([facility]) Continue Memantine 10 mg BID. See mood recommesndationation Associated Problem(s): COPD (chronic obstructive pulmonary disease) ([facility]) Feels there is some excessive mucus [...] tablet) at bedtime. documented in this encounter [facility] Work Phone: 10-14-2022 Evaluation + Plan note Associated Problem(s): Dementia (CMS/HCC) Continue Memantine 10 mg BID. See mood recommesndationation [facility] Work Phone: 10-14-2022 Evaluation + Plan note Associated Problem(s): COPD (chronic obstructive pulmonary disease) (CMS/HCC) Feels there is some excessive mucus production with out cough. Patient/ to do trial with split dosing PPI as 10 mg in AM and 10 mg in PM. [facility] Work Phone: 10-14-2022 Evaluation + Plan [...] daily. Will reassess patient in 6-8 weeks. [facility] Work Phone: 10-14-2022 Evaluation + Plan note Associated Problem(s): Body mass index (BMI) of 21.0 to 21.9 in adult Down ~ 25 lbs in last 1.5 years. Basic blood work ordered today. Patient/ do not wish to have extensive work-up, felt to be due in part to aging/comorbidities/change in dietary habits. Advised can add on Ensure or something similar. [facility] Work Phone: 10-14-2022 Evaluation + Plan note Associated Problem(s): Insomnia Taking Trazodone 50 mg (1/2 tablet) at bedtime. [facility] Work Phone: 10-14-2022 History of Present illness Narrative Subjective Patient ID: Elida Lanza is a 83 y.o. male who [...] -Dementia, on Memantine 10 mg BID. MOCA 2018 was stable. -COPD, never a smoker but [...] List Items Addressed This Visit Nervous Dementia ([facility]) Continue Memantine 10 mg BID. See mood recommesndationation Respiratory COPD (chronic obstructive pulmonary disease) ([facility]) Feels there is some excessive mucus production with out cough. Patient/ to do trial with split dosing PPI as 10 mg in AM and 10 mg in PM. Genitourinary CKD (chronic kidney disease) stage 3, GFR 30-59 ml/min ([facility]) Prior labs at baseline for patient. [...] Cathy Cid DO. documented in this encounter [facility] Work Phone: 10-14-2022 Instructions Chica Early [...] in 6-8 weeks. documented in this encounter [facility] Work Phone: 02-02-2022 Hospital Discharge instructions Cruzito Cheng MD - 02/02/2022 9:07 PM EDT Rest and ice shoulder; may have some nausea and headache over next 3 days The following attachments cannot be sent through Care Everywhere.Head Injury: Closed: General Info ([place]enezuelan)Shoulder Sprain ([place]an)documented in this encounter [facility] Work Phone: 11-27-2021 Note Discharge Summary PHYSICAL THERAPY Referral/Discharge Information: Date of Discharge: 11/27/21 Date of Last Visit: 10/14/21 Date of Evaluation: 09/18/21 Number of Attended Visits: 6 Referred by: Dr. Cathy Cid Referred for: (B) shoulder pain Reason for Discharge: Failed to schedule and/or to keep follow-up appointment(s). Signatures Electronically signed by : Nisha Nunn, PT; Nov 27 2021 4:00PM EST (Author) [employer] 08-28-2021 Note Therapy Diagnosis Assessed Balance problems (781.99) (R26.89) Generalized weakness (780.79) (R53.1) Unsteadiness on feet (781.2) (R26.81) Plan Goals: Goals set and discussed today. By discharge ELIDA LANZA will achieve the following goals: Activity [...] Adult Risk Screening Initial Fall Risk Screening: ELIDA has not fallen in the last 6 months. His fall did not result in injury. ELIDA does not have a fear of falling. [...] daily life. 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 Objective Ortho Strength Hip: (Luna: "P!" Denotes Pain with Movement) Extension: 3+/5 on right and 4-/5 on left. Flexion: 4/5 on right and 5/5 on left. Abduction: 3+/5 on right and 3+/5 on left. Adduction: 4/5 on right and 4+/5 on left. Knee: (Luna: " P! " Denotes Pain with Movement) Knee extension was [...] code time is 41 minutes. Therapeutic exercise (32662): timed minutes 41, units 3 . Reassessment of OBJ measures. HEP completed, provided, and reviewed Patient Education. Provided today: a personalized home program (Scanned), education Education Provided: plan of care, anatomy, fall risk, posture, physiology, home exercise program, body mechanics, home safety and DC plan, assessment of progress. Information communicated to patient. Response to education: verbalized understandi (more content not included)... [email or web address] 05-24-2021 History of Present illness Narrative 82-year-old [...] in his elbow, forearm, wrist or hand. [facility] Work Phone: 12-02-2020 History of Present illness Narrative MWV LAST COMPLETED 12/02/2020Health maintenance:TDAP-- 10/2015COVID-- completed 07/2020 + booster 03/2021Influenza-- Due Fall hingrix-- completedPneumonia series-- PPSV 2004; no record of PCVCscope(45-75)-- N/A - graduatedLast DEXA-- 04/2016 normalPSA-- N/A - graduatedAAA Screen(65-79)-- 03/2017 normalAnxiety/Depression-- HQ-2: 0GAD-7: 2Hepatitis C Screen-- none foundLast HbA1c-- 5.8 in ipid Panel-- ratio: 3.2 in T cardiac score-- none found (coronary artery calcifications on 07/2007 CT chest)Patient presents today for recheck SOB, gait, hyperglycemia, HTN, HLD/CAD, CKD + lab review. Pat ient states they have no issues or complaints today.Received flu shot todayPatient answered all questions prior to immunization1: Have you ever had Guillain-[place] syndrome? (a viral illness resulting in neurological [...] insomnia.Dementia on Memantine 10 mg BID. MOCA 2019 was stable.Hyperglycemia, barely in pre-diabetic range, lifestyle managed.12/2020 Hgb A1c 5.8; prior A1c was 5.6 in 01/2018CKD 12/2020 GFR 59 & creatinine 1.18, at baseline and up from prior.05/2020 GFR 51 & creatinine 1.33.Hypertension, taking Metoprolol 25 mg 1/2 tablet daily. [facility] Work Phone: Evaluation note Diagnosis Injury of head, initial encounter- Primary Sprain of right shoulder, unspecified shoulder sprain type, initial encounter documented in this encounter [facility] Work Phone: Evaluation note* Diagnosis Depression with anxiety- Primary Dysthymic disorder Body mass index (BMI) of 21.0 to 21.9 in adult Unexplained weight loss Loss of weight Fatigue, unspecified type Apathy Demoralization and apathy Irritability Chronic obstructive pulmonary disease, unspecified COPD type (CMS/HCC) Dementia, unspecified dementia severity, unspecified dementia type, unspecified whether behavioral, psychotic, or mood disturbance or anxiety ([facility]) Stage 3a chronic kidney disease documented in this encounter [facility] Work Phone: Evaluation note* Diagnosis Depression with anxiety- Primary Dysthymic disorder Coronary artery disease due to lipid rich plaque Stenosis of carotid artery, unspecified laterality Hx of blood clots documented in this encounter [facility] Work Phone: Evaluation noteNo assessment information available [facility] Work Phone: History of Present illness [...] Maintenance: needs assistance. * Falls Risk Screening:. ELIDA has not fallen in the last 6 [...] does struggle with short term memory some, machine long goods helper memory is better. Still driving, however, is [...] all routine cancer and prostate cancer screenings. [facility] Work Phone: History of Present illness [...] Maintenance: needs assistance. * Falls Risk Screening:. ELIDA has not fallen in the last 6 [...] does struggle with short term memory some, penitentiary memory is better. Still driving, however, is [...] all routine cancer and prostate cancer screenings. [facility] Work Phone: History of Present illness [...] Maintenance: needs assistance. * Falls Risk Screening:. ELIDA has not fallen in the last 6 [...] does struggle with short term memory some, penitentiary memory is better. Still driving, however, is [...] all routine cancer and prostate cancer screenings. [facility] Work Phone: History of Present illness NarrativeI am seeing Elida in follow-up. He has been followed in the past with Dr. Silveira. Elida's 82. He has a history of mild nonobstructive coronary disease based upon a cardiac catheterization in 2010. He has had a history of HFrEF. He also has COPD. Evidently he has been coming more short of breath. He was sent for a dobutamine stress echo at [place]. This was normal. He has no symptoms of chest pain or pressure no lower extremity edema no orthopnea no palpitations. Because of the shortness of breath he was sent for further evaluation. He has had PFTs indicating he does have COPD. He was given inhalers but he has not used them at this point.[facility] [place] Work Phone: History of Present illness Narrative* [...] Maintenance: needs assistance. * Falls Risk Screening:. ELIDA has not fallen in the last 6 [...] does struggle with short term memory some, machine long goods helper memory is better. Still driving, however, is [...] all routine cancer and prostate cancer screenings. [facility] Work Phone: History of Present illness [...] dyspnea * He does not have a Broaching Machine Operator * reports scar tissue in lung * [...] Son Thanh lives nearby, sees patient 1-2x/week [facility] Work Phone: History of Present illness [...] dyspnea * He does not have a Broaching Machine Operator * reports scar tissue in lung * [...] Son Thanh lives nearby, sees patient 1-2x/week [facility] Work Phone: History of Present illness [...] Maintenance: needs assistance. * Falls Risk Screening:. ELIDA has not fallen in the last 6 [...] does struggle with short term memory some, machine long goods helper memory is better. Still driving, however, is [...] all routine cancer and prostate cancer screenings. [facility] Work Phone: History of Present illness [...] above in order to return patient to PLOF without restriction. * Clinical Presentation: Stable and/or uncomplicated characteristics. * Level of Complexity: low * Problem List: activity limitations, ADLs/IADLs/self care skills, aerobic capacity/endurance, balance, decreased functional level, decreased knowledge of HEP, fall risk, gait/locomotion, motor function/control/tone, participation restrictions, sensory and strength. [facility] [address] [place] Work Phone: History of Present illness NarrativePatient tolerates today session without pain but with mild fatigue. Patient challenged with interventions but demos ability to complete with no more than SBA needed with intermittent CGA for safety. Patient with ongoing strength and proprioceptive deficits. [facility] [address] [place] Work Phone: History of Present illness NarrativePatient tolerates session well. Requires CGA to Gadiel this date for safety. Lacks safety with functional mobility d/t balance and strength deficits which place him at increased risk for falls. Requires mod verbal cueing throughout for proper form and execution. Educated patient again on controlled decent and ensuring seat is behind him before sitting. [facility] [address] [place] Work Phone: History of Present illness NarrativePatient requires frequent verbal and tactile cueing throughout session for form, execution, and safety. Patient challenged with interventions d/t mobility, strength, and proprioception deficits contributing to ongoing safety concerns with functional mobility. [facility] [address] [place] Work Phone: History of Present illness Narrative* Patient identified by name and * Patient demo's unsteadiness on feet when challenged with change of proprioception this date. Patient requiring max verbal cues for straight posture during standing strengthening exercises with min carry over. Patient quick to fatigue during session. [facility] [address] [place] Work Phone: History of Present illness [...] directed for overall health and wellness. [facility] Work Phone: History of Present illness [...] limitations listed above to return patient to OF without restriction. * Clinical Presentation: Stable and/or uncomplicated characteristics. * Level of Complexity: low * Problem List: activity limitations, ADLs/IADLs/self care skills, decreased functional level, decreased knowledge of HEP, fall risk, pain, participation restrictions, posture, range of motion/joint mobility and strength. [facility] Work Phone: History of Present illness Narrative* Patient identified by name and * Patient demo's weakness in L shoulder demo'g difficulty with AAROM and PROM. Patient demo's difficulty with standing AAROM exercises with increased symptoms being unable to complete reps. Patient demo's weakness in L GH ER with resisted exercises. [facility] [address] [employer] Work Phone: History of Present illness NarrativePatient demos severe weakness throughout (B) shoulders; as well as, limited jt and soft tissue mobility effecting his mobility. Patient tolerates session well but is challenged d/t weakness and stiffness. Appropriately challenged this date to address deficits. [facility] [address] [employer] Work Phone: History of Present illness Narrative* [...] cueing, assistance, and close/direct supervision provided. [facility] Work Phone: History of Present illness NarrativePatient with no c/o increased pain throughout progressions this session. Continues to demo more active assisted motion than solely active d/t significant weakness of (L) shoulder. Patient lacks the strength to be able to lift (L) arm independently continuing to impact his day to day activity. [facility] Work Phone: History of Present illness [...] increased fatigue at end of session. [facility] [place] Work Phone: History of Present illness Narrative* ELIDA is here with his for Hospital FUV-Posterior head injury and right shoulder injury from fall on concrete (garage floor). Pt reports that pt has fallen multiple time recently; once approx 1.5 weeks prior to fall hospitalization, and once the day after fall hospitalization. * Gaps- Flu, Medicare Advanced Planning -[facility] Work Phone: History of Present illness Narrative* ELIDA is here with his for Hospital FUV-Posterior [...] all results from the emergency room visit [facility] Work Phone: History of Present illness [...] Maintenance: performs independently. * Falls Risk Screening:. ELIDA has fallen in the last 6 months. [...] coronary artery calcifications on 07/2007 CT chest. [facility] Work Phone: History of Present illness [...] Maintenance: performs independently. * Falls Risk Screening:. ELIDA has fallen in the last 6 months. [...] coronary artery calcifications on 07/2007 CT chest. [facility] Work Phone: Reason for referral (narrative)No reason for referral information availableWSelect [facility] Work Phone: Reason for visit NarrativeInitial Evaluation . Balance problems. [facility] [place] Work Phone: Reason for visit Narrative* Initial Evaluation . (L) shoulder pain. * Referred by: Dr. Cathy Cid 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 AttendingRaBobo luther? PrimaryJonna Tapia Note Recipients: Jonna Tapia MD - [phone] [Preferred]Bobo Crowe MD Discharge: Summary:Admission Date: .26-Nov-2017 12:26:00Discharge Date: [id number] Physician at Discharge: Nay Crowedmission Reason: Confusion/Disorientation(1)Final Discharge Diagnoses: Confusion/DisorientationProcedures: .Condition at Discharge: SatisfactoryDisposition at Discharge: .HomeVital Signs: T [id number]%Date/Time11/27 15:537 15:5311/27 15:5311/27 16: 15:53Range(37C - 37C ) (78 - [...] hyperglycemia, HTN, HLD/CAD, CKD, COPD + MWV. ELIDA LANZA is here for a follow-up for SOB, gait, hyperglycemia, HTN, HLD/CAD, CKD + lab review.6 mo6 mof/u mood, memory, hyperglycemia, HTN, HLD/CAD, CKD, COPD + MWV.[facility]ospital F[facility]-FallHospital FUV-Fallf/u gait, hyperglycemia, HTN, HLD/CAD, CKD + MWVf/u gait, hyperglycemia, HTN, HLD/CAD, CKD + MWV Chief Complaint and Reason for Visit Chief Complaint LABWORK Chief Complaint LABWORK LABWORK Chief Complaint LABWORK [facility] LABWORK LABWORK LABWORK Chief Complaint LABWORK Dysphagia, oropharyngeal phase Chief Complaint Dysphagia, oropharyn geal phase LABWORK Chief Complaint Admit Date [facility] LAB WORK September 12, 2024 5:0 0am Additional Source Comments (unrecognized sect ion and content) No Status Records FoundNo Status Records FoundNo Status Records FoundNo Status Records FoundNo Status Records FoundNo Status Records FoundNo Status Records Found INFORMATION SOURCE (unrecogn ized section and content) DATE CREATED AUTHOR 03/21/2018 [facility] DATE CREATED AUTHOR AUTHOR'S ORGANIZ ATION 02/09/2022 [facility] DATE CREATED AUTHOR AUTHOR'S ORGANIZ ATION 04/22/2022 [employer] DATE CREATED AUTHOR AUTHOR'S ORGANIZ ATION 08/05/2022 [facility] DATE CREATED AUTHOR AUTHOR'S ORGANIZ ATION 10/19/2022 [facility] DATE CREATED AUTHOR AUTHOR'S ORGANIZ ATION 11/06/2022 [facility] DATE CREATED AUTHOR AUTHOR'S ORGANIZ ATION 01/18/2025 [facility] Reason for Visit (unrecogniz ed section and content) Reason Comments Fall In garage on concret e at [address] Head Injury Hit posterior head, denies LOC, no laceration Shoulder Injury Right shoulder/elbow pain/injury Reason Comments Follow-up Hypertension Hyperlipidemia Coronary Artery Disease Chronic Kidney Disease Hyperglycemia Gait Problem Excessive Mucus Reason Comments Weight Check Pt presents for foll ow up weight check Care Teams (unrecognized sec tion and content) Vice President Of Procurement Relationship Specialty Start Date End Date Cathy Cid, DO [address] [facility] [place] [address] PCP - General 01/29/22 Cathy Cid DO [address] [facility] [place] [address] PCP - MSSP ACO Attributed Provider 05/03/21 Vice President Of Procurement Relationship Specialty Start Date End Date Cathy Cid DO [address] [facility] [place] [address] PCP - General 01/29/22 Cathy Cid, [address] [facility] [place] [address] PCP - MSSP ACO Attributed Provider 05/03/21 Team Status: Inactive Member Role Status Dates Rudy PANG MD Attending Provider Active Team Status: Active Member Role Status Dates Rudy PANG MD Attending Provider Active Team Status: Active Member Role Status Dates Dr. Rudy Lewis SrGurmeet , DO Primary Care Provider Active Team Status: Inactive Member Role Status Dates Dr. Rudy Lewis Sr. , DO Primary Care Link tomas, Attending Provider, Referring Provider Active Team Status: Inactive Member Role Status Dates Dr. Rudy Lewis Sr. , DO Primary Care Provider Active Rudy PANG MD Attending Provider Active Team Status: Active Member Role/Relationship Status Dates Dr. Rudy Lewis Sr. , DO Primary Care Provider Active Team Status: Inactive Member Role/Relationship Status Dates Dr. Rudy Lewis Sr. , DO Primary Care Provider Active Start: September 12, 2024 End: September 12, 2024 Rudy PANG MD Attending Provider Active S tart: September 12, 2024 End: September 12, 2024 Goals (unrecognized section and content) Goals may be documented in a n alternate sectionGoals may be documented in an alternate sectionGoals may be documented in an alternate sectionGoals may be documented in an alternate sectionGoals may be documented in an alternate sectionGoals may be documented in an alternate sectionGoals may be documented in an alternate section FOR RECORDS PERTAINING TO PATIENTS WHO ARE [...] BE BASED ON THE PRIMARY CLINICAL RECORDS. [facility] [employer] [facility]. provides no warranty or guarantee of the accuracy or completeness of information in this document.
[2025-03-23 08:05] LABS: Hematocrit 40.7 % (40-54); Hemoglobin 13.0 g/dL (13.0-16.5); Mean Corp Hgb Conc 31.9 g/dL (32-36); Mean Corpuscular Volume 95.8 fL (80-94); Mean Platelet Vol. 10.1 fl (6.2-12.0); Platelet Count 198 K/mm3 (150-450); RBC Distribution Width CV 13.2 % (11.6-14.6); RBC Distribution Width SD 46.4 fl (35.1-43.9); Red Blood Count 4.25 M/mm3 (4.6-6.2); White Blood Count 7.3 K/mm3 (4.4-11.0)
== END ==
LOC: OLS.ACH 05:00
PROVIDERS: PCP Internal Medicine; Visit Provider Internal Medicine
DX: R04.0 Epistaxis (principal)
CPT/HCPCS: 36415; 85027